=== PATIENT | female | born 1945 | race Two or more races ===

== ENCOUNTER → 2023-12-10 07:30 | Outpatient (REF) | payer MEDICARE, OTHER, SELFPAY ==
[2023-12-10 08:47] LABS: % Basophils 0.6 % (0-2); % Eosinophils 3.2 % (0-6); % Immature Granulocytes 0.7 % (0-0.5); % Lymphocytes 33.6 % (20.5-51.1); % Neutrophils 51.9 % (42.2-75.2); Absolute Basophils 0.1 10^3/uL (0-0.2); Absolute Eosinophils 0.4 10^3/uL (0-0.7); Absolute Immature Granulocytes 0.1 10^3/uL (0-0.05); Absolute Lymphocytes 4.1 10^3/uL (1.2-3.4); Absolute Monocytes 1.2 10^3/uL (0.1-0.6); Absolute Neutrophils 6.4 10^3/uL (1.4-6.5); Hematocrit 38.5 % (37.0-47.0); Hemoglobin 12.9 g/dL (12.0-16.0); Mean Corp Hgb Conc. 33.5 g/dL (33.0-37.0); Mean Corpuscular Hgb 27.4 pg (27.0-31.0); Mean Corpuscular Volume 81.7 fL (81.0-99.0); Mean Platelet Volume 9.8 fL (7.4-10.4); Nucleated Red Blood Cells % 0 %; Platelet Count 413 10^3/uL (130-400); Red Blood Cell Count 4.71 10^6/uL (4.20-5.40); Red Cell Dist. Width 14.6 % (11.5-14.5); White Blood Cell Count 12.2 10^3/uL (4.8-10.8)
[2023-12-10 09:47] LABS: Blood Urea Nitrogen 26 mg/dl (7-17); Calcium 9.5 mg/dl (8.4-10.2); Carbon Dioxide 30 mmol/L (22-30); Chloride 102 mmol/L (98-107); Glucose 87 mg/dl (70-99); Potassium 3.3 mmol/L (3.5-5.1); Sodium 136 mmol/L (135-145); eGFR > 60.00
== END ==
LOC: SDSPAT 07:30
PROVIDERS: ATTENDING PHYSICIAN Student in an Organized Health Care Education/Training Program; FAMILY PHYSICIAN Family Medicine
DX: Z01.818 Encounter for other preprocedural examination (principal)
CPT/HCPCS: 36415; 80048; 85025

== ENCOUNTER → 2023-12-14 06:35 | Day surgery (SDC) | payer MEDICARE, OTHER, SELFPAY ==
[2023-12-10 07:39] VITALS: BMI 28.4
--- NOTE | 2023-12-10 11:20 | PTCARENOTE ---
K+ 3.3Navya at Dr. Lemon's office made aware.
--- NOTE | 2023-12-10 13:47 | PTCARENOTE ---
K+ 3.3 collected today was reviewed by ; no actions requested.
[2023-12-14] VITALS (10 sets, daily range): BP systolic 104–158; BP diastolic 49–83; BMI 28.4
[2023-12-14] MEDS: TYLENOL 1000 MG PO (08:15)
[2023-12-14] MEDS: CELEBREX 200 MG PO (08:15)
[2023-12-14] MEDS: NORMOSOL-R 1000 IV (08:16)
[2023-12-14] MEDS: DILAUDID 0.5 MG IV (14:31)
[2023-12-14] MEDS: DILAUDID 0.25 MG IV (14:59)
== END ==
LOC: SDS 06:35
PROVIDERS: ATTENDING PHYSICIAN Student in an Organized Health Care Education/Training Program
DX: M25.372 Other instability, left ankle (principal); Q66.6 Other congenital valgus deformities of feet
CPT/HCPCS: 28725; 27618

== ENCOUNTER 2024-04-15 14:25 | Emergency (ER) | payer MEDICARE, OTHER, SELFPAY ==
[2024-04-15 14:28] VITALS: BP 163/91
[2024-04-15 15:39] VITALS: BP 154/77
--- NOTE | 2024-04-15 15:51 | ED.GENMED ---
History of Present Illness
General
Chief Complaint: Skin Problem
Source: patient and family
Time Seen by Provider: 04/15/24 15:36
History of Present Illness
History of Present Illness:
79-year-old female with past medical history of hypertension, diverticulitis, polymyalgia rheumatica presenting to the emergency department for evaluation of atraumatic left leg pain for the last week, went to primary care provider and was started
on Bactrim for suspected cellulitis, erythema has improved however patient noting pain is worsening and now traveling up her leg into the thigh area. Patient recently had a screw inserted into her left ankle by Dr. Lemon in December and reports she
also saw him in office and reports that everything was okay with the ankle. Patient also saw dermatology and was recommended just to stay on the Bactrim. Patient is prescribed tramadol for pain secondary to PMR but she reports this is not helping
the pain. Patient denies any trauma, weakness or numbness, chills or rigors, notes she did have a low-grade temperature of 99.6 at the onset of the symptoms but has not had any fever since. No known tick bites. Patient without any other concerns
presently.
Past History
Past History
ED Past Medical History: HTN and Other (Diverticulitis)
ED Past Surgical History: Appendectomy, Cardiac, Cholecystectomy, Gynecological, Orthopedic and Other
Social History
Tobacco: Non-smoker
Alcohol: None
Drug: None
Personal: Single
Living: with family
Review of Systems
Review of Systems
All Other Systems: ROS reviewed and negative except as documented in HPI and ROS
Phy Exam
Physical Exam
Physical Exam:
GENERAL: Alert , in no apparent distress but does appear to have discomfort
EYE: conjunctiva clear
Head: Normocephalic atraumatic
NECK: Supple,
ENT: mmm.
LUNGS: no acute respiratory distress
NEUROLOGICAL: Alert and oriented
SKIN: Warm and dry, there is very faint outline of erythema along the lateral aspect of the lower left leg extending from the proximal ankle to the proximal tibia with tenderness directly over this area. Varicose veins noted
MUSCULOSKELETAL: Patient is easily palpable pedal and tibial pulses. Cap refill less than 2 seconds. Sensation grossly intact to light touch
PSYCH: Normal and appropriate interaction.
Scores
Heart Failure Risk
Heart Failure Risk Score: Not Applicable
Heart Score for Chest Pain Patients
STEMI patient?: Not applicable
Withdrawal Assessment of Alcohol
Withdrawal Assessment Completed?: Not applicable
Course
Orders/Labs/Results
Orders:
Orders
04/15/24 15:49
Oxycodone/Acetaminophen [Percocet 5/325] 1 tablet PO NOW STA
US Periph Venous LOWER Ext LT Urgent
Comment:
Reason For Exam: pain, varicose veins, recent cellulitis
04/15/24 16:07
Basic Metabolic Panel Urgent
Complete Blood Count/With Diff Urgent
Lyme Progressive Urgent
Abnormal Lab Results
04/15/24
16:07
WBC 12.9 H 10^3/uL
(4.8-10.8)
MCV 79.6 L fL
(81.0-99.0)
RDW 14.9 H %
(11.5-14.5)
Plt Count 413 H 10^3/uL
(130-400)
Abs Immat Gran (auto) 0.1 H 10^3/uL
(0-0.05)
Absolute Neuts (auto) 8.9 H 10^3/uL
(1.4-6.5)
Absolute Monos (auto) 1.1 H 10^3/uL
(0.1-0.6)
Lymphocytes % 17.9 L %
(20.5-51.1)
BUN 22 H mg/dl
(7-17)
Creatinine 1.1 H mg/dL
(0.6-1.0)
Glucose 117 H mg/dl
(70-99)
04/15/24 16:07
04/15/24 16:07
Vital Signs
Initial and Last Documented VS:
Initial Vital Signs
Temp Pulse Resp BP Pulse Ox
98.2 F 85 20 163/91 99
04/15/24 14:28 04/15/24 14:28 04/15/24 14:28 04/15/24 14:28 04/15/24 14:28
Last Documented Vital Signs
Temp Pulse Resp BP Pulse Ox
98.2 F 85 20 127/67 95
04/15/24 14:28 04/15/24 14:28 04/15/24 14:28 04/15/24 17:00 04/15/24 17:30
MDM/Problems Addressed
Differential Diagnosis Includes:
cellulitis, DVT, lyme although would not expect pain to be presenting symptom, exacerbation of PMR
MDM/Problems Addressed:
79-year-old female presenting emergency department for atraumatic left lower extremity pain and erythema, recently diagnosed with cellulitis and started on Bactrim with reported improvement of erythema however pain remains and now traveling up the
left leg. Patient did have 1 day of fever earlier in the week but none since. Arrives hemodynamically stable. Does appear mildly uncomfortable. Will treat with 1 dose of p.o. Percocet. Labs ordered including Lyme. Will check ultrasound to rule
out DVT.
Chronic conditions affecting care: Other (PMR)
*Radiology
Radiology exam reviewed: radiology read reviewed
*Pulse Oximetry
Patient hypoxic: no
*Critical Care Note
Total Time (30-74mins, 75-104mins- exclusive of procedures): Not Applicable
Patient Management
Escalation/DeEscalation of care consider admission/obs:
I reviewed the results of patient's lab work and ultrasound with patient and family. Patient did have a leukocytosis of 12.9 however is decreased from earlier this week when she had labs checked and she was around 15,000. Patient may have some
component of a chronic leukocytosis given she is on chronic steroids due to her PMR. Patient's ultrasound is negative for DVT. She notes significantly improved pain following the p.o. Percocet. Had extensive conversation in regards to admission
versus continued outpatient management and given the fact that patient has had improved erythema, and no fevers, improving leukocytosis and now almost resolved pain the patient does feel comfortable being discharged home. Will send patient a
short-term course of Percocet to be used as needed for pain. Advised if she does decide to take Percocet she cannot mix tramadol with this. Discussed potential side effects of Percocet including drowsiness and constipation. Patient will follow-up
with primary care provider. Aware of return precautions to the ER.
ED Attending Note
-
Portions of this chart may have been created with voice recognition software.� Occasional wrong word or��sound alike� substitutions may have occurred due to the inherent limitations of voice recognition software.
Discharge Plan
Departure
Patient Disposition: Home (Routine Discharge)
Date of Disposition: 04/15/24
Time of Disposition: 17:41
Patient with high blood pressure during this ER visit?: Yes
Discharge Problem:
Pain in left lower leg
Instructions: Cellulitis (Skin Infection), Adult (DC)
Prescriptions:
New
oxycodone-acetaminophen [Percocet] 5-325 mg tablet
1 tab PO Q6HPRN PRN (Reason: pain) Qty: 10 0RF
No Action
tramadol 50 mg tablet
50 - 100 mg PO Q6H PRN (Reason: moderate-severe pain) Qty: 30 0RF
amlodipine 5 mg Tablet
5 mg PO DAILY Qty: 1 0RF
methylprednisolone [Methylprednisone] 4 mg Tablet
4 mg PO DAILY
pantoprazole 40 mg Tablet,Delayed Release (Dr/Ec)
40 mg PO DAILY
Premarin 0.3 mg Tablet
0.3 mg PO DAILY
hydrochlorothiazide 12.5 mg Tablet
12.5 mg PO DAILY
Referrals:
Paul Torres, [Family Provider] -
Interventions
Interventions:
*Risk Screen - Suicide Last Done: 04/15/24 14:26
*General Assessment Last Done: 04/15/24 14:28
*Neglect/Abuse Screening Last Done: 04/15/24 16:00
*Nursing Disposition Last Done: 04/15/24 17:58
ED-Skin Assessment Last Done: 04/15/24 16:00
Discharge Date and Time
Discharge Date/Time: 04/15/24 17:59
Print Language: MACEDONIAN
[2024-04-15 16:00] VITALS: BP 138/55
[2024-04-15 16:26] LABS: % Basophils 0.5 % (0-2); % Eosinophils 4.3 % (0-6); % Immature Granulocytes 0.4 % (0-0.5); % Lymphocytes 17.9 % (20.5-51.1); % Monocytes 8.2 % (1.7-9.3); % Neutrophils 68.7 % (42.2-75.2); Absolute Basophils 0.1 10^3/uL (0-0.2); Absolute Eosinophils 0.6 10^3/uL (0-0.7); Absolute Immature Granulocytes 0.1 10^3/uL (0-0.05); Absolute Lymphocytes 2.3 10^3/uL (1.2-3.4); Absolute Monocytes 1.1 10^3/uL (0.1-0.6); Absolute Neutrophils 8.9 10^3/uL (1.4-6.5); Hematocrit 39.1 % (37.0-47.0); Hemoglobin 13.3 g/dL (12.0-16.0); Mean Corpuscular Hgb 27.1 pg (27.0-31.0); Mean Corpuscular Volume 79.6 fL (81.0-99.0); Mean Platelet Volume 9.5 fL (7.4-10.4); Nucleated Red Blood Cells % 0 %; Platelet Count 413 10^3/uL (130-400); Red Blood Cell Count 4.91 10^6/uL (4.20-5.40); Red Cell Dist. Width 14.9 % (11.5-14.5); White Blood Cell Count 12.9 10^3/uL (4.8-10.8)
[2024-04-15 16:37] LABS: Blood Urea Nitrogen 22 mg/dl (7-17); Carbon Dioxide 25 mmol/L (22-30); Chloride 99 mmol/L (98-107); Glucose 117 mg/dl (70-99); Potassium 4.8 mmol/L (3.5-5.1); Sodium 138 mmol/L (135-145); eGFR 51.11
[2024-04-15] MEDS: PERCOCET 5/325 1 TABLET PO (16:44)
[2024-04-15 16:50] VITALS: BP 148/66
[2024-04-15 17:00] VITALS: BP 127/67
[2024-04-18 11:23] LABS: Lyme Antibody Screen, EIA Negative (Negative)
== END 2024-04-15 17:59 | disposition home or self-care (01) ==
LOC: EMR 14:25
PROVIDERS: Physician Assistant Medical; EMERGENCY PHYSICIAN Emergency Medicine; FAMILY PHYSICIAN Family Medicine
DX: M79.662 Pain in left lower leg (principal); I83.90 Asymptomatic varicose veins of unspecified lower extremity; D72.829 Elevated white blood cell count, unspecified; I10 Essential (primary) hypertension; M35.3 Polymyalgia rheumatica; Z90.49 Acquired absence of other specified parts of digestive tract
CPT/HCPCS: 99284; 80048; 85025; 86618; 93971

== ENCOUNTER 2025-05-22 16:18 | Inpatient (IN) | payer MEDICARE, OTHER, SELFPAY ==
[2025-05-22] VITALS (9 sets, daily range): BP systolic 92–162; BP diastolic 47–81; BMI 28.4; BMI 27.6
--- NOTE | 2025-05-22 10:45 | ED.GENMED ---
History of Present Illness
General
Chief Complaint: Weakness
Source: patient
Exam Limitations: none
Time Seen by Provider: 05/22/25 10:35
History of Present Illness
History of Present Illness:
See MDM
Past History
Past History
ED Past Medical History: HTN and Other (Diverticulitis)
ED Past Surgical History: Appendectomy, Cardiac, Cholecystectomy, Gynecological, Orthopedic and Other
Social History
Tobacco: Non-smoker
Alcohol: None
Drug: None
Personal: Single
Living: with family
Phy Exam
Physical Exam
Physical Exam:
See MDM
Course
Orders/Labs/Results
Orders:
Orders
05/22/25 10:44
0.9% Sodium Chloride 1000 ml [Nss] 1,000 ml IV BOLUS
05/22/25 10:45
Electrocardiogram (*1) Urgent
Reason for Study: Fatigue / Weakness
EKG- Treatment ONCE
05/22/25 11:01
Basic Metabolic Panel Urgent
Complete Blood Count/With Diff Urgent
Lipase Urgent
TSH Reflex To Free T4 Urgent
Troponin I Urgent
Urinalysis Reflex To Culture Urgent
Date Specimen was Collected: 05/22/25
Time Specimen was Collected: 10:54
Urine Microscopic Reflex Cult Urgent
Urine Culture Urgent
AILYN Source: U
Specimen Description:
Date Specimen was Collected: 05/22/25
Time Specimen was Collected: 10:54
05/22/25 12:03
LevoFLOXacin 500 MG/100 ML [Levaquin] 500 mg in 100 ml IV NOW
05/22/25 13:23
CR Chest - 2 Views Urgent
Comment:
Reason For Exam: SOB
05/22/25 13:32
Electrocardiogram (*1) Urgent
Reason for Study: Chest Pain
EKG- Treatment ONCE
05/22/25 13:46
CMP [Comprehensive Metabolic Panel] Urgent
Troponin I Urgent
05/22/25 13:59
Mag Hydrox/Al Hydrox/Simeth [Maalox] 30 ml PO NOW STA
05/22/25 14:47
CARDIOLOGY CONSULT Urgent
Consulting Provider: Neto Briggs
Was physician already notified: Yes
Aspirin Chewable [Low Strength Aspirin] 324 mg PO NOW STA
Heparin 4,000 units IV NOW STA
Pharmacy Request to Place See Dose Instructions PO NOW STA
Discontinue all Active Warfarin orders?: Yes
05/22/25 14:48
PTT Urgent
Comment: Obtain baseline before beginning heparin infusion if not already collected
Nursing to Place Non Medication Order As Directed
Physician Order: PTT 6 hours after initial start of Heparin infusion
05/22/25 15:00
Heparin 48454 Units/250 ml 25,000 units in 250 ml IV PER PROTOCOL
Weight to be used for heparin protocol in kilograms (kg):: 65.9
Protocol:: Cardiac Tx/Acute Coronary
PTT Goal Range to be used:: PTT 73 to 111 seconds
Order type:: Initial
INITIAL Infusion Dose (UNITS/KG/hr) & then follow protocol:: 12 units/kg/hr
Infusion Dose in UNITS/hr & then follow protocol (UNITS/hr):: 800
INFUSION RATE in mL/hr & then follow protocol (mL/hr):: 8
PTT less than or equal to 64 seconds:: Increase rate by 200 units/hr (+ 2 mL/hr)
PTT 64.1 to 72.9 seconds:: Increase rate by 100 units/hr (+ 1 mL/hr)
PTT 73 to 111 seconds:: Target Range. No change in rate.
PTT 111.1 to 130.9 seconds:: Decrease rate by 100 units/hr (- 1 mL/hr)
PTT 131 to 199.9 seconds:: HOLD for 1 hr. Then decrease rate by 200 units/hr (- 2 mL/hr)
PTT greater than or equal to 200 seconds:: HOLD for 2 hrs & Notify Provider. Then decrease by 200 units/hr (-
2 mL/hr)
Lab follow-up:: Each change, PTT q6h until 2 consecutive are therapeutic. Then PTT
daily.
Pharmacy Request to Place See Dose Instructions IV DIRECTED
Abnormal Lab Results
05/22/25 05/22/25
11:01 13:46
WBC 18.0 H 10^3/uL
(4.8-10.8)
MCH 26.9 L pg
(27.0-31.0)
MCHC 32.7 L g/dL
(33.0-37.0)
RDW 15.7 H %
(11.5-14.5)
Abs Immat Gran (auto) 0.3 H 10^3/uL
(0-0.05)
Absolute Neuts (auto) 13.1 H 10^3/uL
(1.4-6.5)
Absolute Monos (auto) 1.8 H 10^3/uL
(0.1-0.6)
Immature Gran % 1.4 H %
(0-0.5)
Lymphocytes % 14.4 L %
(20.5-51.1)
Monocytes % 9.9 H %
(1.7-9.3)
Potassium 3.4 L mmol/L
(3.5-5.1)
Chloride 111 H mmol/L
(98-107)
BUN 25 H mg/dl 20 H mg/dl
(7-17) (7-17)
Glucose 153 H mg/dl
(70-99)
Calcium 8.2 L mg/dl
(8.4-10.2)
Troponin I 0.037 H* D ng/ml
Total Protein 5.6 L g/dl
(6.3-8.2)
Albumin 3.3 L g/dl
(3.5-5.0)
Ur Occult Blood Reflex 1+ A
(Negative)
Leukocyte Esterase Rfl 2+ A
(Negative)
Urine Bacteria (Reflex) Few A
(Negative)
Urine Albumin (Reflex) 1+ A
(Neg - Trace)
05/22/25 11:01
05/22/25 13:46
Vital Signs
Initial and Last Documented VS:
Initial Vital Signs
Temp Pulse Resp BP Pulse Ox
98.1 F 88 18 151/78 98
05/22/25 10:04 05/22/25 10:04 05/22/25 10:04 05/22/25 10:04 05/22/25 10:04
Last Documented Vital Signs
Temp Pulse Resp BP Pulse Ox
98.1 F 91 24 92/47 95
05/22/25 10:04 05/22/25 14:15 05/22/25 14:15 05/22/25 14:01 05/22/25 13:45
MDM/Problems Addressed
Differential Diagnosis Includes:
Note:
CHIEF COMPLAINT(S)
Weakness and fatigue.
HISTORY OF PRESENT ILLNESS
The patient is an 80-year-old female with a history of polymyalgia rheumatica (PMR), sleep apnea, and aortic valve stenosis. She presents with generalized weakness and fatigue that began approximately one week ago. The patient was initially treated
with cephalexin for an infected bursa on her elbow. During follow-up with her primary care provider, a urinary tract infection (UTI) was suspected due to an elevated white blood cell count, with cephalexin being administered again. The family
expressed concern about the appropriateness of cephalexin, suspecting a different infection. Last night, the family administered trimethoprim-sulfamethoxazole to address the UTI. The patient has been experiencing ongoing weakness and fatigue. The
family is concerned about her hydration status, as the patient consumes minimal fluids, and she reports tingling and weakness in her arm and shoulder due to a bone spur, which was treated with an injection.
PAST MEDICAL AND SURGICAL HISTORY
- Polymyalgia Rheumatica (PMR), treated with methylprednisolone.
- Aortic valve stenosis, monitored by a end touching machine operator at [place].
- Sleep apnea.
CHRONIC MEDICAL CONDITIONS SIGNIFICANTLY AFFECTING CARE
Chronic conditions affecting care include polymyalgia rheumatica, aortic valve stenosis, and dehydration concerns due to insufficient fluid intake related to age-associated changes in thirst regulation.
PHYSICAL EXAM
General: Alert, no acute distress.
Skin: Warm, dry.
Head: Normocephalic, atraumatic
Neck: Appears supple, trachea midline.
Eyes, Ears, Nose, Mouth, and Throat: Dry mucous membranes
Cardiovascular: No signs of cyanosis. Regular rate and rhythm. Systolic murmur noted
Respiratory: Respirations are non-labored. Lungs clear
Abdomen: Non-distended
Musculoskeletal: No pitting edema
Neurological: No focal neurological deficit observed.
Psychiatric: Cooperative, appropriate mood and affect.
PLAN
- Initiate basic laboratory blood tests and urinalysis to identify any underlying infections or abnormalities.
- Administer intravenous fluids to address potential dehydration.
- Conduct an electrocardiogram (EKG) to assess for any cardiac-related causes of symptoms.
DIFFERENTIAL DIAGNOSIS
The Differential Diagnosis includes, in no particular order and is not limited to:
- Dehydration
- Urinary Tract Infection
- Recurrent infection (bursal or other)
- Hyponatremia
- Cardiovascular-related weakness due to aortic stenosis
- Electrolyte imbalance
- Medication side effects
- Polymyalgia rheumatica exacerbation
- Age-related physiological changes
- Hypothyroidism
SUMMARY OF ENCOUNTER
The patient, an 80-year-old female with a history of PMR, aortic valve stenosis, and sleep apnea, was seen in the emergency department for weakness and fatigue. The evaluation considered possible dehydration, caffeine-induced diuresis, inadequate
oral intake, and ongoing infections. Emphasis was placed on the importance of adequate fluid intake, especially considering her aortic stenosis. Baseline blood tests, urinalysis, intravenous fluids administration, and an EKG were planned to further
elucidate the cause of her symptoms and guide treatment.
MEDICATION RECONCILIATION
- Last night, trimethoprim-sulfamethoxazole was administered by the family for UTI.
- Chronic medication: Methylprednisolone as part of the PMR regimen.
MEDICAL DECISION MAKING
-Complexity of Data Reviewed: Chronic conditions affecting care include polymyalgia rheumatica, aortic valve stenosis, sleep apnea, and suspected dehydration. The differential diagnosis includes dehydration, urinary tract infection, recurrent
infection, hyponatremia, cardiovascular-related weakness, electrolyte imbalance, medication side effects, exacerbation of PMR, age-related changes, and hypothyroidism.
-Data:
Category 1:
Tests and documents including basic laboratory blood tests, urinalysis for infection suspicions, and an independently interpreted EKG.
Category 2:
No data obtaining assistance from an independent historian mentioned.
Category 3:
Discussion with patients family regarding management and appropriateness of antibiotic regimen.
-Risk:
Risks considered in the ED management include dehydration and electrolyte imbalance given aortic stenosis and minimal oral fluid intake.
DIAGNOSIS
- Generalized Weakness (R53.1)
- Dehydration (E86.0)
- Urinary Tract Infection, unspecified (N39.0)
- Aortic valve stenosis (I35.0)
- Polymyalgia rheumatica (M35.3)
- Shoulder bursitis due to spur (M75.50)
05/22/25 - 13:24
Patient reports feeling somewhat better but exhibits significant shortness of breath and fatigue after ambulating to the bathroom. Appears too uncomfortable for discharge. Plan to obtain a chest x-ray and proceed with hospital admission.
SUMMARY OF ENCOUNTER
The patient, an 80-year-old female with a history of polymyalgia rheumatica, aortic valve stenosis, and sleep apnea, presented to the emergency department with generalized weakness, fatigue, and recent onset of shortness of breath. Initial work-up
included a chest x-ray, which was clear, and serial troponin tests. The patient became extremely short of breath and tachycardic after ambulating to the bathroom, and also complained of indigestion-type pain. The second troponin level was elevated,
raising suspicions for acute coronary syndrome.
DISPOSITION
Admit
ASSESSMENT
High suspicion of acute coronary syndrome due to elevated troponin levels and symptomatic presentation.
EMERGENCY TREATMENTS ADMINISTERED
The patient was placed on heparin and given aspirin.
MANAGEMENT OF THE PATIENTS CARE WAS DISCUSSED WITH
The cardiology team will evaluate the patient, and the hospitalist team is aware of the situation.
PLAN
Continue with cardiology evaluation and admit the patient for further monitoring and management.
INDEPENDENT REVIEW OF LABS AND INTERPRETATION OF TESTS
My independent review of troponin tests reveals that the initial troponin was negative, but the second troponin was elevated, indicating potential acute coronary syndrome.
MEDICATION RECONCILIATION
Heparin and aspirin were administered as part of the acute management for suspected acute coronary syndrome.
MEDICAL DECISION MAKING
-Complexity of Data Reviewed: Chronic conditions affecting care including polymyalgia rheumatica, aortic valve stenosis, and sleep apnea. Differential diagnosis includes dehydration, urinary tract infection, recurrent infection, hyponatremia,
cardiovascular-related weakness, electrolyte imbalance, medication side effects, exacerbation of PMR, age-related changes, and hypothyroidism.
-Data:
Category 1
Lab tests included serial troponin levels due to suspicion of acute coronary syndrome.
Category 3
Discussion of management with cardiology and hospitalist teams due to elevated troponin levels and symptomatic presentation.
-Risk:
Risks considered include the elevated troponin levels indicating potential acute coronary syndrome and the patients history of aortic valve stenosis affecting blood pressure stability.
DIAGNOSIS
- Acute coronary syndrome, suspected (I24.9)
- Aortic valve stenosis (I35.0)
- Polymyalgia rheumatica (M35.3)
*Pulse Oximetry
SaO2: 98
Oxygen Mode of Delivery: Room air
Patient hypoxic: no
*Critical Care Note
Total Time (30-74mins, 75-104mins- exclusive of procedures): 35 min
comment:
The high probability of a clinically significant, sudden or life threatening deterioration of the cardiovascular system(s) required my full and direct attention, intervention and personal management. The aggregate critical care time was 35 minutes.
This time is in addition to time spent performing reported procedures but includes the following:
[x] Data Review and interpretation
[x] Patient assessment and monitoring of vital signs
[x] Documentation
[x] Medication orders and management
ED Attending Note
-
Portions of this chart may have been created with voice recognition software.� Occasional wrong word or��sound alike� substitutions may have occurred due to the inherent limitations of voice recognition software.
Discharge Plan
Departure
Patient Disposition: Admit
Date of Disposition: 05/22/25
Time of Disposition: 14:53
Admit to: Telemetry
Presentation/result/management discussed w/ accepting MD/DO: Hospitalist
Patient with high blood pressure during this ER visit?: Yes
Discharge Problem:
Acute UTI
Instructions: Urinary tract infection in adults - ED (DC), BLOOD PRESSURE
Prescriptions:
No Action
amlodipine 5 mg Tablet
5 mg PO DAILY Qty: 1 0RF
methylprednisolone [Methylprednisone] 4 mg Tablet
4 mg PO DAILY
pantoprazole 40 mg Tablet,Delayed Release (Dr/Ec)
40 mg PO DAILY
hydrochlorothiazide 12.5 mg Tablet
12.5 mg PO DAILY
sucralfate 1 gram tablet
1 g PO QIDPRN PRN (Reason: abdominal pain)
famotidine 40 mg tablet
40 mg PO DAILY
valsartan 320 mg Tablet
320 mg PO DAILY
rosuvastatin 10 mg tablet
10 mg PO DAILY
tramadol 50 mg tablet
50 mg PO Q6H PRN (Reason: moderate-severe pain)
Referrals:
Paul Torres DO [Family Provider, Family Practice]
Activity Restrictions/Additional Instructions:
Please return for any worsening symptoms.
You may return at any time if you have further concerns.
Please follow up with your doctor at the first available appointment, preferably this week.
Thank you for choosing [facility].
Interventions
Interventions:
*Risk Screen - Suicide Last Done: 05/22/25 10:04
*General Assessment Last Done: 05/22/25 10:04
*Neglect/Abuse Screening Last Done: 05/22/25 11:13
*ED- Fall Risk Assessment Last Done: 05/22/25 11:09
*ED COVID-19 Vaccine History Last Done: 05/22/25 11:09
*ED Influenza Vaccine History Last Done: 05/22/25 11:09
ED- Cardiac Assessment Last Done: 05/22/25 11:10
ED- Neurological Assessment Last Done: 05/22/25 11:10
ED- Pulmonary Assessment Last Done: 05/22/25 11:10
Discharge Date and Time
Print Language: [id number]
[2025-05-22] MEDS: NSS 1000 IV (11:04)
[2025-05-22 11:15] LABS: Hematocrit 41.0 % (37.0-47.0); Hemoglobin 13.4 g/dL (12.0-16.0); Mean Corp Hgb Conc. 32.7 g/dL (33.0-37.0); Mean Corpuscular Volume 82.3 fL (81.0-99.0); Nucleated Red Blood Cells % 0 %; Platelet Count 359 10^3/uL (130-400); Red Cell Dist. Width 15.7 % (11.5-14.5)
[2025-05-22 11:17] LABS: Urine Character Clear (Clear)
[2025-05-22 11:37] LABS: Blood Urea Nitrogen 25 mg/dl (7-17); Calcium 9.3 mg/dl (8.4-10.2); Carbon Dioxide 23 mmol/L (22-30); Chloride 107 mmol/L (98-107); Estimated Creatinine Clearance 48 ml/min; Glucose 97 mg/dl (70-99); Lipase 267 U/L (23-300); Sodium 135 mmol/L (135-145); eGFR > 60.00
[2025-05-22 11:42] LABS: Troponin I 0.028 ng/ml
[2025-05-22 11:43] LABS: Urine Red Blood Cell 0-2 /HPF (0-2)
[2025-05-22] MEDS: LEVAQUIN 100 IV (12:16)
[2025-05-22] MEDS: MAALOX 30 ML PO (14:04)
[2025-05-22 14:08] LABS: ALT (SGPT) 30 U/L (0-35); AST (SGOT) 18 U/L (14-36); Albumin 3.3 g/dl (3.5-5.0); Alkaline Phosphatase 55 U/L (38-126); Blood Urea Nitrogen 20 mg/dl (7-17); Calcium 8.2 mg/dl (8.4-10.2); Carbon Dioxide 22 mmol/L (22-30); Chloride 111 mmol/L (98-107); Estimated Creatinine Clearance 48 ml/min; Glucose 153 mg/dl (70-99); Potassium 3.4 mmol/L (3.5-5.1); Sodium 139 mmol/L (135-145); Total Protein 5.6 g/dl (6.3-8.2); eGFR > 60.00
[2025-05-22 14:31] LABS: Troponin I 0.037 ng/ml
--- NOTE | 2025-05-22 14:49 | HPS.HSE ---
Addendum entered and electronically signed by Flavia Cardona MD 05/22/25 15:44:
This is an addendum to H&P written by Rosana Braswell on 05/22/2025. �Patient seen and examined independently with [facility].
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
and prolonged immobility with negative hypercoagulable work, obstructive sleep apnea on CPAP, polymyalgia rheumatica, presenting for chest/epigastric pain for past few weeks. �Occurs usually with exertion also shortness of breath with exertion. �Not
hypoxic.
�Has chronic left lower extremity from pin in her left leg. �Has recently had some right lower extremity swelling.
She is taking NSAIDs. �She is on prophylactic sucralfate for ulcer prophylaxis.
She was treated for left elbow cellulitis treated with Keflex. �While on Keflex she was told that she had a UTI on urinalysis despite not having symptoms.
She self started on Bactrim last night
Vital signs unremarkable. �Blood pressure 92/47. �On examination she is tender in the epigastric region.
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
Labs show potassium 3.4. �Troponin 0.037. �Leukocytosis of 18 from baseline of around 12. �Urinalysis unremarkable. �Chest x-ray appears to be unremarkable, report pending.
Patient with atypical chest pain suspect GERD/gastric ulcer versus ACS. �Aspirin and heparin drip started. �Cardiology consulted. �Check D-dimer. �Hold antihypertensive medications due to hypotension. �Recommend that she stop taking ibuprofen.
Recently started on antibiotics for suppose a UTI but doubt she ever had a UTI. �Given Levaquin in ER but stop antibiotics. Leukocytosis likely from steroids but higher than usual.�
Hypokalemia secondary to hydrochlorothiazide. �Repeat potassium.
Original Note:
Family Physician
-
Family Physician: Paul Torres
Chief Complaint
-
Epigastric pain, generalized weakness
History of Present Illness
80-year-old female with a history of polymyalgia rheumatica (PMR), sleep apnea, aortic valve stenosis, essential hypertension, GERD, HLD, diverticulitis presented to us with epigastric pain for past few days, which got worse today. her Urine
analysis were positive for UTI last Thursday and well as she had left elbow pain, infection for which she was treated with cephalexin.last night she was started on Bactrim due to elevated wbc. patient stated upper shoulder, back and upper chest pain.
denied sob. denied SUMNER, dizzy or syncope.denied n,v. denied dysuria or hematuria, urinary frequency and urgency. she was having diarrhea on abx but stopped now on probiotics.
upon arrival she was noted to have elevated trop. Initiated on aspirin, heparin. Admitted for further management
Medical History
Past Medical History
Past Medical History: Reports Other
Additional Past Medical History:
Sleep apnea, PMR, hypertension, diverticulitis with bowel perforation, aortic stenosis, hypertension, GERD
Past Surgical History: Reports Other
Additional Past Surgical History:
Bunionectomy, bowel resection, abdominal wall repair, laminectomy
Social History
Tobacco: Non-smoker
Alcohol: None
Drug: None
Living: With Family
Family History
Family History: Not pertinent
Allergies / Home Medications
Allergies reflects when Allergies were last updated in [facility].
Home Medications with original date entered in [facility]
Allergy/Medication List:
Allergies
Allergy/AdvReac Type Severity Reaction Status Date / Time
No Known Allergies Allergy Verified 05/22/25 10:05
Home Medications
amlodipine 5 mg tablet 5 mg PO DAILY Blood Pressure #1 tab 01/15/23
hydrochlorothiazide 12.5 mg tablet 12.5 mg PO DAILY 12/09/23
methylprednisolone 4 mg tablet 4 mg PO DAILY 12/09/23
pantoprazole 40 mg tablet,delayed release 40 mg PO DAILY 12/09/23
famotidine 40 mg tablet 40 mg PO DAILY 05/22/25
rosuvastatin 10 mg tablet 10 mg PO DAILY 05/22/25
sucralfate 1 gram tablet 1 g PO QIDPRN PRN abdominal pain 05/22/25
tramadol 50 mg tablet 50 mg PO Q6H PRN moderate-severe pain 05/22/25
valsartan 320 mg tablet 320 mg PO DAILY 05/22/25
Review of Systems
-
Constitutional: Reports No Symptoms
EENT: Reports No Symptoms
Respiratory: Reports No Symptoms
Cardiac: Reports Chest Pain
Abdomen/GI: Reports No Symptoms
: Reports No Symptoms
Musculoskeletal: Reports No Symptoms
Skin: Reports No Symptoms
Neurological: Reports No Symptoms
Endocrine: Reports No Symptoms
Hematologic/Lymphatic: Reports No Symptoms
Psych: Reports No Symptoms
Physical Exam
Vital Signs
Vital Signs
Temp Pulse Resp BP Pulse Ox
98.1 F 91 24 92/47 95
05/22/25 10:04 05/22/25 14:15 05/22/25 14:15 05/22/25 14:01 05/22/25 13:45
Physical Exam
General: Well Developed, Well Nourished and No Apparent Distress
HEENT: NormoCephalic, Moist mucous membranes and Atraumatic
Respiratory: Clear
Cardiac: S1/S2 and Regular Rhythm; No Murmur or Rub
GI: Soft, Non Tender, Non Distended and Normal Bowel Sounds; No Organomegaly
Rectal: Deferred by Provider
Musculoskeletal: No Clubbing, No Cyanosis and No Edema
Skin: No Rash
Neuro: AO x 3 and Nonfocal/grossly intact
Psych: Calm
Laboratory Results
-
05/22/25 11:01
05/22/25 13:46
Laboratory Results
Total Bilirubin 0.3 mg/dl (0.2-1.3) 05/22/25 13:46
AST 18 U/L (14-36) 05/22/25 13:46
ALT 30 U/L (0-35) 05/22/25 13:46
Alkaline Phosphatase 55 U/L (38-126) 05/22/25 13:46
Troponin I Cancelled 05/22/25 13:48
Lipase 267 U/L (23-300) 05/22/25 11:01
Data Reviewed
-
Diagnostic Radiology: Report Reviewed by me
Lab Data: Labs Reviewed by me
Impression/Plan
-
# Concern for UTI
- WBCs 18.0, chronically elevated due to sterids
-patient is afebrile
-UA negative
-received a dose of Levaquin in the ER
-will defer abx
-UA negative
# Hypokalemia likely from oral diuretics
- K3.4
-oral kcl
-BMP in am
# Elevated Trope concern for NSTEMI
- Trop 0.037
- Continue to trend Trope
- Heparin
- Aspirin continued
-cardiology consulted
# Essential hypertension
--At present patient is hypotensive
- Norvasc, HCTZ, valsartan held due to hypotension
# GERD
- Famotidine, Protonix continued
# PMR
- Methylprednisone continued
# Hyperlipidemia
- Statin continue
# DVT prophylaxis
- Heparin subcu
# CODE STATUS
- Full code
[2025-05-22] MEDS: LOW STRENGTH ASPIRIN 324 MG PO (14:57)
[2025-05-22] MEDS: HEPARIN 4000 UNITS IV (15:00)
--- NOTE | 2025-05-22 15:08 | CON.CAR ---
Addendum entered and electronically signed by Neto Briggs MD 05/22/25 16:43:
I saw and examined the patient.
The METAL PATTERN[employer]KER or PA's note was reviewed and I agree with the note.
Comment: General: Well developed, well nourished in NAD.
Neck: Supple, no JVD, HJR, carotids +2 B/L, no bruits bilaterally.
Heart: Non displaced PMI, RRR, 2/6 basal systolic murmur, No S3, S4, no rubs.
Lungs: Clear to auscultation bilaterally, no wheeze, rhonchi, rubs bilaterally,
normal expiratory phase.
Extremities: No clubbing, cyanosis or edema bilaterally.
Neuro: Grossly nonfocal, awake, alert and oriented x3.
Andreina has a history of moderate aortic stenosis, PMR, sleep apnea, hypertension, hyperlipidemia, GERD. She presented to the ER with generalized weakness shortness of breath and fatigue. She has had worsening fatigue over the past couple months.
Of note she was treated for an infected bursa on her elbow 1 week ago and also urinary tract infection on Keflex. In the ER troponin was mildly elevated and admitted for further workup and treatment. She denies any chest pain.
Unclear what is the cause of her symptoms. It is doubtful that her aortic stenosis would worsen so significantly to cause symptoms at such a low level. However we will repeat echocardiogram and compared to echocardiogram done at [place] in the summer
2024. Will also track troponins. If aortic stenosis is relatively stable but consider ischemic evaluation versus continued close follow-up with outpatient by her outpatient flight control specialist at [place]. Discussed with patient and in detail.
Original Note:
Consultation
Consultation Request
Date/Time Consultation Requested: 05/22/2025
Date/Time Consultation Performed: 05/22/2025
Requesting Provider: Dr. Schuler
Performing Provider: Angelique Gomez PA-C for Dr. Briggs
Reason for Consultation: Shortness of breath, epigastric discomfort
Medical History
-
History of Present Illness:
Patient is an 80-year-old female with past medical history significant for aortic stenosis, polymyalgia rheumatica, obstructive sleep apnea, hypertension, hyperlipidemia and GERD who presented to emergency department 05/30/2025 with generalized
weakness, shortness of breath and fatigue. Patient recently treated as outpatient for infected bursa on elbow (1 week ago) and urinary tract infection and was on cephalexin. Due to ongoing weakness and fatigue family brought patient to emergency
department for concern of dehydration. Presenting EKG showed sinus rhythm with right bundle branch block/LAFB at 81 bpm. Initial troponin was negative. Patient was found to have elevated white count of 18. Patient was treated with IV fluids and
IV Levaquin. As patient was getting ready to be discharged she ambulated to bathroom felt very short of breath and was tachycardic. Repeat troponin was obtained which is mildly elevated at 0.037. Cardiology now being consulted for abnormal
troponin, shortness of breath and tachycardia.
Patient follows with Dr. Rangel Pimentel of [facility]. I was able to obtain records. She was last seen in January 2024. Patient and son report they did see Dr. Inocencio Darby at [place] in January 2025 and had an echo. She
reports over the last 1 to 2 months progressive shortness of breath and finds difficulty in walking up a flight of steps without having to stop. In general she has noted some increased weakness with activity. She has intermittent tightness like a
belt around her chest underneath her left breast which can occur without rhyme or reason. Son reports she did have abdominal surgery with mesh years ago and was told she will have intermittent pain and bandlike fashion for some time. She also has
history of PE provoked by surgery.
Past medical history:
Aortic stenosis
Hypertension
Hyperlipidemia
Right bundle branch block
Statin intolerance
GERD
Obstructive sleep apnea
Polymyalgia rheumatica
History of UTI
Varicose veins
History of pulmonary embolus related to surgery
Past Medical History
Past Medical History: Other (See HPI)
Past Surgical History: Appendectomy, Bowel Resection (Bowel perforation with resection 2016), Cholecystectomy, Gynecological (Hysterectomy), Orthopedic (Bunionectomy, laminectomy 03/2023, left foot lipoma excision 12/2023, knee replacement) and Other
(Abdominal incisional wall hernia repair, eyelid surgery)
Social History
Tobacco: Non-Smoker
Alcohol: None
Drug: None
Living: With Family
Employment: Retired (But still works part-time 2 days a week at [employer] in the [employer])
Family History
Family History: Hypertension and Other (COPD)
Allergies / Home Medications
Allergy/AdvReac Type Severity Reaction Status Date / Time
No Known Allergies Allergy Verified 05/22/25 10:05
�Medication �Instructions �Recorded �Confirmed �Type
amlodipine 5 mg tablet 5 mg PO DAILY Blood Pressure #1 tab 01/15/23 05/22/25 Rx
hydrochlorothiazide 12.5 mg tablet 12.5 mg PO DAILY 12/09/23 05/22/25 History
methylprednisolone 4 mg tablet 4 mg PO DAILY 12/09/23 05/22/25 History
pantoprazole 40 mg tablet,delayed 40 mg PO DAILY 12/09/23 05/22/25 History
release
famotidine 40 mg tablet 40 mg PO DAILY 05/22/25 05/22/25 History
rosuvastatin 10 mg tablet 10 mg PO DAILY 05/22/25 05/22/25 History
sucralfate 1 gram tablet 1 g PO QIDPRN PRN abdominal pain 05/22/25 05/22/25 History
tramadol 50 mg tablet 50 mg PO Q6H PRN moderate-severe 05/22/25 05/22/25 History
pain
valsartan 320 mg tablet 320 mg PO DAILY 05/22/25 05/22/25 History
Review of Systems
-
History Source: Patient and Family
All other systems: Negative unless noted
Physical Exam
Vital Signs
Temp Pulse Resp BP Pulse Ox
98.1 F 91 24 92/47 95
05/22/25 10:04 05/22/25 14:15 05/22/25 14:15 05/22/25 14:01 05/22/25 13:45
GEN: No distress, awake, Ox3, lying in bed on room air
HEENT: supple, anicteric, mmm
LUNGS: CTA, no wheezes/rales
CV: Reg, S1/S2, 2/6 syst radiating murmur loudest at right sternal border
ABD: soft, BS+, NT/ND
EXT: Trace edema bilaterally left greater than right
NEURO: Gross non-focal
SKIN: No rash, warm, dry, pink
Lab Results
05/22/25 11:01
05/22/25 13:46
Troponin I Cancelled 05/22/25 13:48
Impression / Plan
-
PCP: Paul Torres
Obstetrics/Gynecology Nurse: Jean Sauer [facility]. Did see Inocencio Darby at [place] for second opinion
Impression:
Presented 05/22/2025 with generalized weakness, shortness of breath and fatigue
UTI
Leukocytosis
Shortness of breath
Abnormal troponin
Abnormal D-dimer
Aortic stenosis
Hypertension
Hyperlipidemia
Right bundle branch block
Statin intolerance
GERD
Obstructive sleep apnea
Polymyalgia rheumatica
History of UTI
Varicose veins
History of pulmonary embolus related to surgery
Echo 12/14/2024 ([place]): EF 65 to 70%. Mild concentric LVH. Mitral valve thickening without significant stenosis. Moderate aortic stenosis with peak/mean gradient 57/30 mmHg and JUVENCIO 1.3 cm�. Mild AI.
Echo 12/10/2023: EF 65 to 70%. Concentric LVH. Moderate aortic stenosis with peak/mean gradient 49/25 mmHg, AVR 1.22 cm�.
Echo 03/18/2022: Normal LV size and function. Mild concentric LVH. Aortic calcification with no significant stenosis.
Cardiac catheterization 03/19/2022: LM: Patent. LAD: Patent. Left circumflex 50 to 60% mid stenosis with FFR of 0.87
Plan:
- Presented 05/22/2025 with generalized weakness, shortness of breath and fatigue. Also notes bandlike chest discomfort.
- Admits to recent UTI and infected bursa of elbow on cephalexin x 1 week
- Over the last several months admits to progressively worsening shortness of breath particularly it with activities like walking up steps or long distance. Patient was found to be tachycardic and dyspneic while ambulating back and forth to
bathroom in emergency department.
-EKG demonstrates sinus rhythm with right bundle branch block/LAFB. No acute ischemic changes
- Chest x-ray no acute cardiopulmonary abnormality. D-dimer elevated at 1.24. Patient has prior history of PE provoked after surgery. Family reports she had hypercoagulable workup which was unremarkable. Consider checking CT of chest to rule out
PE.
- Patient now on heparin drip.
- Check proBNP although patient does not appear to be acutely volume overloaded
- Abnormal troponin, initial negative but repeat 0.037. Continue to trend to peak. EKG without ischemic changes. Does complain of intermittent bandlike discomfort across lower ribs.
- Start aspirin.
- Patient had cardiac catheterization in 2021 which showed 50 to 60% mid circumflex stenosis with negative FFR.
- Patient has known aortic stenosis which was moderate with peak/mean gradient 57/30 mmHg with JUVENCIO 1.3 cm� on echo in December 2024 at [place]. Would repeat echo this admission.
- Continue amlodipine, valsartan. Patient has statin intolerance.
- Obtained and reviewed outpatient cardiology records from Dr. Pimentel as well as Dr. Darby.
Plan discussed with patient, patient's son at bedside.
HPI 05/22/2025:
Patient is an 80-year-old female with past medical history significant for aortic stenosis, polymyalgia rheumatica, obstructive sleep apnea, hypertension, hyperlipidemia and GERD who presented to emergency department 05/30/2025 with generalized
weakness, shortness of breath and fatigue. Patient recently treated as outpatient for infected bursa on elbow (1 week ago) and urinary tract infection and was on cephalexin. Due to ongoing weakness and fatigue family brought patient to emergency
department for concern of dehydration. Presenting EKG showed sinus rhythm with right bundle branch block/LAFB at 81 bpm. Initial troponin was negative. Patient was found to have elevated white count of 18. Patient was treated with IV fluids and
IV Levaquin. As patient was getting ready to be discharged she ambulated to bathroom felt very short of breath and was tachycardic. Repeat troponin was obtained which is mildly elevated at 0.037. Cardiology now being consulted for abnormal
troponin, shortness of breath and tachycardia.
Patient follows with Dr. Rangel Pimentel of [facility]. I was able to obtain records. She was last seen in January 2024. Patient and son report they did see Dr. Inocencio Darby at [place] in January 2025 and had an echo. She
reports over the last 1 to 2 months progressive shortness of breath and finds difficulty in walking up a flight of steps without having to stop. In general she has noted some increased weakness with activity. She has intermittent tightness like a
belt around her chest underneath her left breast which can occur without rhyme or reason. Son reports she did have abdominal surgery with mesh years ago and was told she will have intermittent pain and bandlike fashion for some time. She also has
history of PE provoked by surgery.
Data Reviewed
-
EKG: Report Reviewed by me, Discussed with Physician, Discussed with Patient and Discussed with Family
Radiology: Report Reviewed by me, Discussed with Physician, Discussed with Patient and Discussed with Family
Labs: Labs Reviewed by me, Discussed with Physician, Discussed with Patient and Discussed with Family
Old Records: Reviewed
[2025-05-22 15:16] LABS: APTT 25.8 Sec (23.4-35.0)
[2025-05-22] MEDS: HEPARIN 25000 UNITS/250 ML IV (15:28)
[2025-05-22 15:51] LABS: D-Dimer 1.24 ug/mlFEU (0.00-0.50)
[2025-05-22] MEDS: ULTRAM 50 MG PO ×2 (16:13→23:00)
[2025-05-22] MEDS: KCL ELIXIR 40 MEQ PO (16:14)
[2025-05-22 20:12] LABS: Troponin I 0.044 ng/ml
--- NOTE | 2025-05-22 21:16 | PTCARENOTE ---
Rec'd pt as admission from ER. Pt AAO*3, VSS, and SR on TELE monitor. Pt denies any pain or discomfort but reports intermittent chest pain at times. PT instructed to use call rosales to alert staff to chest pain. PT agreed and current pain rating
is a 0 out of 10 after explaining pain scale. Pt also refuses any pain medication. Pt oriented to room. Heparin infusing as ordered. See MAr and flowchart for full pt care and assessment.
[2025-05-22 22:47] LABS: APTT 68.5 Sec (23.4-35.0)
[2025-05-22 23:13] LABS: Troponin I 0.047 ng/ml
--- NOTE | 2025-05-22 23:21 | W.PN.UPDATE ---
Update Note
Progress Note Update
she was noted to have elevated D dimer. CT ordered but patient refused the CT as she got tot he CT department.
[2025-05-23 01:52] VITALS: BP 135/89
[2025-05-23 02:00] LABS: Hematocrit 37.5 % (37.0-47.0); Hemoglobin 11.6 g/dL (12.0-16.0); Mean Corp Hgb Conc. 30.9 g/dL (33.0-37.0); Mean Corpuscular Volume 85.6 fL (81.0-99.0); Platelet Count 305 10^3/uL (130-400); Red Cell Dist. Width 15.9 % (11.5-14.5)
[2025-05-23 02:24] LABS: Blood Urea Nitrogen 23 mg/dl (7-17); Calcium 8.4 mg/dl (8.4-10.2); Carbon Dioxide 22 mmol/L (22-30); Chloride 113 mmol/L (98-107); Estimated Creatinine Clearance 62 ml/min; Glucose 116 mg/dl (70-99); HDL Cholesterol 58 mg/dl; LDL Cholesterol, Calculated 66 mg/dl; Potassium 4.1 mmol/L (3.5-5.1); Sodium 135 mmol/L (135-145); Very Low Density Lipoprotein 29 mg/dl (0-30); eGFR > 60.00
[2025-05-23 02:37] LABS: Troponin I 0.044 ng/ml
--- NOTE | 2025-05-23 02:47 | PTCARENOTE ---
Pt taken down to Chest Ct scan by RN via wheelchair. On arrival to CT scan area pt asked 'am i going into that thing?' Rn and human geography instructor answered pt questions. Pt verbalized clear anxiety and refused to get CT scan and contrast. Pt escorted back to
unit. TROY Gonzalez notified. PT given education on elevated d-dimer and risk of blood clot. Pt verbalizes understanding and states that she has no intentions of pursuing further testing. When ask about possible cath in AM pt stated 'im not
doing that im going home.' RN gave additional information to pt and pt verbalizes that she would prefer to follow up with primary burlap worker at [facility].
[2025-05-23 06:00] VITALS: BMI 27.6
[2025-05-23 06:03] LABS: APTT 100.9 Sec (23.4-35.0)
[2025-05-23 08:11] LABS: Glycohemoglobin (HgbA1c) 6.6 % (4.0-5.6)
[2025-05-23 08:16] VITALS: BP 152/82
[2025-05-23] MEDS: CRESTOR 10 MG PO (08:42)
[2025-05-23] MEDS: PROTONIX 40 MG PO (08:42)
[2025-05-23] MEDS: LOW STRENGTH ASPIRIN 81 MG PO (08:42)
[2025-05-23] MEDS: MEDROL 4 MG PO (08:42)
[2025-05-23] MEDS: PEPCID 20 MG PO (08:43)
[2025-05-23 10:15] VITALS: PULSE 109
--- NOTE | 2025-05-23 10:42 | PTCARENOTE ---
Pt is willing to have Echo today but still refusing CT scan. She wants to leave AMA.
--- NOTE | 2025-05-23 11:17 | W.PN.CARDCBS ---
Today's Communication / Plan
-
See above plan
Echo notified that patient is now agreeable to echocardiogram
Discussed with hospitalist
Impression / Plan
-
PCP: Paul Torres
Journeyman Plumber: [facility]. Did see Inocencio Darby at [place] for second opinion
Impression:
Presented 05/22/2025 with generalized weakness, shortness of breath and fatigue
UTI
Leukocytosis
Shortness of breath
Abnormal troponin
Abnormal D-dimer
Aortic stenosis
Hypertension
Hyperlipidemia
Right bundle branch block
Statin intolerance
GERD
Obstructive sleep apnea
Polymyalgia rheumatica
History of UTI
Varicose veins
History of pulmonary embolus related to surgery
Echo 12/14/2024 ([place]): EF 65 to 70%. Mild concentric LVH. Mitral valve thickening without significant stenosis. Moderate aortic stenosis with peak/mean gradient 57/30 mmHg and JUVENCIO 1.3 cm�. Mild AI.
Echo 12/10/2023: EF 65 to 70%. Concentric LVH. Moderate aortic stenosis with peak/mean gradient 49/25 mmHg, AVR 1.22 cm�.
Echo 03/18/2022: Normal LV size and function. Mild concentric LVH. Aortic calcification with no significant stenosis.
Cardiac catheterization 03/19/2022: LM: Patent. LAD: Patent. Left circumflex 50 to 60% mid stenosis with FFR of 0.87
Plan:
Admitted 05/22/2025 with progressive weakness, fatigue and shortness of breath as well as bandlike chest discomfort
-Concern for recurrent thromboembolism with elevated D-dimer and prior history of provoked PE not on anticoagulation as an outpatient
-Patient continues to refuse CTA of the chest despite extensive discussions regarding indications and concerns for PE as well as potential negative consequences for failure to diagnose
-Lower extremity Dopplers negative for DVT.
-Per chart, family reports prior hypercoagulable workup was unremarkable.
-Currently on IV heparin drip. Discussed with hospitalist�would consider hematology evaluation and recommendations regarding anticoagulation moving forward
-Fortunately she is not hypoxic on room air and comfortable at rest.
- She initially refused echocardiogram but now is agreeable. Will check a 2D echocardiogram to reassess aortic valve as well as RV and pulmonary pressures
-Chest discomfort of unclear etiology
- Would first exclude thromboembolic process.
- Trend cardiac troponin and check echocardiogram
- Start aspirin 81 mg daily
-EKG demonstrates sinus rhythm with right bundle branch block/LAFB. No acute ischemic changes
- Patient had cardiac catheterization in 2021 which showed 50 to 60% mid circumflex stenosis with negative FFR.
-Eventual ischemic evaluation although patient has indicated that she does not want any testing besides the echocardiogram this hospitalization. She plans on leaving the hospital today even if it is AGAINST MEDICAL ADVICE
-Please resume amlodipine, valsartan.
-Stop hydrochlorothiazide with presenting hypokalemia now repleted.
-Currently on rosuvastatin 10 mg daily. Total cholesterol 153, LDL 66, HDL 58. Triglycerides 149.
-New diagnosis type 2 diabetes mellitus per patient. Hemoglobin A1c this admission 6.6%. Defer to hospitalist.
- Patient has known aortic stenosis which was moderate with peak/mean gradient 57/30 mmHg with JUVENCIO 1.3 cm� on echo in December 2024 at [place].
- Initially refused echocardiogram now agreeable
Leukocytosis with recent left elbow cellulitis on Keflex�defer infectious evaluation to primary.
- Obtained and reviewed outpatient cardiology records from Dr. Pimentel as well as Dr. Darby.
HPI 05/22/2025:
Patient is an 80-year-old female with past medical history significant for aortic stenosis, polymyalgia rheumatica, obstructive sleep apnea, hypertension, hyperlipidemia and GERD who presented to emergency department 05/30/2025 with generalized
weakness, shortness of breath and fatigue. Patient recently treated as outpatient for infected bursa on elbow (1 week ago) and urinary tract infection and was on cephalexin. Due to ongoing weakness and fatigue family brought patient to emergency
department for concern of dehydration. Presenting EKG showed sinus rhythm with right bundle branch block/LAFB at 81 bpm. Initial troponin was negative. Patient was found to have elevated white count of 18. Patient was treated with IV fluids and
IV Levaquin. As patient was getting ready to be discharged she ambulated to bathroom felt very short of breath and was tachycardic. Repeat troponin was obtained which is mildly elevated at 0.037. Cardiology now being consulted for abnormal
troponin, shortness of breath and tachycardia.
Patient follows with Dr. Rangel Pimentel of [facility]. I was able to obtain records. She was last seen in January 2024. Patient and son report they did see Dr. Inocencio Darby at [place] in January 2025 and had an echo. She
reports over the last 1 to 2 months progressive shortness of breath and finds difficulty in walking up a flight of steps without having to stop. In general she has noted some increased weakness with activity. She has intermittent tightness like a
belt around her chest underneath her left breast which can occur without rhyme or reason. Son reports she did have abdominal surgery with mesh years ago and was told she will have intermittent pain and bandlike fashion for some time. She also has
history of PE provoked by surgery.
Progress Note - Journeyman Plumber
Subjective
Date of Service: May 23, 2025
Patient was seen and examined. On room air. States that she is feeling better at rest and is going to be going home today. She had refused CTA last night and has again refused at this morning despite understanding indications for testing and
risks for failure to diagnose. She also initially refused a 2D echocardiogram but now is agreeable.
Objective
Labs:
05/23/25 01:49
05/23/25 01:49
Labs
Hgb 11.6 g/dL (12.0-16.0) L 05/23/25 01:49
Hct 37.5 % (37.0-47.0) 05/23/25 01:49
Plt Count 305 10^3/uL (130-400) 05/23/25 01:49
APTT 100.9 Sec (23.4-35.0) H 05/23/25 05:26
Sodium 135 mmol/L (135-145) 05/23/25 01:49
Potassium 4.1 mmol/L (3.5-5.1) 05/23/25 01:49
BUN 23 mg/dl (7-17) H 05/23/25 01:49
Creatinine 0.6 mg/dL (0.6-1.0) 05/23/25 01:49
Glucose 116 mg/dl (70-99) H 05/23/25 01:49
Troponins
05/22/25 05/22/25 05/22/25
11:01 13:46 13:48
Troponin I 0.028 0.037 H* D Cancelled
05/22/25 05/22/25 05/23/25
19:36 22:18 01:49
Troponin I 0.044 H* 0.047 H* 0.044 H*
Vital Signs and I&O:
Vital Signs
Temp Pulse Resp BP Pulse Ox
98.7 F 79 18 152/82 96
05/23/25 08:17 05/23/25 09:00 05/23/25 08:17 05/23/25 08:16 05/23/25 08:17
Vital Signs
Temp Pulse Resp BP Pulse Ox
98.7 F 79 18 152/82 96
05/23/25 08:17 05/23/25 09:00 05/23/25 08:17 05/23/25 08:16 05/23/25 08:17
Intake & Output
05/21/25 05/22/25 05/23/25 05/24/25
06:59 06:59 06:59 06:59
Intake Total 480 / 480
Balance 480 / 480
Physical Exam
Physical Exam
General: No acute distress, AAOX3
Neck: Negative JVD
Heart: Regular,positive S1/S2, 2/6 JAMES
Lungs: CTA b/l, negative wheezes/rales/rhonchi
Abd: Positive BS, NT/ND, neg rebound/rigidity/guarding
Ext: no edema
Neuro: nonfocal
[2025-05-23 11:31] LABS: APTT 83.8 Sec (23.4-35.0)
[2025-05-23 11:42] VITALS: BP 134/77
[2025-05-23 13:20] LABS: Folate > 20.0 ng/ml (2.76-20); Vitamin B12 191 pg/ml (239-931)
--- NOTE | 2025-05-23 13:23 | PTCARENOTE ---
Pt left AMA, her did try to convince her to have CT scan and all necessary testing but she still refused. INT and cardiac rehabilitation specialist removed. Pt signed AMA form
--- NOTE | 2025-05-23 15:50 | CM ---
pt prev indep, lives with her s.o. in a 2 story home. no dc planning needs or dme's noted. plan is for dc to home when medically stable.
--- NOTE | 2025-05-23 17:35 | W.DCSUMMARY ---
Discharge Summary
Discharge Data
Date of Admission: 05/22/25
Date of Discharge: 05/23/25
-
Pending Results: No
Hospital Course
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
and prolonged immobility with negative hypercoagulable work, obstructive sleep apnea on CPAP, polymyalgia rheumatica, presenting for chest/epigastric pain for past few weeks. Occurs usually with exertion also shortness of breath with exertion. Not
hypoxic.
CT chest was ordered to rule out pulmonary embolism pneumonia however declined. She understands why we needed however does not want to go through the tube
Was seen by cardiology at least agreed to 2D echo but this was also a fight.
-2d ech
SUMMARY
1. No prior echocardiogram available for comparison.
2. Normal left ventricular size, wall thickness and systolic function. No regional wall motion abnormalities are seen.
3. Trileaflet aortic valve. Severe aortic stenosis. Peak/mean gradients across the aortic valve are 57/34 mmHg respectively. Mild aortic regurgitation.
4. Moderate to severe aortic valve stenosis.
5. Right ventricular size and systolic function are within normal limits.
I had a lengthy discussion with her at bedside. Refused CT PE. She is competent and understands that without the study we are unable to tell her why she is so short of breath. I provided her with differential diagnoses that included pneumonia,
pulmonary embolism, pulmonary hypertension, hilar adenopathy, anterior mediastinal masses. She understands that if we are unable to give her a diagnosis of what could be causing her shortness of breath that has been ongoing for couple weeks then
she is not going to be able to be treated correctly and this could lead to . She verbalized full understanding of this.
I even called her who was at bedside while she was getting the 2D echocardiogram done. Who states that he will talk to her however she ended up declining and wanting to leave AMA.
Discharge Plan
-
Patient Disposition: Against Medical Advice
Referrals:
Paul Torres DO [Family Provider, [facility]]
Prescriptions:
No Action
amlodipine 5 mg Tablet
5 mg PO DAILY Qty: 1 0RF
methylprednisolone [Methylprednisone] 4 mg Tablet
4 mg PO DAILY
pantoprazole 40 mg Tablet,Delayed Release (Dr/Ec)
40 mg PO DAILY
hydrochlorothiazide 12.5 mg Tablet
12.5 mg PO DAILY
sucralfate 1 gram tablet
1 g PO QIDPRN PRN (Reason: abdominal pain)
famotidine 40 mg tablet
40 mg PO DAILY
valsartan 320 mg Tablet
320 mg PO DAILY
rosuvastatin 10 mg tablet
10 mg PO DAILY
tramadol 50 mg tablet
50 mg PO Q6H PRN (Reason: moderate-severe pain)
Care Plan Goals
Care Plan Goals:
Problem: Readiness for enhanced knowledge related to diagnosis and treatment plan
Goal: Understand your diagnosis and treatment plan needs, including medications if applicable.
Instructions: Know your diagnosis, underlying causes and treatment plan options, including medications if applicable. Consult with your health care team to learn about your diagnosis and treatment plan, including medications if applicable.
Discharge Date and Time
Discharge Date/Time: 05/23/25 15:02
Print Language: TONGAN
== END 2025-05-23 15:02 | disposition left against medical advice (07) | DRG 204 ==
LOC: IVU 16:18
PROVIDERS: Registered Nurse; ADMITTING PHYSICIAN Hospitalist; ATTENDING PHYSICIAN Hospitalist; CONSULT PHYSICIAN Internal Medicine Cardiovascular Disease; EMERGENCY PHYSICIAN Student in an Organized Health Care Education/Training Program; FAMILY PHYSICIAN Family Medicine
DX: R06.02 Shortness of breath (principal); I24.9 Acute ischemic heart disease, unspecified; E87.6 Hypokalemia; Z53.29 Procedure and treatment not carried out because of patient's decision for other reasons; E78.5 Hyperlipidemia, unspecified; E86.0 Dehydration; K21.9 Gastro-esophageal reflux disease without esophagitis; M35.3 Polymyalgia rheumatica; Z79.899 Other long term (current) drug therapy; Z86.711 Personal history of pulmonary embolism; Z87.440 Personal history of urinary (tract) infections
CPT/HCPCS: 71046; 80048; 80053; 80061; 81003; 81015; 82607; 82746; 83036; 83690; 83880; 84443; 84484; 85025; 85027; 85379; 85730; 87086; 93005; 93306; 97162; 97166; 99291

== ENCOUNTER 2025-05-28 20:15 | Inpatient (IN) | payer MEDICARE, OTHER, SELFPAY ==
[2025-05-28 14:23] VITALS: BP 149/99
[2025-05-28 14:57] LABS: Hematocrit 40.2 % (37.0-47.0); Hemoglobin 13.3 g/dL (12.0-16.0); Mean Corp Hgb Conc. 33.1 g/dL (33.0-37.0); Mean Corpuscular Volume 82.0 fL (81.0-99.0); Nucleated Red Blood Cells % 0 %; Platelet Count 363 10^3/uL (130-400); Red Cell Dist. Width 15.6 % (11.5-14.5)
[2025-05-28 15:05] LABS: INR 0.97; PT 13.1 Sec (11.4-14.6)
[2025-05-28 15:19] LABS: ALT (SGPT) 34 U/L (0-35); AST (SGOT) 24 U/L (14-36); Albumin 4.1 g/dl (3.5-5.0); Alkaline Phosphatase 74 U/L (38-126); Blood Urea Nitrogen 20 mg/dl (7-17); Calcium 9.3 mg/dl (8.4-10.2); Carbon Dioxide 23 mmol/L (22-30); Chloride 108 mmol/L (98-107); Glucose 161 mg/dl (70-99); Potassium 3.8 mmol/L (3.5-5.1); Sodium 139 mmol/L (135-145); Total Protein 6.7 g/dl (6.3-8.2); eGFR > 60.00
[2025-05-28 15:32] LABS: Troponin I 0.169 ng/ml
[2025-05-28 15:56] VITALS: BP 143/71
[2025-05-28 16:00] VITALS: BP 149/80
--- NOTE | 2025-05-28 16:32 | ED.GENMED ---
History of Present Illness
<Yang Morales PA-C - Last Filed: 05/28/25 19:06>
General
Chief Complaint: Chest Pain
Source: patient, records and family
Time Seen by Provider: 05/28/25 16:04
History of Present Illness
History of Present Illness:
80-year-old female with past medical history of aortic stenosis, CAD, hypertension, hyperlipidemia, GERD, recently left AGAINST MEDICAL ADVICE from this hospital 5 days ago presenting back to the emergency department due to continued chest
discomfort and shortness of breath. During her admission patient had an echocardiogram and was recommended to have a CT angiogram of the chest to rule out pulmonary embolism however refused this testing and went home. Today due to the persistent
nature of symptoms patient came back to the ER to be reevaluated. She denies any new symptoms, fevers or infectious symptoms, palpitations, diaphoresis, lower extremity edema, cough, hemoptysis or any other concerns. Patient does take a daily
aspirin and is compliant with the rest of her medications.
Past History
<Yang Morales PA-C - Last Filed: 05/28/25 19:06>
Past History
ED Past Medical History: CAD, HTN, Hypercholesterolemia, Valvular disease and Other (Diverticulitis)
ED Past Surgical History: Appendectomy, Cardiac, Cholecystectomy, Gynecological, Orthopedic and Other
Social History
Tobacco: Non-smoker
Alcohol: None
Drug: None
Personal: Single
Living: with family
Review of Systems
<Yang Morales PA-C - Last Filed: 05/28/25 19:06>
Review of Systems
All Other Systems: ROS reviewed and negative except as documented in HPI and ROS
Phy Exam
<Yang Morales PA-C - Last Filed: 05/28/25 19:06>
Physical Exam
Physical Exam:
GENERAL: Alert , in no apparent distress
EYE: clear conjunctiva b/l
HEAD: NCAT
ENT: o/p clr, mmm.
CARDIAC: Regular rate and rhythm, harsh systolic murmur left sternal border.
LUNGS: Clear breath sounds bilaterally, no acute respiratory distress, no wheezes/rales/rhonchi
ABDOMEN: Soft, without focal tenderness, no r/g, no cvat
NEUROLOGICAL: Alert and oriented
SKIN: Warm and dry, skin intact.
MUSCULOSKELETAL: No edema, well perfused.
PSYCH: Normal and appropriate interaction.
Scores
<Yang Morales PA-C - Last Filed: 05/28/25 19:06>
Heart Failure Risk
Heart Failure Risk Score: Not Applicable
Heart Score for Chest Pain Patients
STEMI patient?: No
History: Moderately Suspicious
ECG: Nonspecific Repolarization
Age: >/= 65 years
Risk Factors: >/= 3 Risk Factors or History of CAD
Troponin: >/= 3 x Normal Limit
Heart Score for Chest Pain Patients: 8
Heart Score Risk: 72.7 % MACE over next 6 weeks
Withdrawal Assessment of Alcohol
Withdrawal Assessment Completed?: Not applicable
<Lamar Patel DO - Last Filed: 05/28/25 18:26>
Heart Score for Chest Pain Patients
Heart Score for Chest Pain Patients: 8
Heart Score Risk: 72.7 % MACE over next 6 weeks
Course
<Yang Morales PA-C - Last Filed: 05/28/25 19:06>
Orders/Labs/Results
Orders:
Orders
05/28/25 14:12
Electrocardiogram (*1) Urgent
Reason for Study: Chest Pain
EKG- Treatment ONCE
05/28/25 14:22
CR Chest - 2 Views Urgent
Comment:
Reason For Exam: chest pain
05/28/25 14:50
Complete Blood Count/With Diff Urgent
Comprehensive Metabolic Panel Urgent
NT-proBNP Urgent
Comment: ADD ON
Prothrombin Time Urgent
Troponin I Urgent
05/28/25 16:05
CT Chest PE Study Urgent
Comment:
Reason For Exam: elevated troponin. SOB
05/28/25 17:36
Heparin 4,000 units IV NOW STA
Nursing to Place Non Medication Order As Directed
Physician Order: PTT 6 hours after initial start of Heparin infusion
05/28/25 17:39
Add On- LAB Urgent
Tests Added?: bnp
05/28/25 17:45
Heparin 13670 Units/250 ml 25,000 units in 250 ml IV PER PROTOCOL
Weight to be used for heparin protocol in kilograms (kg):: 66.4
Protocol:: Cardiac Tx/Acute Coronary
PTT Goal Range to be used:: PTT 73 to 111 seconds
Order type:: Initial
INITIAL Infusion Dose (UNITS/KG/hr) & then follow protocol:: 12 units/kg/hr
Infusion Dose in UNITS/hr & then follow protocol (UNITS/hr):: 800
INFUSION RATE in mL/hr & then follow protocol (mL/hr):: 8
PTT less than or equal to 64 seconds:: Increase rate by 200 units/hr (+ 2 mL/hr)
PTT 64.1 to 72.9 seconds:: Increase rate by 100 units/hr (+ 1 mL/hr)
PTT 73 to 111 seconds:: Target Range. No change in rate.
PTT 111.1 to 130.9 seconds:: Decrease rate by 100 units/hr (- 1 mL/hr)
PTT 131 to 199.9 seconds:: HOLD for 1 hr. Then decrease rate by 200 units/hr (- 2 mL/hr)
PTT greater than or equal to 200 seconds:: HOLD for 2 hrs & Notify Provider. Then decrease by 200 units/hr (-
2 mL/hr)
Lab follow-up:: Each change, PTT q6h until 2 consecutive are therapeutic. Then PTT
daily.
05/28/25 18:17
PTT Urgent
Comment: Obtain baseline before beginning heparin infusion if not already collected
Abnormal Lab Results
05/28/25
14:50
WBC 16.4 H 10^3/uL
(4.8-10.8)
RDW 15.6 H %
(11.5-14.5)
Abs Immat Gran (auto) 0.2 H 10^3/uL
(0-0.05)
Absolute Neuts (auto) 13.7 H 10^3/uL
(1.4-6.5)
Immature Gran % 1.2 H %
(0-0.5)
Neutrophils % 83.9 H %
(42.2-75.2)
Lymphocytes % 10.2 L %
(20.5-51.1)
Chloride 108 H mmol/L
(98-107)
BUN 20 H mg/dl
(7-17)
Glucose 161 H mg/dl
(70-99)
Troponin I 0.169 H* ng/ml
05/28/25 14:50
05/28/25 14:50
Vital Signs
Initial and Last Documented VS:
Initial Vital Signs
Temp Pulse Resp BP Pulse Ox
98.8 F 89 17 149/99 96
05/28/25 14:23 05/28/25 14:23 05/28/25 14:23 05/28/25 14:23 05/28/25 14:23
Last Documented Vital Signs
Temp Pulse Resp BP Pulse Ox
98.8 F 89 23 149/80 94
05/28/25 14:23 05/28/25 17:30 05/28/25 17:30 05/28/25 16:00 05/28/25 17:30
<Lamar Patel, - Last Filed: 05/28/25 18:26>
Orders/Labs/Results
Orders:
Orders
05/28/25 14:12
Electrocardiogram (*1) Urgent
Reason for Study: Chest Pain
EKG- Treatment ONCE
05/28/25 14:22
CR Chest - 2 Views Urgent
Comment:
Reason For Exam: chest pain
05/28/25 14:50
Complete Blood Count/With Diff Urgent
Comprehensive Metabolic Panel Urgent
NT-proBNP Urgent
Comment: ADD ON
Prothrombin Time Urgent
Troponin I Urgent
05/28/25 16:05
CT Chest PE Study Urgent
Comment:
Reason For Exam: elevated troponin. SOB
05/28/25 17:36
Heparin 4,000 units IV NOW STA
Nursing to Place Non Medication Order As Directed
Physician Order: PTT 6 hours after initial start of Heparin infusion
05/28/25 17:39
Add On- LAB Urgent
Tests Added?: bnp
05/28/25 17:45
Heparin 68523 Units/250 ml 25,000 units in 250 ml IV PER PROTOCOL
Weight to be used for heparin protocol in kilograms (kg):: 66.4
Protocol:: Cardiac Tx/Acute Coronary
PTT Goal Range to be used:: PTT 73 to 111 seconds
Order type:: Initial
INITIAL Infusion Dose (UNITS/KG/hr) & then follow protocol:: 12 units/kg/hr
Infusion Dose in UNITS/hr & then follow protocol (UNITS/hr):: 800
INFUSION RATE in mL/hr & then follow protocol (mL/hr):: 8
PTT less than or equal to 64 seconds:: Increase rate by 200 units/hr (+ 2 mL/hr)
PTT 64.1 to 72.9 seconds:: Increase rate by 100 units/hr (+ 1 mL/hr)
PTT 73 to 111 seconds:: Target Range. No change in rate.
PTT 111.1 to 130.9 seconds:: Decrease rate by 100 units/hr (- 1 mL/hr)
PTT 131 to 199.9 seconds:: HOLD for 1 hr. Then decrease rate by 200 units/hr (- 2 mL/hr)
PTT greater than or equal to 200 seconds:: HOLD for 2 hrs & Notify Provider. Then decrease by 200 units/hr (-
2 mL/hr)
Lab follow-up:: Each change, PTT q6h until 2 consecutive are therapeutic. Then PTT
daily.
05/28/25 18:17
PTT Urgent
Comment: Obtain baseline before beginning heparin infusion if not already collected
Abnormal Lab Results
05/28/25
14:50
WBC 16.4 H 10^3/uL
(4.8-10.8)
RDW 15.6 H %
(11.5-14.5)
Abs Immat Gran (auto) 0.2 H 10^3/uL
(0-0.05)
Absolute Neuts (auto) 13.7 H 10^3/uL
(1.4-6.5)
Immature Gran % 1.2 H %
(0-0.5)
Neutrophils % 83.9 H %
(42.2-75.2)
Lymphocytes % 10.2 L %
(20.5-51.1)
Chloride 108 H mmol/L
(98-107)
BUN 20 H mg/dl
(7-17)
Glucose 161 H mg/dl
(70-99)
Troponin I 0.169 H* ng/ml
05/28/25 14:50
05/28/25 14:50
Vital Signs
Initial and Last Documented VS:
Initial Vital Signs
Temp Pulse Resp BP Pulse Ox
98.8 F 89 17 149/99 96
05/28/25 14:23 05/28/25 14:23 05/28/25 14:23 05/28/25 14:23 05/28/25 14:23
Last Documented Vital Signs
Temp Pulse Resp BP Pulse Ox
98.8 F 89 23 149/80 94
05/28/25 14:23 05/28/25 17:30 05/28/25 17:30 05/28/25 16:00 05/28/25 17:30
<Yang Morales PA-C - Last Filed: 05/28/25 19:06>
MDM/Problems Addressed
Differential Diagnosis Includes:
NSTEMI
PE
Valvular Dysfunction
Cardiac Arrhythmia
Dissection
MDM/Problems Addressed:
80-year-old female presenting back to the emergency department after leaving AGAINST MEDICAL ADVICE earlier in the week, continued chest pain and shortness of breath. Labs show an elevated troponin, unclear if this is continued elevation from her
recent admission or if starting to downtrend after reaching peak. EKG shows a normal sinus rhythm, there is a right bundle branch block and left axis deviation, EKG unchanged from earlier this week. Patient now agreeable to obtaining the CTA of
the chest. Will order heparin pending the results of the CTA. Plan for admission with cardiology to continue seeing the pain in consult.
Chronic conditions affecting care: CAD
Acute Exacerbation and/or Progression of Chronic Illness: CAD
<Yang Morales PA-C - Last Filed: 05/28/25 19:06>
*Radiology
Radiology exam reviewed: radiology read reviewed
*Pulse Oximetry
SaO2: 96
Oxygen Mode of Delivery: Room air
Patient hypoxic: no
*EKG
Heart Rate: 83
Rate: normal
Rhythm: sinus
[place]: left axis deviation
QRS Pattern: right bundle branch block
*[employer] Interpretation
Rate: normal
Heart Rate: 83
Rhythm: sinus
*Critical Care Note
Total Time (30-74mins, 75-104mins- exclusive of procedures): 30
comment:
Critical care statement: A total of 30 minutes of critical care time was provided for this patient. This includes management of unstable vital signs, evaluation of the patient at bedside, reviewing the patient's pertinent medical records, discussion
with consultants, review of old EKGs and review of pertinent medical records. This time with separate from time utilized to perform the aforementioned documented procedures
Data Reviewed
Review of Other/Old Records Reveals: Labs, Records and Discharge Summary
<Yang Morales PA-C - Last Filed: 05/28/25 19:06>
Patient Management
Discussion with other providers: Hospitalist and Car Oiler
Escalation/DeEscalation of care consider admission/obs:
CTA negative for pulmonary embolism however NSTEMI is the most likely diagnosis. Heparin bolus and drip ordered. Hospitalist team accepts for continued evaluation and treatment, cardiology team was notified and will consult on the patient as
needed.
ED Attending Note
<Yang Morales PA-C - Last Filed: 05/28/25 19:06>
-
Portions of this chart may have been created with voice recognition software.� Occasional wrong word or��sound alike� substitutions may have occurred due to the inherent limitations of voice recognition software.
<Lamar Patel DO - Last Filed: 05/28/25 18:26>
ED Attending Note
Patient seen and examined by attending physician: Yes
I performed the substantive portion of visit, reviewed & personally made and approve the management plan that is documented in note by myself or MIRANDA.: Yes
I performed a history and physical exam of patient and discussed management with resident, I reviewed resident's note and agree with documented findings and plan of care.: Yes
ED Attending Note:
80-year-old female with history of aortic stenosis, CAD, hypertension, hyperlipidemia presenting to the emergency department for persistent chest pressure. Patient reports a bandlike chest discomfort radiating to her back. Symptoms have been
ongoing for several weeks. She came to the hospital 5 days ago for symptoms, was found to have troponin elevation and admitted to the hospital for continued monitoring. At that time cardiology had recommended a CT of her chest due to elevated
D-dimer to rule out a PE. Patient had declined and ultimately left the hospital AGAINST MEDICAL ADVICE. She presents again for continued pain, and also notes dizziness and lightheadedness anytime that she stands up. Denies any known blockages in
her heart. Denies any history of PE in the past. Vital signs on arrival are significant for mild hypertension.
On exam, patient is resting comfortably, no acute distress or discomfort. EKG obtained upon patient's arrival, without significant change from prior. Patient with audible systolic murmur. Patient reports that she was born with a murmur, on clear
if acute or chronic. Echo reviewed from 05/23, does show severe aortic stenosis, likely etiology of murmur. No respiratory distress, lungs clear to auscultation. Patient is agreeable to CT of her chest as well as repeat laboratory analysis.
18:20 - CT of the chest without PE, however troponin remains elevated and is increasing. Ultimate concern for continued NSTEMI and possible ACS. Plan for admission, heparin drip, cardiac consultation
Discharge Plan
Departure
Patient Disposition: Admit
Date of Disposition: 05/28/25
Time of Disposition: 17:38
Presentation/result/management discussed w/ accepting MD/DO: Hospitalist
Discharge Problem:
Acute non-ST elevation myocardial infarction (NSTEMI)
Prescriptions:
No Action
amlodipine 5 mg Tablet
5 mg PO DAILY Qty: 1 0RF
methylprednisolone [Methylprednisone] 4 mg Tablet
4 mg PO DAILY
pantoprazole 40 mg Tablet,Delayed Release (Dr/Ec)
40 mg PO DAILY
hydrochlorothiazide 12.5 mg Tablet
12.5 mg PO DAILY
sucralfate 1 gram tablet
1 g PO QIDPRN PRN (Reason: abdominal pain)
famotidine 40 mg tablet
40 mg PO DAILY
valsartan 320 mg Tablet
320 mg PO DAILY
rosuvastatin 10 mg tablet
10 mg PO DAILY
tramadol 50 mg tablet
50 mg PO Q6H PRN (Reason: moderate-severe pain)
aspirin 81 mg Tablet,Delayed Release (Dr/Ec)
81 mg PO DAILY
Referrals:
Paul Torres DO [Family Provider, Family Practice]
Interventions
Interventions:
*Risk Screen - Suicide Last Done: 05/28/25 14:25
*General Assessment Last Done: 05/28/25 14:25
*Neglect/Abuse Screening Last Done: 05/28/25 14:25
*ED COVID-19 Vaccine History Last Done: 05/28/25 14:25
*ED Influenza Vaccine History Last Done: 05/28/25 14:25
ED- Cardiac Assessment Last Done: 05/28/25 16:28
Discharge Date and Time
Print Language: MAORI
[2025-05-28 16:34] VITALS: BMI 24.4
[2025-05-28] MEDS: HEPARIN 25000 UNITS/250 ML IV (18:21)
[2025-05-28] MEDS: HEPARIN 4000 UNITS IV (18:22)
[2025-05-28 18:33] LABS: APTT 25.4 Sec (23.4-35.0)
--- NOTE | 2025-05-28 18:52 | HPS.HSE ---
Family Physician
-
Family Physician: Paul Torres
Chief Complaint
-
band like recurrennt CP
History of Present Illness
HPI
80F HX severe , HTN, lumbar stenosis with neurogenic claudication status post L4-L5 laminectomy, HX provoked PE s/p perforated diverticulitis s/p bowel surgery and prolonged immobility , HX NEG hypercoagulable work, LUC , CPAP HS, Chr steroid
dependent PMR pw chest/epigastric pain for past few weeks with exertion also shortness of breath with exertion. Not hypoxic. patient declined CTC PE protocol on last admission.
- admitted 5 days ago - noted TPNI elevation and was admitted
- At that time cardiology had recommended a CT of her chest due to elevated D-dimer to rule out a PE.
- Patient had declined and ultimately left the hospital AGAINST MEDICAL ADVICE.
- Now she presents again for continued band like CP and also notes dizziness and lightheadedness anytime that she stands up.
- Denies any known blockages in her heart.
- VS arrival are significant for mild hypertension.
05/27 CTC for PE: NEG study upon this admission
Medical History
Past Medical History
Past Medical History: Reports Other
Additional Past Medical History:
Sleep apnea, PMR, hypertension, diverticulitis with bowel perforation, aortic stenosis, hypertension, GERD
Past Surgical History: Reports Other
Additional Past Surgical History:
Bunionectomy, bowel resection, abdominal wall repair, laminectomy
Social History
Tobacco: Non-smoker
Alcohol: None
Drug: None
Living: With Family
Family History
Family History: Not pertinent
Allergies / Home Medications
Allergies reflects when Allergies were last updated in [employer].
Home Medications with original date entered in [employer]
Allergy/Medication List:
Allergies
Allergy/AdvReac Type Severity Reaction Status Date / Time
No Known Allergies Allergy Verified 05/22/25 10:05
Home Medications
amlodipine 5 mg tablet 5 mg PO DAILY Blood Pressure #1 tab 01/15/23
hydrochlorothiazide 12.5 mg tablet 12.5 mg PO DAILY 12/09/23
methylprednisolone 4 mg tablet 4 mg PO DAILY 12/09/23
pantoprazole 40 mg tablet,delayed release 40 mg PO DAILY 12/09/23
famotidine 40 mg tablet 40 mg PO DAILY 05/22/25
rosuvastatin 10 mg tablet 10 mg PO DAILY 05/22/25
sucralfate 1 gram tablet 1 g PO QIDPRN PRN abdominal pain 05/22/25
tramadol 50 mg tablet 50 mg PO Q6H PRN moderate-severe pain 05/22/25
valsartan 320 mg tablet 320 mg PO DAILY 05/22/25
Review of Systems
-
Constitutional: Reports No Symptoms
EENT: Reports No Symptoms
Respiratory: Reports No Symptoms
Cardiac: Reports Chest Pain
Abdomen/GI: Reports No Symptoms
: Reports No Symptoms
Musculoskeletal: Reports No Symptoms
Skin: Reports No Symptoms
Neurological: Reports No Symptoms
Endocrine: Reports No Symptoms
Hematologic/Lymphatic: Reports No Symptoms
Psych: Reports No Symptoms
Physical Exam
Vital Signs
Vital Signs
Temp Pulse Resp BP Pulse Ox
98.8 F 89 23 149/80 94
05/28/25 14:23 05/28/25 17:30 05/28/25 17:30 05/28/25 16:00 05/28/25 17:30
Physical Exam
General: Well Developed, Well Nourished and No Apparent Distress
HEENT: NormoCephalic, Moist mucous membranes and Atraumatic
Respiratory: Clear
Cardiac: S1/S2 and Regular Rhythm; No Murmur or Rub
GI: Soft, Non Tender, Non Distended and Normal Bowel Sounds; No Organomegaly
Rectal: Deferred by Provider
Musculoskeletal: No Clubbing, No Cyanosis and No Edema
Skin: No Rash
Neuro: AO x 3 and Nonfocal/grossly intact
Psych: Calm
Laboratory Results
-
05/28/25 14:50
05/28/25 14:50
Laboratory Results
PT 13.1 Sec (11.4-14.6) 05/28/25 14:50
INR 0.97 05/28/25 14:50
APTT 25.4 Sec (23.4-35.0) 05/28/25 18:17
Total Bilirubin 0.4 mg/dl (0.2-1.3) 05/28/25 14:50
AST 24 U/L (14-36) 05/28/25 14:50
ALT 34 U/L (0-35) 05/28/25 14:50
Alkaline Phosphatase 74 U/L (38-126) 05/28/25 14:50
Troponin I 0.169 ng/ml H* 05/28/25 14:50
Data Reviewed
-
CT Scan: Report Reviewed by me
Medical Tests (Nuc Med, Echo, EKG etc): Report Reviewed by me
Lab Data: Labs Reviewed by me
Old Records: Reviewed
Impression/Plan
-
Temp Pulse Resp BP Pulse Ox
98.8 F 89 23 149/80 94
05/28/25 14:23 05/28/25 17:30 05/28/25 17:30 05/28/25 16:00 05/28/25 17:30
05/23/25 05/28/25
01:49 14:50
WBC 15.5 H 16.4 H
Hgb 11.6 L 13.3
Plt Count 305 363
Immature Gran % 1.2 H
05/28/25
14:50
Chloride 108 H
Carbon Dioxide 23
BUN 20 H
Creatinine 0.7
eGFR > 60.00
05/22/25 05/23/25 05/28/25
22:18 01:49 14:50
Troponin I 0.047 H* 0.044 H* 0.169 H*
EKG
NORMAL SINUS RHYTHM
LEFT AXIS DEVIATION
RIGHT BUNDLE BRANCH BLOCK
ABNORMAL ECG
WHEN COMPARED WITH ECG OF 22-May-2025 22:24,
INVERTED T WAVES HAVE REPLACED NONSPECIFIC T WAVE ABNORMALITY IN ANTERIOR LEADS
05/23/25 TTE
1. No prior echocardiogram available for comparison.
2. Normal left ventricular size, wall thickness and systolic function.
No regional wall motion abnormalities are seen.
3. Trileaflet aortic valve. Severe aortic stenosis. Peak/mean gradients across the aortic valve are 57/34 mmHg respectively. Mild aortic regurgitation.
4. Moderate to severe aortic valve stenosis.
5. Right ventricular size and systolic function are within normal limits.
Cardiac catheterization 03/19/2022: LM: Patent. LAD: Patent. Left circumflex 50 to 60% mid stenosis with FFR of 0.87
Last hospitalist admission: 05/22/25 - 05/23/25
CP
Elevated stable TPNI elevation
Declined CTC for PE
Left AMA
ASSESSMENT & PLAN
Recurrent band like CP
Worsening interval elevated TPNI
- concern for NSTEMI
- TPNI 0.169 (was 0.044 on 05/23)
- Trend TPNI
- Heparin gtt
- on ENTRY LEVEL INSTALLATION TECHNICIAN
- DCA card consulted
Severe aortic stenosis - suspect current CP is angina equivalent
- Peak/mean gradients across the aortic valve are 57/34 mmHg respectively.
- JUVENCIO 1.3 cm� on echo in December 2024 at [place].
- await [facility] card evaluation
Recent concern for UTI on last admission
- chronically elevated WCC due to chronic steroids
- afebrile
- received a dose of Levaquin in the ER on last admission
Prior HX provoked PE
- NEG CTC for PE today 05/28/25
- not on AC as an outpatient
- Family reports prior hypercoagulable workup was unremarkable per prior admission records
last A1C 6.6% - Chr steroid induced hyperglycemia vs DMT2
- add ISS low
- ADA diet
Currently Normotensive
Essential HTN
- Norvasc, HCTZ, valsartan
HX GERD
- Famotidine, Protonix continued
HX PMR
- on Chr Methylprednisone dependent
Hyperlipidemia
- Statin continue
HX LUC
- on CPAP HS
DVT Px: on Heparin gtt
Full code
IP TLM
[2025-05-28 21:25] VITALS: BP 154/95; BMI 27.8
[2025-05-28 22:05] LABS: Troponin I 0.147 ng/ml
[2025-05-28 23:02] VITALS: BP 136/86
[2025-05-28 23:42] VITALS: PULSE 67
[2025-05-29] VITALS (10 sets, daily range): BP systolic 109–150; BP diastolic 62–89; BMI 27.2
[2025-05-29 01:30] LABS: APTT 83.8 Sec (23.4-35.0)
[2025-05-29 01:59] LABS: Troponin I 0.148 ng/ml
[2025-05-29 07:14] LABS: Hematocrit 38.6 % (37.0-47.0); Hemoglobin 13.0 g/dL (12.0-16.0); Mean Corp Hgb Conc. 33.7 g/dL (33.0-37.0); Mean Corpuscular Volume 82.3 fL (81.0-99.0); Platelet Count 363 10^3/uL (130-400); Red Cell Dist. Width 15.6 % (11.5-14.5)
[2025-05-29 07:18] LABS: APTT 75.4 Sec (23.4-35.0)
[2025-05-29] MEDS: PEPCID 40 MG PO (07:47)
[2025-05-29] MEDS: ASPIR LOW (ENTERIC COATED) 81 MG PO (07:47)
[2025-05-29] MEDS: ORETIC 12.5 MG PO (07:47)
[2025-05-29] MEDS: PROTONIX 40 MG PO (07:47)
[2025-05-29] MEDS: CRESTOR 10 MG PO (07:47)
[2025-05-29] MEDS: NORVASC 5 MG PO (07:48)
[2025-05-29] MEDS: DIOVAN 320 MG PO (07:48)
[2025-05-29] MEDS: MEDROL 4 MG PO (07:49)
--- NOTE | 2025-05-29 07:55 | PTCARENOTE ---
Patient has no c/o chest pain at present, but c/o pain overnight. Patient states, 'I just don't feel good. I don't feel like eating.' patient OOB in [facility] with supervision. Heparin drip infusing at 80 units/hr. Patient's IV pump was alarming and RN
found patient silencing pump alarm. RN asked patient to notify RN if pumps alarms and do not turn off alarm. Patient verbalized understanding. IV team in room and placed new IV in right FA.
[2025-05-29 08:18] LABS: ALT (SGPT) 33 U/L (0-35); AST (SGOT) 24 U/L (14-36); Albumin 3.9 g/dl (3.5-5.0); Alkaline Phosphatase 71 U/L (38-126); Blood Urea Nitrogen 20 mg/dl (7-17); Calcium 9.3 mg/dl (8.4-10.2); Carbon Dioxide 24 mmol/L (22-30); Chloride 108 mmol/L (98-107); Estimated Creatinine Clearance 53 ml/min; Glucose 105 mg/dl (70-99); Potassium 3.5 mmol/L (3.5-5.1); Sodium 136 mmol/L (135-145); Total Protein 6.6 g/dl (6.3-8.2); eGFR > 60.00
--- NOTE | 2025-05-29 09:18 | CON.CAR ---
Addendum entered and electronically signed by Asa Darby MD 05/29/25 14:30:
80-year-old woman recently admitted with dyspnea, weakness, fatigue, and low-level troponin 0.037, now back, signed out AMA after refusing CT scan with chest discomfort. Currently she is comfortable
PMH: Aortic stenosis, polymyalgia, obstructive sleep apnea, hypertension, hyperlipidemia, GERD, history of UTI, remote postop pulmonary embolus
PSH: Bowel resection, cholecystectomy, hysterectomy, laminectomy, knee replacement, herniorrhaphy, arthroplasty, appendectomy, other orthopedic surgery
Allergies: Statins
Current meds: IV heparin, amlodipine 5 mg a day, aspirin 81 mg a day, famotidine 40 mg daily, hydrochlorothiazide 12.5 mg daily, Medrol 4 mg a day, pantoprazole 40 mg a day, rosuvastatin 10 mg a day, valsartan 320 mg daily
134/80, pulse 83, respiratory rate 16, Height weight is 63.2 kg, fragile, somewhat anxious, lungs are clear, aortic stenosis murmur, JVD okay, abdomen benign, extremities without clubbing cyanosis or edema
White count is 15.1 with left shift, hemoglobin is 13.0, BUN/creatinine are 20 and 0.7 potassium is 3.5, proBNP is 565, troponin is 0.148
Chest x-ray: Fairly unremarkable, some blunting left base
CT chest 05/28/2025: Negative for pulmonary embolus, possible CHF
Electrocardiogram: Sinus rhythm, right bundle branch block, left axis deviation
Echo 05/23/2025: Small left ventricle, EF 70-75%, LVH, normal RV, normal atria, peak/mean aortic valve gradient 62/34 mmHg, mild aortic regurgitation, MAC, torn cord but only trace MR, could not determine pulmonary artery pressure severe aortic
stenosis, peak/mean gradient 57/34 mmHg with mild aortic regurgitation
Impression:
Chest discomfort with detectable troponin, dyspnea on exertion, concerning for ACS and/or symptomatic aortic stenosis
Hypertension
Hyperlipidemia
Right bundle branch block
GERD
Polymyalgia rheumatica
Obstructive sleep apnea
History of UTIs
Remote pulmonary embolus
Plan:
At this point, concern regarding possible ACS versus symptomatic aortic stenosis as 2 diagnoses that need to be excluded.
Best plan of action is probably to proceed with cardiac catheterization at this time. Discussed with patient and . Risks and benefits reviewed, they are in agreement.
Catheterization to be performed later today.
Original Note:
Consultation
Consultation Request
Date/Time Consultation Requested: 05/28/25 at 2122
Date/Time Consultation Performed: 05/29/25 at 1015
Requesting Provider: Dr. Quinones
Performing Provider: Dr. PRESTON Darby
Reason for Consultation: Chest pain elevated troponin
Medical History
-
History of Present Illness:
Patient came to the ER yesterday with chest pain and was admitted with elevated troponin and cardiology is now consulted. As you recall the patient was just admitted to [facility] 05/22/2025 until 05/23/2025 with SOB, chest pain and elevated D-dimer and
troponin levels, but was not interested in testing and ultimately left AMA. Patient reports she has significant anxiety regarding medical situations and procedures and that led to her leaving the hospital. Patient reports continued on and off at
home with chest pain worse with activity and PANTOJA, overall symptoms improve when she is resting. No resting chest pain or SOB. Patient has had similar symptoms in the past and she thought those were related to previous abdominal wall repair
surgery, but symptoms now are more consistent with activity and so she came back to the hospital to be evaluated. Troponin was as high 0.044 last admission, and initial troponin this admission was 0.169 and trending down thereafter.
PMH:
Recent admission for SOB, chest pain and elevated D-dimer then ultimately left AMA 05/22/2025 until 05/23/2025
Severe with peak/mean 57/34 mmHg and JUVENCIO 1.1 cm sq by echo 05/23/25
Previously moderate with peak/mean 57/30 mmHg and JUVENCIO 1.3 cm sq by echo with her outpatient quenching machine operator 12/14/2024
HTN
Hyperlipidemia
cRBBB
GERD
Obstructive sleep apnea
Polymyalgia rheumatica
History of UTI
Varicose veins
History of pulmonary embolus related to surgery
Past Medical History
Past Medical History: Other (See HPI)
Past Surgical History: Appendectomy, Bowel Resection (Bowel perforation with resection 2016), Cholecystectomy, Gynecological (Hysterectomy), Orthopedic (Bunionectomy, laminectomy 03/2023, left foot lipoma excision 12/2023, knee replacement) and Other
(Abdominal incisional wall hernia repair, eyelid surgery)
Social History
Tobacco: Non-Smoker
Alcohol: None
Drug: None
Personal:
Living: With Family
Employment: Retired (But still works part-time 2 days a week at [employer] in the [employer])
Family History
Family History: Hypertension and Other (COPD)
Allergies / Home Medications
Allergy/AdvReac Type Severity Reaction Status Date / Time
No Known Allergies Allergy Verified 05/28/25 14:25
�Medication �Instructions �Recorded �Confirmed �Type
amlodipine 5 mg tablet 5 mg PO DAILY Blood Pressure #1 tab 01/15/23 05/28/25 Rx
hydrochlorothiazide 12.5 mg tablet 12.5 mg PO DAILY Blood Pressure 12/09/23 05/28/25 History
methylprednisolone 4 mg tablet 4 mg PO DAILY Anti-Inflammatory 12/09/23 05/28/25 History
pantoprazole 40 mg tablet,delayed 40 mg PO DAILY Gastrointestinal 12/09/23 05/28/25 History
release Issue
famotidine 40 mg tablet 40 mg PO DAILY Gastrointestinal 05/22/25 05/28/25 History
Issue
rosuvastatin 10 mg tablet 10 mg PO DAILY High Cholesterol 05/22/25 05/28/25 History
sucralfate 1 gram tablet 1 g PO QIDPRN PRN abdominal pain 05/22/25 05/28/25 History
tramadol 50 mg tablet 50 mg PO Q6H PRN moderate-severe 05/22/25 05/28/25 History
pain
valsartan 320 mg tablet 320 mg PO DAILY Blood Pressure 05/22/25 05/28/25 History
aspirin 81 mg tablet,delayed 81 mg PO DAILY Blood Clot 05/28/25 05/28/25 History
release Prevention/Tx
Review of Systems
-
History Source: Patient
All other systems: Negative unless noted
Physical Exam
Vital Signs
Temp Pulse Resp BP Pulse Ox
98.0 F 83 16 134/80 97
05/29/25 07:05 05/29/25 07:05 05/29/25 07:05 05/29/25 07:05 05/29/25 07:05
GEN: NAD. AAOx3
HEENT: EOMI, MMM
LUNGS: RA. CTA B/L, no wheeze
CV: SR on telemetry reg, S1/S2, 2/6 BSEM
ABD: ND
EXT: No edema B/L LE
NEURO: Gross non-focal
SKIN: No rash
Lab Results
05/29/25 06:56
05/29/25 06:56
Troponin I Cancelled 05/29/25 03:22
Mte-E-Quoivkpeusm Pept 565 pg/ml 05/28/25 14:50
Impression / Plan
-
PCP: Paul Torres
Shop Hand: [facility]. Did see Inocencio Darby at [facility] for second opinion
Impression:
Admitted with recurrent chest pain and elevated troponin 05/28/2025
Recent admission for SOB, chest pain and elevated D-dimer then ultimately left AMA 05/22/2025 until 05/23/2025
Elevated troponin
Severe with peak/mean 57/34 mmHg and JUVENCIO 1.1 cm sq by echo 05/23/25
Previously moderate with peak/mean 57/30 mmHg and JUVENCIO 1.3 cm sq by echo with her outpatient quenching machine operator 12/14/2024
HTN
Hyperlipidemia
cRBBB
GERD
Obstructive sleep apnea
Polymyalgia rheumatica
History of UTI
Varicose veins
History of pulmonary embolus related to surgery
Echo 03/18/2022: Normal LV size and function. Mild concentric LVH. Aortic calcification with no significant stenosis.
Echo 12/10/2023: EF 65 to 70%. Concentric LVH. Moderate aortic stenosis with peak/mean gradient 49/25 mmHg, AVR 1.22 cm�.
Echo 12/14/2024 (Rashad): EF 65 to 70%. Mild concentric LVH. Mitral valve thickening without significant stenosis. Moderate aortic stenosis with peak/mean gradient 57/30 mmHg and JUVENCIO 1.3 cm�. Mild AI.
Echo 05/23/2025: EF 70 to 75%, no WMA, severe with peak/mean 57/34 mmHg, mild aortic regurgitation,
Cardiac catheterization 03/19/2022: LM: Patent. LAD: Patent. Left circumflex 50 to 60% mid stenosis with FFR of 0.87
Plan:
-Patient came to the ER yesterday with chest pain and was admitted with elevated troponin and cardiology is now consulted. As you recall the patient was just admitted to [facility] 05/22/2025 until 05/23/2025 with SOB, chest pain and elevated D-dimer and
troponin levels, but was not interested in testing and ultimately left AMA. Patient reports she has significant anxiety regarding medical situations and procedures and that led to her leaving the hospital. Patient reports continued on and off at
home with chest pain worse with activity and PANTOJA, overall symptoms improve when she is resting. No resting chest pain or SOB. Patient has had similar symptoms in the past and she thought those were related to previous abdominal wall repair
surgery, but symptoms now are more consistent with activity and so she came back to the hospital to be evaluated. Troponin was as high 0.044 last admission, and initial troponin this admission was 0.169 and trending down thereafter.
-ECG reviewed by me is SR with RBBB and no evidence of acute ST changes
-Initial troponin 0.169 and then trending down thereafter. Patient is pain-free at rest, but given recent admission for chest pain and story concerning for angina with troponins now elevated higher than previously patient is recommended cardiac
cath and she is agreeable. Patient had cardiac cath 03/19/2022 and at that point had a 50 to 60% mid circumflex lesion that had a negative FFR assessment at 0.87.
-Outpatient dose of aspirin 81 mg daily has been continued.
-Heparin gtt running since admission
-LDL was 66 when it was checked on 05/23/2025 and outpatient dose of rosuvastatin 10 mg daily has been continued.
-Patient added to cardiac cath scheduled and interventional cardiology and hospitalist attendings notified, all by me.
-It is also possible that the patient's symptoms are due to her severe which appears worse on echo 05/23/2025 compared to outpatient echo with her primary quenching machine operator 12/14/2024. No evidence of acute HF. Await results of cardiac cath. Would
recommend having patient's family present to review cath results as patient has incredible anxiety surrounding medical procedures and making decisions from medical standpoint due to her previous surgeries including abdominal wall repair.
-CT chest was negative for PE 05/28/2025. Patient has a history of provoked PE, but was not recommended lifelong OAC after a hypercoagulable workup was unremarkable as an outpatient at that time.
-Recommend stopping outpatient dose of HCTZ 12.5 mg daily with borderline low potassium levels and patient had hypokalemia last admission.
--- NOTE | 2025-05-29 11:03 | PTCARENOTE ---
Addendum entered by Molly Alberto RN 05/29/25 11:47:
Pt ambulated to bathroom with 1 assist without difficulty.
Original Note:
Received pt from [facility]. Pt here for cardiac cath. Pt awake, alert, and oriented x 3. NESS. Pt following commands. Pt on room air. Lungs clear with coarse bibasilar. Pt denies SOB and or chest pain at this time. +2 bilaterl radial pulses. +1 bilateral
DP pulses. Normal right oksana's test. No edema. Abdomen soft non tender. + bowel sounds. #22 jelco right forearm. # 20 jelco to right a/c INT. VSS. Awaiting cardiac cath. Will continue to monitor.
--- NOTE | 2025-05-29 12:40 | PTCARENOTE ---
Dr Manley at bedside obtaining consent.
--- NOTE | 2025-05-29 12:52 | PTCARENOTE ---
Report given to Essence CHAVEZ. Pt transferred into procedure room via stretcher with RN x2.
--- NOTE | 2025-05-29 14:51 | W.PN.HOSP.TC ---
Today's Communication/Plan
-
See plan
Assessment / Plan
Assessment / Plan
Impression:
Admitted with recurrent and persistent chest discomfort.
Elevated cardiac markers
Conditions prior to admission
Severe peak/mean 57/34 mmHg with JUVENCIO 1.1 cm squire by echo 05/23/2025
Essential hypertension
Dyslipidemia
Chronic RBBB.
GERD.
Obstructive sleep apnea
Polymyalgia rheumatica on chronic steroid therapy.
History of UTI.
Prior history of provoked PE
Lumbar stenosis with neurogenic claudication status post L4-L5 laminectomy
Plan
Concern for acute coronary syndrome.
Presented with persistent chest pain
Noted with positive cardiac markers
ECG normal sinus rhythm with chronic RBBB otherwise no evidence of ischemia
CT chest PE protocol negative for PE.
Noted with elevated pro CHF BNP with mild to 500.
CT chest with questionable interstitial infiltrate suggestive of pulmonary edema
HAYDEE 3-4
Left/right cath 05/29:
CHARLES to circumflex
Normal EF with hyperdynamic LV/LVH.
PCW 26
Aspirin
Brilinta
PPI
Start beta-abida: Toprol-XL 25 mg and titrate
High potency statin, increasing rosuvastatin to 40 mg
Continue losartan with caution for hypotension
Stop amlodipine avoiding hypotension
TAVR evaluation
PMR
On chronic corticosteroids
Continue PPI
Chronic pain
Continue Ultram
Anticipated Discharge: 24 - 48 hours
Subjective/Interval History
-
Date of Service: May 29, 2025
Objective Data
-
Labs:
Laboratory Results
05/29/25
06:56
WBC 15.1 H
Hgb 13.0
Hct 38.6
Plt Count 363
APTT 75.4 H
Sodium 136
Potassium 3.5
Chloride 108 H
Carbon Dioxide 24
BUN 20 H
Creatinine 0.7
Glucose 105 H
Calcium 9.3
Total Bilirubin 0.6
AST 24
ALT 33
Alkaline Phosphatase 71
Vital Signs:
Vital Signs
Temp Pulse Resp BP Pulse Ox
98.1 F 86 18 150/74 95
05/29/25 11:05 05/29/25 11:05 05/29/25 11:05 05/29/25 11:05 05/29/25 11:05
Physical Exam
-
General: Well Developed and No Apparent Distress
HEENT: Normocephalic, Atraumatic and Moist Mucous Membranes
Respiratory: Clear to Auscultation
Cardiac: Regular Rhythm and S1/S2; Negative Murmur, Rub or Gallop
GI: Soft, Nontender, Nondistended and Normal Bowel Sounds; Negative Organomegaly
Rectal: Deferred by Provider
Musculoskeletal: No Clubbing, No Cyanosis and No Edema
Skin: Negative Rash
Neuro: Nonfocal/Grossly Intact
--- NOTE | 2025-05-29 15:10 | ITS.CL.CATH ---
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
Cardiac Catheterization
Procedure Report:
RIGHT AND LEFT HEART STUDY WITH CORONARY INTERVENTION
Date of Procedure: May 29, 2025
Referring: Dr. Rangel Pimentel
PROCEDURES:
1. Right heart catheterization
2. Left heart catheterization with coronary and single-plane left ventriculography
3. Successful stenting of the mid circumflex into OM 2 jailing the first obtuse marginal branch. Mid circumflex-OM 2 was stented with a 3.0 x 23 mm Xience stent that was implanted at nominal pressures and postdilated with a 3.25 mm noncompliant
balloon to 16 stanislav in the proximal and midportion of the stent
INDICATION: This is a 80-year-old female who presented to [facility] with complaints of substernal chest pressure. She initially left AMA and returned 5 days later with ongoing symptoms. She states that she experienced some degree of
substernal chest pressure for at least the past 4 to 5 months. Symptoms occur with exertion but sometimes at rest. Her troponin was mildly elevated peaking at 0.169 ng/mL. She is now referred for coronary angiography.
She has known aortic stenosis and the most recent echocardiogram had a mean valve gradient of 35 mmHg.
ACCESS: Right radial artery, 6 Liberian sheath in right brachial vein, 5 Liberian sheath. The right radial artery access was abandoned as the aorta was uncoiled and innominate was tortuous. There was little catheter torque and the right coronary ostia
could not be engaged. Arterial access was then obtained in the right common femoral artery with placement of a 6 Liberian sheath. Ultrasound guidance and micropuncture technique was utilized
HEMODYNAMICS : mmHg
RA (m) : 15
RV (s/d) : 30/10, 15
PA (s/d, m) : 33/20, 24
PCWP (m) : 25
AO (s/d, m) : 110/65, 82
LV (s/d) : 159/12
LVEDP : 17
Cardiac Output: 2.7 L / min and Cardiac Index: 1.7 L/ min / m-2
Systemic vascular resistance: 25.2 Wood units or 2015 [id number](-5)
Pulmonary vascular resistance: 1 Wood units or 80 [id number](-5)
AORTIC VALVE:
Mean gradient: 45 mmHg
Aortic Valve Area: 0.53 cm�
CORONARY FINDINGS
Dominance: Right
LEFT MAIN: Normal
LEFT ANTERIOR DESCENDING: The LAD arises normally from the left main and runs in the anterior interventricular groove. The LAD has minor irregularities over its course.
CIRCUMFLEX: The circumflex is a medium caliber nondominant vessel. OM1 arises from the mid circumflex and has a 50% ostial narrowing. The mid circumflex just beyond OM1 has an eccentric 75% stenosis just before the origin of OM 2. OM 2 is a
medium caliber vessel that is moderately tortuous.
RIGHT CORONARY ARTERY: The right coronary artery is a medium caliber dominant vessel with a 20% proximal narrowing and very minor luminal irregularities noted throughout the vessel. The PDA is widely patent as is the posterolateral branch
VENTRICULOGRAPHY: Left ventriculography is performed in an SANDERS projection. There is significant LVH with an estimated ejection above 75% with systolic obliteration of the mid left ventriclar chamber
ANGIOPLASTY PROCEDURE DETAIL: Upon review of the diagnostic catheterization and review of the clinical history the decision was made to proceed with percutaneous revascularization of the high-grade stenosis in the mid circumflex with planned
stenting of the mid circumflex extending into OM 2. A 180 mg loading dose of ticagrelor was administered at the beginning of the interventional procedure. Intravenous heparin was given and the ACT was monitored. The origin of the left main was
cannulated with a EBU 3.5 guiding catheter and a long BMW guidewire was advanced into the first obtuse marginal branch to add as a marker wire should plaque shift occur. A short BMW guidewire was advanced across the stenotic segment and into the
midportion of OM 2. I attempted to directly stent the stenotic segment, however, a 3.0 x 23 mm Xience stent would not cross without predilation. Predilation was performed with a 2.5 x 15 mm Trek balloon and was followed by placement of a 3.0 x 23
mm Xience stent from the mid circumflex into the proximal portion of OM 2. The stent was implanted at nominal pressures and postdilated with a 3.25 x 8 mm noncompliant balloon to 16 stanislav with a nice angiographic result
RADIATION SUMMARY: Fluoro Time (min): 15.2, Dose (mGy): 631, DAP (Gy.cm2) : 39.9
CONCLUSIONS
1. Non-ST segment elevation myocardial infarction with stenosis in the mid circumflex. Successful stenting of the mid circumflex into OM 2 with placement of a 3.0 x 23 mm Xience stent that was implanted at nominal pressures and postdilated to
high-pressure's with a 3.25 mm noncompliant balloon
2. Severe aortic stenosis with a mean aortic valve gradient of 45 mmHg and valve area of of 0.53 cm�
3. Mildly elevated left ventricular filling pressures
4. Severe LVH with systolic obliteration of LV cavity and hyperdynamic function with an estimated ejection fraction greater than 75%
RECOMMENDATIONS
1. Uninterrupted dual antiplatelet therapy for 1 year
2. Begin TAVR evaluation.
3. Secondary risk modification
Copy to: Dr. Jean Pimentel
--- NOTE | 2025-05-29 15:28 | CM ---
priced tigagrelor with pts YUNIOR Emanuel- (ID# [id number])- her cost is $25.10/month- i called her [facility] and it is in stock.
--- NOTE | 2025-05-29 15:44 | PTCARENOTE ---
Patient admitted to IVU. She is AO x3, anxious. NSR HR 66. Right radial band intact with 10 ml of air. Hand dusky and complaining of pain, 3 cc of air removed, +2 radial pulse, POX 97%. Right femoral site CDI, dressing dry and soft. +2 DP. Right
upper arm skin tear. Right brachial site CDI. VSS. Oriented to room and call rosales. Plan of care reviewed, call rosales in reach
[2025-05-29] MEDS: CARAFATE 1 GRAM PO (17:52)
[2025-05-29] MEDS: TOPROL XL 25 MG PO (17:52)
[2025-05-29] MEDS: CRESTOR 40 MG PO (17:52)
--- NOTE | 2025-05-29 18:34 | PTCARENOTE ---
Addendum entered by Juan Jurado RN 05/29/25 18:38:
Patient complaints of chest pain that is intermittent radiating towards her throat. Mildly anxious. Carafate given, placed on 2 liter NC. Patient did just eat lying flat in bed. Did resolve after Carafate. EKG completed and reviewed with
Eriberto. Will continue to monitor. Patient assisted to the bathroom to void and moved her bowels
Original Note:
Patient complaints of chest pain that is intermittent radiating towards her throat. Carafate given. Patient did just eat lying flat in bed. Did resolve after Carafate. EKG completed and reviewed with Dr. Wei. Will continue to monitor. Patient
assisted to the bathroom to void and moved her bowels
[2025-05-29] MEDS: BRILINTA 90 MG PO (20:09)
[2025-05-30 03:37] VITALS: BP 136/62
[2025-05-30 03:50] VITALS: BMI 27.2
[2025-05-30 04:13] LABS: Hematocrit 33.2 % (37.0-47.0); Hemoglobin 11.0 g/dL (12.0-16.0); Mean Corp Hgb Conc. 33.1 g/dL (33.0-37.0); Mean Corpuscular Volume 81.0 fL (81.0-99.0); Platelet Count 305 10^3/uL (130-400); Red Cell Dist. Width 15.9 % (11.5-14.5)
[2025-05-30 04:30] LABS: Blood Urea Nitrogen 15 mg/dl (7-17); Calcium 8.8 mg/dl (8.4-10.2); Carbon Dioxide 24 mmol/L (22-30); Chloride 109 mmol/L (98-107); Estimated Creatinine Clearance 53 ml/min; Glucose 103 mg/dl (70-99); HDL Cholesterol 51 mg/dl; LDL Cholesterol, Calculated 93 mg/dl; Potassium 3.2 mmol/L (3.5-5.1); Sodium 139 mmol/L (135-145); Very Low Density Lipoprotein 32 mg/dl (0-30); eGFR > 60.00
[2025-05-30] MEDS: CARAFATE 1 GRAM PO ×3 (04:35→21:46)
[2025-05-30] MEDS: KCL 20 MEQ PO ×3 (05:38→21:47)
--- NOTE | 2025-05-30 05:51 | PTCARENOTE ---
Assumed care on pt at 1900, aaox3 with some forgetfulness. SR/SB w/ BBB , HR 50- 70's. Remained RA overnight with Pox 96-98%. R radial and R brachial with CDI dsg, ecchymotic, R groin free or swelling, bleeding or ecchymosis. Dsg over R upper arm
skin tear changed, pt repeatedly removes it and needs frequent reminders on keeping it on. K 3.2 with morning labs, compensation consultant AEROB[employer] INSTRUCTOR made aware and 20 mEq of po potassium ordered and administered. Pt asking for Karafate PRN r/t indigestion, administered
with symptoms resolving. Call rosales within reach, POC on going.
[2025-05-30 08:10] VITALS: BP 119/79
[2025-05-30] MEDS: TOPROL XL 25 MG PO (08:11)
[2025-05-30] MEDS: DIOVAN 320 MG PO (08:11)
[2025-05-30] MEDS: CRESTOR 40 MG PO (08:12)
[2025-05-30] MEDS: BRILINTA 90 MG PO ×2 (08:12→20:19)
[2025-05-30] MEDS: PEPCID 40 MG PO (08:12)
[2025-05-30] MEDS: PROTONIX 40 MG PO (08:12)
[2025-05-30] MEDS: MEDROL 4 MG PO (08:12)
[2025-05-30] MEDS: ASPIR LOW (ENTERIC COATED) 81 MG PO (08:12)
--- NOTE | 2025-05-30 10:27 | CONSULT.STRU ---
Consultation
-
Date/Time Consultation Requested: 05/29/2025 1600
Date/Time Consultation Performed: 05/30/2025 0900
Requesting Provider: Asa Manley
Performing Provider: TROY Hong
Reason for Consultation: Aortic stenosis/ TAVR evaluation
Patient History
Physicians
Family Physician: Paul Torres
Outpatient News Clerk: Rangel Pimentel
Primary News Clerk: Rangel Sauer
History of Present Illness
Ms. Bolton is a pleasant 80yo female who came to the ER on 05/28 with chest pain and was admitted with elevated troponin and cardiology was consulted. She was just admitted to [facility] 05/22/2025 until 05/23/2025 with SOB, chest pain, elevated D-dimer
and troponin levels, but was not interested in testing and ultimately left AMA. Patient reports she has significant anxiety regarding medical situations and procedures and that led to her leaving the hospital. Patient reports continued on and off
at home with chest pain worse with activity and PANTOJA, overall symptoms improve when she is resting. No resting chest pain or SOB. Denies palpitations, PND, orthopnea or significant peripheral edema. Patient has had similar symptoms in the past and
she thought those were related to previous abdominal wall repair surgery, but symptoms now are more consistent with activity and so she came back to the hospital to be evaluated. Troponin was as high 0.044 last admission, and initial troponin this
admission was 0.169 and trending down thereafter. She is tearful as we speak stating she just cannot do anything anymore without having to stop because of PANTOJA and fatigue. Her echocardiogram is notable for LVEF 70-75%, AV PG/M.1/35.0, JUVENCIO:
0.86, severe , mild AI, trace MR. She underwent cardiac cath on 05/29 with successful stenting of the mid circumflex into OM 2 jailing the first obtuse marginal branch. Mid circumflex-OM 2 was stented with a 3.0 x 23 mm Xience stent that was
implanted at nominal pressures and postdilated with a 3.25 mm noncompliant balloon to 16 stanislav in the proximal and midportion of the stent. She was started on dual antiplatelet therapy.
Reviewed the pathophysiology of aortic stenosis with the patient as well as the treatment options of SAVR vs TAVR. Reviewed the TAVR evaluation process and patient was provided with a prescription for blood work in 1 week, CT TAVR scan on 06/[address] surgery consult on 06/[address] Marroquin. Provided with contact information and TAVR education booklet. Allowed for and answered questions.
Past Medical History
Past Medical History: Angina, CAD, PANTOJA, GERD, HTN, AK, LUC, Valvular Disease (Aortic Stenosis, mild AI, trace MR) and Other (PMR (chronic steroids), hyperlipidemia, h/o UTI, remote h/o post operative PE, R-BBB)
Past Surgical History
Past Surgical History: Appendectomy, Cholecystectomy, Hysterectomy and Other (laminectomy, bowel resection, herniorrhaphy, TKR, left foot pin, bunionectomy)
Family History
Mother: at Age (96)
Father: at Age (70s, brain tumor)
Social History
Alcohol: None
Drug: None
Tobacco: Non-Smoker
Personal: Partner
Living: With Family
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
Allergies
Allergy/AdvReac Type Severity Reaction Status Date / Time
No Known Allergies Allergy Verified 05/28/25 14:25
Home Medications
�Medication �Instructions �Recorded �Confirmed �Type
amlodipine 5 mg tablet 5 mg PO DAILY Blood Pressure #1 tab 01/15/23 05/28/25 Rx
hydrochlorothiazide 12.5 mg tablet 12.5 mg PO DAILY Blood Pressure 12/09/23 05/28/25 History
methylprednisolone 4 mg tablet 4 mg PO DAILY Anti-Inflammatory 12/09/23 05/28/25 History
pantoprazole 40 mg tablet,delayed 40 mg PO DAILY Gastrointestinal 12/09/23 05/28/25 History
release Issue
famotidine 40 mg tablet 40 mg PO DAILY Gastrointestinal 05/22/25 05/28/25 History
Issue
rosuvastatin 10 mg tablet 10 mg PO DAILY High Cholesterol 05/22/25 05/28/25 History
sucralfate 1 gram tablet 1 g PO QIDPRN PRN abdominal pain 05/22/25 05/28/25 History
tramadol 50 mg tablet 50 mg PO Q6H PRN moderate-severe 05/22/25 05/28/25 History
pain
valsartan 320 mg tablet 320 mg PO DAILY Blood Pressure 05/22/25 05/28/25 History
aspirin 81 mg tablet,delayed 81 mg PO DAILY Blood Clot 05/28/25 05/28/25 History
release Prevention/Tx
STS%
STS %: 4.91%
Review of Systems
-
History Source: Patient
General: Reports Fatigue
HEENT: Reports No Symptoms
Respiratory: Reports PANTOJA and Other (LUC); Denies Asthma or PND
Cardiac: Reports Chest Pain (bandlink tightness below breast), CAD (PCI 05/29) and Edema (occasional pedal); Denies Palpitations, Nausea or Vomiting
Abdomen/GI: Reports Abdominal Pain and Reflux; Denies Nausea, Vomiting, Diarrhea or Constipation
: Reports No Symptoms
Musculoskeletal: Reports No Symptoms
Skin: Reports Other (easy bruising)
Neurological: Reports No Symptoms; Denies CVA, TIA, Headaches, Syncope or Weakness
Vascular: Reports No Symptoms
Physical Exam
Vital Signs
Temp 97.6 F 05/30/25 08:38
Temp route: Oral 05/30/25 08:38
Pulse 63 05/30/25 08:38
Rhythm: Normal sinus rhythm 05/29/25 22:28
With- Sinus bradycardia 05/29/25 22:28
Resp Rate 16 05/30/25 08:38
Blood pressure 119/79 05/30/25 08:11
Blood pressure extremity used: Right upper arm 05/30/25 08:38
Position: Lying 05/30/25 08:38
MAP (cuff-Delmar Monitor) 83 05/30/25 03:37
SaO2 99 05/30/25 08:38
Nasal Cannula flow liters per minute 97 05/29/25 22:28
Oxygen Mode of Delivery Room air 05/30/25 08:38
Acceptable pain level during hospitalization? 0 05/28/25 14:25
Can the patient verbally communicate their pain? Yes 05/29/25 22:28
Pain scale ratin 05/28/25 14:25
Actual Weight 63.2 kg 05/30/25 03:50
Body Mass Index (BMI) 27.2 05/30/25 03:50
Labs
05/30/25 03:48
05/30/25 03:48
PT 13.1 Sec (11.4-14.6) 05/28/25 14:50
APTT 75.4 Sec (23.4-35.0) H 05/29/25 06:56
Troponin I Cancelled 05/29/25 03:22
Jqg-O-Elfinxxjari Pept 565 pg/ml 05/28/25 14:50
Diagnostic Studies
05/23/2025 Echocardiogram:
SUMMARY
1. No prior echocardiogram available for comparison.
2. Normal left ventricular size, wall thickness and systolic function. No regional wall motion abnormalities are seen.
3. Trileaflet aortic valve. Severe aortic stenosis. Peak/mean gradients across the aortic valve are 57/34 mmHg respectively. Mild aortic regurgitation.
4. Moderate to severe aortic valve stenosis.
5. Right ventricular size and systolic function are within normal limits.

Transthoracic Echo procedure
A complete Transthoracic Echocardiogram was performed utilizing Two-Dimensional evaluation with color flow and spectral Doppler analysis.
PHYSICIAN INTERPRETATION
Left Ventricle:
Normal left ventricular size, wall thickness and systolic function. No regional wall motion abnormalities are seen. Left ventricle is small in size. Left ventricular hypertrophy-interventricular septum measures 1.4 cm.; inferolateral wall measures
1.1 cm. No regional wall motion abnormalities are seen. Left ventricle is hyperdynamic. Left ventricular ejection fraction is 70-75% by visual estimate. Diastolic function indeterminate.
Right Ventricle:
Right ventricular size and systolic function are within normal limits.
Left Atrium:
The left atrium is normal in size and structure.
Right Atrium:
The right atrium is normal in size and structure.
Aortic Valve:
Doppler findings and restricted movement of the aortic valve cusps are consistent with moderate to severe aortic stenosis. The peak aortic valve gradient is 62.1 mmHg. The mean aortic valve gradient is 35.0 mmHg. Trileaflet aortic valve. Severe
aortic stenosis. Peak/mean gradients across the aortic valve are 57/34 mmHg respectively. Mild aortic regurgitation.
Mitral Valve:
Dense calcific thickening of the mitral leaflets and annulae. Torn chordae is seen. Trace mitral regurgitation.
Tricuspid Valve:
Tricuspid valve opens normally. No evidence of stenosis. No evidence of regurgitation.
Pulmonic Valve:
Pulmonic valve opens normally. No evidence of stenosis. No evidence of regurgitation.
Aorta:
The aortic root appears normal in dimension, with no evidence of dilatation or obstruction.
Pericardium:
There is no evidence of pericardial effusion.

QUANTITATIVE DATA
Left Ventricle Measurements
Normal (Male) Normal (Female)
Internal Diam (Diastole) 3.70 cm 4.2 - 5.9 cm 3.9 - 5.3 cm
Internal Diam (Systole) 2.60 cm 2.3 - 4.7 cm 2.0 - 4.0 cm
IVS (Diastole) 1.40 cm 0.7 - 1.1 cm 0.6 - 1.0 cm
LVPW (Diastole) 1.10 cm 0.7 - 1.1 cm 0.6 - 1.0 cm
LVOT Diam 1.60 cm
Stroke Volume Index 34.1 ml/m²
Aorta Measurements Sinus of Valsalva 3.10 cm Ascending Aorta 3.20 cm
Sinotubular Junction 2.9 cm
Right Ventricle Measurements Normal
RV S GERSON 17.80 cm/s
Aortic Valve Measurements
Valve Area 0.86 cm² AoV Mean Gradient 35.0 mmHg
AoV Peak Gradient 62.1 mmHg LVOT Mean Gradient 6.0 mmHg
LVOT Peak Gradient 9 mmHg
Mitral Valve Measurements
Pressure half time 103.24 msec Valve Area Pressure half time 2.13 cm²
Mitral Tissue Doppler Lat 4.2 cm/s E/A Ratio 0.62
MV A Velocity 154.00 cm/s Mitral Tissue Doppler Med 4.5 cm/s
MV E Velocity 94.90 cm/s Deceleration time 356 msec
MV Ivone Diam
05/29/2025 Cardiac Catheterization:
HEMODYNAMICS : mmHg
RA (m) : 15
RV (s/d) : 30/10, 15
PA (s/d, m) : 33/20, 24
PCWP (m) : 25
AO (s/d, m) : 110/65, 82
LV (s/d) : 159/12
LVEDP : 17
Cardiac Output: 2.7 L / min and Cardiac Index: 1.7 L/ min / m-2
Systemic vascular resistance: 25.2 Wood units or 2015 [id number](-5)
Pulmonary vascular resistance: 1 Wood units or 80 [id number](-5)
AORTIC VALVE:
Mean gradient: 45 mmHg
Aortic Valve Area: 0.53 cm�
CORONARY FINDINGS
Dominance: Right
LEFT MAIN: Normal
LEFT ANTERIOR DESCENDING: The LAD arises normally from the left main and runs in the anterior interventricular groove. The LAD has minor irregularities over its course.
CIRCUMFLEX: The circumflex is a medium caliber nondominant vessel. OM1 arises from the mid circumflex and has a 50% ostial narrowing. The mid circumflex just beyond OM1 has an eccentric 75% stenosis just before the origin of OM 2. OM 2 is a
medium caliber vessel that is moderately tortuous.
RIGHT CORONARY ARTERY: The right coronary artery is a medium caliber dominant vessel with a 20% proximal narrowing and very minor luminal irregularities noted throughout the vessel. The PDA is widely patent as is the posterolateral branch
VENTRICULOGRAPHY: Left ventriculography is performed in an SANDERS projection. There is significant LVH with an estimated ejection above 75% with systolic obliteration of the mid left ventriclar chamber
ANGIOPLASTY PROCEDURE DETAIL: Upon review of the diagnostic catheterization and review of the clinical history the decision was made to proceed with percutaneous revascularization of the high-grade stenosis in the mid circumflex with planned
stenting of the mid circumflex extending into OM 2. A 180 mg loading dose of ticagrelor was administered at the beginning of the interventional procedure. Intravenous heparin was given and the ACT was monitored. The origin of the left main was
cannulated with a EBU 3.5 guiding catheter and a long BMW guidewire was advanced into the first obtuse marginal branch to add as a marker wire should plaque shift occur. A short BMW guidewire was advanced across the stenotic segment and into the
midportion of OM 2. I attempted to directly stent the stenotic segment, however, a 3.0 x 23 mm Xience stent would not cross without predilation. Predilation was performed with a 2.5 x 15 mm Trek balloon and was followed by placement of a 3.0 x 23
mm Xience stent from the mid circumflex into the proximal portion of OM 2. The stent was implanted at nominal pressures and postdilated with a 3.25 x 8 mm noncompliant balloon to 16 stanislav with a nice angiographic result
RADIATION SUMMARY: Fluoro Time (min): 15.2, Dose (mGy): 631, DAP (Gy.cm2) : 39.9
CONCLUSIONS
1. Non-ST segment elevation myocardial infarction with stenosis in the mid circumflex. Successful stenting of the mid circumflex into OM 2 with placement of a 3.0 x 23 mm Xience stent that was implanted at nominal pressures and postdilated to
high-pressure's with a 3.25 mm noncompliant balloon
2. Severe aortic stenosis with a mean aortic valve gradient of 45 mmHg and valve area of of 0.53 cm�
3. Mildly elevated left ventricular filling pressures
4. Severe LVH with systolic obliteration of LV cavity and hyperdynamic function with an estimated ejection fraction greater than 75%
Exam
General: Well Developed, Well Nourished, No Apparent Distress and Comfortable
HEENT: Normocephalic, Moist Mucous Membranes, Atraumatic and PERRLA
Neck: Trachea Midline
Respiratory: Clear; Negative Wheezes, Crackles, Rhonchi or Accessory Muscle Use
Cardiac: S1/S2, Regular Rhythm and Murmur (Grade III/ JAMES)
GI: Soft, Non Tender, Non Distended and Normal Bowel Sounds
Rectal: Deferred by Provider
Skin: Warm and Dry
Neuro: AO x 3 and Nonfocal/Grossly Intact
Extremities: Pulses (+2 pedal pulses); Negative Lower Level Edema
Psych: Calm
Assessment / Plan
-
Severe, symptomatic Aortic Stenosis
- Plan evaluation for TAVR as outpatient
- Repeat BMP in 1 week ([facility])
-CT TAVR scan pending BMP- currently scheduled for 06/13
-CT surgery consult with Dr. Marroquin on 06/20
-CT surgery consult
CAD
-Successful stenting of the mid circumflex into OM 2 with placement of a 3.0 x 23 mm Xience stent on 05/29
-dual antiplatelet therapy for 1 year- Brilinta nad ASA
-Statin daily
-BB daily
-Heart healthy diet
Procedure Type:�Isolated AVR
Perioperative Outcome Estimate %
Operative Mortality 4.91%
Morbidity & Mortality 12.7%
Stroke 1.58%
Renal Failure 1.85%
Reoperation 3.26%
Prolonged Ventilation 6.95%
Deep Sternal Wound Infection 0.069%
Long Hospital Stay (>14 days) 5.28%
Short Hospital Stay (<6 days)* 29.5%
Data Reviewed
-
EKG: Report Reviewed by me
Classification Officer: Report Reviewed by me, Discussed with Physician and Discussed with Patient
Echo: Report Reviewed by me, Discussed with Physician and Discussed with Patient
Labs: Labs Reviewed by me
Old Records: Reviewed
Total Time Spent with Patient (in minutes): 35
--- NOTE | 2025-05-30 10:34 | W.PN.CARDCBS ---
Addendum entered and electronically signed by Fred Javier DO 05/30/25 12:49:
I saw and examined the patient.
The First Breaker Feeder's note was reviewed and I agree with the note.
Comment:
Plan:
Complains of bandlike epigastric tightness which she had prior to procedure and is still having. This may be GI related.
Check limited follow-up echo to evaluate LV EF and for wall motion abnormalities.
EKG is stable compared to previous EKG
We discussed her aortic stenosis and consideration for outpatient TAVR evaluation
Continue dual antiplatelet therapy.
Continue Toprol XL. HCTZ was stopped during admission
If she continues to improve possible discharge with later today. This is also her preference.
Original Note:
Today's Communication / Plan
-
Check follow-up echo study to look for WMA and assess bandlike tightness that might be more chronic in nature and related to previous abdominal wall repair surgeries
New to Brilinta and aspirin has been continued
New to Toprol-XL and HCTZ was stopped
Will need outpatient TAVR evaluation
Possible discharged home later today
Impression / Plan
-
PCP: Paul Torres
[employer]: [facility]. Did see Inocencio Darby at [place] for second opinion
Impression:
Admitted with recurrent chest pain and elevated troponin 05/28/2025
Recent admission for SOB, chest pain and elevated D-dimer then ultimately left AMA 05/22/2025 until 05/23/2025
NSTEMI
CAD s/p 3.0 mm Xience CHARLES to the mid circumflex into the OM 2 jailing OM1 05/29/2025
Severe with peak/mean 57/34 mmHg and JUVENCIO 1.1 cm sq by echo 05/23/25
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
mean aortic valve gradient of 45 mmHg and valve area of of 0.53 cm sq by [facility] 05/29/2025
HTN
Hyperlipidemia
cRBBB
GERD
Obstructive sleep apnea
Polymyalgia rheumatica
History of UTI
Varicose veins
History of pulmonary embolus related to surgery
Echo 03/18/2022: Normal LV size and function. Mild concentric LVH. Aortic calcification with no significant stenosis.
Echo 12/10/2023: EF 65 to 70%. Concentric LVH. Moderate aortic stenosis with peak/mean gradient 49/25 mmHg, AVR 1.22 cm�.
Echo 12/14/2024 ([place]): EF 65 to 70%. Mild concentric LVH. Mitral valve thickening without significant stenosis. Moderate aortic stenosis with peak/mean gradient 57/30 mmHg and JUVENCIO 1.3 cm�. Mild AI.
Echo 05/23/2025: EF 70 to 75%, no WMA, severe with peak/mean 57/34 mmHg, mild aortic regurgitation
Echo 05/30/2025: Follow-up study pending
Cardiac catheterization 03/19/2022: LM: Patent. LAD: Patent. Left circumflex 50 to 60% mid stenosis with FFR of 0.87
Plan:
-Patient had successful PTCA and stenting of the mid circumflex into the OM 2 with a 3 mm Xience CHARLES that jailed the OM1. Troponin on admission was 0.169 and then trended down. Patient has atypical chest pain with bandlike tightness that is
chronic for her related to previous abdominal wall surgery, she said that she was told she could always get some bandlike tightness related to mesh that was placed at time of surgery. Check follow-up echo study to reassess EF and look for any WMA
in comparison to echo from last week.
-Patient is new to ticagrelor 90 mg BID and will have a $25 a month co-pay which she is agreeable to. She will continue her outpatient dose of aspirin 81 mg daily
-Echo from 05/23/2025 showed preserved EF at 70 to 75% and repeat echo ordered by mt 05/22/2025 and is pending
-LDL was 66 when it was checked on 05/23/2025 and outpatient dose of rosuvastatin 10 mg daily was continued, but recheck CVE on 05/22/2025 showed an LDL of 93 and Crestor was increased to 40 mg daily.
-Cardiac rehab consulted
-New to Toprol XL 25 mg daily
-Outpatient dose of HCTZ has been stopped
-Outpatient dose of valsartan 320 mg daily has been continued
-Outpatient dose of amlodipine 5 mg daily has been stopped
-There is evidence of severe by hemodynamics on RHC 05/29/2025, mean gradient at time of cath was 45 mmHg with JUVENCIO 0.53 cm sq compared to mean gradient 34 mmHg by TTE 05/23/2025. Patient recommended to pursue outpatient TAVR evaluation and she
identifies Dr. Pimentel as her primary shrimp pond laborer and would like to follow-up with him for this.
-CT chest was negative for PE 05/28/2025. Patient has a history of provoked PE, but was not recommended lifelong OAC after a hypercoagulable workup was unremarkable as an outpatient at that time.
-Possible discharge to home on 05/22/2025 pending echo and improvement in lower chest bandlike tightness
HPI: Patient came to the ER yesterday with chest pain and was admitted with elevated troponin and cardiology is now consulted. As you recall the patient was just admitted to [facility] 05/22/2025 until 05/23/2025 with SOB, chest pain and elevated D-dimer
and troponin levels, but was not interested in testing and ultimately left AMA. Patient reports she has significant anxiety regarding medical situations and procedures and that led to her leaving the hospital. Patient reports continued on and off
at home with chest pain worse with activity and PANTOJA, overall symptoms improve when she is resting. No resting chest pain or SOB. Patient has had similar symptoms in the past and she thought those were related to previous abdominal wall repair
surgery, but symptoms now are more consistent with activity and so she came back to the hospital to be evaluated. Troponin was as high 0.044 last admission, and initial troponin this admission was 0.169 and trending down thereafter.
Progress Note - [employer] Sales
Subjective
Date of Service: May 30, 2025
She has a bandlike tightness in her lower chest
Objective
Labs:
05/30/25 03:48
05/30/25 03:48
Labs
Hgb 11.0 g/dL (12.0-16.0) L 05/30/25 03:48
Hct 33.2 % (37.0-47.0) L 05/30/25 03:48
Plt Count 305 10^3/uL (130-400) 05/30/25 03:48
PT 13.1 Sec (11.4-14.6) 05/28/25 14:50
INR 0.97 05/28/25 14:50
APTT 75.4 Sec (23.4-35.0) H 05/29/25 06:56
Sodium 139 mmol/L (135-145) 05/30/25 03:48
Potassium 3.2 mmol/L (3.5-5.1) L 05/30/25 03:48
BUN 15 mg/dl (7-17) 05/30/25 03:48
Creatinine 0.7 mg/dL (0.6-1.0) 05/30/25 03:48
Glucose 103 mg/dl (70-99) H 05/30/25 03:48
Troponins
05/28/25 05/28/25 05/28/25
14:50 21:01 21:22
Troponin I 0.169 H* 0.147 H* Cancelled
05/29/25 05/29/25
01:03 03:22
Troponin I 0.148 H* Cancelled
Vital Signs and I&O:
Vital Signs
Temp Pulse Resp BP Pulse Ox
97.6 F 59 16 119/79 99
05/30/25 08:38 05/30/25 10:30 05/30/25 08:38 05/30/25 08:11 05/30/25 08:38
Vital Signs
Temp Pulse Resp BP Pulse Ox
97.6 F 59 16 119/79 99
05/30/25 08:38 05/30/25 10:30 05/30/25 08:38 05/30/25 08:11 05/30/25 08:38
Intake & Output
05/28/25 05/29/25 05/30/25 05/31/25
06:59 06:59 06:59 06:59
Intake Total 720 / 720
Balance 720 / 720
Physical Exam
Physical Exam
GEN: NAD. AAOx3
LUNGS: RA. CTA B/L, no wheeze
CV: SR on telemetry
Scores
HAYDEE for NSTEMI
Age >/= 65: Yes
>/=3 CAD risk factors-HTN,High Chol,Fam hx CAD,DM,Smoker: No
Known CAD (stenosis >/=50%): No
ASA use in past 7 days: Yes
Severe angina (>/= 2 episodes in 24 hrs): Yes
EKG ST Changes >/= 0.5mm: No
Positive cardiac marker: Yes
Score: 4
Risk at 14 days-mortality, new/recurrent MD, severe ischemia: Intermediate Risk- 20% Risk at 14 days- all cause mortality, new or recurrent MD, or severe recurrent ischemia requiring urgent revascularization
--- NOTE | 2025-05-30 10:46 | PTCARENOTE ---
Received pt AAOx3, VSS, SR with BBB on tele. Denies chest pain or shortness of breath.
--- NOTE | 2025-05-30 10:55 | WOUNDNOTE ---
[facility] RN note: Patient admitted with acute UTI.
See H&P for complete history.
PMH: 80F HX severe , HTN, lumbar stenosis with neurogenic claudication status post L4-L5 laminectomy, HX provoked PE s/p perforated diverticulitis s/p bowel surgery and prolonged immobility , HX NEG hypercoagulable work, LUC , CPAP HS, Chr
steroid dependent PMR pw chest/epigastric pain for past few weeks with exertion also shortness of breath with exertion. Not hypoxic. Declined CTC PE protocol on last admission.
Wound Location and type/assessment: Patient admitted with: chronic bruising and old scars on arms. R arm skin tear with skin flap covering most of area and purple ecchymotic skin. Silicone foam in use, painful upon removal reports patient. Patient
able to turn self to side, sacrum and heels intact.
Appetite: Good.
Pressure redistribution devices in place: On Accumax, is ad won.
Plan: Local wound care provided with Solosite hydrogel, adaptic, abd pad and linda, secured with Spandage. Teaching done with patient regarding wound care, additional supplies provided for use at home. States she has family that can assist her at
home if needed. Will confirm orders with hospitalist and update nurse.
Updated care plan and will sign off unless needed.
Note to case management of equipment requested for discharge: None.
[2025-05-30 11:05] VITALS: BP 137/87
--- NOTE | 2025-05-30 11:25 | SUR.PHASEI ---
Pt c/o of midsternal chest pain, 03/12- states 'just doesn't feel well', also states it is the same exact pain she has been experiencing on and off during her admission. Per MD, give carafate since it had alleviated symptoms overnight. Carafate
given, EKG performed. ECHO at bedside. Reassessed 10 mins later and pt states pain is 'alittle bit better' No vital sign changes, will continue to monitor.
--- NOTE | 2025-05-30 12:55 | CM ---
Reviewed Chart. Met with Mrs. Bolton to review discharge plans. She states prior to admission she resides with her significant other in a two story home without any steps to enter. She states her bedroom and full bathroom are on the first floor.
She states prior to admission she was independent with ambulation and adls. She states she does not have any DME in the home. She states she has a prescription plan with [employer] and uses [facility]. Reviewed co-pay for Miracle with her and she
is agreeable to the co-pay. Medical work-up in progress. The discharge plan is to return home with her significant other when medically stable.
--- NOTE | 2025-05-30 14:25 | W.PN.UPDATE ---
Update Note
Progress Note Update
Patient updated with her echo results in the room, EF is stable and preserved at 70 to 75%, there is evidence of torn chordae on the MV and dense MAC, but only trace MR. PCWP was 25 during [facility] 05/29/2025. We will attempt to diurese with Lasix 40
mg IV x 1 now. Orders placed by me. Hospitalist attending updated by me.
--- NOTE | 2025-05-30 14:34 | W.PN.HOSP.TC ---
Today's Communication/Plan
-
Monitor on new medication regimen
Attempt of gentle diuresis
Assessment / Plan
Assessment / Plan
Impression:
Admitted with recurrent and persistent chest discomfort.
Elevated cardiac markers
Conditions prior to admission
Severe peak/mean 57/34 mmHg with JUVENCIO 1.1 cm squire by echo 05/23/2025
Essential hypertension
Dyslipidemia
Chronic RBBB.
GERD.
Obstructive sleep apnea
Polymyalgia rheumatica on chronic steroid therapy.
History of UTI.
Prior history of provoked PE
Lumbar stenosis with neurogenic claudication status post L4-L5 laminectomy
Plan
Concern for acute coronary syndrome.
Presented with persistent chest pain
Noted with positive cardiac markers
ECG normal sinus rhythm with chronic RBBB otherwise no evidence of ischemia
CT chest PE protocol negative for PE.
Noted with elevated pro CHF BNP with mild to 500.
CT chest with questionable interstitial infiltrate suggestive of pulmonary edema
HAYDEE 3-4
Left/right cath 05/29:
CHARLES to circumflex
Normal EF with hyperdynamic LV/LVH.
PCW 26
Aspirin
Brilinta
PPI
Start beta-abida: Toprol-XL 25 mg and titrate
High potency statin, increasing rosuvastatin to 40 mg
Continue losartan with caution for hypotension
Stop amlodipine avoiding hypotension
Follow-up echo on 05/30:
1. Normal left ventricular chamber size, moderate LVH and systolic function with near cavity obliteration ejection fraction 70 to 75%.
2. Limited echo to eval left ventricle function and EF.
3. Thickened mitral valve leaflets with evidence of torn chordae, trace mitral regurgitation.
4. Compared to a full study echo from May 23, 2025, moderate to severe aortic stenosis was noted in that study.
She continues to complain of the lower right chest bandlike pain.
Will observe for another day per
Attempt of gentle diuresis per cardiology.
TAVR evaluation
PMR
On chronic corticosteroids
Continue PPI
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
Chronic pain
Continue Ultram
Anticipated Discharge: 24 - 48 hours
Subjective/Interval History
-
Date of Service: May 30, 2025
Objective Data
-
Labs:
Laboratory Results
05/30/25
03:48
WBC 16.2 H
Hgb 11.0 L
Hct 33.2 L
Plt Count 305
Sodium 139
Potassium 3.2 L
Chloride 109 H
Carbon Dioxide 24
BUN 15
Creatinine 0.7
Glucose 103 H
Calcium 8.8
Vital Signs:
Vital Signs
Temp Pulse Resp BP Pulse Ox
98.1 F 63 17 137/87 95
05/30/25 11:13 05/30/25 11:30 05/30/25 11:13 05/30/25 11:05 05/30/25 11:15
I&O
05/29/25 05/30/25 05/31/25
06:59 06:59 06:59
Intake Total 720 / 720
Balance 720 / 720
Physical Exam
-
General: Well Developed and No Apparent Distress
HEENT: Normocephalic, Atraumatic and Moist Mucous Membranes
Respiratory: Clear to Auscultation
Cardiac: Regular Rhythm and S1/S2; Negative Murmur, Rub or Gallop
GI: Soft, Nontender, Nondistended and Normal Bowel Sounds; Negative Organomegaly
Rectal: Deferred by Provider
Musculoskeletal: No Clubbing, No Cyanosis and No Edema
Skin: Negative Rash
Neuro: Nonfocal/Grossly Intact
[2025-05-30] MEDS: LASIX 40 MG IV (14:47)
--- NOTE | 2025-05-30 17:42 | PTCARENOTE ---
Pt complains of arnold and general weakness, given 40mg IV Lasix. States that she feels is feeling better, pt will stay the night and monitor symptoms.
[2025-05-30 21:58] VITALS: BP 116/105
--- NOTE | 2025-05-30 22:46 | PTCARENOTE ---
Assumed care on pt at 1900, aaox3. Denies c/o cp or SOB. SR/SB on tele, HR 60's. R brachial, R radial and R groin cath sites with CDI dressings. Call rosales within reach, POC ongoing.
[2025-05-31 02:55] VITALS: BP 145/62
[2025-05-31 02:56] VITALS: BMI 27.0
[2025-05-31 02:59] VITALS: BP 123/64
[2025-05-31 03:23] LABS: Hematocrit 35.2 % (37.0-47.0); Hemoglobin 11.6 g/dL (12.0-16.0); Mean Corp Hgb Conc. 33.0 g/dL (33.0-37.0); Mean Corpuscular Volume 84.4 fL (81.0-99.0); Nucleated Red Blood Cells % 0 %; Platelet Count 294 10^3/uL (130-400); Red Cell Dist. Width 16.2 % (11.5-14.5)
[2025-05-31 03:45] LABS: Blood Urea Nitrogen 19 mg/dl (7-17); Calcium 8.7 mg/dl (8.4-10.2); Carbon Dioxide 22 mmol/L (22-30); Chloride 109 mmol/L (98-107); Estimated Creatinine Clearance 53 ml/min; Glucose 114 mg/dl (70-99); Potassium 3.7 mmol/L (3.5-5.1); Sodium 137 mmol/L (135-145); eGFR > 60.00
[2025-05-31 07:59] VITALS: BP 123/63
[2025-05-31] MEDS: ASPIR LOW (ENTERIC COATED) 81 MG PO (08:55)
[2025-05-31] MEDS: TOPROL XL 25 MG PO (08:55)
[2025-05-31] MEDS: CRESTOR 40 MG PO (08:55)
[2025-05-31] MEDS: BRILINTA 90 MG PO (08:55)
[2025-05-31] MEDS: DIOVAN 320 MG PO (08:56)
[2025-05-31] MEDS: PEPCID 20 MG PO (08:56)
[2025-05-31] MEDS: MEDROL 4 MG PO (08:56)
[2025-05-31] MEDS: PROTONIX 40 MG PO (08:56)
[2025-05-31] MEDS: LASIX 20 MG PO (10:01)
--- NOTE | 2025-05-31 10:40 | W.PN.CARDCBS ---
Addendum entered and electronically signed by Fred Javier DO 05/31/25 14:20:
I saw and examined the patient 05/31/2025 at 9:45 AM
The Oven Dauber's note was reviewed and I agree with the note.
Comment:
Plan:
Her symptoms resolved after receiving lasix yesterday and she denies complaints.
Transition to oral lasix
She is adamant about going home today.
She is going to follow up for outpt TAVR work up with [facility]
Reviewed with primary service.
Original Note:
Today's Communication / Plan
-
Lasix 20 mg p.o. daily upon discharge to home
I will work to get her an appointment for heart failure follow-up with [facility], she does not want VN
Patient wants to have TAVR here at [facility]
Impression / Plan
-
PCP: Paul Torres
Label Stamper: Jean Sauer [facility]. Did see Inocencio Darby at [facility] for second opinion
Impression:
Admitted with recurrent chest pain and elevated troponin 05/28/2025
Recent admission for SOB, chest pain and elevated D-dimer then ultimately left AMA 05/22/2025 until 05/23/2025
NSTEMI
CAD s/p 3.0 mm Xience CHARLES to the mid circumflex into the OM 2 jailing OM1 05/29/2025
Severe with peak/mean 57/34 mmHg and JUVENCIO 1.1 cm sq by echo 05/23/25
Previously moderate with peak/mean 57/30 mmHg and JUVENCIO 1.3 cm sq by echo with her outpatient order entry clerk 12/14/2024
mean aortic valve gradient of 45 mmHg and valve area of of 0.53 cm sq by C 05/29/2025
HTN
Hyperlipidemia
cRBBB
GERD
Obstructive sleep apnea
Polymyalgia rheumatica
History of UTI
Varicose veins
History of pulmonary embolus related to surgery
Echo 03/18/2022: Normal LV size and function. Mild concentric LVH. Aortic calcification with no significant stenosis.
Echo 12/10/2023: EF 65 to 70%. Concentric LVH. Moderate aortic stenosis with peak/mean gradient 49/25 mmHg, AVR 1.22 cm�.
Echo 12/14/2024 ([facility]): EF 65 to 70%. Mild concentric LVH. Mitral valve thickening without significant stenosis. Moderate aortic stenosis with peak/mean gradient 57/30 mmHg and JUVENCIO 1.3 cm�. Mild AI.
Echo 05/23/2025: EF 70 to 75%, no WMA, severe with peak/mean 57/34 mmHg, mild aortic regurgitation
Echo 05/30/2025: EF 70 to 75%, trace MR with evidence of torn chordae
Cardiac catheterization 03/19/2022: LM: Patent. LAD: Patent. Left circumflex 50 to 60% mid stenosis with FFR of 0.87
Plan:
-Patient had successful PTCA and stenting of the mid circumflex into the OM 2 with a 3 mm Xience CHARLES that jailed the OM1. Troponin on admission was 0.169 and then trended down.
-EF preserved at 70 to 75% by echo 05/30/2025
-New to ticagrelor 90 mg BID and will have a $25 a month co-pay which she is agreeable to. She will continue her outpatient dose of aspirin 81 mg daily
-Atypical bandlike tightness that the patient experienced on 05/30/2025 seems to have improved with attempts at diuresis. Patient will be discharged to home on Lasix 20 mg PO daily.
-Cre stable at 0.7 on labs reviewed by me 05/31/2025
-Patient would like to continue to follow-up with her primary order entry clerk as an outpatient, Dr. Sauer at [facility], but would like to have her TAVR procedure here at [facility]. I will work on obtaining a 1 week heart failure follow-up
visit as the patient declined VN.
-EF stable at 70 to 75% on recheck echo from 05/30/2025
-LDL was 66 when it was checked on 05/23/2025 and outpatient dose of rosuvastatin 10 mg daily was continued, but recheck CVE on 05/22/2025 showed an LDL of 93 and Crestor was increased to 40 mg daily.
-Cardiac rehab consulted
-New to Toprol XL 25 mg daily
-Outpatient dose of HCTZ has been stopped
-Outpatient dose of valsartan 320 mg daily has been continued
-Outpatient dose of amlodipine 5 mg daily has been stopped
-There is evidence of severe by hemodynamics on RHC 05/29/2025, mean gradient at time of cath was 45 mmHg with JUVENCIO 0.53 cm sq compared to mean gradient 34 mmHg by TTE 05/23/2025.
-Discharged home 05/31/2025, discharge med list reconciled and then cardiac medications E scribed by me 05/31/2025
HPI: Patient came to the ER yesterday with chest pain and was admitted with elevated troponin and cardiology is now consulted. As you recall the patient was just admitted to [facility] 05/22/2025 until 05/23/2025 with SOB, chest pain and elevated D-dimer
and troponin levels, but was not interested in testing and ultimately left AMA. Patient reports she has significant anxiety regarding medical situations and procedures and that led to her leaving the hospital. Patient reports continued on and off
at home with chest pain worse with activity and PANTOJA, overall symptoms improve when she is resting. No resting chest pain or SOB. Patient has had similar symptoms in the past and she thought those were related to previous abdominal wall repair
surgery, but symptoms now are more consistent with activity and so she came back to the hospital to be evaluated. Troponin was as high 0.044 last admission, and initial troponin this admission was 0.169 and trending down thereafter.
Progress Note - Label Stamper
Subjective
Date of Service: May 31, 2025
She feels much better following diuresis
Objective
Labs:
05/31/25 03:09
05/31/25 03:09
Labs
Hgb 11.6 g/dL (12.0-16.0) L 05/31/25 03:09
Hct 35.2 % (37.0-47.0) L 05/31/25 03:09
Plt Count 294 10^3/uL (130-400) 05/31/25 03:09
PT 13.1 Sec (11.4-14.6) 05/28/25 14:50
INR 0.97 05/28/25 14:50
APTT 75.4 Sec (23.4-35.0) H 05/29/25 06:56
Sodium 137 mmol/L (135-145) 05/31/25 03:09
Potassium 3.7 mmol/L (3.5-5.1) 05/31/25 03:09
BUN 19 mg/dl (7-17) H 05/31/25 03:09
Creatinine 0.7 mg/dL (0.6-1.0) 05/31/25 03:09
Glucose 114 mg/dl (70-99) H 05/31/25 03:09
Troponins
05/28/25 05/28/25 05/28/25
14:50 21:01 21:22
Troponin I 0.169 H* 0.147 H* Cancelled
05/29/25 05/29/25
01:03 03:22
Troponin I 0.148 H* Cancelled
Vital Signs and I&O:
Vital Signs
Temp Pulse Resp BP Pulse Ox
98.3 F 72 18 123/63 96
05/31/25 08:08 05/31/25 08:00 05/31/25 08:08 05/31/25 07:59 05/31/25 08:08
Vital Signs
Temp Pulse Resp BP Pulse Ox
98.3 F 72 18 123/63 96
05/31/25 08:08 05/31/25 08:00 05/31/25 08:08 05/31/25 07:59 05/31/25 08:08
Intake & Output
05/29/25 05/30/25 05/31/25 06/01/25
06:59 06:59 06:59 06:59
Intake Total 720 / 720 840 / 840
Output Total 750 / 750
Balance 720 / 720 90 / 90
Physical Exam
Physical Exam
GEN: NAD. AAOx3
LUNGS: RA. CTA B/L, no wheeze
CV: SR on telemetry
[2025-05-31 11:25] VITALS: BP 123/62
--- NOTE | 2025-05-31 11:33 | CM ---
Reviewed chart. Received consult for [facility]NA Services. Met with Mrs. Bolton to review discharge plans. Reviewed [facility] Services with her. At this time she is declining VNA Services. Prior to admission she resides with her significant other in a two story
home without any steps to enter. Her bedroom and full bathroom are on the first floor. Prior to admission she was independent with ambulation and adls. She does not have any DME in the home. She states she has a prescription plan with [employer] and
uses [facility]. Reviewed co-pay for Brilinta with her and she is agreeable to the co-pay. Medical work-up in progress. The discharge plan is to return home with her significant other when medically stable.
--- NOTE | 2025-05-31 11:56 | W.DS.TRANS ---
DC Summary - Salesperson Floor Coverings
-
Discharge Instructions:
Discharge Diagnosis/Procedures Angioplasty and stent to Left Circumflex artery
Diet 2 Gram Sodium,Restrict fluids to 64 oz
Activity Other activity
Driving Restrictions No driving for 24 hours
Bathing Restrictions OK to Shower
Blood Work Please have blood work(BMP) drawn on 06/06/2025.
This does not need to be fasting. Please have
results faxed to [phone].
Others Tests A CT scan has been scheduled for you at
[facility] on 06/13/2025 at 9:30am.
Please do not eat or drink anything for 3 hours
prior. Please bring a complete list of your
medications with you. Please report to the main
lobby, central registration 15 minutes prior to
your appointment time.
Other Services Cardiac Rehab
Specialty Instructions Weigh Daily
Instructions:
Stand-Alone Forms: DC Instructions- Cath/EP Lab
Changes to Home Medications: Yes
Discharge Medications:
DC Medications w/original date entered in [employer]
methylprednisolone 4 mg tablet 4 mg PO DAILY Anti-Inflammatory 12/09/23
pantoprazole 40 mg tablet,delayed release 40 mg PO DAILY Gastrointestinal Issue 12/09/23
famotidine 40 mg tablet 40 mg PO DAILY Gastrointestinal Issue 05/22/25
sucralfate 1 gram tablet 1 g PO QIDPRN PRN abdominal pain 05/22/25
tramadol 50 mg tablet 50 mg PO Q6H PRN moderate-severe pain 05/22/25
valsartan 320 mg tablet 320 mg PO DAILY Blood Pressure 05/22/25
aspirin 81 mg tablet,delayed release 81 mg PO DAILY Blood Clot Prevention/Tx 05/28/25
furosemide 20 mg tablet 20 mg PO DAILY Heart Failure #30 tabs 05/31/25
metoprolol succinate 25 mg tablet,extended release 24 hr 25 mg PO DAILY #30 tabs 05/31/25
rosuvastatin 10 mg tablet 40 mg (4 x 10 mg) PO DAILY High cholesterol #30 tabs 05/31/25
ticagrelor 90 mg tablet 90 mg PO BID Heart disease/condition #60 tabs 05/31/25
Home Medication Changes
Metoprolol, DAPT, Lasix initiated
Pending Results: No
--- NOTE | 2025-05-31 12:14 | PN.CDI ---
CDI
- -
CDI:
Physician Documentation Request
Admit Date: 05/28/25 20:15
Dear Doctor Stacie,
Please review the following and provide your response in the progress notes.
Clinical Indicators:
The diagnosis of NSTEMI was documented on 05/30/2025, but is not consistently noted in subsequent documentation.
Pt admitted with Concern for acute coronary syndrome.
05/30 Cardiology: ' Impression: Admitted with recurrent chest pain and elevated troponin 05/28/2025
Recent admission for SOB, chest pain and elevated D-dimer then ultimately left AMA 05/22/2025 until 05/23/2025
NSTEMI
CAD s/p 3.0 mm Xience CHARLES to the mid circumflex into the OM 2 jailing OM1 05/29/2025'
Please clarify the following:
NSTEMI was present on admission and is still being monitored, evaluated or treated
NSTEMI was ruled out
Other
Use of terms such as suspected, likely, concern for, or probable (associated with a specific diagnosis that is being evaluated, monitored, or treated as if it exists) are acceptable and can be coded in the inpatient setting, when documented at the
time of discharge.
Thank you,
Susan Kerns RN, BSN
CDI Specialist
[place] [facility]
Please use your independent medical judgment in providing your response.
--- NOTE | 2025-05-31 12:28 | PN.CDI ---
CDI
- -
CDI:
Physician Documentation Request
Admit Date: 05/28/25 20:15
Dear Doctor Stacie,
Please review the following and provide your response in the progress notes.
Clinical Indicators:
Pt admitted for acute coronary syndrome. S/P CHARLES to the mid circumflex.
05/30 Cardiology: ' EF is stable and preserved at 70 to 75%, there is evidence of torn chordae on the MV and dense MAC, but only trace MR. PCWP was 25 during [facility] 05/29/2025. We will attempt to diurese with Lasix 40 mg IV x 1 now.'
05/30 Progress Note: ' Noted with elevated pro CHF BNP with mild to 500.
CT chest with questionable interstitial infiltrate suggestive of pulmonary edema'
Please clarify the acuity and etiology of the pulmonary edema:
Acute non-cardiac pulmonary edema due to fluid overload
Acute pulmonary edema due to heart failure (please specify type and acuity)
Chronic pulmonary edema due to non-cardiac etiology (specify cause)
Other
Unable to determine
Use of terms such as suspected, likely, concern for, or probable (associated with a specific diagnosis that is being evaluated, monitored, or treated as if it exists) are acceptable and can be coded in the inpatient setting, when documented at the
time of discharge.
Thank you,
Susan Kerns RN, BSN
CDI Specialist
[place] [facility]
Please use your independent medical judgment in providing your response.
== END 2025-05-31 14:01 | disposition home or self-care (01) | DRG 321 ==
LOC: IVU 20:15
PROVIDERS: Emergency Medicine; Internal Medicine Cardiovascular Disease; Internal Medicine Interventional Cardiology; Nurse Practitioner; Physician Assistant Medical; ADMITTING PHYSICIAN Internal Medicine; ATTENDING PHYSICIAN Internal Medicine; EMERGENCY PHYSICIAN Student in an Organized Health Care Education/Training Program; FAMILY PHYSICIAN Family Medicine; OTHER PHYSICIAN Internal Medicine Cardiovascular Disease
PROC: 027034Z Dilation of Coronary Artery, One Artery with Drug-eluting Intraluminal Device, Percutaneous Approach (ICD-10-PCS; 2025-05-29)
PROC: B2151ZZ Fluoroscopy of Left Heart using Low Osmolar Contrast (ICD-10-PCS; 2025-05-29)
PROC: B2111ZZ Fluoroscopy of Multiple Coronary Arteries using Low Osmolar Contrast (ICD-10-PCS; 2025-05-29)
PROC: 4A023N8 Measurement of Cardiac Sampling and Pressure, Bilateral, Percutaneous Approach (ICD-10-PCS; 2025-05-29)
DX: I21.4 Non-ST elevation (NSTEMI) myocardial infarction (principal); I51.1 Rupture of chordae tendineae, not elsewhere classified; I35.0 Nonrheumatic aortic (valve) stenosis; I11.0 Hypertensive heart disease with heart failure; I50.9 Heart failure, unspecified; K21.9 Gastro-esophageal reflux disease without esophagitis; I45.10 Unspecified right bundle-branch block; M35.3 Polymyalgia rheumatica; Z79.82 Long term (current) use of aspirin; Z79.899 Other long term (current) drug therapy
CPT/HCPCS: 71046; 71275; 80048; 80053; 80061; 83880; 84484; 85025; 85027; 85347; 85610; 85730; 93005; 93308; 93460; 94660; 96374; 96376; 99291; C1725; C1760; C1769; C1874; C1894; C9600; Q9967

== ENCOUNTER 2025-06-04 12:14 | Inpatient (IN) | payer MEDICARE, OTHER, SELFPAY ==
[2025-06-04] VITALS (12 sets, daily range): BP systolic 95–150; BP diastolic 50–71; BMI 27.0; BMI 26.6
--- NOTE | 2025-06-04 09:07 | ED.GENMED ---
History of Present Illness
General
Chief Complaint: Dizziness
Time Seen by Provider: 06/04/25 09:06
History of Present Illness
History of Present Illness:
FOCUSED PAST MEDICAL HISTORY
- CAD, high blood pressure, hyperlipidemia, has had bowel perforation, severe aortic stenosis
REVIEW OF OLD RECORDS
- I reviewed records, the patient was admitted from 05/28 through 05/31/2025 with ACS and acute exacerbation of HFpEF
- Old EKG showed chronic right bundle branch block and recent CTA showed no PE
- She had CHARLES placed to circumflex and was found to have elevated PCW and was placed on DAPT (Vineet)
- She was started on 20 mg of Lasix daily
Note:
CHIEF COMPLAINT(S)
Dizziness when sitting or standing.
HISTORY OF PRESENT ILLNESS
The patient is an 80-year-old female with a recent history of a stent placement in the circumflex artery, presenting with dizziness. The dizziness began a couple of days ago, after her discharge from the hospital, and occurs primarily when sitting
up or standing. She denies experiencing any chest pain or head pain but reports feeling as if she might pass out when she changes from a lying to a sitting or standing position. She noted that her symptoms are alleviated when lying down. The patient
also reports nausea but no swelling in the legs.
ADDITIONAL HISTORY OBTAINED FROM SOURCES OTHER THAN THE PATIENT
No additional sources provided information.
EXTERNAL RECORDS REVIEWED
The patient�s recent medical records were reviewed, indicating a stent placement in the circumflex artery and a known diagnosis of aortic stenosis.
CHRONIC MEDICAL CONDITIONS SIGNIFICANTLY AFFECTING CARE
The patient has documented aortic stenosis.
MEDICATIONS
Patient is currently on Brilinta (Ticagrelor).
REVIEW OF SYSTEMS
- Cardiovascular: History of aortic stenosis, no current chest pain, recent stent placement.
- Neurological: Reports dizziness when sitting or standing, absent when lying down.
- Gastrointestinal: Reports nausea without abdominal pain.
- General: No swelling in legs, no head pain.
PHYSICAL EXAM
General: Alert, appears somewhat uncomfortable and reports rather significant dizziness when she goes from a supine to upright position
Skin: Warm, dry.
Head: Normocephalic, atraumatic.
Neck: Supple, trachea midline.
Eye, Ears, Nose, Mouth and Throat: Oral mucosa moist.
Cardiovascular: 3 out of 6 murmur consistent with known aortic stenosis, normal peripheral perfusion.
Respiratory: Respirations non-labored. Breath sounds clear
Gastrointestinal: Abdomen nondistended, reported mild tenderness without severe pain on palpation.
Back: Normal range of motion, normal alignment.
Musculoskeletal: Normal ROM, normal strength.
Neurological: Alert and oriented to person, place, time, and situation, normal coordination when performing [id number] test. Good strength in all extremities
Psychiatric: Cooperative, appropriate mood and affect.
PROBLEM LIST
Acute Problem:
- Dizziness with postural change.
Chronic Problems:
- Aortic stenosis.
PLAN
- Initiate intravenous fluid therapy.
- Monitor hemodynamic response to positional changes. (+) Orthostasis with BP going from 140s to 90s from supine to sitting up
- Review and adjust medications if necessary.
DIFFERENTIAL DIAGNOSIS
The differential diagnosis includes, in no particular order and is not limited to:
1. Orthostatic hypotension
2. Aortic stenosis
3. Dehydration
4. Medication side effect
5. Cardiac arrhythmia
6. Vestibular dysfunction
7. Anemia
8. Electrolyte imbalance
9. Volume depletion
10. Hypoglycemia
RADIOLOGY
- CT head, I see no acute abnormality
EKG
- Sinus 68, bifascicular block with associated repolarization abnormality however the lateral T wave inversion that was most notable in V4 through V6 is no longer present
LABS
- Creatinine 1.1 up from 0.7, BUN slightly higher today, troponin 1.5
UPDATE
-SUMMARY OF ENCOUNTER
The patient, an 80-year-old female recently discharged after stent placement, presented to the emergency department with symptoms of dizziness when transitioning to an upright position. Initial assessment showed a significant drop in blood pressure
upon sitting up, suggestive of dehydration. Additionally, laboratory tests indicated a low potassium level. Intravenous fluids and potassium were administered. An abdominal CT showed no abnormalities, pending radiologists confirmation. Given the
patients difficulty in ambulation and overall frailty post-stent placement, there are concerns about her ability to safely return home.
ASSESSMENT
The patients dizziness and hypotension upon standing are likely due to dehydration, possibly exacerbated by medication. Her recent cardiac procedure, aortic stenosis, and a low potassium level also contribute to her current condition.
EMERGENCY TREATMENTS ADMINISTERED
The patient received intravenous fluids and intravenous potassium to address dehydration and hypokalemia.
MANAGEMENT OF THE PATIENTS CARE WAS DISCUSSED WITH
Discussion was held with the hospitalist regarding the possibility of hospital admission for further stabilization and management of the patients condition given her inability to perform safe ambulation at home.
PLAN
The plan includes considering hospital admission due to the patients postural instability and risk of falls, reassessing her medication regimen, and ensuring her aortic stenosis and cardiac status are optimized before discharge. A follow-up with
cardiology for previously planned aortic stenosis work-up may need to be expedited while inpatient.
INDEPENDENT REVIEW OF LABS AND INTERPRETATION OF TESTS
My independent review of labs indicates low potassium level, consistent with the need for IV potassium supplementation.
ADDITIONAL TESTING AND IMAGING CONSIDERED
Additional cardiac evaluations possible upon hospital admission to assess the impact of aortic stenosis, potentially expediting her scheduled TAVR work-up as an inpatient.
PATIENT EDUCATION AND COUNSELING
Conversations were held with family regarding the risks associated with her discharge home in her current state, including the high risk of falls and inability to ambulate safely.
MEDICATION RECONCILIATION
The patient received intravenous potassium chloride in the ED.
MEDICAL DECISION MAKING
-Complexity of Data Reviewed: Chronic conditions affecting care include aortic stenosis and a recent stent placement. Differential diagnosis includes orthostatic hypotension, dehydration, and potentially medication side effect contributing to
current symptoms.
-Data:
Category 1
Non-emergency department records reviewed: I reviewed the patients past medical records indicating recent stent placement and known aortic stenosis.
The following testing was considered, but ultimately not selected after discussion with patient/family: Expedited outpatient studies for TAVR as requested by cardiac specialists.
Category 3
Discussion of management with hospitalist regarding potential admission due to difficulty in safe ambulation and risk factors related to recent cardiac procedure and current clinical presentation.
-Risk:
Care significantly affected by Social Determinants of Health: Limitations in mobility, increased fall risk due to symptomatic hypotension.
DIAGNOSIS
1. Orthostatic hypotension (ICD-10: I95.1)
2. Dehydration (ICD-10: E86.0)
3. Hypokalemia (ICD-10: E87.6)
4. Aortic stenosis, severe (ICD-10: I35.0)
Had CHARLES to circ placed last week by Vineet - says she never at CP then. Has HFpEF and severe . Trop peaked at 0.169 on 05/28 then started going down. Here w/ severe dizziness when she tries to get upright. SBP dropped from 145 to 95 when she went
from supine to sitting and became very symptomatic. Still no CP, but trop now 1.53. Has been getting evaluation for TAVR. Her partner feels she should not have been discharged last week and feels she cannot continue the workup for TAVR as
outpatient. Giving IVF and IV potassium as K is 3.0. Cr was 0.7 now 1.1. Extremely symptomatic any time she tries to get up and does not appear safe to be discharged.
Past History
Past History
ED Past Medical History: CAD, HTN, Hypercholesterolemia, Valvular disease and Other (Diverticulitis)
ED Past Surgical History: Appendectomy, Cardiac, Cholecystectomy, Gynecological, Orthopedic and Other
Social History
Tobacco: Non-smoker
Alcohol: None
Drug: None
Personal: Single
Living: with family
Phy Exam
Physical Exam
Physical Exam:
See HPI
Course
Orders/Labs/Results
Orders:
Orders
06/04/25 09:05
Electrocardiogram (*1) Urgent
Reason for Study: Chest Pain
EKG- Treatment ONCE
06/04/25 09:18
CT Head W/o Iv Contrast Urgent
Comment:
Reason For Exam: acute severe dizziness
0.9% Sodium Chloride 500 ml [Nss] 500 ml IV BOLUS
06/04/25 09:23
Basic Metabolic Panel Urgent
Complete Blood Count/With Diff Urgent
NT-proBNP Urgent
Troponin I Urgent
06/04/25 09:51
Potassium Chloride [KCl] 40 meq 0.9% Sodium Chloride 250 ml [Nss] 250 ml IV NOW
06/04/25 10:45
0.9% Sodium Chloride 1000 ml [Nss] 1,000 ml IV 100 mls/hr
Abnormal Lab Results
06/04/25
09:23
WBC 15.3 H 10^3/uL
(4.8-10.8)
MCV 79.7 L fL
(81.0-99.0)
MCH 26.8 L pg
(27.0-31.0)
RDW 15.3 H %
(11.5-14.5)
Abs Immat Gran (auto) 0.2 H 10^3/uL
(0-0.05)
Absolute Neuts (auto) 10.8 H 10^3/uL
(1.4-6.5)
Absolute Monos (auto) 1.3 H 10^3/uL
(0.1-0.6)
Immature Gran % 1.1 H %
(0-0.5)
Lymphocytes % 17.9 L %
(20.5-51.1)
Potassium 3.0 L mmol/L
(3.5-5.1)
BUN 42 H mg/dl
(7-17)
Creatinine 1.1 H mg/dL
(0.6-1.0)
Glucose 144 H mg/dl
(70-99)
Troponin I 1.530 H* ng/ml
06/04/25 09:23
06/04/25 09:23
Vital Signs
Initial and Last Documented VS:
Initial Vital Signs
Pulse Resp BP Pulse Ox
68 22 150/50 96
06/04/25 09:07 06/04/25 09:07 06/04/25 09:07 06/04/25 09:07
Last Documented Vital Signs
Temp Pulse Resp BP Pulse Ox
36.5 C 62 18 114/59 94
06/04/25 09:09 06/04/25 10:45 06/04/25 10:45 06/04/25 10:27 06/04/25 10:45
*Pulse Oximetry
Patient hypoxic: no
*Critical Care Note
Total Time (30-74mins, 75-104mins- exclusive of procedures): Not Applicable
ED Attending Note
-
Portions of this chart may have been created with voice recognition software.� Occasional wrong word or��sound alike� substitutions may have occurred due to the inherent limitations of voice recognition software.
Discharge Plan
Departure
Patient Disposition: Admit
Date of Disposition: 06/04/25
Time of Disposition: 10:59
Presentation/result/management discussed w/ accepting MD/DO: Hospitalist
Discharge Problem:
Dizziness
Prescriptions:
No Action
methylprednisolone 4 mg Tablet
4 mg PO DAILY
pantoprazole 40 mg Tablet,Delayed Release (Dr/Ec)
40 mg PO DAILY
sucralfate 1 gram tablet
1 g PO QIDPRN PRN (Reason: abdominal pain)
famotidine 40 mg tablet
40 mg PO DAILY
valsartan 320 mg Tablet
320 mg PO DAILY
tramadol 50 mg tablet
50 mg PO Q6H PRN (Reason: moderate-severe pain)
aspirin 81 mg Tablet,Delayed Release (Dr/Ec)
81 mg PO DAILY
furosemide 20 mg Tablet
20 mg PO DAILY Qty: 30 11RF
rosuvastatin 10 mg Tablet
40 mg PO DAILY Qty: 30 11RF
ticagrelor 90 mg Tablet
90 mg PO BID Qty: 60 11RF
metoprolol succinate 25 mg Tablet Extended Release 24 Hr
25 mg PO DAILY Qty: 30 0RF
Referrals:
Paul Torres DO [Family Provider, Family Practice]
Interventions
Interventions:
*Risk Screen - Suicide Last Done: 06/04/25 09:11
*General Assessment Last Done: 06/04/25 09:11
*Neglect/Abuse Screening Last Done: 06/04/25 09:11
*ED- Fall Risk Assessment Last Done: 06/04/25 09:21
*ED COVID-19 Vaccine History Last Done: 06/04/25 09:11
*ED Influenza Vaccine History Last Done: 06/04/25 09:11
ED- Neurological Assessment Last Done: 06/04/25 09:20
ED- Cardiac Assessment Last Done: 06/04/25 09:20
Discharge Date and Time
Print Language: FRENCH
[2025-06-04] MEDS: NSS 500 IV (09:28)
[2025-06-04 09:33] LABS: Hematocrit 39.6 % (37.0-47.0); Hemoglobin 13.3 g/dL (12.0-16.0); Mean Corp Hgb Conc. 33.6 g/dL (33.0-37.0); Mean Corpuscular Volume 79.7 fL (81.0-99.0); Nucleated Red Blood Cells % 0 %; Platelet Count 368 10^3/uL (130-400); Red Cell Dist. Width 15.3 % (11.5-14.5)
[2025-06-04 09:42] LABS: Blood Urea Nitrogen 42 mg/dl (7-17); Calcium 9.3 mg/dl (8.4-10.2); Carbon Dioxide 27 mmol/L (22-30); Chloride 99 mmol/L (98-107); Estimated Creatinine Clearance 34 ml/min; Glucose 144 mg/dl (70-99); Potassium 3.0 mmol/L (3.5-5.1); Sodium 136 mmol/L (135-145); eGFR 50.80
[2025-06-04 10:01] LABS: Troponin I 1.530 ng/ml
[2025-06-04] MEDS: KCL 270 MEQ IV (10:37)
[2025-06-04] MEDS: NSS 1000 IV ×2 (10:41→20:00)
--- NOTE | 2025-06-04 10:55 | EDRN ---
It was butterflied prior to arrival today. I removed the gauze taped over it and wrapped it gently with linda.
[2025-06-04 11:36] LABS: Magnesium 2.0 mg/dl (1.6-2.3)
--- NOTE | 2025-06-04 11:43 | HPS.HSE ---
Family Physician
-
Family Physician: Paul Torres
Chief Complaint
-
Lightheadedness, weakness
History of Present Illness
80-year-old female discharged from the hospital last Thursday and treated for heart failure, coronary stenting for NSTEMI, now returns with complaints of failure to thrive, weakness, lightheadedness with sitting or standing. Also with loss of
appetite. Believes she lost weight but cannot quantitate.
Has been compliant with her home meds.
No shortness of breath or chest pain.
Her partner is at the bedside and admits that she has been failing for the past month with ongoing lightheadedness that started 2 weeks ago. Partner believes it is all related to aortic stenosis.
Recently treated for a UTI 2 weeks ago although she had no symptoms. Also treated for left elbow bursitis with a course of antibiotics recently.
No reports of fevers or chills at home.
Medical History
Past Medical History
Past Medical History: Reports Other
Additional Past Medical History:
Severe aortic stenosis
Chronic heart failure preserved EF
Essential hypertension
GERD
LUC
Polymyalgia rheumatica
CAD
Hyperlipidemia
Diverticulosis with bowel perforation
Past Surgical History: Reports Other
Additional Past Surgical History:
Bowel resection
Bunionectomy
Abdominal wall repair
Laminectomy
Social History
Tobacco: Non-smoker
Alcohol: None
Drug: None
Personal: Partner
Family History
Family History: Not pertinent
Allergies / Home Medications
Allergies reflects when Allergies were last updated in [facility].
Home Medications with original date entered in [facility]
Allergy/Medication List:
Allergies
Allergy/AdvReac Type Severity Reaction Status Date / Time
No Known Allergies Allergy Verified 06/04/25 09:10
Home Medications
methylprednisolone 4 mg tablet 4 mg PO DAILY Anti-Inflammatory 12/09/23
pantoprazole 40 mg tablet,delayed release 40 mg PO DAILY Gastrointestinal Issue 12/09/23
famotidine 40 mg tablet 40 mg PO DAILY Gastrointestinal Issue 05/22/25
sucralfate 1 gram tablet 1 g PO QIDPRN PRN abdominal pain 05/22/25
tramadol 50 mg tablet 50 mg PO Q6H PRN moderate-severe pain 05/22/25
valsartan 320 mg tablet 320 mg PO DAILY Blood Pressure 05/22/25
aspirin 81 mg tablet,delayed release 81 mg PO DAILY Blood Clot Prevention/Tx 05/28/25
furosemide 20 mg tablet 20 mg PO DAILY Heart Failure #30 tabs 05/31/25
metoprolol succinate 25 mg tablet,extended release 24 hr 25 mg PO DAILY #30 tabs 05/31/25
rosuvastatin 10 mg tablet 40 mg (4 x 10 mg) PO DAILY High cholesterol #30 tabs 05/31/25
ticagrelor 90 mg tablet 90 mg PO BID Heart disease/condition #60 tabs 05/31/25
Review of Systems
-
History Source: Patient
A 12 point ROS was completed and negative except as noted: Yes
Physical Exam
Vital Signs
Vital Signs
Temp Pulse Resp BP Pulse Ox
97.7 F 62 18 114/59 94
06/04/25 09:09 06/04/25 10:45 06/04/25 10:45 06/04/25 10:27 06/04/25 10:45
Physical Exam
General: Well Developed, Well Nourished, No Apparent Distress and Comfortable
HEENT: NormoCephalic, Anicteric and Moist mucous membranes
Respiratory: Clear
Cardiac: S1/S2 and Regular Rhythm
Breast: Deferred by me
GI: Soft, Non Tender and Non Distended
Genito-urinary: Deferred by me
Musculoskeletal: No Clubbing, No Cyanosis and No Edema
Skin: Warm and Dry
Neuro: AO x 3
Hematologic/Lymphatic: No Lymphadenopathy
Psych: Calm
Laboratory Results
-
06/04/25 09:23
06/04/25 09:23
Laboratory Results
Troponin I 1.530 ng/ml H* 06/04/25 09:23
Impression/Plan
-
Orthostatic hypotension -suspect multifactorial etiology including volume depletion in the setting of underlying severe aortic stenosis.
Admit to telemetry.
Hold diuretics. Hold antihypertensives for hypotension. Getting IV fluid administration currently in the emergency room. Avoid excessive IV fluids due to known aortic stenosis. Recently treated for congestive heart failure a week ago.
Cardiology consulted.
Offered compression stockings but patient refusing. May need midodrine if orthostasis persists.
Prerenal Azotemia - due to volume depletion, diuretics, anorexia.
Troponin elevation - 1.53, will trend. No signs/symptoms of ACS, will trend. EKG shows NSR, bifascicular block, TWI inferior leads. Will defer to cardiology.
Hypokalemia - getting repleted. Mg 2.0.
Severe -undergoing TAVR workup.
Chronic heart failure preserved EF -hold Lasix as above. Weight is stable.
CAD -underwent recent stenting of her circumflex, 05/29/2025, treatment of NSTEMI. Continue aspirin, ticagrelor.
PMR -symptoms controlled on chronic methylprednisolone.
Essential hypertension - as above.
Hyperlipidemia - Crestor.
LUC
PT/OT
Full code
[2025-06-04] MEDS: CARAFATE 1 GRAM PO (13:45)
--- NOTE | 2025-06-04 14:19 | EDCM ---
CM reviewed chart and met with pt bedside in ED. Lives with her SO Panchito in 2 story home, no RYLEY. Has first floor set up.
Independent in ADLs, personal care and ambulation at baseline. Has walker and cane but does not routinely use.
Confirms prescription coverage.
Hx VN but unsure of agency, no hx SNF.
Recent admit 05/28 to 05/21n in IVU, declined VN at discharge.
PCP: Paul Torres
Pharmacy: [facility]
Anticipate discharge home, CM will continue to follow for any discharge planning needs.
[2025-06-04] MEDS: MEDROL 4 MG PO (15:39)
--- NOTE | 2025-06-04 16:09 | PTCARENOTE ---
Pt was received from ED at 1500. Pt took a few steps to ambulate from the stretcher to the room. Pt feeling asymptomatic at the moment and prefers to sit in the chair. After about 15min in the chair pt starts to feel lightheaded. Pt assisted to lay
down in bed and pt feels better. VSS.
--- NOTE | 2025-06-04 16:10 | CON.CAR ---
Consultation
Consultation Request
Date/Time Consultation Requested: June 04, 2025
Date/Time Consultation Performed: June 04, 2025
Requesting Provider: Hospitalist
Performing Provider: Dr. Paul Keys
Reason for Consultation: Congestive heart failure
Medical History
-
Chief Complaint: Weakness and dizziness
History of Present Illness:
PCP: Paul Torres
Recruitment Manager: [facility]. Did see Inocencio Darby at [facility] for second opinion
Initially seen at [facility] by Dr. Neto Briggs March 22, 2025
80-year-old female discharged from the hospital last Thursday after treatment for heart failure, coronary stenting for NSTEMI 05/29/25, now returns with complaints of worsened SOB, failure to thrive, weakness, lightheadedness with sitting or
standing. Also with loss of appetite. .
No shortness of breath or chest pain.
Her partner describes she has been failing for the past month with ongoing lightheadedness that started 2 weeks ago. Partner believes it is all related to aortic stenosis.
No reports of fevers or chills at home.
troponin initially peaked at 1.69 on May 28, 2025 then down to 1.48 on day of discharge 08/29/2024, now troponin is up to 1.53
proBNP is 744
Sinus rhythm with right bundle branch block and left anterior fascicular block
Past medical history:
NSTEMI
CAD s/p 3.0 mm Xience CHARLES to the mid circumflex into the OM 2 jailing OM1 05/29/2025
Severe with peak/mean 57/34 mmHg and JUVENCIO 1.1 cm sq by echo 05/23/25
Previously moderate with peak/mean 57/30 mmHg and JUVENCIO 1.3 cm sq by echo with her outpatient housekeeping/laundry 12/14/2024
Recently worsened, Mean aortic valve gradient of 45 mmHg and valve area of of 0.53 cm sq by C 05/29/2025
Hypertension
Hyperlipidemia
Right bundle branch block
Statin intolerance
GERD
Obstructive sleep apnea
Polymyalgia rheumatica
History of UTI
Varicose veins
History of pulmonary embolus related to surgery
R/L heart cath 05/29/25:
1. Non-ST segment elevation myocardial infarction with stenosis in the mid circumflex. Successful stenting of the mid circumflex into OM 2 with placement of a 3.0 x 23 mm Xience stent that was implanted at nominal pressures and postdilated to
high-pressure's with a 3.25 mm noncompliant balloon
2. Severe aortic stenosis with a mean aortic valve gradient of 45 mmHg and valve area of of 0.53 cm�
3. Mildly elevated left ventricular filling pressures (pulmonary capillary wedge pressure 25 mm Hg)
4. Severe LVH with systolic obliteration of LV cavity and hyperdynamic function with an estimated ejection fraction greater than 75%
Echo 12/14/2024 ([facility]): EF 65 to 70%. Mild concentric LVH. Mitral valve thickening without significant stenosis. Moderate aortic stenosis with peak/mean gradient 57/30 mmHg and JUVENCIO 1.3 cm�. Mild AI.
Echo 12/10/2023: EF 65 to 70%. Concentric LVH. Moderate aortic stenosis with peak/mean gradient 49/25 mmHg, AVR 1.22 cm�.
Echo 03/18/2022: Normal LV size and function. Mild concentric LVH. Aortic calcification with no significant stenosis.
Social History
Tobacco: Non-Smoker
Alcohol: None
Drug: None
Personal:
Living: With Family
Employment: Retired
Family History
Family History: Reviewed & Not Pertinent
Allergies / Home Medications
Allergy/AdvReac Type Severity Reaction Status Date / Time
No Known Allergies Allergy Verified 06/04/25 09:10
�Medication �Instructions �Recorded �Confirmed �Type
methylprednisolone 4 mg tablet 4 mg PO DAILY Anti-Inflammatory 12/09/23 06/04/25 History
pantoprazole 40 mg tablet,delayed 40 mg PO DAILY Gastrointestinal 12/09/23 06/04/25 History
release Issue
famotidine 40 mg tablet 40 mg PO DAILY Gastrointestinal 05/22/25 06/04/25 History
Issue
sucralfate 1 gram tablet 1 g PO QIDPRN PRN abdominal pain 05/22/25 06/04/25 History
tramadol 50 mg tablet 50 mg PO Q6H PRN moderate-severe 05/22/25 06/04/25 History
pain
valsartan 320 mg tablet 320 mg PO DAILY Blood Pressure 05/22/25 06/04/25 History
aspirin 81 mg tablet,delayed 81 mg PO DAILY Blood Clot 05/28/25 06/04/25 History
release Prevention/Tx
furosemide 20 mg tablet 20 mg PO DAILY Heart Failure #30 05/31/25 06/04/25 Rx
tabs
metoprolol succinate 25 mg 25 mg PO DAILY #30 tabs 05/31/25 06/04/25 Rx
tablet,extended release 24 hr
rosuvastatin 10 mg tablet 40 mg (4 x 10 mg) PO DAILY High 05/31/25 06/04/25 Rx
cholesterol #30 tabs
ticagrelor 90 mg tablet 90 mg PO BID Heart 05/31/25 06/04/25 Rx
disease/condition #60 tabs
Review of Systems
-
History Source: Patient
All other systems: Negative unless noted
Constitutional: Fatigue
EENT: No Symptoms
Respiratory: Trouble Breathing
Cardiac: Chest Pain (throught her lower chest/epigastrum both right and left sided)
Abdomen/GI: No Symptoms
: No Symptoms
Musculoskeletal: No Symptoms
Skin: No Symptoms
Neurological: Dizzy
Endocrine: No Symptoms
Hematologic/Lymphatic: No Symptoms
Physical Exam
Vital Signs
Temp Pulse Resp BP Pulse Ox
97.5 F 72 16 120/63 97
06/04/25 15:06 06/04/25 15:06 06/04/25 15:06 06/04/25 15:06 06/04/25 15:06
Lab Results
06/04/25 09:23
06/04/25 09:23
Troponin I 1.530 ng/ml H* 06/04/25 09:23
Mjl-V-Polszoqlbit Pept 744 pg/ml 06/04/25 09:23
Physical Exam
General: Well Developed, Well Nourished, No Apparent Distress and Comfortable
HEENT: Normocephalic, Anicteric and Moist Mucous Membranes
Respiratory: Clear and Non Labored Respirations
Cardiac: S1/S2 and Regular Rhythm
Breast: Deferred by me
GI: Soft, Non Tender, Non Distended and Normal Bowel Sounds
Rectal: Deferred by Provider
Musculoskeletal: No Clubbing, No Cyanosis and No Edema
Skin: Warm and Dry
Neuro: Awake, Alert, Oriented and AO x 3
Psych: Calm
Impression / Plan
-
PCP: Paul Torres
Recruitment Manager: [facility]. Did see Inocencio Darby at [facility] for second opinion
Initially seen at [facility] by Dr. Neto Briggs March 22, 2025
Assessment:
Admitted with marked fatigue, failure to thrive and dizziness
Recent NSTEMI
CAD s/p 3.0 mm Xience CHARLES to the mid circumflex into the OM 2 jailing OM1 05/29/2025
Severe with peak/mean 57/34 mmHg and JUVENCIO 1.1 cm sq by echo 05/23/25
Previously moderate with peak/mean 57/30 mmHg and JUVENCIO 1.3 cm sq by echo with her outpatient housekeeping/laundry 12/14/2024
Recently worsened, Mean aortic valve gradient of 45 mmHg and valve area of of 0.53 cm sq by [facility] 05/29/2025
Hypertension
Hyperlipidemia
Right bundle branch block
Statin intolerance
GERD
Obstructive sleep apnea
Polymyalgia rheumatica
History of UTI
Varicose veins
History of pulmonary embolus related to surgery
R/L heart cath 05/29/25:
1. Non-ST segment elevation myocardial infarction with stenosis in the mid circumflex. Successful stenting of the mid circumflex into OM 2 with placement of a 3.0 x 23 mm Xience stent that was implanted at nominal pressures and postdilated to
high-pressure's with a 3.25 mm noncompliant balloon
2. Severe aortic stenosis with a mean aortic valve gradient of 45 mmHg and valve area of of 0.53 cm�
3. Mildly elevated left ventricular filling pressures (pulmonary capillary wedge pressure 25 mm Hg)
4. Severe LVH with systolic obliteration of LV cavity and hyperdynamic function with an estimated ejection fraction greater than 75%
Echo 12/14/2024 ([facility]): EF 65 to 70%. Mild concentric LVH. Mitral valve thickening without significant stenosis. Moderate aortic stenosis with peak/mean gradient 57/30 mmHg and JUVENCIO 1.3 cm�. Mild AI.
Echo 12/10/2023: EF 65 to 70%. Concentric LVH. Moderate aortic stenosis with peak/mean gradient 49/25 mmHg, AVR 1.22 cm�.
Echo 03/18/2022: Normal LV size and function. Mild concentric LVH. Aortic calcification with no significant stenosis.
Recommendations:
It is very possible that her constellation of symptoms along with her rising troponin is related to worsening symptoms related to severe aortic stenosis.
She is newly on ticagrelor and this can cause dyspnea as well as dizziness and some nausea (poor appetite).
It is possible that ticagrelor is playing a role in which case we could switch to an alternative agent such as clopidogrel.
Troponin is elevated although ECG rather stable and no CP suggestive of ACS.
Will stop ticagrelor and start heparin
Continue to trend troponin and ECGs
Will ask interventional cardiology to weigh in on consideration for alternative drug to ticagrelor
Will ask interventional cardiology to also weigh in on an expedited TAVR evaluation
Discussed with patient and all of her questions answered.
Total time 75 min
Data Reviewed
-
EKG: Tracing Personally Visualized and interpreted
Radiology: Image Personally Visualized and interpreted
Medical Tests (Nuc Med, Echo etc): Report Reviewed by me
Labs: Labs Reviewed by me and Discussed with Patient
Old Records: Reviewed
[2025-06-04 17:21] LABS: Troponin I 1.220 ng/ml
[2025-06-04 18:05] LABS: Hematocrit 34.9 % (37.0-47.0); Hemoglobin 11.8 g/dL (12.0-16.0); Mean Corp Hgb Conc. 33.8 g/dL (33.0-37.0); Mean Corpuscular Volume 80.0 fL (81.0-99.0); Platelet Count 304 10^3/uL (130-400); Red Cell Dist. Width 15.3 % (11.5-14.5)
[2025-06-04 18:14] LABS: APTT 27.7 Sec (23.4-35.0)
[2025-06-04] MEDS: HEPARIN 3700 UNITS IV (18:38)
[2025-06-04] MEDS: HEPARIN 25000 UNITS/250 ML IV (18:45)
[2025-06-04] MEDS: ULTRAM 50 MG PO (20:25)
[2025-06-05] VITALS (9 sets, daily range): BP systolic 102–158; BP diastolic 51–81; PULSE 66–81; O2SAT 99; BMI 26.8
[2025-06-05 01:27] LABS: APTT 83.1 Sec (23.4-35.0)
[2025-06-05] MEDS: NSS 1000 IV (06:03)
[2025-06-05 06:55] LABS: Hematocrit 32.5 % (37.0-47.0); Hemoglobin 10.2 g/dL (12.0-16.0); Mean Corp Hgb Conc. 31.4 g/dL (33.0-37.0); Mean Corpuscular Volume 84.9 fL (81.0-99.0); Nucleated Red Blood Cells % 0 %; Platelet Count 271 10^3/uL (130-400); Red Cell Dist. Width 15.3 % (11.5-14.5)
[2025-06-05 07:13] LABS: Troponin I 0.954 ng/ml
[2025-06-05 07:16] LABS: ALT (SGPT) 23 U/L (0-35); AST (SGOT) 17 U/L (14-36); Albumin 2.8 g/dl (3.5-5.0); Alkaline Phosphatase 68 U/L (38-126); Blood Urea Nitrogen 27 mg/dl (7-17); Calcium 8.1 mg/dl (8.4-10.2); Carbon Dioxide 21 mmol/L (22-30); Chloride 112 mmol/L (98-107); Estimated Creatinine Clearance 53 ml/min; Glucose 100 mg/dl (70-99); Potassium 3.5 mmol/L (3.5-5.1); Sodium 138 mmol/L (135-145); Total Protein 5.1 g/dl (6.3-8.2); eGFR > 60.00
[2025-06-05] MEDS: CRESTOR 40 MG PO (08:03)
[2025-06-05] MEDS: PROTONIX 40 MG PO (08:03)
[2025-06-05] MEDS: DIOVAN 320 MG PO (08:04)
[2025-06-05] MEDS: ASPIR LOW (ENTERIC COATED) 81 MG PO (08:04)
[2025-06-05] MEDS: PEPCID 20 MG PO (08:04)
[2025-06-05] MEDS: TOPROL XL 25 MG PO (08:04)
[2025-06-05] MEDS: MEDROL 4 MG PO (08:04)
[2025-06-05 08:45] LABS: APTT 44.4 Sec (23.4-35.0)
[2025-06-05] MEDS: PLAVIX 600 MG PO (10:06)
--- NOTE | 2025-06-05 12:39 | W.PN.UPDATE ---
Update Note
Progress Note Update
ECG performed at 1224 and reviewed by me at 1239. ECG shows sinus bradycardia
[2025-06-05 12:58] LABS: Troponin I 0.764 ng/ml
--- NOTE | 2025-06-05 13:29 | CONSULT.CT ---
Addendum entered and electronically signed by Dez Dash MD 06/07/25 06:35:
I saw and examined the patient.
The CDL B DRIVER's note was reviewed and I agree with the note.
Comment:
I met with Mrs. Bolton at the bedside. Also reviewed her CT imaging which is still pending reconstruction from our side. Industry has performed measurements on her and she has a very small root and sinuses. However she would be amenable for 23
Evolut TAVR valve. Also been asked to comment on her mitral valve status. There does appear to be a torn chordae or debris from her mitral annular calcification. Regardless her mitral valve is functional and so I would not pursue any intervention
on the mitral valve. She does have severe aortic valve stenosis and she is quite symptomatic. She describes that over the last several months she has felt a significant decline. She basically moves from ' couch to couch' per her description and
is quite fatigued throughout the day and unable to be as active as she once was. I do believe that she has severe symptomatic aortic valve stenosis transcatheter invention is likely the safest and most optimal route for her. I discussed this with
her as well as her partner Panchito. We also went over the risks and benefits of transcatheter intervention as well as the less than 1% scenarios. Shared decision making is to be full code. Given her symptomatology, we will discuss in MDT setting
about trying to expedite her intervention. Consent was obtained.
Thank you for involving me in the care of this patient. Please feel free to contact me with any questions or concerns.
Dez Dash MD, MS
Cardiothoracic Surgeon
[facility]
This dictation was created using the [employer] dictation system. Please excuse any grammatical, typographical, or 'sound alike' errors.
Original Note:
Consultation
-
Date/Time Consultation Requested: 06/05/25 1315
Date/Time Consultation Performed: 06/05/25
Requesting Provider: Mary Reed PA-C, Cardiology
Performing Provider: TROY Goodrich for Dr. Dez Dash
Reason for Consultation: Severe Aortic Stenosis, Torn Chordae/Trace MR, TAVR vs SAVR
Patient History
Physicians
Family Physician: Paul Torres
Outpatient Band Sawing Machine Operator: [facility]; Dr. Briggs (03/22/25)
Inpatient Band Sawing Machine Operator: [facility]
History of Present Illness
Ms Andreina Bolton is an 80-year-old female with a PMHx significant for HFpEF, CAD s/p NSTEMI with CHARLES (05/29/25), and known severe who presented to [facility] ED with complaints of 2-weeks of lightheadedness, loss of appetite, suspected weight loss,
weakness, and worsening shortness of breath. Patient ruled-in with HF exacerbation suspected to be secondary to severe . Cardiology was consulted in which she was referred for TAVR CT and CM.
Patient was recently admitted with NSTEMI s/p CHARLES to [facility] into OM2 (05/29/25, on DAPT - Brilinta/ASA). TTE (05/23/25) prior to R/[facility] reported LVEF of 70-75%, NRWMA, trileaflet AV with moderate-severe , P/G 57/34 respectively, with JUVENCIO 1.1 and
mild AI, MV with torn chordae seen and trace MR. Most recent limited TTE (05/30/25) reported LVEF of 70-75%, moderate LVH, thickened MV leaflets with evidence of torn chordae with trace MR, AV was not assessed. Patient was referred for outpatient
follow-up with the structural heart team for consideration of TAVR.
Cardiac Surgery has been consulted due to severe and torn chordae with mild MR. Patient reported she is in favor of minimally invasive approach to replace her AV. Her S.O., Panchito, was on the phone at this time in which he shared hesitancy towards
surgery due to prior history of provoked PE following other surgeries, in addition to difficulty tolerating anesthesia.
Past Medical History
Past Medical History: CAD, CHF, GERD, HTN, WI, LUC and Valvular Disease
NSTEMI 05/29/25
CAD s/p 3.0 mm Xience CHARLES to the mid circumflex into the OM 2 jailing OM1 05/29/2025
Severe with peak/mean 57/34 mmHg and JUVENCIO 1.1 cm sq by echo 05/23/25
Hypertension
Hyperlipidemia
Right bundle branch block
Statin intolerance
GERD
Obstructive sleep apnea
Polymyalgia rheumatica
History of UTI
Varicose veins
History of pulmonary embolus related to surgery
Past Surgical History
Past Surgical History: PCI/Stent
Bowel resection
Bunionectomy
Abdominal wall repair
Laminectomy
Social History
Alcohol: None
Drug: None
Tobacco: Non-Smoker
Personal: Partner
Living: With Family
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
Allergies
Allergy/AdvReac Type Severity Reaction Status Date / Time
No Known Allergies Allergy Verified 06/04/25 09:10
Home Medications
�Medication �Instructions �Recorded �Confirmed �Type
methylprednisolone 4 mg tablet 4 mg PO DAILY Anti-Inflammatory 12/09/23 06/04/25 History
pantoprazole 40 mg tablet,delayed 40 mg PO DAILY Gastrointestinal 12/09/23 06/04/25 History
release Issue
famotidine 40 mg tablet 40 mg PO DAILY Gastrointestinal 05/22/25 06/04/25 History
Issue
sucralfate 1 gram tablet 1 g PO QIDPRN PRN abdominal pain 05/22/25 06/04/25 History
tramadol 50 mg tablet 50 mg PO Q6H PRN moderate-severe 05/22/25 06/04/25 History
pain
valsartan 320 mg tablet 320 mg PO DAILY Blood Pressure 05/22/25 06/04/25 History
aspirin 81 mg tablet,delayed 81 mg PO DAILY Blood Clot 05/28/25 06/04/25 History
release Prevention/Tx
furosemide 20 mg tablet 20 mg PO DAILY Heart Failure #30 05/31/25 06/04/25 Rx
tabs
metoprolol succinate 25 mg 25 mg PO DAILY #30 tabs 05/31/25 06/04/25 Rx
tablet,extended release 24 hr
rosuvastatin 10 mg tablet 40 mg (4 x 10 mg) PO DAILY High 05/31/25 06/04/25 Rx
cholesterol #30 tabs
ticagrelor 90 mg tablet 90 mg PO BID Heart 05/31/25 06/04/25 Rx
disease/condition #60 tabs
Review of Systems
-
History Source: Patient and Family
HEENT: Reports No Symptoms
Respiratory: Reports PANTOJA and Cough
Cardiac: Reports CAD and Known Vascular Disease
Abdomen/GI: Reports No Symptoms
: Reports No Symptoms
Musculoskeletal: Reports No Symptoms
Skin: Reports No Symptoms
Neurological: Reports Dizzy and Other (Lightheadedness)
Physical Exam
Vital Signs
Temp 98.4 F 06/05/25 11:27
Temp route: Oral 06/05/25 11:27
Pulse 55 06/05/25 11:27
Rhythm: Normal sinus rhythm 06/05/25 10:45
Resp Rate 16 06/05/25 11:27
Blood pressure 150/59 06/05/25 11:27
Blood pressure extremity used: Left upper arm 06/05/25 11:27
Position: Lying 06/05/25 11:27
MAP (cuff-Delmar Monitor) 80 06/04/25 13:16
SaO2 97 06/05/25 11:27
Oxygen Mode of Delivery Room air 06/05/25 11:27
Pulse Ox at Rest 99 06/05/25 10:11
Acceptable pain level during hospitalization? 0 06/04/25 09:11
Can the patient verbally communicate their pain? Yes 06/05/25 10:45
Pain scale rating: Asleep 06/04/25 21:25
Actual Weight 62.284 kg 06/05/25 05:11
Body Mass Index (BMI) 26.8 06/05/25 05:11
Supine- Blood Pressure 147/65 06/05/25 09:39
Supine- Pulse 66 06/05/25 09:39
Sitting- Blood Pressure 155/75 06/05/25 10:11
Sitting- Pulse 70 06/05/25 10:11
Standing- Blood Pressure 157/81 06/05/25 09:39
Standing- Pulse 81 06/05/25 09:39
Blood pressure extremity used: Right upper arm 06/05/25 09:22
Mode BP taken: Automatic 06/05/25 09:22
Heart rate after activity 74 06/05/25 09:39
Blood pressure after activity 145/77 06/05/25 09:39
Labs
06/05/25 06:10
06/05/25 06:10
APTT 44.4 Sec (23.4-35.0) H 06/05/25 08:15
Troponin I 0.764 ng/ml H* 06/05/25 12:21
Fml-N-Gmykwvjdqrz Pept 744 pg/ml 06/04/25 09:23
Exam
General: Well Developed, Well Nourished and Good Appetite
HEENT: Normocephalic, Moist Mucous Membranes and PERRLA
Respiratory: Clear
Cardiac: S1/S2 and Murmur
GI: Soft, Non Tender, Non Distended and Normal Bowel Sounds
Skin: Warm and Dry
Neuro: AO x 3 and No Motor Deficits
Extremities: Pulses (+2 Radial B/L, +2 DP B/L)
Psych: Calm
Assessment / Plan
-
#Severe, Symptomatic Aortic Stenosis
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
- Limited TTE (05/30/25) reported LVEF 70-75%, trace TR/torn chordae
- TTE (05/23/25) reported LVEF 70-75%, severe (P/M 57/34, JUVENCIO 1.1), mild AI, torn chordae, trace MR
- Patient currently scheduled for TAVR CT 06/05/25 and CM 06/06/25.
- Patient's case will be discussed with the Attending Physician. Plan to continue to follow and await for further diagnostics to be obtained.
- Continue medical management as directed by Cardiology and medical team.
- Patient currently on ASA/Plavix/ARB - holds required if surgical approach decided.
- Patient shared preference for minimally invasive approach for AVR. Structural Heart Team following.
Data Reviewed
-
EKG: Report Reviewed by me
Chlorine Operator: Report Reviewed by me
Echo: Report Reviewed by me
--- NOTE | 2025-06-05 13:53 | W.PN.UPDATE ---
Update Note
Progress Note Update
Spoke to patient and updated on plan for CT TAVR this afternoon. Informed her nothing to drink or eat until CT scan is complete. Informed patient that someone from the VAT team will be in to place an 18g IV so the CT scan can be completed.
--- NOTE | 2025-06-05 14:36 | W.PN.CARDCBS ---
Addendum entered and electronically signed by Anum Amado DO 06/05/25 17:56:
I saw and examined the patient.
The Plasterer Apprentice's note was reviewed and I agree with the note.
Comment: Patient was seen and examined. Chart/telemetry reviewed. Patient reports improved dizziness with occasional episodes of chest tightness that feels like a band. She had an episode this morning which is now resolved.
General: 80-year-old female, NAD On room air
Heart: Regular, positive S1/S2, 2/6 JAMES
Lungs: Bronchovesicular breath sounds decreased at the bases. No wheezes. Increased thoracic kyphosis
Abd: Positive BS, NT/ND, neg rebound/rigidity/guarding
Ext: No edema. Bilateral upper and lower extremity ecchymosis
Neuro: nonfocal
Plan:
Readmission for ongoing fatigue, dizziness and failure to thrive with episode of bandlike chest tightness 06/05/2025 that is since resolved.
-Patient has had admissions from May 22-2024 for chest pain and shortness of breath where she left AMA and then readmitted May 28-2024 for acute coronary syndrome status post left heart catheterization and PCI to his circumflex
artery and severe aortic stenosis with plan for TAVR evaluation
- Patient had successful PTCA and stenting of the mid circumflex into the OM 2 with a 3 mm Xience CHARLES that jailed the OM1 05/29/25. Repeat EKG stable without acute ischemic changes and troponins continue to trend downward.No plan to repeat left
heart catheterization unless symptoms recur or there is more compelling evidence to suggest acute coronary syndrome
-Multidisciplinary conversations held regarding patient's symptoms, reviewed with interventional cardiology, TAVR team and CT surgery team.
-Will change Brilinta to Plavix. Patient received Plavix load and will continue Plavix 75 mg once daily in addition to aspirin 81 mg daily.
-Stop IV heparin drip
-Lasix 20 mg IV daily; proBNP is 744 which is higher than it was last admission.
-Will obtain TAVR CT scan 06/05/2025
- CM to evaluate torn chordae and MR on 06/06/2025. Patient does not appear infected however given anticipated valve replacement will check blood cultures.
- Pending results we can make further recommendation about TAVR versus SAVR
-Follow lab work including renal function closely
-LDL was 66 when it was checked on 05/23/2025 and outpatient dose of rosuvastatin 10 mg daily was continued, but recheck CVE on 05/22/2025 showed an LDL of 93 and Crestor was increased to 40 mg daily.Will need repeat lipid profile in 3 months.
-Sinus bradycardia on telemetry; Decrease dose of Toprol-XL to 12.5 mg daily starting 06/05/2025
-Outpatient dose of valsartan 320 mg daily has been continued
-Agree with PT/OT evaluation
-Orthostatic VS reviewed by me from 06/05/2025 are negative
Plan was discussed with patient and multidisciplinary services involved in her care. Patient had no questions. Or cardiac PA also discussed plan with patient's .
Original Note:
Today's Communication / Plan
-
TAVR CT scan today
CM tomorrow
Lasix 20 mg IV daily starting now
Impression / Plan
-
PCP: Paul Torres
Inspector And Adjuster [employer] Head: [facility]. Did see Inocencio Darby at [facility] for second opinion
Initially seen at [facility] by Dr. Neto Briggs March 22, 2025
Assessment:
Admitted with marked fatigue, failure to thrive and dizziness
Recent NSTEMI
CAD s/p 3.0 mm Xience CHARLES to the mid circumflex into the OM 2 jailing OM1 05/29/2025
Severe with peak/mean 57/34 mmHg and JUVENCIO 1.1 cm sq by echo 05/23/25
Previously moderate with peak/mean 57/30 mmHg and JUVENCIO 1.3 cm sq by echo with her outpatient sewing machine tester 12/14/2024
Recently worsened, Mean aortic valve gradient of 45 mmHg and valve area of of 0.53 cm sq by [facility] 05/29/2025
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
Hypertension
Hyperlipidemia
Right bundle branch block
Statin intolerance
GERD
Obstructive sleep apnea
Polymyalgia rheumatica
History of UTI
Varicose veins
History of pulmonary embolus related to surgery
Acute on chronic HFpEF
Echo 03/18/2022: Normal LV size and function. Mild concentric LVH. Aortic calcification with no significant stenosis.
Echo 12/10/2023: EF 65 to 70%. Concentric LVH. Moderate aortic stenosis with peak/mean gradient 49/25 mmHg, AVR 1.22 cm�.
Echo 12/14/2024 ([facility]): EF 65 to 70%. Mild concentric LVH. Mitral valve thickening without significant stenosis. Moderate aortic stenosis with peak/mean gradient 57/30 mmHg and JUVENCIO 1.3 cm�. Mild AI.
Echo 05/23/2025: EF 70 to 75%, no WMA, severe with peak/mean 57/34 mmHg, mild aortic regurgitation
Echo 05/30/2025: EF 70 to 75%, trace MR with evidence of torn chordae
Cardiac catheterization 03/19/2022: LM: Patent. LAD: Patent. Left circumflex 50 to 60% mid stenosis with FFR of 0.87
R/L heart cath 05/29/25:
1. Non-ST segment elevation myocardial infarction with stenosis in the mid circumflex. Successful stenting of the mid circumflex into OM 2 with placement of a 3.0 x 23 mm Xience stent that was implanted at nominal pressures and postdilated to
high-pressure's with a 3.25 mm noncompliant balloon
2. Severe aortic stenosis with a mean aortic valve gradient of 45 mmHg and valve area of of 0.53 cm�
3. Mildly elevated left ventricular filling pressures (pulmonary capillary wedge pressure 25 mm Hg)
4. Severe LVH with systolic obliteration of LV cavity and hyperdynamic function with an estimated ejection fraction greater than 75%
Recommendations:
-Patient reports another episode of bandlike chest tightness on the morning of 06/05/2025. Repeat ECG ordered and reviewed by me is stable without acute ischemic change. Troponin ordered by me was reviewed and continues to trend down from admission.
-Multidisciplinary conversations held regarding patient's symptoms, reviewed with interventional cardiology, TAVR team and CT surgery team. Plan is to check TAVR CT scan 06/05/2025 and then check CM to evaluate torn chordae and MR on 06/06/2025.
Pending results we can make further recommendation about TAVR versus SAVR
-Called and updated patient's significant other, Panchito, using patient's phone in the room so that we could have a conversation altogether. Present for the conversation with the patient, Panchito by phone, me, to have our team and CT surgery team. We
reviewed hospitalization and plans thus far. We reviewed the concern for torn chordae and the plan for CM on 06/06/2025. All questions answered.
-Cre as high as 1.1 on admission and trended down to 0.7 on my review of labs 06/05/2025. IVF's had been started by ER physician on admission, stopped on 06/05/2025, orders placed by me
-Plan is for TAVR are CT scan 06/05/2025 and will follow-up on BMP in a.m.
-Patient had successful PTCA and stenting of the mid circumflex into the OM 2 with a 3 mm Xience CHARLES that jailed the OM1 05/29/25. Troponin on day of discharge was 0.148 and troponin on admission 06-27 was 1.53 and trending down thereafter.
-Ticagrelor 90 mg BID was changed to Plavix on 06/05/2025. Loading dose of Plavix 600 mg x 1 was given on 06/05/2025 and then 75 mg daily starting 06/06/2025.
-No plans for repeat cardiac cath at this time
-LDL was 66 when it was checked on 05/23/2025 and outpatient dose of rosuvastatin 10 mg daily was continued, but recheck CVE on 05/22/2025 showed an LDL of 93 and Crestor was increased to 40 mg daily.
-Decrease dose of Toprol-XL to 12.5 mg daily starting 06/05/2025 due to sinus bradycardia, orders placed by me
-Outpatient dose of valsartan 320 mg daily has been continued
-proBNP is 744 which is higher than it was last admission. IVF's were started on admission due to CATERINA and Lasix was held. Will restart Lasix 20 mg IV daily starting now, orders placed by me
-Patient reports that she feels incredibly anxious and this was stopping her from sleeping at home she has tried Xanax at home from time to time and would like to try again now, will order as a PRN.
-Agree with PT/OT evaluation, patient and significant other report that she was unable to perform any ambulation at home due to feeling lightheaded. Orthostatic VS reviewed by me from 06/05/2025 are negative and patient has been HTN throughout this
admission thus far.
Progress Note - Inspector And Adjuster [employer]
Subjective
Date of Service: June 05, 2025
The bandlike tightness is better now
Objective
Labs:
06/05/25 06:10
06/05/25 06:10
Labs
Hgb 10.2 g/dL (12.0-16.0) L 06/05/25 06:10
Hct 32.5 % (37.0-47.0) L 06/05/25 06:10
Plt Count 271 10^3/uL (130-400) 06/05/25 06:10
APTT 44.4 Sec (23.4-35.0) H 06/05/25 08:15
Sodium 138 mmol/L (135-145) 06/05/25 06:10
Potassium 3.5 mmol/L (3.5-5.1) 06/05/25 06:10
BUN 27 mg/dl (7-17) H 06/05/25 06:10
Creatinine 0.7 mg/dL (0.6-1.0) 06/05/25 06:10
Glucose 100 mg/dl (70-99) H 06/05/25 06:10
Troponins
06/04/25 06/04/25 06/04/25
09:23 16:37 21:00
Troponin I 1.530 H* 1.220 H* Cancelled
06/05/25 06/05/25
06:10 12:21
Troponin I 0.954 H* 0.764 H*
Vital Signs and I&O:
Vital Signs
Temp Pulse Resp BP Pulse Ox
98.4 F 55 16 150/59 97
06/05/25 11:27 06/05/25 11:27 06/05/25 11:27 06/05/25 11:27 06/05/25 11:27
Vital Signs
Temp Pulse Resp BP Pulse Ox
98.4 F 55 16 150/59 97
06/05/25 11:27 06/05/25 11:27 06/05/25 11:27 06/05/25 11:27 06/05/25 11:27
Intake & Output
06/03/25 06/04/25 06/05/25 06/06/25
06:59 05:59 06:59 06:59
Intake Total 1290 / 1290
Output Total 400 / 400
Balance 890 / 890
Physical Exam
Physical Exam
GEN: NAD. AAOx3
LUNGS: RA. CTA B/L, no wheeze
CV: SR on telemetry
[2025-06-05] MEDS: LASIX 20 MG IV (16:04)
[2025-06-05] MEDS: FLUSH (NSS) 1 FLUSH IV (16:05)
--- NOTE | 2025-06-05 16:09 | PTCARENOTE ---
Pt returned from CT scan via stretcher, accompanied by volunteer. Pt AO x3, sl anxious; states she 'feels exhausted'. Telemetry:NSR/sinus belen 50's. On room air- pulse ox 98%, no SOB noted. Abd soft, rounded, leah PO well. Voids on BSC/in BR
with assistance; instructed to monitor output. Resting in bed at present. Will continue to monitor.
--- NOTE | 2025-06-05 16:41 | W.PN.HOSP.TC ---
Today's Communication/Plan
-
See plan
Assessment / Plan
Assessment / Plan
Impression:
Presentation with fatigue, dizziness and failure to thrive
Recent non-ST elevation [place]
� CAD with urgent PCI and CHARLES to mid circumflex 05/29/2025
Severe aortic stenosis with peak/mean gradient 57/34, JUVENCIO 1.1 cm�. Echo 05/30/25 EF 70 to 75%, trace MR with evidence of torn chordae
Trace MR with evidence of torn chordae as above
Chronic CHF preserved EF/valvular
Other conditions:*
Essential hypertension
Dyslipidemia with statin intolerance.
GERD.
Obstructive sleep apnea.
PMR on chronic corticosteroids.
History of UTI.
Anxiety
Plan
CAD with recent non-STEMI and CHARLES to circumflex.
Troponin trending down
Antiplatelet therapy switch off Brilinta to Plavix
GDMT: Continue metoprolol, statin, valsartan
Concern for acute CHF preserved EF/valvular.
Had been discharged home on oral Lasix
While complaints of dizziness, remains hemodynamically stable with elevated BP.
Reinstated on loop diuretic/Lasix 20 mg IV daily as per cardiology
Severe .
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
Ongoing interventional cardiology/CT surgery evaluation for possible TAVR versus AVR/MVR.
PMR
Continue methylprednisolone 4 mg daily as a maintenance. Continue PPI
Severe anxiety
Suspect adjustment disorder
Initiated a low-dose of Xanax
Anticipated Discharge: > 48 hours
Subjective/Interval History
-
Date of Service: June 05, 2025
Objective Data
-
Labs:
Laboratory Results
06/05/25 06/05/25 06/05/25
06:10 08:15 15:30
WBC 11.7 H
Hgb 10.2 L
Hct 32.5 L
Plt Count 271
APTT 44.4 H Pending
Sodium 138
Potassium 3.5
Chloride 112 H
Carbon Dioxide 21 L
BUN 27 H
Creatinine 0.7
Glucose 100 H
Calcium 8.1 L
Total Bilirubin 0.3
AST 17
ALT 23
Alkaline Phosphatase 68
Vital Signs:
Vital Signs
Temp Pulse Resp BP Pulse Ox
97.8 F 57 20 102/51 98
06/05/25 15:20 06/05/25 16:04 06/05/25 15:20 06/05/25 16:04 06/05/25 16:01
I&O
06/04/25 06/05/25 06/06/25
05:59 06:59 06:59
Intake Total 1290 / 1290
Output Total 400 / 400
Balance 890 / 890
Physical Exam
-
General: Well Developed and No Apparent Distress
HEENT: Normocephalic, Atraumatic and Moist Mucous Membranes
Respiratory: Clear to Auscultation
Cardiac: Regular Rhythm and S1/S2; Negative Murmur, Rub or Gallop
GI: Soft, Nontender, Nondistended and Normal Bowel Sounds; Negative Organomegaly
Rectal: Deferred by Provider
Musculoskeletal: No Clubbing, No Cyanosis and No Edema
Skin: Negative Rash
Neuro: Nonfocal/Grossly Intact
[2025-06-05 16:50] LABS: Glucose - Point of Care 144 mg/dl (70-99)
[2025-06-06] VITALS (10 sets, daily range): BP systolic 78–151; BP diastolic 38–67; PULSE 58–63; BMI 26.7
[2025-06-06] MEDS: TYLENOL 650 MG PO ×2 (04:15→22:09)
--- NOTE | 2025-06-06 05:01 | PTCARENOTE ---
Addendum entered by Abel Oconnell RN 06/06/25 07:33:
Pt denies of any chest pain or any discomfort.NPO from IN for procedure.No other complaints noted at this time.Pt resting comfortably.
Original Note:
Pt aaox3 able to make her needs known.Pt c/o bed alarm ringing with turning.PT wants RN to take bed alarm off, made aware of pt came in with falls & here with sinus bradycardia,Hypotension.Pt wants to call security and compliance analyst if bedalarm is not taken off & getting
angry on staff for it,more agitated.Pt wants to talk to coke handling supervisor.Industrial Maintenance [employer] spoke to pt & pt wants it taken off, states she will ring for help & states she wants to take the responsiblity if she falls. Pt sinus belen cardia in 30-50 's more when
sleeping & when woken up in 50's Pt asymptomatic & FIRE HAZARD INSPECTOR supervisor inspection and testing was made aware of it.No new orders noted. Pt requesting to be placed on oxygen for comfort as she uses CPAP at home & refuses to use hospital cpap & also refuses to bring home CPAP.FIRE HAZARD INSPECTOR
made aware.Plan of care continued on pt.
[2025-06-06 08:54] LABS: Blood Urea Nitrogen 21 mg/dl (7-17); Calcium 8.9 mg/dl (8.4-10.2); Carbon Dioxide 25 mmol/L (22-30); Chloride 111 mmol/L (98-107); Estimated Creatinine Clearance 41 ml/min; Glucose 98 mg/dl (70-99); Potassium 3.5 mmol/L (3.5-5.1); Sodium 140 mmol/L (135-145); eGFR > 60.00
[2025-06-06] MEDS: PROTONIX 40 MG PO (09:06)
[2025-06-06] MEDS: PLAVIX 75 MG PO (09:08)
[2025-06-06] MEDS: MEDROL 4 MG PO (09:08)
[2025-06-06] MEDS: PEPCID 20 MG PO (09:08)
[2025-06-06] MEDS: CRESTOR 40 MG PO (09:08)
[2025-06-06] MEDS: ASPIR LOW (ENTERIC COATED) 81 MG PO (09:08)
[2025-06-06] MEDS: LASIX 20 MG IV (09:09)
[2025-06-06] MEDS: DIOVAN 320 MG PO (09:26)
[2025-06-06] MEDS: TOPROL XL 12.5 MG PO (09:28)
--- NOTE | 2025-06-06 12:52 | PN.CDI ---
CDI
- -
CDI:
Physician Documentation Request
Admit Date: 06/04/25 12:14
Dear Doctor Stacie,
Patient presented with fatigue, dizziness and failure to thrive.
Creatinine:
Laboratory Tests
06/04/25 06/05/25
09:23 06:10
Creatinine 1.1 H 0.7
Could you please provide a diagnosis that supports the above lab abnormalities and additional evaluation/monitoring:
CATERINA
abnormal lab value clinically insignificant
Other
Criteria for CATERINA*
1 Increase in serum creatinine by > or = to 0.3 mg/dL (> or = to 26.5 micromol/L) within 48 hours, OR
2 Increase in serum creatinine to > or = to 1.5 times baseline, which is known or presumed to have occurred within 7 days, OR
3 Urine volume < 0.5 nL/kg/hour for six hours
Use of terms such as suspected, likely, concern for, or probable (associated with a specific diagnosis that is being evaluated, monitored, or treated as if it exists) are acceptable and can be coded in the inpatient setting, when documented at the
time of discharge.
Thank you,
Pauline De Los Santos RN, BSN
CDI Specialist
tiger text
Please use your independent medical judgment in providing your response.
--- NOTE | 2025-06-06 13:19 | W.PN.CARDCBS ---
Today's Communication / Plan
-
CM with likely torn cord at P2 but only mild mitral regurgitation. Will discuss with CT surgery but likely proceed with transcatheter aortic valve replacement evaluation.
Continue low-dose of Toprol 12.5 mg daily. Continue Diovan 320 mg daily. Blood pressure stable.
Continue gentle diuresis Lasix 20 mg IV daily. Creatinine is normal.
Discussed at length with patient and significant other.
Patient feels very strongly about going home and continue evaluation as outpatient. Will reevaluate tomorrow in 24 hours
Impression / Plan
-
PCP: Paul Torres
Stamping Press Operator: [facility]. Did see Inocencio Darby at [facility] for second opinion
Initially seen at [facility] by Dr. Neto Briggs March 22, 2025
Assessment:
Admitted with marked fatigue, failure to thrive and dizziness
Recent NSTEMI
CAD s/p 3.0 mm Xience CHARLES to the mid circumflex into the OM 2 jailing OM1 05/29/2025
Severe with peak/mean 57/34 mmHg and JUVENCIO 1.1 cm sq by echo 05/23/25
Previously moderate with peak/mean 57/30 mmHg and JUVENCIO 1.3 cm sq by echo with her outpatient online marketing director 12/14/2024
Recently worsened, Mean aortic valve gradient of 45 mmHg and valve area of of 0.53 cm sq by [facility] 05/29/2025
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
Hypertension
Hyperlipidemia
Right bundle branch block
Statin intolerance
GERD
Obstructive sleep apnea
Polymyalgia rheumatica
History of UTI
Varicose veins
History of pulmonary embolus related to surgery
Acute on chronic HFpEF
Echo 03/18/2022: Normal LV size and function. Mild concentric LVH. Aortic calcification with no significant stenosis.
Echo 12/10/2023: EF 65 to 70%. Concentric LVH. Moderate aortic stenosis with peak/mean gradient 49/25 mmHg, AVR 1.22 cm�.
Echo 12/14/2024 ([place]): EF 65 to 70%. Mild concentric LVH. Mitral valve thickening without significant stenosis. Moderate aortic stenosis with peak/mean gradient 57/30 mmHg and JUVENCIO 1.3 cm�. Mild AI.
Echo 05/23/2025: EF 70 to 75%, no WMA, severe with peak/mean 57/34 mmHg, mild aortic regurgitation
Echo 05/30/2025: EF 70 to 75%, trace MR with evidence of torn chordae
CM 06/06/25: EF 60-65%, + likely torn calcified chord at P2, mild MR, moderate to severe
Cardiac catheterization 03/19/2022: LM: Patent. LAD: Patent. Left circumflex 50 to 60% mid stenosis with FFR of 0.87
R/L heart cath 05/29/25:
1. Non-ST segment elevation myocardial infarction with stenosis in the mid circumflex. Successful stenting of the mid circumflex into OM 2 with placement of a 3.0 x 23 mm Xience stent that was implanted at nominal pressures and postdilated to
high-pressure's with a 3.25 mm noncompliant balloon
2. Severe aortic stenosis with a mean aortic valve gradient of 45 mmHg and valve area of of 0.53 cm�
3. Mildly elevated left ventricular filling pressures (pulmonary capillary wedge pressure 25 mm Hg)
4. Severe LVH with systolic obliteration of LV cavity and hyperdynamic function with an estimated ejection fraction greater than 75%
Recommendations:
-Patient reports another episode of bandlike chest tightness on the morning of 06/05/2025. Repeat ECG ordered and reviewed by me is stable without acute ischemic change. Troponin ordered by me was reviewed and continues to trend down from admission.
-Multidisciplinary conversations held regarding patient's symptoms, reviewed with interventional cardiology, TAVR team and CT surgery team.
- CM today revealed preserved ejection fraction with likely torn calcified cord and mild mitral regurgitation. Will discuss with CT surgery but likely no plan for intervention on mitral valve.
- Continue lower dose of Toprol and Diovan. Blood pressure currently stable
- Continue Lasix 20 mg IV daily. Creatinine stable at 0.9.
- I had a lengthy discussion with the patient and her significant other. I told that we would evaluate the CT scan and come up with a plan. I am hopeful that we could discharge her to home tomorrow with a tentative plan for her outpatient TAVR in
the next several weeks.
- Continue medical therapy for coronary artery disease. Continue aspirin, Plavix, Crestor, and Toprol.
- I did discuss with them that her gradient is only in the moderate to severe range. And some of her symptoms including the fatigue and malaise could be from other sources outside of her aortic stenosis. I do think it is prudent to proceed with
replacing her aortic valve, however this may not alleviate all of her symptoms
- Continue methylprednisolone for polymyalgia.
Progress Note - Stamping Press Operator
Subjective
Date of Service: June 06, 2025
Remains fatigued anxious. Denies chest pains
Objective
Labs:
06/05/25 06:10
06/06/25 07:28
Labs
Hgb 10.2 g/dL (12.0-16.0) L 06/05/25 06:10
Hct 32.5 % (37.0-47.0) L 06/05/25 06:10
Plt Count 271 10^3/uL (130-400) 06/05/25 06:10
APTT Cancelled 06/05/25 21:53
Sodium 140 mmol/L (135-145) 06/06/25 07:28
Potassium 3.5 mmol/L (3.5-5.1) 06/06/25 07:28
BUN 21 mg/dl (7-17) H 06/06/25 07:28
Creatinine 0.9 mg/dL (0.6-1.0) 06/06/25 07:28
Glucose 98 mg/dl (70-99) 06/06/25 07:28
Troponins
06/04/25 06/04/25 06/04/25
09:23 16:37 21:00
Troponin I 1.530 H* 1.220 H* Cancelled
06/05/25 06/05/25
06:10 12:21
Troponin I 0.954 H* 0.764 H*
Vital Signs and I&O:
Vital Signs
Temp Pulse Resp BP Pulse Ox
97.8 F 61 18 140/64 98
06/06/25 12:53 06/06/25 12:53 06/06/25 12:53 06/06/25 12:53 06/06/25 12:53
Vital Signs
Temp Pulse Resp BP Pulse Ox
97.8 F 61 18 140/64 98
06/06/25 12:53 06/06/25 12:53 06/06/25 12:53 06/06/25 12:53 06/06/25 12:53
Intake & Output
06/04/25 06/05/25 06/06/25 06/07/25
05:59 06:59 06:59 06:59
Intake Total 1290 / 1290 1511 / 1511
Output Total 400 / 400 800 / 800 1000 / 1000
Balance 890 / 890 711 / 711 -1000 / -1000
Physical Exam
Physical Exam
GEN: No distress, awake, Ox3
HEENT: supple, anicteric, mmm
LUNGS: CTA, no wheezes/rales
CV: Reg, S1/S2, 2/6 syst LSB, no gallop
ABD: soft, BS+, NT/ND
EXT: No edema
NEURO: Gross non-focal
SKIN: No rash
[2025-06-06] MEDS: KCL 40 MEQ PO (13:21)
--- NOTE | 2025-06-06 15:13 | W.PN.UPDATE ---
Update Note
Progress Note Update
Patient's CM was reviewed with Dr. Dash. CT Surgery will proceed with Transcatheter AV replacement, continue ongoing work up. Consent was obtained. Surgery date TBD.
--- NOTE | 2025-06-06 15:56 | W.PN.HOSP.TC ---
Today's Communication/Plan
-
Gentle diuresis
Monitor hemodynamics
TAVR planning
Assessment / Plan
Assessment / Plan
Impression:
Presentation with fatigue, dizziness and failure to thrive
Recent non-ST elevation [place]
� CAD with urgent PCI and CHARLES to mid circumflex 05/29/2025
Severe aortic stenosis with peak/mean gradient 57/34, JUVENCIO 1.1 cm�. Echo 05/30/25 EF 70 to 75%, trace MR with evidence of torn chordae
Trace MR with evidence of torn chordae as above
Chronic CHF preserved EF/valvular
Other conditions:*
Essential hypertension
Dyslipidemia with statin intolerance.
GERD.
Obstructive sleep apnea.
PMR on chronic corticosteroids.
History of UTI.
Anxiety
Plan
CAD with recent non-STEMI and CHARLES to circumflex.
Troponin trending down
Antiplatelet therapy switch off Brilinta to Plavix
GDMT: Continue metoprolol, statin, valsartan
Concern for acute CHF preserved EF/valvular.
Had been discharged home on oral Lasix
While complaints of dizziness, remains hemodynamically stable with elevated BP.
Reinstated on loop diuretic/Lasix 20 mg IV daily as per cardiology
Severe .
Status post CM on 06/06
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
Pending CT surgery evaluation for TAVR. No clear indication for open surgery involving AVR/MVR
PMR
Continue methylprednisolone 4 mg daily as a maintenance. Continue PPI
Severe anxiety
Suspect adjustment disorder
Initiated a low-dose of Xanax
Anticipated Discharge: Within 24 hours
Subjective/Interval History
-
Date of Service: June 06, 2025
Objective Data
-
Labs:
Laboratory Results
06/06/25
07:28
Sodium 140
Potassium 3.5
Chloride 111 H
Carbon Dioxide 25
BUN 21 H
Creatinine 0.9
Glucose 98
Calcium 8.9
Vital Signs:
Vital Signs
Temp Pulse Resp BP Pulse Ox
97.8 F 61 18 140/64 98
06/06/25 12:53 06/06/25 12:53 06/06/25 12:53 06/06/25 12:53 06/06/25 12:53
I&O
06/05/25 06/06/25 06/07/25
06:59 06:59 06:59
Intake Total 1290 / 1290 1511 / 1511
Output Total 400 / 400 800 / 800 1000 / 1000
Balance 890 / 890 711 / 711 -1000 / -1000
Physical Exam
-
General: Well Developed and No Apparent Distress
HEENT: Normocephalic, Atraumatic and Moist Mucous Membranes
Respiratory: Clear to Auscultation
Cardiac: Regular Rhythm and S1/S2; Negative Murmur, Rub or Gallop
GI: Soft, Nontender, Nondistended and Normal Bowel Sounds; Negative Organomegaly
Rectal: Deferred by Provider
Musculoskeletal: No Clubbing, No Cyanosis and No Edema
Skin: Negative Rash
Neuro: Nonfocal/Grossly Intact
--- NOTE | 2025-06-06 16:21 | CM ---
Pt was hypotension PT was put on hold.
Last PT eval indicates pt need SNF at dc.
Spoke with patient in room.
She refused SNF.
CM will continue to assess and assist with dc planning.
PLAN Home with possible VN
[2025-06-06] MEDS: ULTRAM 50 MG PO (19:56)
[2025-06-07 03:53] VITALS: BP 129/62
[2025-06-07 06:00] VITALS: BMI 26.4
[2025-06-07 07:05] VITALS: BP 142/68
[2025-06-07 07:25] LABS: Blood Urea Nitrogen 27 mg/dl (7-17); Calcium 8.9 mg/dl (8.4-10.2); Carbon Dioxide 24 mmol/L (22-30); Chloride 111 mmol/L (98-107); Estimated Creatinine Clearance 41 ml/min; Glucose 107 mg/dl (70-99); Potassium 3.7 mmol/L (3.5-5.1); Sodium 142 mmol/L (135-145); eGFR > 60.00
[2025-06-07] MEDS: TOPROL XL 12.5 MG PO (08:30)
[2025-06-07] MEDS: CRESTOR 40 MG PO (08:30)
[2025-06-07] MEDS: PROTONIX 40 MG PO (08:30)
[2025-06-07] MEDS: LASIX 20 MG IV (08:30)
[2025-06-07] MEDS: DIOVAN 320 MG PO (08:37)
[2025-06-07] MEDS: MEDROL 4 MG PO (08:37)
[2025-06-07] MEDS: ASPIR LOW (ENTERIC COATED) 81 MG PO (08:38)
[2025-06-07] MEDS: PEPCID 20 MG PO (08:38)
[2025-06-07] MEDS: PLAVIX 75 MG PO (08:38)
--- NOTE | 2025-06-07 09:20 | W.PN.CARDCBS ---
Addendum entered and electronically signed by Fei Noonan MD 06/15/25 09:37:
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
Original Note:
Today's Communication / Plan
-
Overall remains relatively stable. Will switch Lasix to 20 mg p.o. daily
Continue Toprol and valsartan. Will decrease valsartan to 160 mg daily
Patient will be seen by anesthesia prior to discharge. Tentative date for TAVR will be before .
Will give official update after Valve [facility] meeting on Thursday.
Will be stable for discharge today after ambulating with PT and seen by anesthesia
Impression / Plan
-
PCP: Paul Torres
Sluice Tender: [facility]. Did see Inocencio Darby at [facility] for second opinion
Initially seen at [place] by Dr. Neto Brigsg March 22, 2025
Assessment:
Admitted with marked fatigue, failure to thrive and dizziness
Recent NSTEMI
CAD s/p 3.0 mm Xience CHARLES to the mid circumflex into the OM 2 jailing OM1 05/29/2025
Severe with peak/mean 57/34 mmHg and JUVENCIO 1.1 cm sq by echo 05/23/25
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
Recently worsened, Mean aortic valve gradient of 45 mmHg and valve area of of 0.53 cm sq by C 05/29/2025
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
Hypertension
Hyperlipidemia
Right bundle branch block
Statin intolerance
GERD
Obstructive sleep apnea
Polymyalgia rheumatica
History of UTI
Varicose veins
History of pulmonary embolus related to surgery
Acute on chronic HFpEF
Echo 03/18/2022: Normal LV size and function. Mild concentric LVH. Aortic calcification with no significant stenosis.
Echo 12/10/2023: EF 65 to 70%. Concentric LVH. Moderate aortic stenosis with peak/mean gradient 49/25 mmHg, AVR 1.22 cm�.
Echo 12/14/2024 ([facility]): EF 65 to 70%. Mild concentric LVH. Mitral valve thickening without significant stenosis. Moderate aortic stenosis with peak/mean gradient 57/30 mmHg and JUVENCIO 1.3 cm�. Mild AI.
Echo 05/23/2025: EF 70 to 75%, no WMA, severe with peak/mean 57/34 mmHg, mild aortic regurgitation
Echo 05/30/2025: EF 70 to 75%, trace MR with evidence of torn chordae
CM 06/06/25: EF 60-65%, + likely torn calcified chord at P2, mild MR, moderate to severe
Cardiac catheterization 03/19/2022: LM: Patent. LAD: Patent. Left circumflex 50 to 60% mid stenosis with FFR of 0.87
R/L heart cath 05/29/25:
1. Non-ST segment elevation myocardial infarction with stenosis in the mid circumflex. Successful stenting of the mid circumflex into OM 2 with placement of a 3.0 x 23 mm Xience stent that was implanted at nominal pressures and postdilated to
high-pressure's with a 3.25 mm noncompliant balloon
2. Severe aortic stenosis with a mean aortic valve gradient of 45 mmHg and valve area of of 0.53 cm�
3. Mildly elevated left ventricular filling pressures (pulmonary capillary wedge pressure 25 mm Hg)
4. Severe LVH with systolic obliteration of LV cavity and hyperdynamic function with an estimated ejection fraction greater than 75%
Recommendations:
-Multidisciplinary conversations held regarding patient's symptoms, reviewed with interventional cardiology, TAVR team and CT surgery team.
-Plan will be for no intervention on the mitral valve. Clinically she overall remains stable and has diuresed. Will arrange tentative date for her transcatheter valve replacement as outpatient and will discuss her case at our Thursday morning
meeting.
- CM today revealed preserved ejection fraction with likely torn calcified cord and mild mitral regurgitation.
- Continue lower dose of Toprol and Diovan. Blood pressure currently stable. Will decrease Diovan to 160 mg daily
- Continue Lasix 20 mg IV daily. Creatinine stable at 0.9. Will transition her to Lasix 20 mg p.o. daily
- Continue medical therapy for coronary artery disease. Continue aspirin, Plavix, Crestor, and Toprol.
- I did discuss with her that her gradient is only in the moderate to severe range. And some of her symptoms including the fatigue and malaise could be from other sources outside of her aortic stenosis. I do think it is prudent to proceed with
replacing her aortic valve, however this may not alleviate all of her symptoms
- Continue methylprednisolone for polymyalgia.
Progress Note - Sluice Tender
Subjective
Date of Service: June 07, 2025
Denies chest pain and shortness of breath. Weight is overall down
Objective
Labs:
06/05/25 06:10
06/07/25 06:20
Labs
Hgb 10.2 g/dL (12.0-16.0) L 06/05/25 06:10
Hct 32.5 % (37.0-47.0) L 06/05/25 06:10
Plt Count 271 10^3/uL (130-400) 06/05/25 06:10
APTT Cancelled 06/05/25 21:53
Sodium 142 mmol/L (135-145) 06/07/25 06:20
Potassium 3.7 mmol/L (3.5-5.1) 06/07/25 06:20
BUN 27 mg/dl (7-17) H 06/07/25 06:20
Creatinine 0.9 mg/dL (0.6-1.0) 06/07/25 06:20
Glucose 107 mg/dl (70-99) H 06/07/25 06:20
Troponins
06/04/25 06/04/25 06/04/25
09:23 16:37 21:00
Troponin I 1.530 H* 1.220 H* Cancelled
06/05/25 06/05/25
06:10 12:21
Troponin I 0.954 H* 0.764 H*
Vital Signs and I&O:
Vital Signs
Temp Pulse Resp BP Pulse Ox
97.4 F 62 18 142/68 96
06/07/25 07:05 06/07/25 08:30 06/07/25 07:05 06/07/25 08:30 06/07/25 07:05
Vital Signs
Temp Pulse Resp BP Pulse Ox
97.4 F 62 18 142/68 96
06/07/25 07:05 06/07/25 08:30 06/07/25 07:05 06/07/25 08:30 06/07/25 07:05
Intake & Output
06/05/25 06/06/25 06/07/25 06/08/25
06:59 06:59 06:59 06:59
Intake Total 1290 / 1290 1511 / 1511 1080 / 1080
Output Total 400 / 400 800 / 800 1100 / 1100
Balance 890 / 890 711 / 711 -20 / -20
Physical Exam
Physical Exam
GEN: No distress, awake, Ox3
HEENT: supple, anicteric, mmm
LUNGS: CTA, no wheezes/rales
CV: Reg, S1/S2, 3/6 syst LSB, no gallop
ABD: soft, BS+, NT/ND
EXT: No edema
NEURO: Gross non-focal
SKIN: No rash
[2025-06-07 10:34] VITALS: BP 149/77; BP 161/78; PULSE 69; O2SAT 100
[2025-06-07 11:05] VITALS: BP 134/64
--- NOTE | 2025-06-07 11:07 | CM ---
Reviewed chart. Met with Mrs. Bolton to review discharge plans. She states prior to admission she resides with her partner in a two story home without any steps to enter. She states she has a first floor set-up. She states prior to admission she
was independent with ambulation and adls. She states she does use any DME in the home. She states she does have a walker and single point cane. She states she has a prescription plan with [employer] and uses [facility]. She states her partner
or sister will be available over the weekend to assist in her care if needed. Medical work-up in progress. The discharge plan is to return home with her partner and a home visit by the Transitional Care Nurse.
We reviewed pre-op and post-op routines. We reviewed the shower instructions. She has the soap, written instructions and the TAVR Educational Booklet. We also reviewed restrictions including driving and lifting restrictions. We discussed a home
visit by the Transitional Care Nurse. She is agreeable to a home visit. The tentative plan is for TAVR next week.
--- NOTE | 2025-06-07 12:25 | W.DS.TRANS ---
DC Summary - Stores Assistant
-
Discharge Instructions:
Discharge Diagnosis/Procedures CHF
Aortic stenosis
CAD
Diet 2 Gram Sodium
Instructions:
Stand-Alone Forms:
Changes to Home Medications: Yes
Discharge Medications:
DC Medications w/original date entered in [facility]
methylprednisolone 4 mg tablet 4 mg PO DAILY Anti-Inflammatory 12/09/23
pantoprazole 40 mg tablet,delayed release 40 mg PO DAILY Gastrointestinal Issue 12/09/23
famotidine 40 mg tablet 40 mg PO DAILY Gastrointestinal Issue 05/22/25
sucralfate 1 gram tablet 1 g PO QIDPRN PRN abdominal pain 05/22/25
tramadol 50 mg tablet 50 mg PO Q6H PRN moderate-severe pain 05/22/25
aspirin 81 mg tablet,delayed release 81 mg PO DAILY Blood Clot Prevention/Tx 05/28/25
furosemide 20 mg tablet 20 mg PO DAILY Heart Failure #30 tabs 05/31/25
rosuvastatin 10 mg tablet 40 mg (4 x 10 mg) PO DAILY High cholesterol #30 tabs 05/31/25
clopidogrel 75 mg tablet 75 mg PO DAILY #30 tabs 06/07/25
metoprolol succinate 25 mg tablet,extended release 24 hr 12.5 mg (1/2 x 25 mg) PO DAILY #30 tabs 06/07/25
valsartan 160 mg tablet 160 mg PO DAILY #30 tabs 06/07/25
Home Medication Changes
Brilinta changed to Plavix
Toprol XL and valsartan dose reduced
Pending Results: No
--- NOTE | 2025-06-07 15:09 | CM ---
MD entered order for discharge.
Spoke with patient in room.She said that she is doing better and she declined SNF and VN .
She is going to have a TAVR done IVU CM reviewed preop instruction with pt.
Panchito will drive her home today.
PLAN Home declined VN
--- NOTE | 2025-06-07 15:38 | PN.CDI ---
Addendum entered and electronically signed by Finn Quinones MD 06/16/25 15:25:
Documentation is complete
Original Note:
CDI
- -
CDI:
Physician Documentation Request
Admit Date: 06/04/25 12:14
Dear Doctor Shaista,
Progress notes include 'Trace MR with evidence of torn chordae by echo 05/22/2025'
Patient presented to hospital 05/22 for generalized weakness fatigue and recent onset of shortness of breath. Troponin at that time 0.044-0.047. Patient left AMA, returning 05/28 complaining of chest discomfort and shortness of breath. Troponin at
that time (05/28 0.169, 0.147) Patient diagnosis included NSTEMI.
Please clarify if a relationship exist between these conditions:
Yes, torn chordae is related to/associated with/due to NSTEMI
No, torn chordae is not related to/associated with/due to NSTEMI
Unable to determine
Use of terms such as suspected, likely, concern for, or probable (associated with a specific diagnosis that is being evaluated, monitored, or treated as if it exists) are acceptable and can be coded in the inpatient setting, when documented at the
time of discharge.
Thank you,
Pauline De Los Santos RN, BSN
CDI Specialist
tiger text
Please use your independent medical judgment in providing your response.
== END 2025-06-07 15:17 | disposition home or self-care (01) | DRG 280 ==
LOC: 4 EAST ACU 12:14
PROVIDERS: Internal Medicine Cardiovascular Disease; Physician Assistant Medical; ADMITTING PHYSICIAN Hospitalist; ATTENDING PHYSICIAN Internal Medicine; CONSULT PHYSICIAN Internal Medicine Cardiovascular Disease; CONSULT PHYSICIAN Thoracic Surgery (Cardiothoracic Vascular Surgery); EMERGENCY PHYSICIAN Emergency Medicine; FAMILY PHYSICIAN Family Medicine
PROC: B24BZZ4 Ultrasonography of Heart with Aorta, Transesophageal (ICD-10-PCS; 2025-06-06)
DX: I35.0 Nonrheumatic aortic (valve) stenosis (principal); I50.33 Acute on chronic diastolic (congestive) heart failure; I21.4 Non-ST elevation (NSTEMI) myocardial infarction; I51.1 Rupture of chordae tendineae, not elsewhere classified; I11.0 Hypertensive heart disease with heart failure; I95.1 Orthostatic hypotension; E86.0 Dehydration; E87.6 Hypokalemia; R62.7 Adult failure to thrive; Z68.26 Body mass index [BMI] 26.0-26.9, adult; I25.10 Atherosclerotic heart disease of native coronary artery without angina pectoris; M35.3 Polymyalgia rheumatica; I25.2 Old myocardial infarction; F41.9 Anxiety disorder, unspecified; Z87.440 Personal history of urinary (tract) infections; K21.9 Gastro-esophageal reflux disease without esophagitis; G47.33 Obstructive sleep apnea (adult) (pediatric); Z79.52 Long term (current) use of systemic steroids; Z79.02 Long term (current) use of antithrombotics/antiplatelets; Z79.82 Long term (current) use of aspirin; Z79.899 Other long term (current) drug therapy
CPT/HCPCS: 70450; 74174; 75572; 80048; 80053; 82962; 83735; 83880; 84484; 85025; 85027; 85730; 86850; 86900; 86901; 93005; 93312; 93320; 93325; 96374; 97116; 97163; 97166; 99285; Q9967

== ENCOUNTER 2025-06-17 13:29 | Inpatient (IN) | payer MEDICARE, OTHER, SELFPAY ==
[2025-06-17] VITALS (9 sets, daily range): BP systolic 91–168; BP diastolic 50–102; BMI 25.9
[2025-06-17 09:29] LABS: Hematocrit 40.2 % (37.0-47.0); Hemoglobin 13.6 g/dL (12.0-16.0); Mean Corp Hgb Conc. 33.8 g/dL (33.0-37.0); Mean Corpuscular Volume 79.1 fL (81.0-99.0); Nucleated Red Blood Cells % 0 %; Platelet Count 467 10^3/uL (130-400); Red Cell Dist. Width 15.6 % (11.5-14.5)
[2025-06-17 09:43] LABS: ALT (SGPT) 27 U/L (0-35); AST (SGOT) 31 U/L (14-36); Albumin 4.3 g/dl (3.5-5.0); Alkaline Phosphatase 75 U/L (38-126); Blood Urea Nitrogen 29 mg/dl (7-17); Calcium 9.9 mg/dl (8.4-10.2); Carbon Dioxide 26 mmol/L (22-30); Chloride 101 mmol/L (98-107); Glucose 138 mg/dl (70-99); Potassium 2.8 mmol/L (3.5-5.1); Sodium 136 mmol/L (135-145); Total Protein 7.2 g/dl (6.3-8.2); eGFR 50.80
--- NOTE | 2025-06-17 09:52 | ED.GENMED ---
History of Present Illness
<Yang Morales PA-C - Last Filed: 06/17/25 16:15>
General
Chief Complaint: Chest Pain
Source: patient, records and family
Time Seen by Provider: 06/17/25 09:17
History of Present Illness
History of Present Illness:
80-year-old female with past medical history of severe aortic stenosis and mitral regurgitation, recent NSTEMI, chronic hypertension, hyperlipidemia presenting back to the emergency department for reevaluation after she was recently admitted here
following an admission for CHF exacerbation secondary to her aortic stenosis as well as an NSTEMI for continued severe fatigue, exertional dyspnea, upper abdominal/lower chest discomfort, constipation and generally feeling unwell. Son states
patient was supposed undergo TAVR this coming week however it was pushed back to the following week for unknown reasons, both patient and son seem to be quite upset about this. Son states patient has not been able to do anything since her discharge
noting that she has pretty much been bed ridden. Patient did take a laxative 2 days ago which seemed to resolve the constipation issue which son believes is related to patient taking chronic tramadol. No reported fevers, chills, rigors, nausea or
vomiting however son does note some decreased p.o. intake to both solids and liquids. patient has been unable to take her diuretics recent for unknown reasons. No other concerns presently.
Past History
<Yang Morales PA-C - Last Filed: 06/17/25 16:15>
Past History
ED Past Medical History: CAD, HTN, Hypercholesterolemia, Valvular disease and Other (Diverticulitis)
ED Past Surgical History: Appendectomy, Cardiac, Cholecystectomy, Gynecological, Orthopedic and Other
Social History
Tobacco: Non-smoker
Alcohol: None
Drug: None
Personal: Single
Living: with family
Review of Systems
<Yang Morales PA-C - Last Filed: 06/17/25 16:15>
Review of Systems
All Other Systems: ROS reviewed and negative except as documented in HPI and ROS
Phy Exam
<Yang Morales PA-C - Last Filed: 06/17/25 16:15>
Physical Exam
Physical Exam:
GENERAL: Alert , in no apparent distress
HEAD: Normocephalic atraumatic
EYE: clear conjunctiva
NECK: Supple
ENT: o/p clr, mmm.
CARDIAC: Regular rate and rhythm, systolic murmur right 2nd ICS. LSB murmur .
LUNGS: Clear breath sounds bilaterally, no acute respiratory distress, no wheezes/rales/rhonchi
ABDOMEN: Soft, without focal tenderness, no r/g, no cvat
NEUROLOGICAL: Alert and oriented x 3
SKIN: Warm and dry, skin intact.
MUSCULOSKELETAL: b/l non-pitting ankle edema, well perfused.
PSYCH: Normal and appropriate interaction.
Scores
<Yang Morales PA-C - Last Filed: 06/17/25 16:15>
Heart Failure Risk
Heart Failure Risk Score: Not Applicable
Heart Score for Chest Pain Patients
STEMI patient?: No
History: Moderately Suspicious
ECG: Nonspecific Repolarization
Age: >/= 65 years
Risk Factors: >/= 3 Risk Factors or History of CAD
Troponin: </= Normal Limit
Heart Score for Chest Pain Patients: 6
Heart Score Risk: 20.3% MACE over next 6 weeks
Withdrawal Assessment of Alcohol
Withdrawal Assessment Completed?: Not applicable
<Lamar Patel DO - Last Filed: 06/17/25 10:21>
Heart Score for Chest Pain Patients
Heart Score for Chest Pain Patients: 6
Heart Score Risk: 20.3% MACE over next 6 weeks
Course
<Yang Morales PA-C - Last Filed: 06/17/25 16:15>
Orders/Labs/Results
Orders:
Orders
06/17/25 09:07
Electrocardiogram (*1) Urgent
Reason for Study: Chest Pain
EKG- Treatment ONCE
06/17/25 09:18
CR Chest - 2 Views Urgent
Comment:
Reason For Exam: chest pain, SOB
06/17/25 09:24
Complete Blood Count/With Diff Urgent
Comprehensive Metabolic Panel Urgent
06/17/25 09:33
PTT Urgent
Prothrombin Time Urgent
06/17/25 09:49
Potassium Chloride [KCl] 40 meq PO NOW STA
06/17/25 10:06
Potassium Chloride [KCl] 40 meq 0.9% Sodium Chloride 250 ml [Nss] 250 ml IV NOW
06/17/25 10:44
Electrocardiogram (*1) Urgent
Reason for Study: Chest Pain
EKG- Treatment ONCE
06/17/25 10:50
Ondansetron Injectable [Zofran] 4 mg IV NOW STA
06/17/25 11:00
Flush (0.9% Sodium Chloride) [Flush (Nss)] See Dose Instructions IV PER PROTOCOL
06/17/25 11:18
NT-proBNP Urgent
Troponin I Urgent
06/17/25 13:12
Admit/Transfer Patient As Directed
Co-Sign Provider:
Level of Care: Inpatient admission
Assign to:: Telemetry
Physician / Group: Hospitalist
Diagnosis: Severe aortic stenosis
Reason for Telemetry: Arrhythmia
Date to Stop Telemetry: 06/20/25
Time to Stop Telemetry: 11:00
Reason for Hospitalization: Severe aortic stenosis
Expected length of stay greater than two midnights?: Yes
ELOS- Estimated Length of Stay in days: 2
I certify the patient meets the requirements for IP care: Yes
PRN Pain Medication Management As Directed
May give lesser potent ordered pain med per pt: Yes
preference::
Protocol:: Medication orders for pain may be administered in a
manner that supports deferring to patient preference
when the pt is:
- Requesting an ordered lesser potent pain medication.
Least to most potent pain medications are defined
as: acetaminophen < NSAID < tramadol < opioids
(morphine, oxycodone, hydromorphone).
- Requesting a lesser dose of the same medication IF
ORDERED.
- Requesting a less intrusive route of administration
if both routes are prescribed by the provider (PO <
IV).
06/17/25 13:16
Code Status As Directed
Resuscitation Status: Full Code
06/17/25 15:07
Aspirin Low Dose EC [Aspir Low (Enteric Coated)] 81 mg PO DAILY
Bisacodyl [Dulcolax] 10 mg RECTAL [id number] PRN
Clopidogrel Bisulfate [Plavix] 75 mg PO DAILY
Docusate W/Senna [Senokot-S] 1 tablet PO BIDPRN PRN
Furosemide [Lasix] 20 mg PO DAILY
MethylPREDNISolone [Medrol] 4 mg PO DAILY
Polyethylene Glycol Powder [Miralax] 17 grams PO DAILYPRN PRN
Rosuvastatin Calcium [Crestor] 40 mg PO DAILY
Sucralfate [Carafate] 1 gram PO QIDPRN PRN abdominal pain
Tramadol HCl [Ultram] 50 mg PO Q6H PRN moderate-severe pain
Valsartan [Diovan] 160 mg PO DAILY
06/17/25 15:07
CARDIOLOGY CONSULT Routine
Consulting Provider: Anum Amado
Was physician already notified: Yes
HF DIETARY CONSULT Routine
HF EDUCATOR CONSULT Routine
Comment:
Magnesium Routine
Activity As Directed
Activity Level: As Tolerated
Activity As Directed
Activity Level: With Assistance
Intake/ Output As Directed
Frequency: Per unit guidelines
Patient Education As Directed
Type: CHF folder
Comment: give on admission. Document in Interdisciplinary Education record
Pneumatic Compression Sleeves As Directed
Type: Knee high
Sleep Apnea Assessment by RN As Directed
Comment:
Physician Instructions:
Vital Signs As Directed
Frequency: Other
Additional Instructions:: Q12 or per unit guidelines if more frequent.
Vital Signs As Directed
Frequency: Per unit guidelines
Weight As Directed
Frequency: Daily
Type of Scale: Standing Scale
Comment: Daily morning weight. If unable to stand, use balanced bed scale.
Weight As Directed
Frequency: Once
Type of Scale: Standing Scale
Comment: Upon Admission. If unable to stand, use balanced bed scale.
Pulse Ox/cont/shift [RESP] Routine
Quantity: 1
Special Instructions: Daily pulse oximetry at rest. If greater than 92% at rest also obtain pulse oximetry
while ambulating as tolerated.
DX Deep Vein Thrombosis Video Routine
06/17/25 16:00
Famotidine [Pepcid] 20 mg PO DAILY
Metoprolol Xl [Toprol Xl] 12.5 mg PO DAILY
06/17/25 17:30
Troponin I Q6H
Comment: at admission & every 6 hours x 2 (3 total), ECG to be done with each level
06/17/25 23:30
Troponin I Q6H
Comment: at admission & every 6 hours x 2 (3 total), ECG to be done with each level
06/20/25 11:00
DC Protocol for Telemetry ONCE
Abnormal Lab Results
06/17/25 06/17/25
09:24 11:18
WBC 15.5 H 10^3/uL
(4.8-10.8)
MCV 79.1 L fL
(81.0-99.0)
MCH 26.8 L pg
(27.0-31.0)
RDW 15.6 H %
(11.5-14.5)
Plt Count 467 H 10^3/uL
(130-400)
Abs Immat Gran (auto) 0.1 H 10^3/uL
(0-0.05)
Absolute Neuts (auto) 9.9 H 10^3/uL
(1.4-6.5)
Absolute Lymphs (auto) 3.7 H 10^3/uL
(1.2-3.4)
Absolute Monos (auto) 1.2 H 10^3/uL
(0.1-0.6)
Immature Gran % 0.6 H %
(0-0.5)
Potassium 2.8 L mmol/L
(3.5-5.1)
BUN 29 H mg/dl
(7-17)
Creatinine 1.1 H mg/dL
(0.6-1.0)
Glucose 138 H mg/dl
(70-99)
Troponin I 0.334 H* ng/ml
06/17/25 09:24
06/17/25 09:24
Vital Signs
Initial and Last Documented VS:
Initial Vital Signs
Temp Pulse Resp BP Pulse Ox
97.4 F 105 18 168/102 99
06/17/25 09:07 06/17/25 09:07 06/17/25 09:07 06/17/25 09:07 06/17/25 09:07
Last Documented Vital Signs
Temp Pulse Resp BP Pulse Ox
97.4 F 105 18 153/94 100
06/17/25 09:07 06/17/25 15:58 06/17/25 09:07 06/17/25 15:58 06/17/25 11:00
<Lamar Patel, DO - Last Filed: 06/17/25 10:21>
Orders/Labs/Results
Orders:
Orders
06/17/25 09:07
Electrocardiogram (*1) Urgent
Reason for Study: Chest Pain
EKG- Treatment ONCE
06/17/25 09:18
CR Chest - 2 Views Urgent
Comment:
Reason For Exam: chest pain, SOB
06/17/25 09:24
Complete Blood Count/With Diff Urgent
Comprehensive Metabolic Panel Urgent
06/17/25 09:33
PTT Urgent
Prothrombin Time Urgent
06/17/25 09:49
Potassium Chloride [KCl] 40 meq PO NOW STA
06/17/25 10:06
Potassium Chloride [KCl] 40 meq 0.9% Sodium Chloride 250 ml [Nss] 250 ml IV NOW
06/17/25 10:44
Electrocardiogram (*1) Urgent
Reason for Study: Chest Pain
EKG- Treatment ONCE
06/17/25 10:50
Ondansetron Injectable [Zofran] 4 mg IV NOW STA
06/17/25 11:00
Flush (0.9% Sodium Chloride) [Flush (Nss)] See Dose Instructions IV PER PROTOCOL
06/17/25 11:18
NT-proBNP Urgent
Troponin I Urgent
06/17/25 13:12
Admit/Transfer Patient As Directed
Co-Sign Provider:
Level of Care: Inpatient admission
Assign to:: Telemetry
Physician / Group: Hospitalist
Diagnosis: Severe aortic stenosis
Reason for Telemetry: Arrhythmia
Date to Stop Telemetry: 06/20/25
Time to Stop Telemetry: 11:00
Reason for Hospitalization: Severe aortic stenosis
Expected length of stay greater than two midnights?: Yes
ELOS- Estimated Length of Stay in days: 2
I certify the patient meets the requirements for IP care: Yes
PRN Pain Medication Management As Directed
May give lesser potent ordered pain med per pt: Yes
preference::
Protocol:: Medication orders for pain may be administered in a
manner that supports deferring to patient preference
when the pt is:
- Requesting an ordered lesser potent pain medication.
Least to most potent pain medications are defined
as: acetaminophen < NSAID < tramadol < opioids
(morphine, oxycodone, hydromorphone).
- Requesting a lesser dose of the same medication IF
ORDERED.
- Requesting a less intrusive route of administration
if both routes are prescribed by the provider (PO <
IV).
06/17/25 13:16
Code Status As Directed
Resuscitation Status: Full Code
06/17/25 15:07
Aspirin Low Dose EC [Aspir Low (Enteric Coated)] 81 mg PO DAILY
Bisacodyl [Dulcolax] 10 mg RECTAL [id number] PRN
Clopidogrel Bisulfate [Plavix] 75 mg PO DAILY
Docusate W/Senna [Senokot-S] 1 tablet PO BIDPRN PRN
Furosemide [Lasix] 20 mg PO DAILY
MethylPREDNISolone [Medrol] 4 mg PO DAILY
Polyethylene Glycol Powder [Miralax] 17 grams PO DAILYPRN PRN
Rosuvastatin Calcium [Crestor] 40 mg PO DAILY
Sucralfate [Carafate] 1 gram PO QIDPRN PRN abdominal pain
Tramadol HCl [Ultram] 50 mg PO Q6H PRN moderate-severe pain
Valsartan [Diovan] 160 mg PO DAILY
06/17/25 15:07
CARDIOLOGY CONSULT Routine
Consulting Provider: Anum Amado
Was physician already notified: Yes
HF DIETARY CONSULT Routine
HF EDUCATOR CONSULT Routine
Comment:
Magnesium Routine
Activity As Directed
Activity Level: As Tolerated
Activity As Directed
Activity Level: With Assistance
Intake/ Output As Directed
Frequency: Per unit guidelines
Patient Education As Directed
Type: CHF folder
Comment: give on admission. Document in Interdisciplinary Education record
Pneumatic Compression Sleeves As Directed
Type: Knee high
Sleep Apnea Assessment by RN As Directed
Comment:
Physician Instructions:
Vital Signs As Directed
Frequency: Other
Additional Instructions:: Q12 or per unit guidelines if more frequent.
Vital Signs As Directed
Frequency: Per unit guidelines
Weight As Directed
Frequency: Daily
Type of Scale: Standing Scale
Comment: Daily morning weight. If unable to stand, use balanced bed scale.
Weight As Directed
Frequency: Once
Type of Scale: Standing Scale
Comment: Upon Admission. If unable to stand, use balanced bed scale.
Pulse Ox/cont/shift [RESP] Routine
Quantity: 1
Special Instructions: Daily pulse oximetry at rest. If greater than 92% at rest also obtain pulse oximetry
while ambulating as tolerated.
DX Deep Vein Thrombosis Video Routine
06/17/25 16:00
Famotidine [Pepcid] 20 mg PO DAILY
Metoprolol Xl [Toprol Xl] 12.5 mg PO DAILY
06/17/25 17:30
Troponin I Q6H
Comment: at admission & every 6 hours x 2 (3 total), ECG to be done with each level
06/17/25 23:30
Troponin I Q6H
Comment: at admission & every 6 hours x 2 (3 total), ECG to be done with each level
06/20/25 11:00
DC Protocol for Telemetry ONCE
Abnormal Lab Results
06/17/25 06/17/25
09:24 11:18
WBC 15.5 H 10^3/uL
(4.8-10.8)
MCV 79.1 L fL
(81.0-99.0)
MCH 26.8 L pg
(27.0-31.0)
RDW 15.6 H %
(11.5-14.5)
Plt Count 467 H 10^3/uL
(130-400)
Abs Immat Gran (auto) 0.1 H 10^3/uL
(0-0.05)
Absolute Neuts (auto) 9.9 H 10^3/uL
(1.4-6.5)
Absolute Lymphs (auto) 3.7 H 10^3/uL
(1.2-3.4)
Absolute Monos (auto) 1.2 H 10^3/uL
(0.1-0.6)
Immature Gran % 0.6 H %
(0-0.5)
Potassium 2.8 L mmol/L
(3.5-5.1)
BUN 29 H mg/dl
(7-17)
Creatinine 1.1 H mg/dL
(0.6-1.0)
Glucose 138 H mg/dl
(70-99)
Troponin I 0.334 H* ng/ml
06/17/25 09:24
06/17/25 09:24
Vital Signs
Initial and Last Documented VS:
Initial Vital Signs
Temp Pulse Resp BP Pulse Ox
97.4 F 105 18 168/102 99
06/17/25 09:07 06/17/25 09:07 06/17/25 09:07 06/17/25 09:07 06/17/25 09:07
Last Documented Vital Signs
Temp Pulse Resp BP Pulse Ox
97.4 F 105 18 153/94 100
06/17/25 09:07 06/17/25 15:58 06/17/25 09:07 06/17/25 15:58 06/17/25 11:00
<Yang Morales PA-C - Last Filed: 06/17/25 16:15>
MDM/Problems Addressed
Differential Diagnosis Includes:
Progression of /MR
CHF
ACS
Pericarditis/Myocarditis
PE
Pneumonia
Constipation
GERD/Gastritis/PUD
MDM/Problems Addressed:
80-year-old female presenting back to the emergency department for evaluation of a multitude of symptoms, most concern for exertional shortness of breath and severe fatigue. Supposed undergo TAVR within the next 1 to 2 weeks, date currently
unclear. No fevers or infectious symptoms. Will check labs and chest x-ray imaging. Based off presentation and history I do anticipate patient will need admission to the hospital for continued evaluation and treatment with CT surgery and
cardiology in consultation.
Chronic conditions affecting care: CAD and Other (Valvular disease)
Acute Exacerbation and/or Progression of Chronic Illness: Other (Valvular disease)
<Yang Morales PA-C - Last Filed: 06/17/25 16:15>
*Radiology
Radiology exam reviewed: radiology read reviewed
*Pulse Oximetry
SaO2: 99
Oxygen Mode of Delivery: Room air
Patient hypoxic: no
*EKG
Heart Rate: 105
Rate: tachycardiac
Rhythm: sinus
QRS Pattern: right bundle branch block
*Foot Roentgenologist Interpretation
Rate: normal
Heart Rate: 95
Rhythm: sinus
*Critical Care Note
Total Time (30-74mins, 75-104mins- exclusive of procedures): Not Applicable
Data Reviewed
Review of Other/Old Records Reveals: Labs, Records and Discharge Summary
Source: patient, records and family
<Yang Morales PA-C - Last Filed: 06/17/25 16:15>
Patient Management
Discussion with other providers: Hospitalist
Escalation/DeEscalation of care consider admission/obs:
Given patients persistent and worsening symptoms will admit for continued evaluation. She has a chronic leukocytosis which is baseline. BNP slightly elevated past baseline. K+ repleted. Trop elevated but less than when she was admitted 2 weeks ago.
Hospitalist team accepts
ED Attending Note
<Yang Morales PA-C - Last Filed: 06/17/25 16:15>
-
Portions of this chart may have been created with voice recognition software.� Occasional wrong word or��sound alike� substitutions may have occurred due to the inherent limitations of voice recognition software.
<Lamar Patel DO - Last Filed: 06/17/25 10:21>
ED Attending Note
Patient seen and examined by attending physician: Yes
I performed the substantive portion of visit, reviewed & personally made and approve the management plan that is documented in note by myself or MIRANDA.: Yes
I performed a history and physical exam of patient and discussed management with resident, I reviewed resident's note and agree with documented findings and plan of care.: Yes
ED Attending Note:
80-year-old female with history of severe aortic stenosis, CHF, hypertension, CAD status post stenting presenting to the emergency department for persistent chest pain and dyspnea. Patient with recent hospital admissions. Patient was admitted from
05/28 to 05/31 for NSTEMI. She subsequently had a stent placed in her circumflex artery. Patient also came back to the hospital on 06/04, admitted until 06/07 for dyspnea and CHF, as well as unstable angina. Patient's medications were optimized.
She is supposed undergo TAVR in the next coming weeks. She reports since recent discharge home, has been persistently short of breath, difficulty ambulating at home. Notes persistent chest pressure. Denies fever or cough. Patient is a very
limited historian, notes that she has not been taking her Lasix, however is unsure why. Vital signs on arrival significant for hypertension.
On exam, patient resting comfortably, no acute distress. Overall benign examination. Audible heart murmur, consistent with known aortic stenosis. No increased work of breathing, no significant signs of volume overload. Ultimately suspect that
patient symptoms are chronic in nature, coronary artery disease, severe aortic stenosis, acute on chronic congestive heart failure. However, patient notes that she has not been able to ambulate at home, due to her symptoms. Patient's spouse has
been trying to help her at home, however, does not appear to be a sustainable solution. Will repeat laboratory analysis, chest x-ray imaging, however ultimately feel patient warrants admission for continued cardiac consultation and possible skilled
nursing facility.
Discharge Plan
Departure
Patient Disposition: Admit
Date of Disposition: 06/17/25
Time of Disposition: 12:10
Presentation/result/management discussed w/ accepting MD/DO: Hospitalist
Discharge Problem:
Shortness of breath, Aortic stenosis
Interventions
Interventions:
*Risk Screen - Suicide Last Done: 06/17/25 09:07
*General Assessment Last Done: 06/17/25 09:07
*Neglect/Abuse Screening Last Done: 06/17/25 09:07
*ED COVID-19 Vaccine History Last Done: 06/17/25 12:00
*ED Influenza Vaccine History Last Done: 06/17/25 12:00
*Nursing Disposition Last Done: 06/17/25 14:55
ED- Cardiac Assessment Last Done: 06/17/25 12:00
Discharge Date and Time
Discharge Date/Time: 06/17/25 14:55
[2025-06-17 09:57] LABS: INR 0.98; PT 13.3 Sec (11.4-14.6)
[2025-06-17 09:58] LABS: APTT 26.7 Sec (23.4-35.0)
[2025-06-17] MEDS: KCL 40 MEQ PO (10:19)
[2025-06-17] MEDS: KCL 270 MEQ IV (10:22)
[2025-06-17] MEDS: ZOFRAN 4 MG IV (11:03)
[2025-06-17 12:05] LABS: Troponin I 0.334 ng/ml
--- NOTE | 2025-06-17 12:11 | HPS.HSE ---
Addendum entered and electronically signed by Flavia Cardona MD 06/17/25 14:29:
This is an addendum to the H&P written by Nataly Johnson on 06/17/2025. �Patient seen and examined independently with resident.
80-year-old female past medical history of HFpEF, CAD/NSTEMI status post PCI of mid circumflex, severe aortic stenosis, trace mitral regurgitation due to/to torn chordae, hypertension, hyperlipidemia, GERD, obstructive sleep apnea, polymyalgia
rheumatica, anxiety, presenting with upper abdominal pain/chest discomfort, constipation, decreased p.o. intake, intermittent shortness of breath. �She has been bedridden.
No fevers or chills or vomiting.
Patient was recently admitted from 06/04 to 06/07 presenting with anxiety and chest pressure. �There was no evidence of NSTEMI. �There was plan for TAVR before and she underwent CM and optimization with IV Lasix.
TAVR surgery was originally scheduled for Thursday but was postponed to next week apparently.
Vital signs show blood pressure up to 168/102. �Initial tachycardia 105.
On examination chest is tender to palpation. �Epigastric abdominal tenderness, mild diffuse tenderness.
Labs show leukocytosis of 15. �Potassium 2.8. �Creatinine 1.1 from 0.9. �Troponin of 0.334 from 0.764 previously. �Cardiac BNP 2000.
EKG shows sinus tachycardia, right bundle branch block which was present previously.
Chest x-ray shows no acute cardiopulmonary process.
Patient with persistent dyspnea secondary to HFpEF/severe aortic stenosis. �Continue oral Lasix. �Cardiology consulted to determine timing of TAVR.
Chest pain appears to be musculoskeletal likely from polymyalgia rheumatica rather than cardiac. �Continue PPI for acid reflux. Trend troponins.�
Abdominal discomfort secondary to constipation. �Start MiraLAX and Dulcolax.
Hypokalemia secondary to Lasix. Replete potassium and check Magnesium.
Original Note:
Family Physician
-
Family Physician: Paul Torres
Chief Complaint
-
.
History of Present Illness
80-year-old female with past medical history of CAD, right bundle branch, GERD, LUC, polymyalgia rheumatica, severe aortic stenosis, mitral regurgitation, recent NSTEMI, hypertension, hyperlipidemia, HFpEF.
Patient reports having severe generalized weakness, was not able to get out of bed, no history of lightheadedness/dizziness, syncopal episodes. Patient has not been taking her furosemide as prescribed or any of her medications, unsure why. Patient
denies fever/chills, nausea/vomiting. Patient reports having burning epigastric abdominal pain, and symptoms of reflux that started 2 days ago.
Patient complaining of constipation since the past 1 week, did not have a bowel movement, but she is able to pass flatus. She states she took something for her constipation, does not recall the name of the medication, but it has not helped her much.
She underwent CM during her prior hospitalization, discharged on 06/07/2025 with plan to proceed with TAVR and was discharged on GDMT.
BUN/creatinine�29
WBC 15.5,/1.1, glucose 138, troponin 0.33 <0.764 (06/05/2025)
proBNP 0
BP 168/102, at presentation
Medical History
Past Medical History
Past Medical History: Reports Other (CAD, right bundle branch, GERD, LUC, polymyalgia rheumatica, severe aortic stenosis, mitral regurgitation, recent NSTEMI, hypertension, hyperlipidemia, HFpEF)
Past Surgical History: Reports Other (Bowel resection Bunionectomy Abdominal wall repair Laminectomy)
Social History
Tobacco: Non-smoker
Alcohol: None
Drug: None
Personal: Partner
Living: With Family
Employment: Retired
Family History
Family History: Not pertinent
Allergies / Home Medications
Allergies reflects when Allergies were last updated in [facility].
Home Medications with original date entered in [facility]
Allergy/Medication List:
Allergies
Allergy/AdvReac Type Severity Reaction Status Date / Time
No Known Allergies Allergy Verified 06/04/25 09:10
Home Medications
methylprednisolone 4 mg tablet 4 mg PO DAILY Anti-Inflammatory 12/09/23
pantoprazole 40 mg tablet,delayed release 40 mg PO DAILY Gastrointestinal Issue 12/09/23
famotidine 40 mg tablet 40 mg PO DAILY Gastrointestinal Issue 05/22/25
sucralfate 1 gram tablet 1 g PO QIDPRN PRN abdominal pain 05/22/25
tramadol 50 mg tablet 50 mg PO Q6H PRN moderate-severe pain 05/22/25
aspirin 81 mg tablet,delayed release 81 mg PO DAILY Blood Clot Prevention/Tx 05/28/25
furosemide 20 mg tablet 20 mg PO DAILY Heart Failure #30 tabs 05/31/25
rosuvastatin 10 mg tablet 40 mg (4 x 10 mg) PO DAILY High cholesterol #30 tabs 05/31/25
clopidogrel 75 mg tablet 75 mg PO DAILY #30 tabs 06/07/25
metoprolol succinate 25 mg tablet,extended release 24 hr 12.5 mg (1/2 x 25 mg) PO DAILY #30 tabs 06/07/25
valsartan 160 mg tablet 160 mg PO DAILY #30 tabs 06/07/25
Review of Systems
-
A 12 point ROS was completed and negative except as noted: Yes
Physical Exam
Vital Signs
Vital Signs
Temp Pulse Resp BP Pulse Ox
97.4 F 91 18 132/89 100
06/17/25 09:07 06/17/25 11:00 06/17/25 09:07 06/17/25 11:00 06/17/25 11:00
Physical Exam
General: No Apparent Distress
HEENT: NormoCephalic and Atraumatic
Respiratory: Clear
Cardiac: S1/S2, Tachycardia and Murmur (Systolic murmur)
GI: Soft, Non Distended, Normal Bowel Sounds and Tender (Epigastric tenderness)
Skin: Warm and Dry
Neuro: Awake, Alert, Oriented and AO x 3
Psych: Calm
Laboratory Results
-
06/17/25 09:24
06/17/25 09:24
Laboratory Results
PT 13.3 Sec (11.4-14.6) 06/17/25 09:33
INR 0.98 06/17/25 09:33
APTT 26.7 Sec (23.4-35.0) 06/17/25 09:33
Total Bilirubin 0.7 mg/dl (0.2-1.3) 06/17/25 09:24
AST 31 U/L (14-36) 06/17/25 09:24
ALT 27 U/L (0-35) 06/17/25 09:24
Alkaline Phosphatase 75 U/L (38-126) 06/17/25 09:24
Troponin I 0.334 ng/ml H* 06/17/25 11:18
Impression/Plan
-
Assessment/PLAN:
#Epigastric pain
Likely due to GERD
Will start IV Protonix
Continue famotidine
#Constipation
Start MiraLAX
Start Dulcolax
#CAD s/p stent
Continue aspirin, clopidogrel
Continue rosuvastatin
Continue metoprolol
#Heart failure with preserved ejection fraction
Patient does not appear volume overloaded
BNP 2059
No evidence of pulmonary edema, clinical exam clear, no LE edema
Will continue her home Lasix
Continue metoprolol
Continue valsartan
#Severe
Patient was planned for TAVR this week, which got postponed as per patient
Her symptoms�generalized weakness, chest discomfort likely contributed by severe
Will consult cardiology
Consider CT surgery consult pending cardiology evaluation
#Elevated troponins
Patient has chest pain, likely muscle skeletal from her polymyalgia rheumatica
Patient with recent history of NSTEMI,/stent
Will trend troponins
#Hypokalemia
Potassium 2.8
Patient on furosemide, omeprazole
Check magnesium, replete as needed
S/p repletion
Follow BMP
Replete as needed
#Essential hypertension
Elevated blood pressure reading at presentation
Patient has not taken her medication in the morning today
Will continue her home antihypertensives
#Polymyalgia rheumatica
Patient having sternal chest pain, likely musculoskeletal
Continue steroids
Continue PPI
#Hyperlipidemia
Continue Crestor
Diet�low-sodium
DVT prophylaxis�SCDs
Full code
--- NOTE | 2025-06-17 13:49 | EDCM ---
CM reviewed chart and met with pt bedside in ED. Pt lives with LIZBETH Flanagan in 2 story home, no RYLEY. Has first floor setup.
Independent in ADLs, personal care and ambulation at baseline. Has SPC, RW and WC, does not normally use them.
Per chart, pt is scheduled for TAVR 06/27 but pt told me the procedure is canceled. She does not know why.
Confirms prescription coverage.
Hx VN, no hx SNF
PCP: Paul Torres
Pharmacy: [facility]
Anticipate discharge home, CM will continue to follow for any discharge planning needs.
--- NOTE | 2025-06-17 14:50 | PTCARENOTE ---
ED RN and MD informed this RN patient has been stable and is appropriate for telemetry unit.
--- NOTE | 2025-06-17 15:15 | PTCARENOTE ---
Received pt from ED via stretcher. Pt ambulated to bed x1 with RW. AAOx3. C/o pain in right shoulder and back from laying in bed all day. Assessed and oriented to room. library monitor placed. Call rosales within close reach. Will continue to
monitor.
[2025-06-17] MEDS: DIOVAN 160 MG PO (15:58)
[2025-06-17] MEDS: TOPROL XL 12.5 MG PO (15:59)
[2025-06-17] MEDS: LASIX 20 MG PO (15:59)
[2025-06-17] MEDS: PLAVIX 75 MG PO (15:59)
[2025-06-17] MEDS: PEPCID 20 MG PO (15:59)
[2025-06-17] MEDS: MIRALAX 17 GRAMS PO (15:59)
[2025-06-17] MEDS: ASPIR LOW (ENTERIC COATED) 81 MG PO (15:59)
[2025-06-17] MEDS: MEDROL 4 MG PO (15:59)
[2025-06-17] MEDS: CRESTOR 40 MG PO (15:59)
--- NOTE | 2025-06-17 16:04 | PTCARENOTE ---
Pt c/o nausea, made aware, new order provided, see MAR.
[2025-06-17] MEDS: TIGAN 200 MG IM (17:16)
[2025-06-17 18:08] LABS: Troponin I 0.380 ng/ml
--- NOTE | 2025-06-17 18:35 | PTCARENOTE ---
Trop increased from 0.334 to 0.380. No complaints of chest pain. MD made aware.
[2025-06-17] MEDS: NSS (PRESERVATIVE FREE) 10 ML IV (19:51)
[2025-06-17] MEDS: PROTONIX IV 40 MG IV (19:52)
[2025-06-17 21:14] LABS: Magnesium 2.0 mg/dl (1.6-2.3)
[2025-06-17] MEDS: MELATONIN 5 MG PO (22:48)
[2025-06-18 00:55] LABS: Troponin I 0.324 ng/ml
[2025-06-18 03:00] VITALS: BP 113/61
[2025-06-18] MEDS: ZOFRAN 4 MG IV (03:44)
[2025-06-18 07:30] VITALS: BP 92/50
[2025-06-18] MEDS: DIOVAN 160 MG PO (08:28)
[2025-06-18] MEDS: CRESTOR 40 MG PO (08:28)
[2025-06-18 08:29] LABS: Blood Urea Nitrogen 27 mg/dl (7-17); Calcium 9.2 mg/dl (8.4-10.2); Carbon Dioxide 24 mmol/L (22-30); Chloride 108 mmol/L (98-107); Estimated Creatinine Clearance 33 ml/min; Glucose 108 mg/dl (70-99); Magnesium 2.0 mg/dl (1.6-2.3); Potassium 3.9 mmol/L (3.5-5.1); Sodium 137 mmol/L (135-145); eGFR 50.80
[2025-06-18] MEDS: PEPCID 20 MG PO (08:29)
[2025-06-18] MEDS: MEDROL 4 MG PO (08:29)
[2025-06-18] MEDS: TOPROL XL 12.5 MG PO (08:29)
[2025-06-18] MEDS: LASIX 20 MG PO (08:29)
[2025-06-18] MEDS: ASPIR LOW (ENTERIC COATED) 81 MG PO (08:29)
[2025-06-18] MEDS: PLAVIX 75 MG PO (08:29)
[2025-06-18] MEDS: NSS (PRESERVATIVE FREE) 10 ML IV ×2 (08:30→19:49)
[2025-06-18] MEDS: MIRALAX PO (08:30)
[2025-06-18] MEDS: PROTONIX IV 40 MG IV ×2 (08:30→19:49)
--- NOTE | 2025-06-18 09:35 | CON.CAR ---
Consultation
Consultation Request
Date/Time Consultation Requested: 06/18/25
Date/Time Consultation Performed: 06/18/25
Requesting Provider: Dr. Pedroza
Performing Provider: Dr. Amado
Reason for Consultation: ongoing TAVR evaluation
Medical History
-
Chief Complaint: Weakness and dizziness
History of Present Illness:
80 y.o female with a past medical history of HTN, HLD, CAD/NSTEMI (s/p PCI), severe aortic stenosis, LUC, GERD and polymyalgia rheumatica who presented to the ED with chest pressure, vague abdominal pain and constipation with fatigue and anxiety
about her aortic stenosis and ongoing TAVR evaluation. She has followed with Dr. Jean Sauer at [facility]; previously has seen Dr. Inocencio Darby at [place] for second opinion regarding and initially seen at [place]
by Dr. Neto Briggs March 22, 2025. This is her fourth admission since May. Patient has had admissions from May 22-2024 for chest pain and shortness of breath where she left AMA and then readmitted May 28-2024 for acute
coronary syndrome status post left heart catheterization and PCI to his circumflex artery and severe aortic stenosis with plan for outpatient TAVR evaluation. Patient had successful PTCA and stenting of the mid circumflex into the OM 2 with a 3 mm
Xience CHARLES that jailed the OM1 05/29/25. She was then admitted from June 04 - June 07, 2025 with chest pressure and anxiety regarding aortic stenosis with her significant other pushing for expedited workup. During this hospitalization there
were multidisciplinary care involving TAVR team, interventional cardiology and CT surgery team. She completed CT imaging and in addition had a transesophageal echocardiogram to reassess her mitral valve after a transthoracic echocardiogram last
month noted a torn calcified cord. Transesophageal echocardiogram confirmed torn calcified cord with only mild mitral regurgitation with no immediate plan for intervention on the mitral valve. Additionally, it was discussed last admission that not
all of her symptoms of fatigue and malaise were felt to be related to her degree of aortic stenosis and TAVR may not alleviate all of her symptoms.
.
Andreina is overall a poor historian. She states that since discharge she has continued to feel fatigued and over the last couple of days had some worsening constipation and vague abdominal discomfort and felt listless and is essentially 'bedridden '.
She admits that her family is very anxious and upset that TAVR is not yet scheduled and have pushed for this readmission. Notes in the emergency room also raise concern that family is unable to care for her at home. She did take laxatives 2 days
which did resolve her constipation. She denies fever/chills, nausea vomiting. She was not taking her diuretics prior to admission for unclear reasons. She denies syncope or near syncope. In the emergency room her vitals were relatively stable
although she was mildly hypertensive and tachycardic. Pulse ox was 100%. Chest x-ray without acute cardiopulmonary process. Lab work with leukocytosis which appears chronic and stable hemoglobin currently 13.6. Sodium was 136, BUN and creatinine
29/1.1. Her potassium was low at 2.8; repleted, currently 3.9. Magnesium was 2. LFTs within normal limits. proBNP is increased from prior at 0, last admission 744. Cardiac troponin flat at 0.334�0 0.38�0.324. Currently she is lying supine
and states that she feels fine other than fatigued. She denies current chest pain or pressure, abdominal pain or dizziness.
Past medical history:
Extreme fatigue/malaise/failure to thrive/deconditioning, multifactorial
NSTEMI
CAD s/p 3.0 mm Xience CHARLES to the mid circumflex into the OM 2 jailing OM1 05/29/2025
Severe with peak/mean 57/34 mmHg and JUVENCIO 1.1 cm sq by echo 05/23/25
Previously moderate with peak/mean 57/30 mmHg and JUVENCIO 1.3 cm sq by echo with her outpatient powdered sugar pulverizer operator 12/14/2024
Recently worsened, Mean aortic valve gradient of 45 mmHg and valve area of of 0.53 cm sq by C 05/29/2025
Hypertension
Hyperlipidemia
Right bundle branch block
Statin intolerance
GERD
Obstructive sleep apnea
Polymyalgia rheumatica
History of UTI
Varicose veins
History of pulmonary embolus related to surgery
R/L heart cath 05/29/25:
1. Non-ST segment elevation myocardial infarction with stenosis in the mid circumflex. Successful stenting of the mid circumflex into OM 2 with placement of a 3.0 x 23 mm Xience stent that was implanted at nominal pressures and postdilated to
high-pressure's with a 3.25 mm noncompliant balloon
2. Severe aortic stenosis with a mean aortic valve gradient of 45 mmHg and valve area of of 0.53 cm�
3. Mildly elevated left ventricular filling pressures (pulmonary capillary wedge pressure 25 mm Hg)
4. Severe LVH with systolic obliteration of LV cavity and hyperdynamic function with an estimated ejection fraction greater than 75%
Echo 12/14/2024 ([place]): EF 65 to 70%. Mild concentric LVH. Mitral valve thickening without significant stenosis. Moderate aortic stenosis with peak/mean gradient 57/30 mmHg and JUVENCIO 1.3 cm�. Mild AI.
Echo 12/10/2023: EF 65 to 70%. Concentric LVH. Moderate aortic stenosis with peak/mean gradient 49/25 mmHg, AVR 1.22 cm�.
Echo 03/18/2022: Normal LV size and function. Mild concentric LVH. Aortic calcification with no significant stenosis.
Past Medical History
Past Medical History: Other (See HPI)
Past Surgical History: Other (See HPI)
Social History
Tobacco: Non-Smoker
Alcohol: None
Drug: None
Personal:
Living: With Family
Employment: Retired
Family History
Family History: Reviewed & Not Pertinent
Allergies / Home Medications
Allergy/AdvReac Type Severity Reaction Status Date / Time
No Known Allergies Allergy Verified 06/04/25 09:10
�Medication �Instructions �Recorded �Confirmed �Type
methylprednisolone 4 mg tablet 4 mg PO DAILY Anti-Inflammatory 12/09/23 06/17/25 History
pantoprazole 40 mg tablet,delayed 40 mg PO DAILY Gastrointestinal 12/09/23 06/17/25 History
release Issue
famotidine 40 mg tablet 40 mg PO DAILY Gastrointestinal 05/22/25 06/17/25 History
Issue
sucralfate 1 gram tablet 1 g PO QIDPRN PRN abdominal pain 05/22/25 06/17/25 History
tramadol 50 mg tablet 50 mg PO Q6H PRN moderate-severe 05/22/25 06/17/25 History
pain
aspirin 81 mg tablet,delayed 81 mg PO DAILY Blood Clot 05/28/25 06/17/25 History
release Prevention/Tx
furosemide 20 mg tablet 20 mg PO DAILY Heart Failure #30 05/31/25 06/17/25 Rx
tabs
rosuvastatin 10 mg tablet 40 mg (4 x 10 mg) PO DAILY High 05/31/25 06/17/25 Rx
cholesterol #30 tabs
clopidogrel 75 mg tablet 75 mg PO DAILY #30 tabs 06/07/25 06/17/25 Rx
metoprolol succinate 25 mg 12.5 mg (1/2 x 25 mg) PO DAILY #30 06/07/25 06/17/25 Rx
tablet,extended release 24 hr tabs
alprazolam 0.5 mg tablet 0.5 mg PO HSPRN PRN anxiety 06/17/25 06/17/25 History
azelastine 137 mcg (0.1 %) nasal 1 spray intranasal DAILYPRN PRN 06/17/25 06/17/25 History
spray allergies/runny nose
polyethylene glycol 3350 17 gram 17 g PO DAILY Constipation 06/17/25 06/17/25 History
oral powder packet
polyvinyl alcohol 1.4 % eye drops 1 drp ophthalmic (eye) DAILY PRN 06/17/25 06/17/25 History
(Artificial Tears (polyvinyl dry eyes
alcohol))
Review of Systems
-
History Source: Patient and Coordinating Provider
All other systems: Negative unless noted
Constitutional: Fatigue
EENT: No Symptoms
Respiratory: Trouble Breathing
Cardiac: Chest Pain
Abdomen/GI: Abdominal Pain and Constipated
: No Symptoms
Musculoskeletal: Joint Pain, Muscle Pain and Muscle Stiffness
Neurological: Weakness
Hematologic/Lymphatic: No Symptoms
Physical Exam
Vital Signs
Temp Pulse Resp BP Pulse Ox
97.9 F 85 17 111/63 96
06/18/25 07:30 06/18/25 08:28 06/18/25 07:30 06/18/25 08:28 06/18/25 07:30
Lab Results
06/17/25 09:24
06/18/25 08:00
Troponin I 0.324 ng/ml H* 06/17/25 23:39
Xzq-U-Ghitukwjrho Pept 2060 pg/ml 06/17/25 11:18
Physical Exam
General: Well Developed, Well Nourished, No Apparent Distress and Comfortable
HEENT: Normocephalic, Anicteric and Moist Mucous Membranes
Respiratory: Clear
Cardiac: S1/S2, Regular Rhythm and Murmur (2/6 SM); Negative Peripheral Edema
GI: Soft, Non Tender, Normal Bowel Sounds and Distended
Neuro: AO x 3 and Nonfocal/Grossly Intact
Psych: Calm
Impression / Plan
-
PCP: Paul Torres
Engagement Executive: Jean Sauer [facility]. Did see Inocencio Darby at [place] for second opinion
Initially seen at [place] by Dr. Neto Briggs March 22, 2025
Assessment:
Admitted with marked fatigue, failure to thrive with vague chest/abd discomfort
Anxiety about medical conditions
Recent NSTEMI
CAD s/p 3.0 mm Xience CHARLES to the mid circumflex into the OM 2 jailing OM1 05/29/2025
Severe with peak/mean 57/34 mmHg and JUVENCIO 1.1 cm sq by echo 05/23/25
Previously moderate with peak/mean 57/30 mmHg and JUVENCIO 1.3 cm sq by echo with her outpatient powdered sugar pulverizer operator 12/14/2024
Recently worsened, Mean aortic valve gradient of 45 mmHg and valve area of of 0.53 cm sq by RHC 05/29/2025
Trace MR with evidence of torn chordae by echo 05/22/2025/ CM 06/06/25
Hypertension
Hyperlipidemia
Right bundle branch block
Statin intolerance
GERD
Obstructive sleep apnea
Polymyalgia rheumatica
History of UTI
Varicose veins
History of pulmonary embolus related to surgery
Acute on chronic HFpEF
Echo 03/18/2022: Normal LV size and function. Mild concentric LVH. Aortic calcification with no significant stenosis.
Echo 12/10/2023: EF 65 to 70%. Concentric LVH. Moderate aortic stenosis with peak/mean gradient 49/25 mmHg, AVR 1.22 cm�.
Echo 12/14/2024 ([place]): EF 65 to 70%. Mild concentric LVH. Mitral valve thickening without significant stenosis. Moderate aortic stenosis with peak/mean gradient 57/30 mmHg and JUVENCIO 1.3 cm�. Mild AI.
Echo 05/23/2025: EF 70 to 75%, no WMA, severe with peak/mean 57/34 mmHg, mild aortic regurgitation
Echo 05/30/2025: EF 70 to 75%, trace MR with evidence of torn chordae
CM 06/06/25: EF 60-65%, + likely torn calcified chord at P2, mild MR, moderate to severe
Cardiac catheterization 03/19/2022: LM: Patent. LAD: Patent. Left circumflex 50 to 60% mid stenosis with FFR of 0.87
R/L heart cath 05/29/25:
1. Non-ST segment elevation myocardial infarction with stenosis in the mid circumflex. Successful stenting of the mid circumflex into OM 2 with placement of a 3.0 x 23 mm Xience stent that was implanted at nominal pressures and postdilated to
high-pressure's with a 3.25 mm noncompliant balloon
2. Severe aortic stenosis with a mean aortic valve gradient of 45 mmHg and valve area of of 0.53 cm�
3. Mildly elevated left ventricular filling pressures (pulmonary capillary wedge pressure 25 mm Hg)
4. Severe LVH with systolic obliteration of LV cavity and hyperdynamic function with an estimated ejection fraction greater than 75%
Plan:
Readmission for ongoing marked malaise/failure to thrive/deconditioning who is essentially full care and bedbound which appears beyond the capabilities of her family and i suspect concomitant increased anxiety about her medical conditions including
ongoing TAVR evaluation and timing resulting in this readmission
Vague chest pain with known coronary artery disease and severe aortic stenosis.
-She does have abnormal cardiac troponins which are flat and I do not suspect that this represents an acute coronary syndrome or issue with her recent stent.
-Continue medical therapy including aspirin/Plavix.
-LDL was 66 when it was checked on 05/23/2025 and outpatient dose of rosuvastatin 10 mg daily was continued, but recheck CVE on 05/22/2025 showed an LDL of 93 and Crestor was increased to 40 mg daily.Will need repeat lipid profile in 3 months.
-Conitune Toprol-XL to 12.5 mg daily and continue valsartan 160 mg daily has been continued
-Monitor on telemetry.
-Will check SPEP/UPEP to initiate amyloid evaluation
-GI consulted for chronic constipation
Profound fatigue/malaise, essentially bedbound, Likely multifactorial
-Check ESR/sed rate given PMR; Check MODESTA
-TSH in May within normal limits. During May admission, B12 was low at 191 folate greater than 20. Will continue B12 supplementation. Lyme screen was negative in April 2024:
-Consider neurology or PM&R evaluation
-Agree with PT/OT evaluation
Severe aortic stenosis
-Ongoing multidisciplinary care team approach undergoing TAVR evaluation, date to be determined
-Will notify TAVR team of patient's readmission
PMR
- Continue methylprednisolone
Data Reviewed
-
EKG: Tracing Personally Visualized and interpreted
Radiology: Report Reviewed by me
CT Scan: Report Reviewed by me
Medical Tests (Nuc Med, Echo etc): Report Reviewed by me
Labs: Labs Reviewed by me
Old Records: Reviewed
--- NOTE | 2025-06-18 09:40 | W.PN.HOSP.TC ---
Today's Communication/Plan
-
.
Assessment / Plan
Assessment / Plan
Physical Exam
General: No Apparent Distress
HEENT: NormoCephalic and Atraumatic
Respiratory: Clear
Cardiac: S1/S2, Tachycardia and Murmur (Systolic murmur)
GI: Soft, Non Distended, Normal Bowel Sounds and Tender (Epigastric tenderness)
Skin: Warm and Dry
Neuro: Awake, Alert, Oriented and AO x 3
Psych: Calm
#Epigastric pain
Likely due to GERD
Will start IV Protonix
Continue famotidine
80 years old female presented with abdominal discomfort/chest discomfort/constipation
# Patient complained of lower back pain/chest pain/shortness of breath in triage area of the emergency room
Later on, complain mainly of constipation
Had BM. Resolved.
Discussed with GI doctor on-call, patient had BM with no GI symptoms.
Continue with MiraLAX
#CAD s/p stent
No chest pain
Positive troponin seems less than last admission when she was treated for NSTEMI and had stent into mid circumflex 05/29
Continue aspirin, clopidogrel
Continue rosuvastatin
Continue metoprolol
# Chronic Heart failure with preserved ejection fraction
Patient does not appear volume overloaded
BNP 2059
No evidence of pulmonary edema, clinical exam clear, no LE edema
Will continue her home Lasix
Continue metoprolol
Continue valsartan
No hypoxia.
# Valvular heart disease
Severe
Trace MR with evidence of torn chordae
Patient was planned for TAVR this week, which got postponed as per patient
Her symptoms�generalized weakness, chest discomfort likely contributed by severe
Appreciate cardiology help
#Hypokalemia
Resolved.
# Mild renal insufficiency. Creatinine 1.1 and GFR 50.
Possible underlying CKD stage II
Monitor for retention
No renal colic, no hematuria
#Essential hypertension
Stable
#Polymyalgia rheumatica
Patient denies sternal chest pain\\
Continue steroids
Continue PPI
#Hyperlipidemia
Continue Crestor
Diet�low-sodium
DVT prophylaxis�SCDs
Full code
Total time spent to see the patient, examined the patient, review data and lab result, discuss treatment plan with patient, international travel consultant, nursing staff around 55 minutes
Anticipated Discharge: > 48 hours
Subjective/Interval History
-
Date of Service: June 18, 2025
She feels tired
No chest pain
No abd pain
Constipation, resolved
Objective Data
-
Labs:
Laboratory Results
06/18/25
08:00
Sodium 137
Potassium 3.9 D
Chloride 108 H
Carbon Dioxide 24
BUN 27 H
Creatinine 1.1 H
Glucose 108 H
Calcium 9.2
Vital Signs:
Vital Signs
Temp Pulse Resp BP Pulse Ox
97.9 F 85 17 111/63 96
06/18/25 07:30 06/18/25 08:28 06/18/25 07:30 06/18/25 08:28 06/18/25 07:30
I&O
06/17/25 06/18/25 06/19/25
06:59 06:59 06:59
Intake Total 480 / 480
Balance 480 / 480
[2025-06-18 10:28] VITALS: BMI 25.8
[2025-06-18 11:07] VITALS: BP 92/48
--- NOTE | 2025-06-18 12:15 | CON.GI ---
Consultation
-
Date/Time Consultation Requested: 06/18/25, 0647
Date/Time Consultation Performed: 06/18/25, 1216
Requesting Provider: Dr. Sarita Pedroza
Performing Provider: Dr. Tomas Saba
Reason for Consultation: Constipation
Medical History
Chief Complaint / HPI
Chief Complaint: Chest pain/discomfort
History of Present Illness:
Ms Bolton is a 80 y.o female with a past medical history of HTN, HLD, CAD/NSTEMI (s/p PCI), severe aortic stenosis, LUC, GERD and polymyalgia rheumatica who presented to the ED with chest discomfort and constipation as well intermittent
constipation. GI has been consulted for further evaluation and management given concern for her constipation.
Of note, patient was recently admitted from 06/04 to 06/07 where she presented with anxiety and chest pressure. There was no evidence of NSTEMI and there was plans for pursuing a TAVR prior to given her severe aortic stenosis. She
states she was feeling well however the past 4-5 days she noted worsening constipation during this time and vague abdominal discomfort. Denies any new medications or other sick contacts. She denies this being a change in her bowel habits and has
never had chronic constipation in the past. Notes she has been primarily bed bound since her previous hospitalization earlier in June. She was tolerating a diet although did report her p.o. intake was somewhat reduced due to not feeling well.
No other fevers, chills, nausea vomiting, dyspepsia or other concerning upper GI symptoms. Denies any other melena, bloody stools, rectal bleeding, or other changes in stool caliber. She does have chronic reflux but states this is both been
well-controlled. She tried taking umhy-hml-[id number] medications for constipation (could not recall) still without any bowel movement. She reports passing flatus however given her worsening shortness of breath as well as her weakness she was brought
into the ED for further evaluation. Of note, she notes a previous colonoscopy 5 years ago at an outside hospital which was reportedly normal. She denies any family history of colon cancer. Currently, she is resting comfortably and admits complete
resolution of her previous constipation after her bowel regimen on admission with subsequent 2 large brown bowel movements without any overt blood after she received MiraLAX and Dulcolax.
In the ED, patient was afebrile and HD-stable. Labs notable for BUN 29 and Wash Barrel Leader 1.1 and normal LFTs. CBC with WBC 15.5, Hgb 13.6, and plts 467. CXR was unremarkable without any acute cardiopulmonary process. Given her worsening SOB and concern for
chest pressure she was advised admission and cardiology was consulted for further evaluation.
Past Medical History
Past Medical History: Other (CAD, right bundle branch, GERD, LUC, polymyalgia rheumatica, severe aortic stenosis, mitral regurgitation, recent NSTEMI, hypertension, hyperlipidemia, HFpEF)
Past Surgical History: Other (Bowel resection Bunionectomy Abdominal wall repair Laminectomy)
Social History
Tobacco: Non-Smoker
Alcohol: None
Drug: None
Personal: Partner
Living: With Family
Family History
Family History: Reviewed & Not Pertinent
Allergies / Home Medications
Allergy/AdvReac Type Severity Reaction Status Date / Time
No Known Allergies Allergy Verified 06/04/25 09:10
�Medication �Instructions �Recorded
methylprednisolone 4 mg tablet 4 mg PO DAILY Anti-Inflammatory 12/09/23
pantoprazole 40 mg tablet,delayed 40 mg PO DAILY Gastrointestinal 12/09/23
release Issue
famotidine 40 mg tablet 40 mg PO DAILY Gastrointestinal 05/22/25
Issue
sucralfate 1 gram tablet 1 g PO QIDPRN PRN abdominal pain 05/22/25
tramadol 50 mg tablet 50 mg PO Q6H PRN moderate-severe 05/22/25
pain
aspirin 81 mg tablet,delayed 81 mg PO DAILY Blood Clot 05/28/25
release Prevention/Tx
furosemide 20 mg tablet 20 mg PO DAILY Heart Failure #30 05/31/25
tabs
rosuvastatin 10 mg tablet 40 mg (4 x 10 mg) PO DAILY High 05/31/25
cholesterol #30 tabs
clopidogrel 75 mg tablet 75 mg PO DAILY #30 tabs 06/07/25
metoprolol succinate 25 mg 12.5 mg (1/2 x 25 mg) PO DAILY #30 06/07/25
tablet,extended release 24 hr tabs
alprazolam 0.5 mg tablet 0.5 mg PO HSPRN PRN anxiety 06/17/25
azelastine 137 mcg (0.1 %) nasal 1 spray intranasal DAILYPRN PRN 06/17/25
spray allergies/runny nose
polyethylene glycol 3350 17 gram 17 g PO DAILY Constipation 06/17/25
oral powder packet
polyvinyl alcohol 1.4 % eye drops 1 drp ophthalmic (eye) DAILY PRN 06/17/25
(Artificial Tears (polyvinyl dry eyes
alcohol))
Review of Systems
-
All other systems: A 12 pt ROS was Negative except as stated above in HPI
Vital Signs
Temp Pulse Resp BP Pulse Ox
97.8 F 81 17 92/48 96
06/18/25 11:07 06/18/25 11:07 06/18/25 11:07 06/18/25 11:07 06/18/25 11:07
Physical Exam
Exam
General: Well Developed, Well Nourished, No Apparent Distress and Comfortable
HEENT: Anicteric and Moist Mucous Membranes
Respiratory: Other (Normal WOB on room air)
GI: Soft, Non Tender, Non Distended and Normal Bowel Sounds
Skin: Warm
Neuro: AO x 3 and Nonfocal/Grossly Intact
Psych: Calm
Results
WBC 15.5 10^3/uL (4.8-10.8) H 06/17/25 09:24
Hgb 13.6 g/dL (12.0-16.0) 06/17/25 09:24
Hct 40.2 % (37.0-47.0) 06/17/25 09:24
MCV 79.1 fL (81.0-99.0) L 06/17/25 09:24
Plt Count 467 10^3/uL (130-400) H 06/17/25 09:24
Absolute Neuts (auto) 9.9 10^3/uL (1.4-6.5) H 06/17/25 09:24
PT 13.3 Sec (11.4-14.6) 06/17/25 09:33
INR 0.98 06/17/25 09:33
APTT 26.7 Sec (23.4-35.0) 06/17/25 09:33
Sodium 137 mmol/L (135-145) 06/18/25 08:00
Potassium 3.9 mmol/L (3.5-5.1) D 06/18/25 08:00
Chloride 108 mmol/L (98-107) H 06/18/25 08:00
Carbon Dioxide 24 mmol/L (22-30) 06/18/25 08:00
BUN 27 mg/dl (7-17) H 06/18/25 08:00
Creatinine 1.1 mg/dL (0.6-1.0) H 06/18/25 08:00
Calcium 9.2 mg/dl (8.4-10.2) 06/18/25 08:00
Total Bilirubin 0.7 mg/dl (0.2-1.3) 06/17/25 09:24
AST 31 U/L (14-36) 06/17/25 09:24
ALT 27 U/L (0-35) 06/17/25 09:24
Alkaline Phosphatase 75 U/L (38-126) 06/17/25 09:24
Diagnostic Image Results: As above. No prior GI records reviewed
Assessment / Plan
-
Ms Bolton is a 80 y.o female with a past medical history of HTN, HLD, CAD/NSTEMI (s/p PCI), severe aortic stenosis, LUC, GERD and polymyalgia rheumatica who presented to the ED with chest discomfort and constipation as well intermittent
constipation. GI has been consulted for further evaluation and management given concern for her constipation.
#Acute Constipation- Resolved
#Previous Abdominal Discomfort- Resolved
#GERD
#Chest Pain
#Hx of Severe Aortic Stenosis
Impression: Patient presenting with worsening shortness of breath, vague abdominal discomfort and constipation prompting her admission. She denies any chronic constipation or other changes in bowel habits or other new medications. She has been
primarily bedridden since her previous hospitalization earlier in June likely contributing to her underlying constipation. No other changes in stool caliber, unintentional weight loss, bloody stools or rectal bleeding. Last colonoscopy was
approximately 5 years ago and reportedly unremarkable (no records of this). Regardless, since receiving her bowel regimen with Miralax and dulcolax she has had two brown bowel movements with resolution of her previous discomfort. Suspect her
previous reflux symptoms were likely exacerbated from her worsening constipation but again admits complete resolution of her symptoms without any further epigastric pain, nausea/vomiting, dysphagia/odynophagia, melena or other concerning GI
symptoms. Thus, would defer any further at this time and continue her ongoing bowel regimen to prevent further episodes in future.
Recommendations:
- Continue diet as tolerated, encourage high fiber diet
- Recommend Miralax 17 gm twice daily at home along with dulcolax qhs. Can decrease Miralax to once daily if too frequent BMs
- Given unremarkable labs and resolution of previous discomfort after having BMs, further supportive of constipation and would defer any further work-up
- Continue empiric PPI
- Pain control and anti-emetics PRN
- Cardiology has further been consulted given her previous chest pain/discomfort
- Encourage OOB, ambulation as tolerated to further promote bowel motility
- Rest of ongoing supportive care as per primary team
Discussed with primary internal medicine team this AM. GI will sign-off given resolution of symptoms and previous constipation. Please re-contact with any questions or concerns.
Data Reviewed
-
Old Records: Reviewed
-
-
Thank you for consultation and allowing me to participate in the patient's care. Please call the highway construction inspector GI physician during the after hours with any questions or concerns.
[2025-06-18 15:12] VITALS: BP 102/58
[2025-06-18 19:00] VITALS: BP 104/69
[2025-06-18 23:00] VITALS: BP 93/55
[2025-06-19] VITALS (7 sets, daily range): BP systolic 100–132; BP diastolic 59–77; PULSE 88–89; O2SAT 96
[2025-06-19] MEDS: TOPROL XL 12.5 MG PO (08:33)
[2025-06-19] MEDS: DIOVAN 160 MG PO (08:33)
[2025-06-19] MEDS: LASIX 20 MG PO (08:33)
[2025-06-19] MEDS: CRESTOR 40 MG PO (08:33)
[2025-06-19] MEDS: PEPCID 20 MG PO (08:34)
[2025-06-19] MEDS: MEDROL 4 MG PO (08:34)
[2025-06-19] MEDS: ASPIR LOW (ENTERIC COATED) 81 MG PO (08:34)
[2025-06-19] MEDS: MIRALAX 17 GRAMS PO (08:34)
[2025-06-19] MEDS: PLAVIX 75 MG PO (08:34)
[2025-06-19] MEDS: NSS (PRESERVATIVE FREE) 10 ML IV (08:35)
[2025-06-19] MEDS: PROTONIX IV 40 MG IV (08:35)
--- NOTE | 2025-06-19 12:32 | W.PN.CARDCBS ---
Addendum entered and electronically signed by Neto Briggs MD 06/19/25 15:04:
I saw and examined the patient.
The MEDICAL SONOGRAPHER or PA's note was reviewed and I agree with the note.
Comment: General: Well developed, well nourished in NAD.
Neck: Supple, no JVD, HJR, carotids +2 B/L, no bruits bilaterally.
Heart: Non displaced PMI, RRR, 2/6 basal systolic murmur, No S3, S4, no rubs.
Lungs: Clear to auscultation bilaterally, no wheeze, rhonchi, rubs bilaterally,
normal expiratory phase.
Extremities: No clubbing, cyanosis or edema bilaterally.
Neuro: Grossly nonfocal, awake, alert and oriented x3.
Stable cardiology status for discharge. Unclear if symptoms are related to aortic stenosis but tentative plans to move TAVR up to 06/23/2025 as an outpatient procedure.
Original Note:
Today's Communication / Plan
-
Potential discharge to home this evening pending UA
Not clear that her profound symptoms of fatigue and malaise are related to her aortic stenosis these concerns were relayed to patient and significant other as well
Looking to move TAVR up to 06/23/2025 as an outpatient procedure
Impression / Plan
-
PCP: Paul Torres
Police Sergeant: [facility]. Did see Inocencio Darby at [facility] for second opinion
Initially seen at [facility] by Dr. Neto Briggs March 22, 2025
Assessment:
Admitted with marked fatigue, failure to thrive with vague chest/abd discomfort
Anxiety about medical conditions
Recent NSTEMI
CAD s/p 3.0 mm Xience CHARLES to the mid circumflex into the OM 2 jailing OM1 05/29/2025
Severe with peak/mean 57/34 mmHg and JUVENCIO 1.1 cm sq by echo 05/23/25
Previously moderate with peak/mean 57/30 mmHg and JUVENCIO 1.3 cm sq by echo with her outpatient captain assistant 12/14/2024
Recently worsened, Mean aortic valve gradient of 45 mmHg and valve area of of 0.53 cm sq by RHC 05/29/2025
Trace MR with evidence of torn chordae by echo 05/22/2025/ CM 06/06/25
Hypertension
Hyperlipidemia
Right bundle branch block
Statin intolerance
GERD
Obstructive sleep apnea
Polymyalgia rheumatica
History of UTI
Varicose veins
History of pulmonary embolus related to surgery
Acute on chronic HFpEF
Echo 03/18/2022: Normal LV size and function. Mild concentric LVH. Aortic calcification with no significant stenosis.
Echo 12/10/2023: EF 65 to 70%. Concentric LVH. Moderate aortic stenosis with peak/mean gradient 49/25 mmHg, AVR 1.22 cm�.
Echo 12/14/2024 ([facility]): EF 65 to 70%. Mild concentric LVH. Mitral valve thickening without significant stenosis. Moderate aortic stenosis with peak/mean gradient 57/30 mmHg and JUVENCIO 1.3 cm�. Mild AI.
Echo 05/23/2025: EF 70 to 75%, no WMA, severe with peak/mean 57/34 mmHg, mild aortic regurgitation
Echo 05/30/2025: EF 70 to 75%, trace MR with evidence of torn chordae
CM 06/06/25: EF 60-65%, + likely torn calcified chord at P2, mild MR, moderate to severe
Cardiac catheterization 03/19/2022: LM: Patent. LAD: Patent. Left circumflex 50 to 60% mid stenosis with FFR of 0.87
R/L heart cath 05/29/25:
1. Non-ST segment elevation myocardial infarction with stenosis in the mid circumflex. Successful stenting of the mid circumflex into OM 2 with placement of a 3.0 x 23 mm Xience stent that was implanted at nominal pressures and postdilated to
high-pressure's with a 3.25 mm noncompliant balloon
2. Severe aortic stenosis with a mean aortic valve gradient of 45 mmHg and valve area of of 0.53 cm�
3. Mildly elevated left ventricular filling pressures (pulmonary capillary wedge pressure 25 mm Hg)
4. Severe LVH with systolic obliteration of LV cavity and hyperdynamic function with an estimated ejection fraction greater than 75%
Plan:
-Patient readmitted for ongoing marked malaise/failure to thrive/deconditioning who is essentially full care and bedbound which appears beyond the capabilities of her family and i suspect concomitant increased anxiety about her medical conditions
including ongoing TAVR evaluation and timing resulting in this readmission
-Patient has severe with peak/mean 57/34 mmHg by echo 05/23/2025, this puts her just into the severe range. I had a vaishnavi conversation with the patient and her significant other, Panchito, by phone on 06/19/2025 that the patient's symptoms are out of
proportion to her degree of aortic stenosis and that other possibilities including anxiety may be fueling her symptoms. Patient's significant other suspects symptoms are related to a UTI as patient is having symptoms of urinary frequency and
urgency, UA ordered by me.
-Communication with the TAVR team, patient currently scheduled for TAVR on 06/27/2025, but given recurrent admission we will move TAVR up to 06/23/2025 as an outpatient procedure
-Troponin was 0.334 on admission and then peaked at 0.38. Overall this is trending down from troponin elevations on admission within the last 2 weeks. This is managed as a nonischemic myocardial injury troponin elevation.
-Patient had successful PTCA and stenting of the mid circumflex into the OM 2 with a 3 mm Xience CHARLES that jailed the OM1 05/29/25.
-Ticagrelor 90 mg BID was changed to Plavix on 06/05/2025. Continue Plavix 75 mg daily
-No plans for repeat cardiac cath at this time
-LDL was 66 when it was checked on 05/23/2025 and on repeat check 05/30/2025 it was 93 despite her usual dose of rosuvastatin 10 mg daily being continued, so Crestor was increased to 40 mg daily. Will need repeat lipid profile in 3 months.
-Continue Toprol-XL to 12.5 mg daily, dose was lowered back on 06/05/2025 due to sinus bradycardia
-Outpatient dose of valsartan decreased to 160 mg daily
-Dr. Amado ordered SPEP/UPEP to initiate amyloid evaluation
-GI consulted for chronic constipation and patient moved her bowels and is feeling better, will continue MiraLAX as needed at home
-ESR was 32 and patient's chronic dose of methylprednisolone for her PMR was continued. Not sure if patient's profound fatigue and malaise could be due to a PMR flare
-Patient is asking be discharged to home, she was offered ongoing admission until TAVR can be performed as an inpatient, but she declined this.
Progress Note - Police Sergeant
Subjective
Date of Service: June 19, 2025
She says she feels better and wants to go home
Objective
Labs:
06/17/25 09:24
06/18/25 08:00
Labs
Hgb 13.6 g/dL (12.0-16.0) 06/17/25 09:24
Hct 40.2 % (37.0-47.0) 06/17/25 09:24
Plt Count 467 10^3/uL (130-400) H 06/17/25 09:24
PT 13.3 Sec (11.4-14.6) 06/17/25 09:33
INR 0.98 06/17/25 09:33
APTT 26.7 Sec (23.4-35.0) 06/17/25 09:33
Sodium 137 mmol/L (135-145) 06/18/25 08:00
Potassium 3.9 mmol/L (3.5-5.1) D 06/18/25 08:00
BUN 27 mg/dl (7-17) H 06/18/25 08:00
Creatinine 1.1 mg/dL (0.6-1.0) H 06/18/25 08:00
Glucose 108 mg/dl (70-99) H 06/18/25 08:00
Troponins
06/17/25 06/17/25 06/17/25
09:24 10:19 11:18
Troponin I Cancelled Cancelled 0.334 H*
06/17/25 06/17/25
17:36 23:39
Troponin I 0.380 H* 0.324 H*
Vital Signs and I&O:
Vital Signs
Temp Pulse Resp BP Pulse Ox
98.5 F 88 16 101/59 96
06/19/25 11:02 06/19/25 11:02 06/19/25 11:02 06/19/25 11:02 06/19/25 11:02
Vital Signs
Temp Pulse Resp BP Pulse Ox
98.5 F 88 16 101/59 96
06/19/25 11:02 06/19/25 11:02 06/19/25 11:02 06/19/25 11:02 06/19/25 11:02
Intake & Output
06/17/25 06/18/25 06/19/25 06/20/25
06:59 06:59 06:59 06:59
Intake Total 480 / 480 780 / 780
Balance 480 / 480 780 / 780
Physical Exam
Physical Exam
GEN: NAD. AAOx3
LUNGS: RA. CTA B/L, no wheeze
CV: SR on telemetry
--- NOTE | 2025-06-19 15:29 | W.DS.TRANS ---
DC Summary - Blue Line Trimmer
-
Discharge Instructions:
Discharge Diagnosis/Procedures Fatigue and malaise, severe aortic stenosis
Diet 2 Gram Sodium,Restrict fluids to 64 oz
Activity As tolerated
Driving Restrictions As prior to admission
Bathing Restrictions None
Specialty Instructions Weigh Daily
Instructions:
Stand-Alone Forms:
Changes to Home Medications: Yes
Discharge Medications:
DC Medications w/original date entered in [facility]
methylprednisolone 4 mg tablet 4 mg PO DAILY Anti-Inflammatory 12/09/23
pantoprazole 40 mg tablet,delayed release 40 mg PO DAILY Gastrointestinal Issue 12/09/23
famotidine 40 mg tablet 40 mg PO DAILY Gastrointestinal Issue 05/22/25
sucralfate 1 gram tablet 1 g PO QIDPRN PRN abdominal pain 05/22/25
tramadol 50 mg tablet 50 mg PO Q6H PRN moderate-severe pain 05/22/25
aspirin 81 mg tablet,delayed release 81 mg PO DAILY Blood Clot Prevention/Tx 05/28/25
furosemide 20 mg tablet 20 mg PO DAILY Heart Failure #30 tabs 05/31/25
rosuvastatin 10 mg tablet 40 mg (4 x 10 mg) PO DAILY High cholesterol #30 tabs 05/31/25
clopidogrel 75 mg tablet 75 mg PO DAILY #30 tabs 06/07/25
metoprolol succinate 25 mg tablet,extended release 24 hr 12.5 mg (1/2 x 25 mg) PO DAILY #30 tabs 06/07/25
alprazolam 0.5 mg tablet 0.5 mg PO HSPRN PRN anxiety 06/17/25
azelastine 137 mcg (0.1 %) nasal spray 1 spray intranasal DAILYPRN PRN allergies/runny nose 06/17/25
polyethylene glycol 3350 17 gram oral powder packet 17 g PO DAILY Constipation 06/17/25
polyvinyl alcohol 1.4 % eye drops (Artificial Tears (polyvinyl alcohol)) 1 drp ophthalmic (eye) DAILY PRN dry eyes 06/17/25
valsartan 160 mg tablet 160 mg PO DAILY Heart disease/condition #30 tabs 06/19/25
Home Medication Changes
Valsartan added
Pending Results: Yes
Additional Pending Results:
Urinalysis
--- NOTE | 2025-06-19 16:06 | CM ---
Patient seen at bedside
CM consult completed. VN
PT rec Home Health
options reviewed - prefers [facility]
Notified [facility] liaison - referral to be entered
TAVR scheduled 06/23
IMM explained & signed. In chart
PLAN: Home with [facility]
Significant other to transport
--- NOTE | 2025-06-19 16:07 | VNURNOTE ---
Addendum entered by Kirsty Jenkins RN 06/20/25 09:42:
Rec'ed update from [facility] Intake, HH furnace process supervisor that VN services can be provided after TAVR procedure. Called pt, no answer, left message with update.
Original Note:
[facility] liaison reached out to patient, no answer on room phone. Called cell phone, sig other Panchito picked up. Reviewed [facility] services: visits, schedule and homebound status. Explained that visits at home will be 2-3 x per week to assess and teach
medical management. Sig other will give pt the message. Confirmed with CM that pt is agreeable. Made sig other that [facility] will contact them for start of care within a week after discharge from .
[facility] referral completed in [facility].
[2025-06-19 17:10] LABS: Urine Character Clear (Clear)
[2025-06-19 17:21] LABS: Urine Red Blood Cell 0-2 /HPF (0-2); Urine White Cell 50-60 /HPF (0-5)
== END 2025-06-19 17:20 | disposition home health service (06) | DRG 392 ==
LOC: 3 WEST ACU 13:29
PROVIDERS: Internal Medicine; Physician Assistant Medical; Student in an Organized Health Care Education/Training Program; ADMITTING PHYSICIAN Hospitalist; ATTENDING PHYSICIAN Internal Medicine; CONSULT PHYSICIAN Internal Medicine Cardiovascular Disease; EMERGENCY PHYSICIAN Student in an Organized Health Care Education/Training Program; FAMILY PHYSICIAN Family Medicine; OTHER PHYSICIAN Student in an Organized Health Care Education/Training Program
DX: K59.00 Constipation, unspecified (principal); I50.32 Chronic diastolic (congestive) heart failure; I08.0 Rheumatic disorders of both mitral and aortic valves; T50.1X5A Adverse effect of loop [high-ceiling] diuretics, initial encounter; E87.6 Hypokalemia; I11.0 Hypertensive heart disease with heart failure; M35.3 Polymyalgia rheumatica; R62.7 Adult failure to thrive; F41.9 Anxiety disorder, unspecified; Z68.25 Body mass index [BMI] 25.0-25.9, adult; I25.10 Atherosclerotic heart disease of native coronary artery without angina pectoris; Z79.52 Long term (current) use of systemic steroids; G47.33 Obstructive sleep apnea (adult) (pediatric); D72.829 Elevated white blood cell count, unspecified; I35.0 Nonrheumatic aortic (valve) stenosis; Z74.01 Bed confinement status; Z79.02 Long term (current) use of antithrombotics/antiplatelets; Z79.899 Other long term (current) drug therapy; Z86.711 Personal history of pulmonary embolism; Z87.440 Personal history of urinary (tract) infections; Z91.148 Patient's other noncompliance with medication regimen for other reason
CPT/HCPCS: 71046; 80048; 80053; 81003; 81015; 82784; 83520; 83521; 83735; 83880; 84155; 84156; 84165; 84484; 85025; 85610; 85652; 85730; 86038; 86334; 86335; 87086; 93005; 96365; 96366; 96375; 97162; 97166; 99285

== ENCOUNTER 2025-06-23 05:02 | Inpatient (IN) | payer MEDICARE, OTHER, SELFPAY ==
[2025-06-23] VITALS (18 sets, daily range): BP systolic 95–158; BP diastolic 54–80; BMI 25.7
--- NOTE | 2025-06-23 06:06 | PTCARENOTE ---
Patient received as direct admit for TAVR. AOx3, reports feeling anxious and overwhelmed regarding her procedure today. Pupils +2, equal and reactive. Bilateral upper and lower extremity movement good but the patient was unsteady on her feet,
generalized weakness noted, fall risk bracelet applied. Denies using a cane or walker and denies any falls within the past three months. The patient reports she gets fatigued easily. SR on telemetry. Murmur noted. Lungs CTA but diminished at the
base bilaterally, SaO2 99% on RA. Bilateral radial and pedal pulses +2 to palpation. The patient reports being NPO since midnight. Per her significant other, Panchito, the patient took aspirin, Plavix, and methylprednisolone this morning at approximately
0430, CT surgery RANJITH Perales notified. Med rec completed with the assistance of the patient's significant other as she stated he helps with her medications and she is not familiar with her medication list. The patient reported using her CHG soap
at home, the patient was clipped and wiped with CHG wipes this morning. RAC20G PIV inserted. Plan of care discussed. Call rosales within reach. Bed in lowest position, wheels locked. Patient oriented to room and unit, instructed to call staff if she
needs to use the bathroom or ambulate. Significant other at bedside. Care ongoing.
--- NOTE | 2025-06-23 06:43 | W.CVOR.SURPR ---
CVOR Surgeon Immed Pre Op
-
I have examined this patient prior to performance of the scheduled procedure.
The patient's condition is unchanged from the time of the dictated/written History and
Physical and the patient is able to undergo the scheduled procedure.
[2025-06-23] MEDS: ANCEF 10 IV (08:13)
[2025-06-23 09:07] LABS: ACT-LR - POC 242 Seconds (116-155)
--- NOTE | 2025-06-23 09:31 | CM ---
pt seen/assessed 06/07- see below note
06/07/25 11:07 - Case Management Note by Magdalena Long
[facility] Num: [id number] : [id number] Patient Age: 80
Reviewed chart. Met with Mrs. Bolton to review discharge plans. She states prior to admission she resides with her partner in a two story home without any steps to enter. She states she has a first floor set-up. She states prior to admission she
was independent with ambulation and adls. She states she does use any DME in the home. She states she does have a walker and single point cane. She states she has a prescription plan with [employer] and uses [facility]. She states her partner
or sister will be available over the weekend to assist in her care if needed. Medical work-up in progress. The discharge plan is to return home with her partner and a home visit by the Transitional Care Nurse.
We reviewed pre-op and post-op routines. We reviewed the shower instructions. She has the soap, written instructions and the TAVR Educational Booklet. We also reviewed restrictions including driving and lifting restrictions. We discussed a home
visit by the Transitional Care Nurse. She is agreeable to a home visit. The tentative plan is for TAVR next week.
[2025-06-23 09:43] LABS: ACT-LR - POC 281 Seconds (116-155)
--- NOTE | 2025-06-23 09:44 | CM ---
pt in OR today, cm following
[2025-06-23] MEDS: LEVOPHED 250 IV (09:54)
--- NOTE | 2025-06-23 10:11 | W.PN.CT.SURG ---
CT Surgery Operative Note
-
OPERATIVE REPORT
Preoperative Diagnosis: Severe aortic valve stenosis, symptomatic
Postoperative Diagnosis: Same
Procedure(s) Performed: Left trans femoral TAVR with a 23 mm Medtronic Evolut FX device
Date of Procedure: 06/23/2025
Comorbidities:
1. Severe symptomatic aortic stenosis
2. Hypertension
3. Hyperlipidemia
4. Right bundle branch block
5. Obstructive sleep apnea
Cardiac Surgeon: Amita Silverio MD, MPH
Hosiery Looper: Asa Manley MD
Anesthesia: Conscious Sedation, Local
EBL: 100 cc
Products: none
Implant: Medtronic Evolut 23 mm SN: [id number]
Indication(s) for Procedures: 80-year-old female with severe aortic stenosis. Symptomatic. Preoperative echocardiographic assessment revealed a PG/MG of 57/34mmHg, JUVENCIO 1.1 associated with worsening SOB on exertion in addition to lightheadedness and
weakness. CT-TAVR protocol revealed acceptable anatomy for a self-expanding TAVR valve.
Start time: 0816 hrs
Deployment time: 0905 hrs
End time: 0923 hrs
Radiation Dose (mGy): 290
DAP (cm2.Gy): 27
Fluoroscopy time (minutes): 19.4
Contrast volume (ml): 73
TAVR gradient (mmHg): 8mmHg
Heparin Dose: 7000 units
Protamine Dose: 40 mg
Final Valve Positioninmm
Findings: Preoperative LVEF was 70% and was 60-65% following TAVR with only minimal inotropic support. Function was overall normal without regional wall motion abnormalities or dyskinesia. The aortic valve was well seated with only trivial PVL. The
patient did not require pacing postoperative and was in sinus rhythm. There was successful placement of 23mm Evolut FX TAVR valve without acute complications.
Access:
1. Device - L SCIENCE EDUCATION PROFESSOR, perclose x 2
2. Pigtail - R SCIENCE EDUCATION PROFESSOR + 6Fr angioseal
3. Transvenous Pacer - R femoral vein
Number of recaptures: 1 full, 1 partial
Description of Procedure: The patient was taken to the labor specialist. Their identity and procedure to be performed were verified and they were positioned supine on the labor specialist table. Induction via conscious sedation with local analgesia. The patient was
then prepped and draped from chin to thigh in a sterile fashion. A preoperative time-out was performed with all members of the team present. Using fluoroscopy, bilateral femoral heads and their margins were identified. Arterial and venous access
were done with a micropuncture needle with Seldinger technique. Test pacing revealed capture with excellent threshold. Angiography confirmed proper puncture site and femoral artery integrity. Two Per-Close devices were used on the TAVR side. An AL1
catheter was used to deliver a extrastiff wire and insertion of the working sheath. An AL1 catheter with a straight stiff wire was used to access the LV. The valve was prepped and mounted on to the device carrier. An ACT of >250 was achieved. We
verified x 3 under fluoroscopy that the valve was mounted correctly with paddles in appropriate position. We than set our parameters to achieve a co-planar view with the pigtail positioned in the NCC. We advanced the device with it's in-line sheath
into the descending thoracic aorta and over the arch into the root and positioned across the aortic valve. Contrast fluoroscopy was used to visualize the prosthesis across the valve. We performed a quick pre-deployment time out. We verified
positioning based on the pigtail and gentle contrast puffs. The valve was slowly deployed to just before annular contact. We paused here and verified positioning in our cusp overlap view. We then rotated SYRIAC and removed any parallax from the valve.
Contrast was used to verify the LCC was appropriate in height. The valve was pushed aortically by the thich septal knuckle requiring one partial and one full recapture but ultimately we were able to find a good position with a more ventricular
initial starting position. On our final attempt the valve was it great position so we slowly continued to deploy the valve until the crowns and paddles were free from the device. At this point the valve was functioning and pacing was stopped. We
slowly continued to deploy the valve until the crowns and paddles were free from the device. The deployment device was withdrawn into the descending thoracic aorta while maintaining wire access across the valve. A transthoracic echocardiogram was
performed . The pigtail was re-positioned at the level of the crown of the valve and angiography revealed excellent placement and seating of the valve at the annulus. The device was removed from the groin as we cinched down the perclose devices
while maintaining wire access. There was acceptable hemostasis. The pigtail was repositioned into the descending/abdominal and runoff aortogram was performed. There was no significant stenosis or dissection of the bilateral iliofemoral systems with
excellent runoff to the SFAs. All wires were removed and perclose snugged and cut. There was acceptable hemostasis of bilateral groins.
All instrument, sponge, and needle counts were confirmed to be correct x 2 at the end of the operation. The patient was transferred to the cardiac intensive care unit in stable condition.
I, Dr. Amita Silverio, was present, scrubbed for, and performed all critical elements of this procedure.
Amita Silverio MD, MPH
Cardiothoracic Surgeon
[facility]
This operative dictation was created using the [employer] dictation system. Please excuse any grammatical, typographical, or 'sound alike' errors
--- NOTE | 2025-06-23 10:28 | ITS.CL.TAVR ---
Control Board Operator - TAVR Report
TAVR PRocedure
Procedure Report:
TRANSCATHETER AORTIC VALVE REPLACEMENT
Date of Procedure: June 23, 2025
Referring: Dr. Rangel Pimentel
Operators: Drs. Asa Manley and Amita Silverio
PROCEDURE PERFORMED:
1. Successful placement of 23 mm Medtronic Evolut Pro+ valve via left femoral artery.
PREPROCEDURE NYHA CLASS: 3
DESCRIPTION OF PROCEDURE: The patient was referred for assessment of severe symptomatic aortic stenosis and following a comprehensive evaluation it was felt that transcatheter aortic valve replacement (TAVR) would be the most appropriate treatment.
Informed consent was obtained prior to the procedure. A 'time-out' was called and the procedural plan was verbally confirmed by anesthesia, surgery, perfusion, and laborer heading staff.
Arterial and venous access were obtained in the right common femoral artery and vein using a micropuncture technique and 6 Fr. sheaths were inserted. Ultrasound guidance was then used to obtain arterial access in the left common femoral artery and
a 6 Fr. sheath was inserted. Angiography was performed and the arteriotomy site appeared appropriately positioned for preclosure using two Perclose devices. An 8 Fr. sheath was then reinserted into the left arterial access site.
Attention was then turned back to the right vascular access sites. A 5 Fr. transvenous pacing wire was then advanced to the right ventricle where excellent pacing thresholds were obtained. A 5 Fr. pigtail catheter was then advanced to the proximal
ascending aorta / noncoronary cusp where angiography was performed to define the the cusp overlap view isolating the non-coronary cusp with overlap of the right and left coronary cusps. The cusp overlap view was LAO5 / CAU16.
A Double-curve Lunderquist 0.035' wire was advanced through an AL1 diagnostic catheter and positioned in the proximal descending thoracic aorta. The left femoral 8 Fr sheath was removed and exchanged for a 14 Fr / 13 cm Cook sheath. Heparin, 5000
units was administered and the ACT was followed throughout the procedure.
An AL1 catheter was then advanced over the Double-curve Lunderquist wire which was allowed to drift across the aortic arch. The AL1 catheter was positioned above the aortic valve. The Lunderquist wire was removed and the stenotic aortic valve was
crossed using a 0.035' Straight tip wire. The AL1 was then advanced to the mid left ventricle where the LVEDP measured 20 mmHg. A long J-wire was advanced to the left ventricular apex and was followed to the apex with an angled pig-tail catheter.
The Double Curve Lunderquist was then advanced through the pigtail catheter and to the left ventricular apex.
The 23 mm Evolut Pro+ valve was assessed with fluoroscopy while rotating the stent delivery system. The stent paddles were within the pocket and no significant crown overlap noted.
The 14Fr. Cook sheath was removed and the Evolut In-Line valve and delivery system was advanced from the left common femoral artery to the proximal descending thoracic aorta. The 23 mm Evolut Pro+ stent was advanced across the aortic arch and
positioned above the stenotic leaflets. The Evolut Pro+ valve was slowly deployed and had to be recaptured x 2. We started the third deployment at a slightly lower depth. The valve flared with left cusp annular contact. The image intensifier was
rotated further CYMRAES in order to remove parallax from the valve. Positioning of the valve looked good and we quickly transition through the rumble strip until the marker band was positioned just below the paddle attachment. The valve structure was
fully released from the delivery system and we are happy with the valve position. Post deployment angiography revealed mild aortic insufficiency.
An echocardiogram post valve delivery was initially notable for mild-moderate aortic insufficiency which dramatically improved after the Lunderquist wire was removed from the left ventricle. After the wire was removed only trace aortic
insufficiency was noted. The mean aortic valve gradient measured 8 mmHg.
The Evolut Pro plus delivery system was Reunited with the body of the delivery system. The sheath was removed and the Perclose knots were advanced to the arteriotomy site with excellent hemostasis. Angiography revealed a mild pinch at the
arteriotomy site but good distal flow. The right common femoral arteriotomy site was closed with a 6 Swedish Angio-Seal. At the conclusion of the procedure protamine was administered and manual pressure was held over the arterial and venous access
sites until hemostasis was obtained
Fluoro Time (min): 19.4, Dose (mGy): 290, DAP (Gy.cm2) : 27
CONCLUSIONS:
1. Severe symptomatic aortic stenosis. Successful deployment of a 23 mm Evolut Pro+ valve with minimal aortic insufficiency post procedure
2. Successful arteriotomy closure with 2 Perclose devices.
Copy to: Dr. Rangel Pimentel
[2025-06-23] MEDS: ANCEF IV (11:32)
--- NOTE | 2025-06-23 12:36 | W.PN.UPDATE ---
Update Note
Progress Note Update
Incidental finding on CT TAVR-The pancreas is mildly atrophic with a 1.6 cm cystic lesion along the pancreatic tail which may represent a pseudocyst, cystic neoplasm or side branch IPMN. Recommend follow-up MRI abdomen with and without contrast for
further evaluation. Informed patient and provided with copy of report and a CD with images for follow up at location of her choice.
[2025-06-23] MEDS: ULTRAM 50 MG PO ×2 (16:26→22:27)
[2025-06-23] MEDS: KEFLEX 500 MG PO (17:41)
--- NOTE | 2025-06-23 19:03 | PTCARENOTE ---
Pt received from recovery area post TAVR. Pt sleepy but easily awoken. Bilateral femoral sites with dry and intact dressings, no sign of bleeding or hematoma. Neuro assessment unremarkable. Pt OOB after bedrest ended with assist of one, using a
walker, pt a little weak but steady. Pt voiding without difficulty. Telemetry shows sinus rhythm with RBBB, SBP's 105-116. Pt given tramadol for chronic right hip pain with good relief. Plan to monitor closely with CXR and ECHO on 06/24.
[2025-06-24] VITALS (8 sets, daily range): BP systolic 113–135; BP diastolic 56–75; PULSE 87; O2SAT 95–99; BMI 26.2
--- NOTE | 2025-06-24 01:37 | PTCARENOTE ---
Pt NSR on monitor. VSS Pt b/l groin dsg CDI. Pt c/o chronic rt hip pain PRN meds given. Pt ambulates with x 1 assist and RW. Call rosales within reach
[2025-06-24] MEDS: KEFLEX 500 MG PO ×3 (02:13→17:25)
--- NOTE | 2025-06-24 06:28 | W.PN.CT ---
Today's Communication / Plan
-
Plan:
-No major issues overnight. Hemodynamically and neurologically intact
-C/O clear productive cough which she had prior to surgery
-Groin is C/D/I without significant hematoma, 2+ b/l DP pulses
-No rhythm issues overnight, currently NSR @ 87 bpm
-F/u repeat echo done yesterday, 06/23 and showed and intact TAVR, PG/MG 17/03, trace AI, small pericardial effusion, LVEF 60-65%
-Cont. Keflex for preop UTI
-OOB into chair/Ambulate
-Likely d/c home today
Assessment / Plan
-
Assessment:
S/P Left trans femoral TAVR with a 23 mm Medtronic Evolut FX device, by Dr. Silverio/Vineet, 06/23/25, pod#1
1. Severe symptomatic aortic stenosis
2. Hypertension
3. Hyperlipidemia
4. Right bundle branch block
5. Obstructive sleep apnea
6. Preop UTI
Discussed patient care with: Cardiology, Nursing, Respiratory Therapy, Pharmacy and Care Team
Subjective
Procedure
Left trans femoral TAVR with a 23 mm Medtronic Evolut FX device, by Dr. Silverio/Vineet, 06/23/25
-
Date of Service: June 24, 2025
Pt c/o clear productive cough
Objective Data
Vital Signs
Vital Signs
Temp Pulse Resp BP Pulse Ox
98.2 F 80 16 113/59 97
06/24/25 03:37 06/24/25 03:45 06/24/25 03:37 06/24/25 03:37 06/24/25 03:37
CT Intake/Output/Weight
06/23/25 06/23/25 06/24/25
06:59 18:59 06:59
Intake Total 1280 / 1630 350 / 1630
Balance 1280 / 1630 350 / 1630
SaO2: 97 (RA)
Physical Exam
-
General: Awake and Oriented
Cardiovascular: Regular rate & rhythm, No Murmurs, No Rub and No Gallop
Respiratory: Clear
Sternum: Stable
Incision: Clean, Dry, Intact and Dressing Intact
Extremities: No Edema
Data Reviewed
-
Lab Results: Results Reviewed
Medications: Active Meds Reviewed
Chest X-Ray: Report Reviewed
ECG: Report Reviewed and Image Reviewed
[2025-06-24] MEDS: ZOFRAN 4 MG IV (06:44)
--- NOTE | 2025-06-24 07:15 | W.PN.ANS.POP ---
Anesthesia Post Operative
- Anesthesia Post Op Note
Vital Signs Stable-See Nursing Note: Yes
Airway Patent: Yes
Adequate Pain Control: Yes
Change in Mental Status: No
Current Postoperative Nausea & Vomiting: No
Anesthesia Complications: No
General Anesthetic Recall: No
Unplanned Admission: No
Post Op Hydration Adequate: Yes
--- NOTE | 2025-06-24 08:15 | W.PN.CARDCBS ---
Addendum entered and electronically signed by Trung Edmond MD 06/24/25 09:25:
Patient seen and examined
Agree with RANJITH Gomez's note and assessment
Agree with RANJITH Gomez's plan
Telemetry reviewed overnight without evidence for high-grade AV block
Exam:
Bilateral groin sites clean dry and intact
Alert and orient x 3
Nonfocal neurologically
JVP 6
Cor regular without significant murmur
Lungs diminished but clear
Abdomen soft nontender positive bowel sounds
PCP: Paul Torres
Weigh And Charge Worker: Jean S[facility]. Did see Inocencio Darby at [place] for second opinion
Initially seen at [place] by Dr. Neto Briggs March 22, 2025
Assessment:
Elective admission 06/23/2025 for TAVR
Severe with peak/mean 57/34 mmHg and JUVENCIO 1.1 cm sq by echo 05/23/25
Recently worsened, Mean aortic valve gradient of 45 mmHg and valve area of of 0.53 cm sq by [facility] 05/29/2025
s/p Successful placement of 23 mm Medtronic Evolut Pro+ valve via left femoral artery, 06/23/2025
Recent NSTEMI
CAD s/p 3.0 mm Xience CHARLES to the mid circumflex into the OM 2 jailing OM1 05/29/2025Trace MR with evidence of torn chordae by echo 05/22/2025/ CM 06/06/25
Hypertension
Hyperlipidemia
Right bundle branch block
Statin intolerance
GERD
Obstructive sleep apnea
Polymyalgia rheumatica
History of UTI
Varicose veins
History of pulmonary embolus related to surgery
Acute on chronic HFpEF
Echo 03/18/2022: Normal LV size and function. Mild concentric LVH. Aortic calcification with no significant stenosis.
Echo 12/10/2023: EF 65 to 70%. Concentric LVH. Moderate aortic stenosis with peak/mean gradient 49/25 mmHg, AVR 1.22 cm�.
Echo 12/14/2024 ([place]): EF 65 to 70%. Mild concentric LVH. Mitral valve thickening without significant stenosis. Moderate aortic stenosis with peak/mean gradient 57/30 mmHg and JUVENCIO 1.3 cm�. Mild AI.
Echo 05/23/2025: EF 70 to 75%, no WMA, severe with peak/mean 57/34 mmHg, mild aortic regurgitation
Echo 05/30/2025: EF 70 to 75%, trace MR with evidence of torn chordae
CM 06/06/25: EF 60-65%, + likely torn calcified chord at P2, mild MR, moderate to severe
Cardiac catheterization 03/19/2022: LM: Patent. LAD: Patent. Left circumflex 50 to 60% mid stenosis with FFR of 0.87
R/L heart cath 05/29/25:
1. Non-ST segment elevation myocardial infarction with stenosis in the mid circumflex. Successful stenting of the mid circumflex into OM 2 with placement of a 3.0 x 23 mm Xience stent that was implanted at nominal pressures and postdilated to
high-pressure's with a 3.25 mm noncompliant balloon
2. Severe aortic stenosis with a mean aortic valve gradient of 45 mmHg and valve area of of 0.53 cm�
3. Mildly elevated left ventricular filling pressures (pulmonary capillary wedge pressure 25 mm Hg)
4. Severe LVH with systolic obliteration of LV cavity and hyperdynamic function with an estimated ejection fraction greater than 75%
Plan:
-Elective admission 06/23/2025 and underwent successful placement of 23 mm Medtronic Evolut Pro+ valve via left femoral artery. Patient is doing well postprocedure.
-No signs for advanced AV block
Echo on 06/23/2025 post TAVR with peak/mean gradient 15/8 mmHg with trace to mild paravalvular AI. Will need 1 month post TAVR echo as outpatient
SBE prophylaxis discussed with patient
-Coronary artery disease with recent NSTEMI
Patient had successful PTCA and stenting of the mid circumflex into the OM 2 with a 3 mm Xience CHARLES that jailed the OM1 05/29/25.
Continue Plavix 75 mg daily
LDL was 66 when it was checked on 05/23/2025 and on repeat check 05/30/2025 it was 93 despite her usual dose of rosuvastatin 10 mg daily being continued, so Crestor was increased to 40 mg daily. Will need repeat lipid profile in 3 months.
Continue Toprol-XL to 12.5 mg daily, dose was lowered back on 06/05/2025 due to sinus bradycardia
Outpatient dose of valsartan decreased to 160 mg daily
Outpatient cardiology follow-up has been arranged. Appears stable for discharge
Original Note:
Today's Communication / Plan
-
Doing well post TAVR
Post TAVR echocardiogram stable
SBE prophylaxis with amoxicillin 2 g 1 hour prior to dental visit
Continue aspirin, Plavix, statin, valsartan and Toprol low-dose
1 month post TAVR echo as outpatient
Follow-up with Dr. Pimentel in 4 to 6 weeks
Stable from cardiac standpoint for discharge
Impression / Plan
-
PCP: Paul Torres
Weigh And Charge Worker: Jean Sauer [facility]. Did see Inocencio Darby at [place] for second opinion
Initially seen at [place] by Dr. Neto Briggs March 22, 2025
Assessment:
Elective admission 06/23/2025 for TAVR
Severe with peak/mean 57/34 mmHg and JUVENCIO 1.1 cm sq by echo 05/23/25
Recently worsened, Mean aortic valve gradient of 45 mmHg and valve area of of 0.53 cm sq by C 05/29/2025
s/p Successful placement of 23 mm Medtronic Evolut Pro+ valve via left femoral artery, 06/23/2025
Recent NSTEMI
CAD s/p 3.0 mm Xience CHARLES to the mid circumflex into the OM 2 jailing OM1 05/29/2025
Trace MR with evidence of torn chordae by echo 05/22/2025/ CM 06/06/25
Hypertension
Hyperlipidemia
Right bundle branch block
Statin intolerance
GERD
Obstructive sleep apnea
Polymyalgia rheumatica
History of UTI
Varicose veins
History of pulmonary embolus related to surgery
Acute on chronic HFpEF
Echo 03/18/2022: Normal LV size and function. Mild concentric LVH. Aortic calcification with no significant stenosis.
Echo 12/10/2023: EF 65 to 70%. Concentric LVH. Moderate aortic stenosis with peak/mean gradient 49/25 mmHg, AVR 1.22 cm�.
Echo 12/14/2024 ([place]): EF 65 to 70%. Mild concentric LVH. Mitral valve thickening without significant stenosis. Moderate aortic stenosis with peak/mean gradient 57/30 mmHg and JUVENCIO 1.3 cm�. Mild AI.
Echo 05/23/2025: EF 70 to 75%, no WMA, severe with peak/mean 57/34 mmHg, mild aortic regurgitation
Echo 05/30/2025: EF 70 to 75%, trace MR with evidence of torn chordae
CM 06/06/25: EF 60-65%, + likely torn calcified chord at P2, mild MR, moderate to severe
Cardiac catheterization 03/19/2022: LM: Patent. LAD: Patent. Left circumflex 50 to 60% mid stenosis with FFR of 0.87
R/L heart cath 05/29/25:
1. Non-ST segment elevation myocardial infarction with stenosis in the mid circumflex. Successful stenting of the mid circumflex into OM 2 with placement of a 3.0 x 23 mm Xience stent that was implanted at nominal pressures and postdilated to
high-pressure's with a 3.25 mm noncompliant balloon
2. Severe aortic stenosis with a mean aortic valve gradient of 45 mmHg and valve area of of 0.53 cm�
3. Mildly elevated left ventricular filling pressures (pulmonary capillary wedge pressure 25 mm Hg)
4. Severe LVH with systolic obliteration of LV cavity and hyperdynamic function with an estimated ejection fraction greater than 75%
Plan:
-Elective admission 06/23/2025 and underwent successful placement of 23 mm Medtronic Evolut Pro+ valve via left femoral artery. Patient is doing well postprocedure.
Review of telemetry and EKG from 06/24/2025 shows sinus rhythm with right bundle branch block. Brief episode of NSVT 4 beats. On 06/23/2025 on telemetry. No other sustained or prolonged arrhythmias.
Echo on 06/23/2025 post TAVR with peak/mean gradient 15/8 mmHg with trace to mild paravalvular AI. Will need 1 month post TAVR echo as outpatient
SBE prophylaxis discussed with patient
-Coronary artery disease with recent NSTEMI
Patient had successful PTCA and stenting of the mid circumflex into the OM 2 with a 3 mm Xience CHARLES that jailed the OM1 05/29/25.
Continue Plavix 75 mg daily
LDL was 66 when it was checked on 05/23/2025 and on repeat check 05/30/2025 it was 93 despite her usual dose of rosuvastatin 10 mg daily being continued, so Crestor was increased to 40 mg daily. Will need repeat lipid profile in 3 months.
Continue Toprol-XL to 12.5 mg daily, dose was lowered back on 06/05/2025 due to sinus bradycardia
Outpatient dose of valsartan decreased to 160 mg daily
Outpatient cardiology follow-up has been arranged. Anticipate discharge to in next 24 hours
Progress Note - Weigh And Charge Worker
Subjective
Date of Service: June 24, 2025
Patient seen and examined. Patient resting comfortably in bed. No issues overnight. Notes some mild mucus production otherwise feels well
Objective
Vital Signs and I&O:
Vital Signs
Temp Pulse Resp BP Pulse Ox
98.3 F 80 16 113/59 98
06/24/25 07:53 06/24/25 03:45 06/24/25 07:53 06/24/25 03:37 06/24/25 07:53
Vital Signs
Temp Pulse Resp BP Pulse Ox
98.3 F 80 16 113/59 98
06/24/25 07:53 06/24/25 03:45 06/24/25 07:53 06/24/25 03:37 06/24/25 07:53
Intake & Output
06/22/25 06/23/25 06/24/25 06/25/25
06:59 06:59 06:59 06:59
Intake Total 1630 / 1630
Balance 1630 / 1630
Physical Exam
Physical Exam
GEN: No distress, awake, Ox3, sitting in bed
HEENT: supple, anicteric, mmm
LUNGS: CTA, no wheezes/rales
CV: Reg, S1/S2, 1/6 syst LSB murmur, no rub or gallop
ABD: soft, BS+, NT/ND
EXT: No edema, clubbing or cyanosis, bilateral access site from TAVR dressings clean dry intact without hematoma or ecchymosis
NEURO: Gross non-focal
SKIN: No rash, warm, dry, pink
[2025-06-24] MEDS: CRESTOR 40 MG PO (09:54)
[2025-06-24] MEDS: MIRALAX 17 GRAMS PO (09:54)
[2025-06-24] MEDS: MUCINEX 1200 MG PO (09:55)
[2025-06-24] MEDS: PROTONIX 40 MG PO (09:56)
[2025-06-24] MEDS: ASPIR LOW (ENTERIC COATED) 81 MG PO (09:56)
[2025-06-24] MEDS: TOPROL XL 12.5 MG PO (09:56)
[2025-06-24] MEDS: LASIX 20 MG PO (09:56)
[2025-06-24] MEDS: PLAVIX 75 MG PO (09:57)
[2025-06-24] MEDS: ANCEF 5 IV (10:01)
[2025-06-24] MEDS: MEDROL 4 MG PO (10:03)
[2025-06-24] MEDS: PEPCID 20 MG PO (10:03)
[2025-06-24] MEDS: DIOVAN 160 MG PO (10:03)
--- NOTE | 2025-06-24 10:22 | W.DCSUMMARY ---
Discharge Summary
Discharge Data
Date of Admission: 06/23/25
Date of Discharge: 06/24/25
-
Pending Results: No
Hospital Course
Primary care physician:
Dr. Paul Torres
Outpatient inventory taker:
Dr. Briggs
Dr. Jean Sauer [facility]
Inpatient consultants:
[facility]
Procedures:
1. Left trans femoral TAVR with a 23 mm Medtronic Evolut FX device
Primary Diagnosis:
1. Severe symptomatic aortic stenosis
Secondary Diagnoses:
1. Hypertension
2. Right bundle branch block
3. Hyperlipidemia
4. Obstructive sleep apnea
5. Acute on chronic HFpEF
HPI: 80-year-old female who had progressive worsening shortness of breath and limited activity due to severe aortic stenosis presented electively on 06/23 for transcatheter aortic valve replacement with Dr. Silverio.
Hospital course: Patient was electively admitted on 06/23 for a transcatheter aortic valve replacement with Dr. Silverio. There were no intra-op events and patient went to clinical lab technologist recovery. She was temporarily on levophed for blood pressure
management, however, that was quickly titrated off. B/l groins remain stable. She was sent to IVU for the remainder of their recovery. Post procedure, a repeat echocardiogram was preformed which showed a ejection fraction of 60-65%, trace to mild
paravalvular aortic regurgitation, and peak/mean gradients across the aortic valve are 15/8mmHg. On 06/24, POD #1, her rhythm was stable. CXR was stable. She was noted to be hypokalemic and was treated with 80 MEQ of potassium. Repeat potassium
showed improvement and she was discharged with supplemental potassium with repeat BMP in one week.
Home medication changes:
see below
Discharge Plan
-
Patient Disposition: Home (Routine Discharge)
Discharge Diagnosis/Procedures: TF-TAVR
Condition: Fair
Diet: Low Cholesterol and 2 Gram Sodium
Activity: As tolerated
Driving Restrictions: No driving for 1 week
Bathing Restrictions: OK to Shower
Blood Work: BMP in one week
Others Tests: Follow Up Echocardiogram has been scheduled for on 08/01/2025 at 11:20am at the [facility].
Other Services: Cardiac Rehab
Wound Care: Please do not apply lotions, creams or powders to groin areas. Please monitor groins for increased pain, swelling, redness or drainage. Notify your doctor if any occur.
Specialty Instructions: Weigh Daily- Call MD for wt gain/loss 3 lbs overnight/5 lbs in 1 week
Referrals:
Vicky Case NP Cardiology [Other] - 07/24/25 1:30 pm
CT Transitional Care Nurse [Outside]
Referral Note:
The Cardiothoracic Transitional Care Nurse will call you to set up a visit in 1-2 days.
Paul Torres DO [Family Provider, Family Practice]
Additional Discharge Medication Instructions: Please take potassium while taking lasix
Prescriptions:
New
guaifenesin 600 mg Tablet Extended Release 12hr
1,200 mg PO Q12 PRN (Reason: Congestion) Qty: 30 0RF
potassium chloride [K-Tab] 20 mEq tablet extended release
20 meq PO BID Qty: 30 0RF
Continued
methylprednisolone 4 mg Tablet
4 mg PO DAILY
pantoprazole 40 mg Tablet,Delayed Release (Dr/Ec)
40 mg PO DAILY
sucralfate 1 gram tablet
1 g PO QIDPRN PRN (Reason: abdominal pain)
famotidine 40 mg tablet
40 mg PO DAILY
tramadol 50 mg tablet
50 mg PO Q6H PRN (Reason: moderate-severe pain)
aspirin 81 mg Tablet,Delayed Release (Dr/Ec)
81 mg PO DAILY
furosemide 20 mg Tablet
20 mg PO DAILY Qty: 30 11RF
rosuvastatin 10 mg Tablet
40 mg PO DAILY Qty: 30 11RF
metoprolol succinate 25 mg Tablet Extended Release 24 Hr
12.5 mg PO DAILY Qty: 30 0RF
clopidogrel 75 mg Tablet
75 mg PO DAILY Qty: 30 0RF
alprazolam 0.5 mg tablet
0.5 mg PO HSPRN PRN (Reason: anxiety)
Patient Comments:
last filled 04/06/25 #60
azelastine 137 mcg (0.1 %) spray,non-aerosol
1 spray INTRANASAL DAILYPRN PRN (Reason: allergies/runny nose)
polyethylene glycol 3350 17 gram Powder In Packet
17 g PO DAILY
polyvinyl alcohol [Artificial Tears (polyvin alc)] 1.4 % Drops
1 drp OPHTHALMIC (EYE) DAILY PRN (Reason: dry eyes)
valsartan 160 mg Tablet
160 mg PO DAILY Qty: 30 11RF
cephalexin 500 mg capsule
500 mg PO Q8H Qty: 10 0RF
Discharge Orders:
Discharge Patient (As Directed); Ordered 06/24/25
Ordered By: Margo Whitney
Care Plan Goals
Care Plan Goals:
Problem: Readiness for enhanced knowledge related to diagnosis and treatment plan
Goal: Understand your diagnosis and treatment plan needs, including medications if applicable.
Instructions: Know your diagnosis, underlying causes and treatment plan options, including medications if applicable. Consult with your health care team to learn about your diagnosis and treatment plan, including medications if applicable.
Discharge Date and Time
Print Language: SWEDISH
[2025-06-24 11:03] LABS: Hematocrit 30.0 % (37.0-47.0); Hemoglobin 10.3 g/dL (12.0-16.0); Mean Corp Hgb Conc. 34.3 g/dL (33.0-37.0); Mean Corpuscular Volume 80.0 fL (81.0-99.0); Platelet Count 236 10^3/uL (130-400); Red Cell Dist. Width 15.8 % (11.5-14.5)
[2025-06-24 11:43] LABS: Blood Urea Nitrogen 18 mg/dl (7-17); Calcium 8.7 mg/dl (8.4-10.2); Carbon Dioxide 28 mmol/L (22-30); Chloride 102 mmol/L (98-107); Estimated Creatinine Clearance 46 ml/min; Glucose 147 mg/dl (70-99); Potassium 2.6 mmol/L (3.5-5.1); Sodium 133 mmol/L (135-145); eGFR > 60.00
[2025-06-24] MEDS: ULTRAM 50 MG PO (11:52)
--- NOTE | 2025-06-24 12:02 | PTCARENOTE ---
Pt c/o Hip pain, tender L groin and shoulder pain, rated 4/10, med with tramadol 50 mg PO as ordered. K+ level 2.6, Margo Whitney notified. Lgroin soft, but tender, no hematoma palpated.
[2025-06-24] MEDS: KCL 40 MEQ PO ×2 (12:20→13:35)
[2025-06-24 16:44] LABS: Blood Urea Nitrogen 16 mg/dl (7-17); Calcium 8.3 mg/dl (8.4-10.2); Carbon Dioxide 28 mmol/L (22-30); Chloride 105 mmol/L (98-107); Estimated Creatinine Clearance 46 ml/min; Glucose 136 mg/dl (70-99); Potassium 3.8 mmol/L (3.5-5.1); Sodium 137 mmol/L (135-145); eGFR > 60.00
--- NOTE | 2025-06-24 17:05 | PTCARENOTE ---
D/C instructions reviewed with Pt and her significant other,they expressed understanding.
== END 2025-06-24 17:15 | disposition home or self-care (01) | DRG 266 ==
LOC: IVU 05:02
PROVIDERS: Clinical Nurse Specialist Acute Care; ADMITTING PHYSICIAN Student in an Organized Health Care Education/Training Program; FAMILY PHYSICIAN Family Medicine
PROC: 02RF38Z Replacement of Aortic Valve with Zooplastic Tissue, Percutaneous Approach (ICD-10-PCS; 2025-06-23)
DX: I35.0 Nonrheumatic aortic (valve) stenosis (principal); Z00.6 Encounter for examination for normal comparison and control in clinical research program; I21.4 Non-ST elevation (NSTEMI) myocardial infarction; I50.33 Acute on chronic diastolic (congestive) heart failure; N39.0 Urinary tract infection, site not specified; I11.0 Hypertensive heart disease with heart failure; E78.5 Hyperlipidemia, unspecified; E87.6 Hypokalemia; G47.33 Obstructive sleep apnea (adult) (pediatric); I45.10 Unspecified right bundle-branch block; K21.9 Gastro-esophageal reflux disease without esophagitis; M35.3 Polymyalgia rheumatica; I25.10 Atherosclerotic heart disease of native coronary artery without angina pectoris; I25.2 Old myocardial infarction; Z79.899 Other long term (current) drug therapy; Z86.711 Personal history of pulmonary embolism
CPT/HCPCS: 33361; 71045; 80048; 85027; 85347; 93005; 93308; 93321; 93325; C1760; C1769; C1894; Q9967

== ENCOUNTER 2025-07-04 14:25 | Observation (INO) | payer MEDICARE, OTHER, SELFPAY ==
[2025-07-04] VITALS (11 sets, daily range): BP systolic 89–147; BP diastolic 49–93; BMI 25.0
--- NOTE | 2025-07-04 10:09 | ED.GENMED ---
History of Present Illness
General
Chief Complaint: Weakness
Source: patient and records
Exam Limitations: none
Time Seen by Provider: 07/04/25 10:05
Nursing documentation reviewed up to this point in time: agreed with
History of Present Illness
History of Present Illness:
80-year-old female status post TAVR presents with weakness fatigue details are unclear, denies dark or bloody stools states she feels mildly short of breath, has had some constipation requiring a laxative here she is hypotensive tachycardic
Discussed with patient and spouse at bedside she was doing well postoperatively to the past few days, but she not eating or drinking much, felt very weak apparently had a low potassium in the immediate postop, patient also had positive urine culture
treated with Keflex, review of the records patient has also had reflux and polymyalgia rheumatica
Past History
Past History
ED Past Medical History: CAD, HTN, Hypercholesterolemia, Valvular disease and Other (Diverticulitis)
ED Past Surgical History: Appendectomy, Cardiac, Cholecystectomy, Gynecological, Orthopedic and Other
Social History
Tobacco: Non-smoker
Alcohol: None
Drug: None
Personal: Single
Living: with family
Employment: Retired
Review of Systems
Review of Systems
All Other Systems: Not applicable
Constitutional: Reports fatigue; Denies fever
Respiratory: Reports no symptoms
Cardiac: Reports no symptoms
ABD/GI: Reports no symptoms
: Reports no symptoms
Skin: Reports no symptoms
Neurological: Reports dizzy and weakness
Phy Exam
Physical Exam
Physical Exam:
Physical Exam
General: no apparent distress, not acutely ill
Neck: Lips are dry
Heart: s1/s2 regular rate and rhythm, no murmur. equal radial pulses.
Lungs: no acute respiratory distress. clear bilaterally
Abdomen: Nontender
Neuro: alert and oriented. no focal neurological deficits
Skin: no rash
Psychiatric flat affect
Extremities: no edema.
Course
Orders/Labs/Results
Orders:
Orders
07/04/25 10:08
Electrocardiogram (*1) Stat
Reason for Study: Other
Other Reason for Exam: chest pain
Cardiac Monitoring- Treatment ONCE
EKG- Treatment ONCE
CR Chest Portable - 1 View Urgent
Comment:
Reason For Exam: weakenss
Reason Study Needs to be Portable: Patient Unstable
07/04/25 10:29
Comprehensive Metabolic Panel Urgent
Magnesium Urgent
TSH Urgent
07/04/25 10:30
Complete Blood Count/With Diff Urgent
NT-proBNP Urgent
07/04/25 11:22
Straight cath- Treatment ONCE
0.9% Sodium Chloride 500 ml [Nss] 500 ml IV BOLUS
Pantoprazole [Protonix IV] 40 mg IV NOW STA
07/04/25 11:23
Abdomen Xray - 1 View [CR Abdomen - 1 View] Urgent
Comment:
Reason For Exam: pain constiatpo
07/04/25 12:06
Urinalysis Reflex To Culture Urgent
Date Specimen was Collected: 07/04/25
Time Specimen was Collected: 12:04
Urine Microscopic Reflex Cult Urgent
Urine Culture Urgent
AILYN Source: U
Specimen Description:
Date Specimen was Collected: 07/04/25
Time Specimen was Collected: 12:04
07/04/25 13:42
Add On- LAB Urgent
Tests Added?: urine culture
Abnormal Lab Results
07/04/25 07/04/25 07/04/25
10:29 10:30 12:06
WBC 15.5 H 10^3/uL
(4.8-10.8)
MCH 26.5 L pg
(27.0-31.0)
MCHC 31.4 L g/dL
(33.0-37.0)
RDW 16.2 H %
(11.5-14.5)
Plt Count 424 H 10^3/uL
(130-400)
Abs Immat Gran (auto) 0.2 H 10^3/uL
(0-0.05)
Absolute Neuts (auto) 9.6 H 10^3/uL
(1.4-6.5)
Absolute Lymphs (auto) 4.1 H 10^3/uL
(1.2-3.4)
Absolute Monos (auto) 1.1 H 10^3/uL
(0.1-0.6)
Immature Gran % 1.1 H %
(0-0.5)
BUN 25 H mg/dl
(7-17)
Creatinine 1.2 H mg/dL
(0.6-1.0)
Glucose 122 H mg/dl
(70-99)
Urine Nitrite (Reflex) Positive A
(Negative)
Leukocyte Esterase Rfl 1+ A
(Negative)
Urine Bacteria (Reflex) Moderate A
(Negative)
Urine Albumin (Reflex) 2+ A
(Neg - Trace)
07/04/25 10:30
07/04/25 10:29
Vital Signs
Initial and Last Documented VS:
Initial Vital Signs
Temp Pulse Resp BP Pulse Ox
97.8 F 106 20 89/61 99
07/04/25 09:59 07/04/25 09:59 07/04/25 09:59 07/04/25 09:59 07/04/25 09:59
Last Documented Vital Signs
Temp Pulse Resp BP Pulse Ox
97.8 F 61 27 137/49 92
07/04/25 09:59 07/04/25 12:19 07/04/25 11:30 07/04/25 12:19 07/04/25 12:19
MDM/Problems Addressed
Differential Diagnosis Includes:
Heart failure arrhythmia valvular disease electrolyte abnormality anemia
MDM/Problems Addressed:
Fatigue postop
Chronic conditions affecting care:
Status post TAVR
Acute Exacerbation and/or Progression of Chronic Illness:
Status post TAVR
*Radiology
Radiology exam reviewed: preliminary read by ED provider
*Pulse Oximetry
SaO2: 99
Oxygen Mode of Delivery: Room air
Patient hypoxic: no
*EKG
Interpreted by ED Provider?: Yes
Interpretation: normal
Comparison EKG: no comparison EKG present
Heart Rate: 88
Rate: normal
Rhythm: sinus
Ischemia: no ischemia
*Dope Maintenance Worker Interpretation
Rate: normal
Interpretation: normal
Heart Rate: 78
Rhythm: sinus
*Critical Care Note
Total Time (30-74mins, 75-104mins- exclusive of procedures): 32
Update Note
Update Note:
Update labs noted white count up creatinine up urine noted prior urine culture noted did receive treatment with Keflex chest x-ray noted
Blood pressure improved with saline, multiple conversations overtaxed with the treating providers will be admitted to the hospitalist service,
ED Attending Note
-
Portions of this chart may have been created with voice recognition software.� Occasional wrong word or��sound alike� substitutions may have occurred due to the inherent limitations of voice recognition software.
Discharge Plan
Departure
Patient Disposition: Admit
Date of Disposition: 07/04/25
Time of Disposition: 12:41
Admit to: IVU
Presentation/result/management discussed w/ accepting MD/DO: Hospitalist
Patient with high blood pressure during this ER visit?: No
Condition: Fair
Covid-19: Not Applicable
Discharge Problem:
Fatigue
Prescriptions:
No Action
methylprednisolone 4 mg Tablet
4 mg PO DAILY
pantoprazole 40 mg Tablet,Delayed Release (Dr/Ec)
40 mg PO DAILY
sucralfate 1 gram tablet
1 g PO QIDPRN PRN (Reason: abdominal pain)
famotidine 40 mg tablet
40 mg PO DAILY
tramadol 50 mg tablet
50 mg PO Q6HPRN PRN (Reason: moderate-severe pain)
aspirin 81 mg Tablet,Delayed Release (Dr/Ec)
81 mg PO DAILY
furosemide 20 mg Tablet
20 mg PO DAILY Qty: 30 11RF
metoprolol succinate 25 mg Tablet Extended Release 24 Hr
12.5 mg PO DAILY Qty: 30 0RF
clopidogrel 75 mg Tablet
75 mg PO DAILY Qty: 30 0RF
alprazolam 0.5 mg tablet
0.5 mg PO HSPRN PRN (Reason: anxiety)
Patient Comments:
azelastine 137 mcg (0.1 %) spray,non-aerosol
1 spray INTRANASAL DAILYPRN PRN (Reason: allergies/runny nose)
polyethylene glycol 3350 17 gram Powder In Packet
17 g PO DAILYPRN PRN (Reason: constipation)
valsartan 160 mg Tablet
160 mg PO DAILY Qty: 30 11RF
potassium chloride 20 mEq Tablet Extended Release
20 meq PO BID
rosuvastatin 10 mg tablet
40 mg PO DAILY
Referrals:
Paul Torres DO [Family Provider, Family Practice]
Interventions
Interventions:
*Risk Screen - Suicide Last Done: 07/04/25 09:59
*General Assessment Last Done: 07/04/25 09:59
*Neglect/Abuse Screening Last Done: 07/04/25 09:59
*ED COVID-19 Vaccine History Last Done: 07/04/25 10:42
*ED Influenza Vaccine History Last Done: 07/04/25 10:42
Discharge Date and Time
Print Language: INDONESIAN
[2025-07-04 10:48] LABS: Hematocrit 40.5 % (37.0-47.0); Hemoglobin 12.7 g/dL (12.0-16.0); Mean Corp Hgb Conc. 31.4 g/dL (33.0-37.0); Mean Corpuscular Volume 84.4 fL (81.0-99.0); Nucleated Red Blood Cells % 0 %; Platelet Count 424 10^3/uL (130-400); Red Cell Dist. Width 16.2 % (11.5-14.5)
[2025-07-04 11:06] LABS: ALT (SGPT) 21 U/L (0-35); AST (SGOT) 26 U/L (14-36); Albumin 4.4 g/dl (3.5-5.0); Alkaline Phosphatase 84 U/L (38-126); Blood Urea Nitrogen 25 mg/dl (7-17); Calcium 10.0 mg/dl (8.4-10.2); Carbon Dioxide 24 mmol/L (22-30); Chloride 105 mmol/L (98-107); Estimated Creatinine Clearance 27 ml/min; Glucose 122 mg/dl (70-99); Magnesium 1.9 mg/dl (1.6-2.3); Potassium 4.4 mmol/L (3.5-5.1); Sodium 140 mmol/L (135-145); Total Protein 7.3 g/dl (6.3-8.2); eGFR 45.76
[2025-07-04] MEDS: PROTONIX IV 40 MG IV ×2 (12:02→20:04)
[2025-07-04] MEDS: NSS 500 IV (12:03)
[2025-07-04 12:43] LABS: Urine Character Slightly Cloudy (Clear)
[2025-07-04 13:05] LABS: TSH 4.18 uIU/ml (0.47-4.68)
[2025-07-04 13:27] LABS: Urine Red Blood Cell 0-2 /HPF (0-2); Urine Squamous Cell 0-2 /LPF (Few); Urine White Cell 0-2 /HPF (0-5)
--- NOTE | 2025-07-04 14:08 | HPS.HSE ---
Addendum entered and electronically signed by Danii Cuevas MD 07/04/25 18:09:
I personally performed a history and physical exam of the patient and discussed management with the resident. I reviewed the resident's note and agree with the documented findings and plan of care HPI/CC.
GENERAL: well developed, well nourished, female in no apparent distress--agitated-- answers all questions for her even though my questions are directed at her
HEENT: NC/AT--no O2 requirements
HEART: regular rate and rhythm, +S1, +S2, JAMES
LUNGS : clear to auscultation bilaterally
ABDOM: soft, tender midepigastrium and bilateral lower quadrants, nondistended, + bowel sounds
EXT: no cyanosis, clubbing, or edema
NEUROLOGIC: grossly intact
Possible sepsis with end organ effects (Weakness, possible altered mental status, hypotension responded to IVF)--hx of recurrent UTIs--likely cause is another UTI--UA positive for nitrites, leukocyte esterase and moderate bacteria--dehydration and
poor PO intake could be contributing--hold diuretics--pro BNP 550--in fact, give gentle IVF--check blood cultures--repeat ECHO--cards and CT surgery consults--OBS
Abdominal pain, nausea- epigastric and suprapubic- ddx, pancreatitis, adrenal insufficiency may present with nausea (she is on chronic steroids and does she need stress dose?), ACS, constipation- she is not hyperkalemic at this time- EKG showed no
signs of ischemia --lipase 84, cont protonix IV BID, carafate--check CT a/p with oral only--check random cortisol in AM
Severe aortic stenosis s/p TAVR 10 days prior to admission/HFpEF--doubt acute exacerbation--cont asa/plavix, metoprolol XL, ECHO--cards, CT surg- hold furosemide, given initial BP 89/61- hold valsartan, given initial BP 89/61
Polymyalgia rheumatica- continue her home methylprednisolone 4mg for now--may need stress dose steroids--check random cortisol, may need STIM test
Essential HTN- hold valsartan given hypotension on presentation
HLD- continue rosvustatin
GERD- hold home PO PPI- pantoprazole IV 40mg bid
LUC- does not require CPAP- monitor VS
Code status-- Full code
DVT proph-- subq heparin
I have serious concerns that the patient has dementia as her answers all questions for her despite me directing them to her he jumps in to answer. She does not know the medication she takes. She does not know why she had the TAVR. After
her left, she threatened to leave the hospital AGAINST MEDICAL ADVICE. Consulting psychiatry for capacity.
Original Note:
Family Physician
-
Family Physician: Paul Torres
Chief Complaint
-
weakness
History of Present Illness
80 yo F PMH severe aortic stenosis s/p TAVR 06/2025, polymyalgia rheumatica, CAD, HTN, HLD, HFpEF, GERD, RBBB, LUC no CPAP required p/w weakness of 3-4 days duration.
The is present at bedside and providing much of the HPI.
She had an uncomplicated TAVR in 06/2025 due to severe symptomatic aortic stenosis. A few days ago, she started experiencing generalized weakness, listlessness with decreased PO intake. She endorses lightheadedness and some dyspnea. She denies focal
weakness. She denies chest pain or headaches. The also reports that she appears to be more confused than her typical state. Following the TAVR procedure, she was noted to be hypokalemic and discharged with potassium supplements in addition
to the diuretics.
She also reports abdominal pain in the epigastric and lower suprapubic regions. She endorses nausea but denies vomiting. She endorses constipation but denies hematochezia, melena.
She reports the suprapubic discomfort in particular because she had a straight catheterization in the ED before my interview with her. She endorses dysuria because of this, but before that straight cath, she denies dysuria.
She denies myalgias
Of note, during her last admission prior to TAVR, she was found to have a positive UA culture for EColi and was prescribed a 3-day course of antibiotics. She and the report that she has chronic recurrent UTIs as a history.
Social hx is unremarkable
NKDA
In ED, she received 500 cc NS and PPI.
PMH: CAD, HTN, Hypercholesterolemia, Valvular disease and Other (Diverticulitis)
PSH: Appendectomy, Cardiac, Cholecystectomy, Gynecological, Orthopedic and Other
Medical History
Past Medical History
Past Medical History: Reports CAD, CHF (HFpEF), GERD, HTN, Hypercholesterolemia and Valvular Disease (severe s/p TAVR 06/2025)
Past Surgical History: Reports Appendectomy, Bowel Resection (diverticulitis c/b bowel perforation s/p colostomy s/p colostomy reversal s/p abdominal wall reconstruction), Cholecystectomy and Orthopedic
Social History
Tobacco: Non-smoker
Alcohol: None
Drug: None
Personal:
Living: With Family
Family History
Family History: Not pertinent
Allergies / Home Medications
Allergies reflects when Allergies were last updated in [facility].
Home Medications with original date entered in [facility]
Allergy/Medication List:
Allergies
Allergy/AdvReac Type Severity Reaction Status Date / Time
No Known Allergies Allergy Verified 07/04/25 10:03
Home Medications
methylprednisolone 4 mg tablet 4 mg PO DAILY Anti-Inflammatory 12/09/23
pantoprazole 40 mg tablet,delayed release 40 mg PO DAILY Gastrointestinal Issue 12/09/23
famotidine 40 mg tablet 40 mg PO DAILY Gastrointestinal Issue 05/22/25
sucralfate 1 gram tablet 1 g PO QIDPRN PRN abdominal pain 05/22/25
tramadol 50 mg tablet 50 mg PO Q6HPRN PRN moderate-severe pain 05/22/25
aspirin 81 mg tablet,delayed release 81 mg PO DAILY Blood Clot Prevention/Tx 05/28/25
furosemide 20 mg tablet 20 mg PO DAILY Heart Failure #30 tabs 05/31/25
metoprolol succinate 25 mg tablet,extended release 24 hr 12.5 mg (1/2 x 25 mg) PO DAILY #30 tabs 06/07/25
alprazolam 0.5 mg tablet 0.5 mg PO HSPRN PRN anxiety 06/17/25
azelastine 137 mcg (0.1 %) nasal spray 1 spray intranasal DAILYPRN PRN allergies/runny nose 06/17/25
polyethylene glycol 3350 17 gram oral powder packet 17 g PO DAILYPRN PRN constipation 06/17/25
valsartan 160 mg tablet 160 mg PO DAILY Heart disease/condition #30 tabs 06/19/25
clopidogrel 75 mg tablet 75 mg PO DAILY Blood clot prevention/tx #30 tabs 06/23/25
potassium chloride 20 mEq tablet,extended release 20 meq PO BID 07/04/25
rosuvastatin 10 mg tablet 40 mg PO DAILY High cholesterol 07/04/25
Review of Systems
-
History Source: Patient and Family
Constitutional: Reports Fatigue
EENT: Reports No Symptoms
Respiratory: Reports Trouble Breathing
Cardiac: Reports No Symptoms
Abdomen/GI: Reports Abdominal Pain
: Reports Dysuria
Musculoskeletal: Reports Other (denies myalgias)
Neurological: Reports Weakness (generalized)
Physical Exam
Vital Signs
Vital Signs
Temp Pulse Resp BP Pulse Ox
97.8 F 61 27 137/49 92
07/04/25 09:59 07/04/25 12:19 07/04/25 11:30 07/04/25 12:19 07/04/25 12:19
Physical Exam
General: Conversant
HEENT: Other (dry mucous membranes)
Respiratory: Clear
Cardiac: Other (systolic murmur near erbs point)
GI: Tender (epigastric and suprapubic)
Musculoskeletal: No Edema
Skin: Other (generalized bruises, attributed to ekg stickers when peeled off)
Neuro: AO x 3 and Nonfocal/grossly intact
Psych: Confused and Anxious
Laboratory Results
-
07/04/25 10:30
07/04/25 10:29
Laboratory Results
Total Bilirubin 0.7 mg/dl (0.2-1.3) 07/04/25 10:29
AST 26 U/L (14-36) 07/04/25 10:29
ALT 21 U/L (0-35) 07/04/25 10:29
Alkaline Phosphatase 84 U/L (38-126) 07/04/25 10:29
proBNP 550
CXR 07/04/2025
IMPRESSION: Small left pleural effusion and adjacent atelectasis/consolidation, increased as compared to prior.
AXR 07/04/2025
IMPRESSION: Nonobstructive bowel gas pattern.
UA + culture pending
Impression/Plan
-
In summary, 80 yo F PMH severe aortic stenosis s/p TAVR 06/2025, polymyalgia rheumatica, CAD, HTN, HLD, HFpEF, GERD, RBBB, LUC no CPAP required p/w weakness
Weakness, possible altered mental status
- ddx dehydration, decreased PO intake, infection (UTI), electrolyte abnormalities, ACS, HFpEF exacerbation
- proBNP 550
- most likely combination of dehydration and infection (UTI?)
- ED nurse also reports that patient is attempting to leave AMA. After speaking with Panchito, it was recommended that she stay, and an evaluation of capacity is pending
Plan:
- UA & culture
- Blood cultures
- Repeat echocardiogram
- Consult cardiology
- Consult CT surgery
- Consult psychiatry for capacity evaluation
Abdominal pain, nausea
- epigastric and suprapubic
- ddx, pancreatitis, adrenal insufficiency may present with nausea (she is on chronic steroids and does she need stress dose?), ACS, constipation
- she is not hyperkalemic at this time
- EKG showed no signs of ischemia on my read
Plan:
- Lipase
- pantoprazole IV 40mg bid
- CT abdomen pelvis with oral contrast (cr 1.2 limits IV contrast)
- pending CT results if show significant stool burden, f/u bowel regimen
- will revisit stress-dose steroids
Severe aortic stenosis s/p TAVR
HFpEF
- she had pre-TAVR stent placed
- continue aspirin, clopidogrel
- continue metoprolol succinate
- hold furosemide, given initial BP 89/61
- hold valsartan, given initial BP 89/61
- Repeat echocardiogram
- Consults as above
Polymyalgia rheumatica
- continue her home methylprednisolone 4mg for now
HTN
- hold valsartan given hypotension on presentation
HLD
- continue rosvustatin
GERD
- hold home PO PPI
- pantoprazole IV 40mg bid
LUC
- does not require CPAP
- monitor VS
Dispo: pending clinical workup, but to home
Code status: Full
DVTppx: subq heparin
--- NOTE | 2025-07-04 16:20 | CON.CAR ---
Addendum entered and electronically signed by Anum Amado DO 07/04/25 19:23:
I saw and examined the patient.
The Ct Technician's note was reviewed and I agree with the note.
Comment: Patient was seen and examined; known from several recent hospitalizations at [facility]. Patient came to the ER from home today with reports of feeling weak and tired with suprapubic pain was admitted for workup of possible
infection and cardiology is consulted given recent TAVR placement 06/23/25. This is the patient's sixth admission to the hospital in the last 2 months. Patient follows with a tube cleaning operator at [facility], but does not like the
hospital her tube cleaning operator is associated with and prefers the care she receives at [facility]. Several of patient's admissions prior to TAVR were related to malaise and fatigue which overwhelms her caregiver and partner Pancihto. She denies chest pain or
pressure, she denies worsening shortness of breath or lightheadedness. She denies fevers or chills.
GEN: Frail 80-year-old female. Awake alert and oriented. On room air
HEENT: mmm
LUNGS: Bronchovesicular breath sounds decreased at the bases but clear
CV: SR on telemetry. Reg, no murmur
ABD: Soft, mildly distended. Mild suprapubic tenderness without rebound. Positive bowel sounds
EXT: Bilateral groin sites intact. no lower extremity edema.
Plan:
Chronic and ongoing fatigue and malaise of unclear etiology
- Will defer infectious workup to primary, possible urinary source
-Chronically elevated WBC count; history of PMR on chronic steroids
- Given multiple admissions for same complaint not felt to be related to cardiac etiology at this point, consider neurology evaluation, PT evaluation and involvement with case management as patient and family may be overwhelmed by her ongoing care
needs
History of symptomatic severe status post elective TAVR 06/23/2025
- No exam evidence for acute heart failure
-proBNP 550. Lipase 84. TSH 4.18
- Twelve-lead EKG without ischemia; incomplete right bundle branch block chronic
- 2D echocardiogram personally reviewed.Normal left ventricular size and systolic function with EF visually estimated 60 to 65%. Transcatheter aortic valve replacement is well-seated with peak/mean gradients 14/6 mmHg with no valvular or
paravalvular regurgitation. Mild mitral stenosis unchanged with trace mitral regurgitation and known torn chordae tendon a previously evaluated by CM. No pericardial effusion.
Known coronary artery disease s/p PTCA and stenting of the mid circumflex into the OM 2 with a 3 mm Xience CHARLES that jailed the OM1 05/29/25.
- No symptoms of chest pain
- Continue aspirin/Plavix uninterrupted for at least 1 year
- LDL was 66 when it was checked on 05/23/2025 and on repeat check 05/30/2025 it was 93 despite her usual dose of rosuvastatin 10 mg daily being continued [raises questions about home compliance?]
- Continue Crestor 40 mg daily - Will need repeat lipid profile in 08/2025.
- Continue Toprol-XL to 12.5 mg daily, dose was previously lowered due to sinus bradycardia
- Continue valsartan 160 mg daily unless renal function worsens
Acute renal insufficiency with suprapubic pain and concern for UTI
- Monitor renal function closely
Will sign off, recall if needed
Original Note:
Consultation
Consultation Request
Date/Time Consultation Requested: 07/04/2025
Date/Time Consultation Performed: 07/04/2025
Requesting Provider: Dr. Cuevas
Performing Provider: Dr. Amado
Reason for Consultation: Recurrent weakness, recent TAVR
Medical History
-
History of Present Illness:
Patient came to the ER from home today with reports of feeling weak and tired and was admitted for workup of possible infection and cardiology is consulted given recent TAVR placement. This is the patient's sixth admission to the hospital in the
last 2 months. Patient follows with a tube cleaning operator at [facility], but does not like the hospital her tube cleaning operator is associated with and prefers the care she receives at [facility] and patient elected to have TAVR workup and
eventually TAVR procedure here on 06/23/2025. During patient's admissions from 06/04/2025 until 06/07/2025 and again 06/17/2025 until 06/19/2025 I talked with her partner, Panchito, both times and related concerns that patient's symptoms of fatigue and
malaise might not be due to severe alone. Patient would complain of SOB with activity, but pulse ox would be normal without evidence of acute HF.
PMH:
Recent admission for elective TAVR 06/23/2025 until 06/24/2025
Recent admission for suspected multifactorial fatigue and malaise 06/17/2025 until 06/19/2025
Recent admission for acute HF and severe 06/04/2025 until 06/07/2025
Recent admission for recurrent chest pain, acute HF and severe 05/28/2025 until 05/31/2025
Recent admission for chest pain and eventually left AMA 05/22/2025 until 05/23/2025
s/p 23 mm Medtronic Evolut Pro+ valve via left femoral artery TAVR for severe 06/23/2025
CAD with NSTEMI and 3.0 mm Xience CHARLES to the mid circumflex into the OM 2 jailing OM1 05/29/2025
Trace MR with evidence of torn chordae by echo 05/22/2025/ CM 06/06/25
CM 06/06/2025 confirms likely torn and calcified chordae P2 with otherwise only mild MR
HTN
Hyperlipidemia
RBBB
Previous statin intolerance, but currently tolerating Crestor
GERD
Obstructive sleep apnea
Polymyalgia rheumatica on chronic methylprednisolone therapy
History of UTI
Varicose veins
History of pulmonary embolus related to surgery
Past Medical History
Past Medical History: Other (See HPI)
Past Surgical History: Appendectomy, Bowel Resection (Bowel perforation with resection 2016), Cholecystectomy, Gynecological (Hysterectomy), Orthopedic (Bunionectomy, laminectomy 03/2023, left foot lipoma excision 12/2023, knee replacement) and Other
(Abdominal incisional wall hernia repair, eyelid surgery)
Social History
Tobacco: Non-Smoker
Alcohol: None
Drug: None
Personal: Partner (Her long-term partner is named Panchito)
Living: With Family
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
Family History
Family History: Hypertension and Other (COPD)
Allergies / Home Medications
Allergy/AdvReac Type Severity Reaction Status Date / Time
No Known Allergies Allergy Verified 07/04/25 10:03
�Medication �Instructions �Recorded �Confirmed �Type
methylprednisolone 4 mg tablet 4 mg PO DAILY Anti-Inflammatory 12/09/23 07/04/25 History
pantoprazole 40 mg tablet,delayed 40 mg PO DAILY Gastrointestinal 12/09/23 07/04/25 History
release Issue
famotidine 40 mg tablet 40 mg PO DAILY Gastrointestinal 05/22/25 07/04/25 History
Issue
sucralfate 1 gram tablet 1 g PO QIDPRN PRN abdominal pain 05/22/25 07/04/25 History
tramadol 50 mg tablet 50 mg PO Q6HPRN PRN 05/22/25 07/04/25 History
moderate-severe pain
aspirin 81 mg tablet,delayed 81 mg PO DAILY Blood Clot 05/28/25 07/04/25 History
release Prevention/Tx
furosemide 20 mg tablet 20 mg PO DAILY Heart Failure #30 05/31/25 07/04/25 Rx
tabs
metoprolol succinate 25 mg 12.5 mg (1/2 x 25 mg) PO DAILY #30 06/07/25 07/04/25 Rx
tablet,extended release 24 hr tabs
alprazolam 0.5 mg tablet 0.5 mg PO HSPRN PRN anxiety 06/17/25 07/04/25 History
azelastine 137 mcg (0.1 %) nasal 1 spray intranasal DAILYPRN PRN 06/17/25 07/04/25 History
spray allergies/runny nose
polyethylene glycol 3350 17 gram 17 g PO DAILYPRN PRN constipation 06/17/25 07/04/25 History
oral powder packet
valsartan 160 mg tablet 160 mg PO DAILY Heart 06/19/25 07/04/25 Rx
disease/condition #30 tabs
clopidogrel 75 mg tablet 75 mg PO DAILY Blood clot 06/23/25 07/04/25 Rx
prevention/tx #30 tabs
potassium chloride 20 mEq 20 meq PO BID 07/04/25 07/04/25 History
tablet,extended release
rosuvastatin 10 mg tablet 40 mg PO DAILY High cholesterol 07/04/25 07/04/25 History
Review of Systems
-
History Source: Patient
All other systems: Negative unless noted
Physical Exam
Vital Signs
Temp Pulse Resp BP Pulse Ox
97.8 F 95 16 137/62 94
07/04/25 09:59 07/04/25 16:00 07/04/25 16:00 07/04/25 14:00 07/04/25 15:30
GEN: NAD. AAOx3
HEENT: EOMI, MMM
LUNGS: RA. CTA B/L, no wheeze
CV: SR on telemetry. Reg, no murmur
ABD: ND
EXT: No edema B/L LE
NEURO: Gross non-focal
SKIN: No rash
Lab Results
07/04/25 10:30
07/04/25 10:29
Isf-J-Uasdmxhyrrs Pept 550 pg/ml 07/04/25 10:30
Impression / Plan
-
PCP: Paul Torres
Retail Sales Merchandiser: [facility] S[facility]. Did see Inocencio Darby at [place] for second opinion
Initially seen at [facility] by Dr. Briggs 03/22/25
Impression:
Admitted with recurrent weakness 07/04/2025
Recent admission for elective TAVR 06/23/2025 until 06/24/2025
Recent admission for suspected multifactorial fatigue and malaise 06/17/2025 until 06/19/2025
Recent admission for acute HF and severe 06/04/2025 until 06/07/2025
Recent admission for recurrent chest pain, acute HF and severe 05/28/2025 until 05/31/2025
Recent admission for chest pain and eventually left AMA 05/22/2025 until 05/23/2025
s/p 23 mm Medtronic Evolut Pro+ valve via left femoral artery TAVR for severe 06/23/2025
CAD with NSTEMI and 3.0 mm Xience CHARLES to the mid circumflex into the OM 2 jailing OM1 05/29/2025
Trace MR with evidence of torn chordae by echo 05/22/2025/ CM 06/06/25
CM 06/06/2025 confirms likely torn and calcified chordae P2 with otherwise only mild MR
HTN
Hyperlipidemia
RBBB
Previous statin intolerance, but currently tolerating Crestor
GERD
Obstructive sleep apnea
Polymyalgia rheumatica on chronic methylprednisolone therapy
History of UTI
Varicose veins
History of pulmonary embolus related to surgery
Echo 03/18/2022: Normal LV size and function. Mild concentric LVH. Aortic calcification with no significant stenosis.
Echo 12/10/2023: EF 65 to 70%. Concentric LVH. Moderate aortic stenosis with peak/mean gradient 49/25 mmHg, AVR 1.22 cm�.
Echo 12/14/2024 (Rashad): EF 65 to 70%. Mild concentric LVH. Mitral valve thickening without significant stenosis. Moderate aortic stenosis with peak/mean gradient 57/30 mmHg and JUVENCIO 1.3 cm�. Mild AI.
Echo 05/23/2025: EF 70 to 75%, no WMA, severe with peak/mean 57/34 mmHg, mild aortic regurgitation
Echo 05/30/2025: EF 70 to 75%, trace MR with evidence of torn chordae
CM 06/06/25: EF 60-65%, + likely torn calcified chord at P2, mild MR, moderate to severe
Plan:
-Patient came to the ER from home today with reports of feeling weak and tired and was admitted for workup of possible infection and cardiology is consulted given recent TAVR placement. This is the patient's sixth admission to the hospital in the
last 2 months. Patient follows with a tube cleaning operator at [facility], but does not like the hospital her tube cleaning operator is associated with and prefers the care she receives at [facility] and patient elected to have TAVR workup and
eventually TAVR procedure here on 06/23/2025. During patient's admissions from 06/04/2025 until 06/07/2025 and again 06/17/2025 until 06/19/2025 I talked with her partner, Panchito, both times and related concerns that patient's symptoms of fatigue and
malaise might not be due to severe alone. Patient would complain of SOB with activity, but pulse ox would be normal without evidence of acute HF.
-ECG reviewed by me is SR with incomplete RBBB that is chronic
-Patient has complaints of feeling generally weak and tired, she also has suprapubic discomfort and grabs at her suprapubic area that she is having discomfort there with movement. Patient was treated for E. coli UTI during her admission from
06/17/2025 until 06/19/2025, this was treated with 3 days of Keflex. UA is abnormal again now.
-From a cardiac standpoint, follow-up echo to assess TAVR was completed on 07/04/2025 and report is pending.
-Patient is here for her sixth admission since May, one of her admissions was for chest pain and she left AMA, she later returned and consented to cath where she had PCI and other admissions were for malaise and fatigue. It was not clear that
her malaise and fatigue were related to her severe and this was relayed to the patient and her partner at that time. With her ongoing symptoms of malaise and fatigue despite successful TAVR we continue to suspect that her symptoms are noncardiac.
-Patient had successful PTCA and stenting of the mid circumflex into the OM 2 with a 3 mm Xience CHARLES that jailed the OM1 05/29/25. Outpatient doses of aspirin and Plavix should be continued.
-LDL was 66 when it was checked on 05/23/2025 and on repeat check 05/30/2025 it was 93 despite her usual dose of rosuvastatin 10 mg daily being continued, so Crestor was increased to 40 mg daily. Will need repeat lipid profile in 08/2025.
-Continue Toprol-XL to 12.5 mg daily, dose was previously lowered due to sinus bradycardia
-Outpatient dose of valsartan 160 mg daily should be continued
--- NOTE | 2025-07-04 17:48 | W.PN.UPDATE ---
Update Note
Progress Note Update
Patient was seen and bilateral groins were assessed. They appear to be well-healed. Echocardiogram that was performed in the emergency room was reviewed. 23 mm Medtronic Evolut transcatheter aortic valve replacement present. Valve appears
well-seated. Peak/mean transaortic gradients of 14/6 mmHg. no valvular or paravalvular regurgitation. Continue infectious workup.
[2025-07-04 17:55] LABS: Lipase 84 U/L (23-300)
[2025-07-04] MEDS: TOPROL XL 12.5 MG PO (17:57)
[2025-07-04] MEDS: PLAVIX 75 MG PO (17:57)
[2025-07-04] MEDS: MEDROL 4 MG PO (17:57)
[2025-07-04] MEDS: ASPIR LOW (ENTERIC COATED) 81 MG PO (17:57)
[2025-07-04] MEDS: NSS 1000 IV (17:58)
[2025-07-04] MEDS: CARAFATE 1 GRAM PO (17:58)
[2025-07-04] MEDS: OMNIPAQUE 480 ML PO (17:59)
--- NOTE | 2025-07-04 18:29 | PTCARENOTE ---
Received pt ER into 2247. Pt is AAOx3 anxious SR on the monitor VSS. Pt ordered CT abdomen contrast started @ 1800. NSS @ 100 ml/HR. POC discussed with pt. Call rosales within reach
[2025-07-04] MEDS: CRESTOR 10 MG PO (20:04)
[2025-07-04] MEDS: NSS (PRESERVATIVE FREE) 10 ML IV (20:04)
[2025-07-04] MEDS: XANAX 0.25 MG PO (20:05)
[2025-07-04] MEDS: HEPARIN 5000 UNITS SC (20:06)
--- NOTE | 2025-07-04 23:29 | PTCARENOTE ---
Received pt at change of shift resting in bed. SR-ST on tele, HR 70's-100's. pt c/o anxiety and states 'they need to knock me out or I'm going to jump out the window' and 'I would be better off at home.' Reached out to Moira Brown NP. Order
for Xanax entered, administered per order--see MAR. pt not able to drink full cup of contrast, CT scan aware and okay to go forward. pt brought down to CT scan via w/c and tolerated well. pt verbalizes feeling calm and less anxious at this time,
resting comfortably in bed. Encouraged pt to call RN for assistance ambulating, pt calls appropriately, call rosales within reach.
[2025-07-05] VITALS (8 sets, daily range): BP systolic 100–137; BP diastolic 51–89; PULSE 88; O2SAT 97; BMI 25.4
[2025-07-05] MEDS: NSS 1000 IV (03:48)
[2025-07-05 04:13] LABS: Hematocrit 30.2 % (37.0-47.0); Hemoglobin 9.8 g/dL (12.0-16.0); Mean Corp Hgb Conc. 32.5 g/dL (33.0-37.0); Mean Corpuscular Volume 81.8 fL (81.0-99.0); Nucleated Red Blood Cells % 0 %; Platelet Count 287 10^3/uL (130-400); Red Cell Dist. Width 16.1 % (11.5-14.5)
[2025-07-05 04:14] LABS: ALT (SGPT) 18 U/L (0-35); AST (SGOT) 23 U/L (14-36); Albumin 3.0 g/dl (3.5-5.0); Alkaline Phosphatase 57 U/L (38-126); Blood Urea Nitrogen 26 mg/dl (7-17); Calcium 8.4 mg/dl (8.4-10.2); Carbon Dioxide 22 mmol/L (22-30); Chloride 110 mmol/L (98-107); Estimated Creatinine Clearance 25 ml/min; Glucose 101 mg/dl (70-99); Magnesium 1.9 mg/dl (1.6-2.3); Potassium 4.8 mmol/L (3.5-5.1); Sodium 135 mmol/L (135-145); Total Protein 5.3 g/dl (6.3-8.2); eGFR 41.57
[2025-07-05 04:45] LABS: Cortisol, Random 1.2 ug/dl
[2025-07-05 05:34] LABS: Hematocrit 30.5 % (37.0-47.0); Hemoglobin 9.7 g/dL (12.0-16.0); Mean Corp Hgb Conc. 31.8 g/dL (33.0-37.0); Mean Corpuscular Volume 82.4 fL (81.0-99.0); Nucleated Red Blood Cells % 0 %; Platelet Count 298 10^3/uL (130-400); Red Cell Dist. Width 16.1 % (11.5-14.5)
--- NOTE | 2025-07-05 06:14 | W.PN.UPDATE ---
Update Note
Progress Note Update
hgb level dropped from 12.7 to 9.8 this am. Repeated hgb to confirm is 9.7. dilutional drop?? Vital signs within baseline. Will check hemetest and monitor hgb level.
--- NOTE | 2025-07-05 07:07 | PTCARENOTE ---
AM labs obtained. Hgb resulted as 9.8, previously 12.7. Moira Brown, AREA COORDINATOR made aware. Instructed RN to redraw CBC. Obtained redraw, resulted as 9.7. AREA COORDINATOR made aware. Hemetest stools ordered.
--- NOTE | 2025-07-05 07:13 | W.PN.HOSP.TC ---
Addendum entered and electronically signed by Danii Cuevas MD 07/05/25 14:52:
I saw and evaluated the patient independently. I reviewed and discussed the resident�s note and agree with findings and plan as documented by Dr. Cruz.
GENERAL: well developed, well nourished, female in no apparent distress--more cooperative today
HEENT: NC/AT--no O2 requirements
HEART: regular rate and rhythm, +S1, +S2, JAMES
LUNGS: clear to auscultation bilaterally
ABDOM: soft, tender midepigastrium and bilateral lower quadrants, nondistended, + bowel sounds
EXT: no cyanosis, clubbing, or edema
NEUROLOGIC: grossly intact
Possible sepsis with end organ effects (Weakness, possible altered mental status, hypotension responded to IVF)--hx of recurrent UTIs--likely cause is another UTI--UA positive for nitrites, leukocyte esterase and moderate bacteria--dehydration and
poor PO intake could be contributing--hold diuretics--pro BNP 550--in fact, give gentle IVF-- blood cultures negative--urine culture with gm neg bacilli--ECHO no change from 06/23--cards and CT surgery consults apprec--OBS
Abdominal pain, nausea- epigastric and suprapubic--pt better after BM--CT scan a/p with possibly cystic lesion of the tail of the pancreas, INDETERMINATE, particularly without intravenous contrast--Likely diffuse fatty liver with 11-12 mm right lobe
relative slightly high attenuation lesion, INDETERMINATE on this study without intravenous contrast--will need outpt MRI to further workup
adrenal insufficiency may present with nausea (she is on chronic steroids and does she need stress dose?)-- she is not hyperkalemic at this time- EKG showed no signs of ischemia --lipase 84, cont protonix IV BID, carafate--random cortisol 1.2--STIM
test in AM
Severe aortic stenosis s/p TAVR 10 days prior to admission/HFpEF--doubt acute exacerbation--cont asa/plavix, metoprolol XL, ECHO--cards, CT surg- hold furosemide, given initial BP 89/61- consider restarting valsartan, given initial BP 89/61
Polymyalgia rheumatica- continue her home methylprednisolone 4mg for now--may need stress dose steroids--will need STIM test
Essential HTN- hold valsartan given hypotension on presentation
HLD- continue rosvustatin
GERD- hold home PO PPI- pantoprazole IV 40mg bid
LUC- does not require CPAP- monitor VS
Code status-- Full code
DVT proph-- subq heparin
I have serious concerns that the patient has dementia as her answers all questions for her despite me directing them to her he jumps in to answer. She does not know the medication she takes. She does not know why she had the TAVR. After
her left, she threatened to leave the hospital AGAINST MEDICAL ADVICE. Consulting psychiatry for capacity. Await input.
Original Note:
Today's Communication/Plan
-
- ceftriaxone
- f/u UA and blood cultures
- ACTH stimulation testing for 07/06 morning
Assessment / Plan
Assessment / Plan
In summary, 80 yo F PMH severe aortic stenosis s/p TAVR 06/2025, polymyalgia rheumatica, CAD, HTN, HLD, HFpEF, GERD, RBBB, LUC no CPAP required p/w weakness currently most concerning for UTI, adrenal insufficiency
UTI
Weakness
Reported altered mental status/encephalopathy vs. dementia
Leukocytosis
- UA c/w UTI, prelim culture gram negative bacilli
- UTI can cause weakness and altered mental status
- Cr improved to 1.1 (baseline appears to be 1.0)
- WBC to 14-15, though she tends to hover around 14-15 in prior admissions
- reports that the patient was behaving slightly more confused as well; however, during admission intake, was answering most if not all questions
- this has raised concern for whether the patient has underlying dementia, which confounds the assessment of patient's mental status in the acute setting
Plan:
- f/u urine culture
- Blood cultures pending
- ceftriaxone 1000mg q24h
- f/u psychiatry for capacity evaluation
- PT/OT consulted
Adrenal insufficiency
Weakness
- cortisol 1.2 at 4AM is significantly lower than expected
- raising concern for adrenal insufficiency, can explain generalized weakness
- Electrolytes are within normal limits
Plan:
- ACTH stimulation testing for 07/06/2025 8AM
- Please measure serum cortisol and ACTH prior to administering ACTH stimulation
- Then re-measure serum cortisol at 30min and 60min post
- If the patient develops hypotension, please administer empiric hydrocortisone
Abdominal pain, nausea
- this morning abdominal exam largely unremarkable for me
- patient reports that she had a bowel movement
- lipase within normal limits
- CT A/P largely no evidence for acute abdominal process (recommended elective MRI, can be done outpatient)
- etiology could be constipation
Plan:
- pantoprazole IV 40mg bid
- prn bowel regimen (sucralfate, sennakot-s, miralax, dulcolax) available
Severe aortic stenosis s/p TAVR
HFpEF
- she had pre-TAVR stent placed in 06/2025
- echocardiogram within normal limits
- CT surgery at bedside this morning, and from CTS standpoint, heart valve is okay
- continue aspirin, clopidogrel
- continue metoprolol succinate
- holding furosemide and valsartan given rise in Cr
Polymyalgia rheumatica
- continue her home methylprednisolone 4mg for now
Acute anemia likely dilutional
- Hgb drop to 9.7, but stable on repeat Hgb to 10.2
- all 3 cell lines dropped
- denies symptoms of blood loss
- VSS
- monitor CBC
HTN
- holding furosemide and valsartan given rise in Cr
- monitor VS
HLD
- rosuvastatin 10mg because CrCl limits 40mg dose
GERD
- hold home PO PPI
- pantoprazole IV 40mg bid
LUC
- does not require CPAP
- monitor VS
Dispo: pending clinical workup, but to home
Code status: Full
DVTppx: subq heparin
Anticipated Discharge: 24 - 48 hours
Subjective/Interval History
-
Date of Service: July 05, 2025
hgb drop (all 3 cell lines); stable
nurse says she was a little anxious, received alprazolam once
denies palpitations or chest pain
Objective Data
-
Labs:
Laboratory Results
07/05/25 07/05/25
03:36 05:21
WBC 14.2 H 13.4 H
Hgb 9.8 L D 9.7 L
Hct 30.2 L 30.5 L
Plt Count 287 D 298
Sodium 135
Potassium 4.8
Chloride 110 H
Carbon Dioxide 22
BUN 26 H
Creatinine 1.3 H
Glucose 101 H
Calcium 8.4 D
Total Bilirubin 0.5
AST 23
ALT 18
Alkaline Phosphatase 57
Hgb 12.7 -> 9.8 -> 9.7 -> 10.2
all 3 cells lines did drop
On recheck at 10:34AM labs, Hgb 10.2
Cr hira from 1.2 -> 1.3 -> 1.1 (100 cc/hr NS; 59kg weight)
4am cortisol of 1.7
TSH 4.18
lipase 84
UA is moderate bacteria, 1+ leukocyte esterase; positive nitrite, 2+ albumin
culture pending
blood culture pending
CT A/P w oral contrast only 07/04/2025
There is mild pericardial thickening, cannot exclude tiny pericardial effusion. TAVR is noted.
IMPRESSION:
Limited evaluation without intravenous contrast.
Likely diffuse fatty liver with 11-12 mm right lobe relative slightly high attenuation lesion, INDETERMINATE on this study without intravenous contrast
Prior sigmoid anastomosis, grossly unremarkable. No intestinal obstruction, right lower quadrant inflammatory changes or free air.
Prior cholecystectomy.
Suspected 1.5 cm low-attenuation possibly cystic lesion of the tail of the pancreas, INDETERMINATE, particularly without intravenous contrast.
Consider elective MRI for more complete evaluation of right lobe hepatic and suspected pancreatic tail lesion.
Echocardiogram 07/03/2025
SUMMARY
1. Limited follow-up 2D echocardiogram.
2. Vigorous left ventricular systolic function with LV ejection fraction visually estimated 60-65%.
3. Normal RV size and systolic function.
4. 23 mm Medtronic Evolut transcatheter aortic valve replacement present. Valve appears well-seated. Peak/mean transaortic gradients of 14/6 mmHg. no valvular or paravalvular regurgitation.
5. Mild mitral stenosis with mean mitral valve gradient 6 mmHg and dense mitral annular calcification. Trace mitral regurgitation. Mobile echodensity consistent with previously known torn chordae tendinae.
6. No pericardial effusion.
7. Compared to prior study dated 06/23/2025, small pericardial effusion not present. Otherwise no significant change.
Vital Signs:
Vital Signs
Temp Pulse Resp BP Pulse Ox
97.8 F 75 18 112/66 96
07/05/25 03:30 07/05/25 07:00 07/05/25 03:30 07/05/25 03:30 07/05/25 03:30
I&O
07/04/25 07/05/25 07/06/25
06:59 06:59 06:59
Intake Total 1490 / 1490
Output Total 100 / 100
Balance 1390 / 1390
Review of Systems
-
Constitutional: Reports Fatigue
Respiratory: Reports No Symptoms
Cardiac: Reports No Symptoms
Abdomen/GI: Reports No Symptoms
Genitourinary: Reports No Symptoms
Neuro: Reports No Symptoms
Physical Exam
-
General: Conversant
HEENT: Normocephalic
Respiratory: Clear to Auscultation
Cardiac: Other (murmur at erbs point)
GI: Soft, Nontender, Nondistended and Normal Bowel Sounds
Musculoskeletal: No Edema
Neuro: AO x 3, No Motor Deficits and Nonfocal/Grossly Intact
Psych: Calm
--- NOTE | 2025-07-05 08:14 | CM ---
Late note; patient seen in ED 07/04 with physicians. Patient also present. Patient stated that patient lives with him in a 2 story home with first floor set up. Patient has a walker, cane and wheelchair but is not using any of the
DME. Patient PCP is Dr. Walter and she uses the [facility] in [place]. Patient stated she wanted to sign AMA after left to feed the dogs at home. Patient had a visit from the [facility] nurse for 1x after her recent TAVR. CM will continue to
follow for discharge planning needs.
Plan; pending medical treatment plan
[2025-07-05] MEDS: TOPROL XL 12.5 MG PO (08:39)
[2025-07-05] MEDS: PLAVIX 75 MG PO (08:39)
[2025-07-05] MEDS: MEDROL 4 MG PO (08:39)
[2025-07-05] MEDS: HEPARIN 5000 UNITS SC ×2 (08:39→20:42)
[2025-07-05] MEDS: CRESTOR 10 MG PO (08:39)
[2025-07-05] MEDS: ASPIR LOW (ENTERIC COATED) 81 MG PO (08:39)
[2025-07-05] MEDS: PROTONIX IV 40 MG IV ×2 (08:48→20:42)
[2025-07-05] MEDS: NSS (PRESERVATIVE FREE) 10 ML IV ×2 (08:48→20:50)
--- NOTE | 2025-07-05 10:24 | CM ---
Reviewed chart. Met with Mrs. Bolton to review discharge plans. She states prior to admission she resides with her spouse in a two story home without any steps to enter. She states she has a first floor set-up. She states prior to admission she
was independent with ambulation and adls. She states single point cane, walker and wheelchair at home, but currently not using any DME. She states she has a prescription plan with [employer] and uses [facility] The discharge plan is to return
home with her spouse when medically stable.
--- NOTE | 2025-07-05 10:47 | PTCARENOTE ---
Assumed care of the pt @ 0700. Pt is AAOx3 forgetful and anxious @ times. SR on the monitor VSS. POC discussed with pt who verbalized understanding. Pt was a standby assist using a rolling walker to the bathroom. Call [facility]sales within reach. IVF on hold
for now
[2025-07-05 10:53] LABS: Hematocrit 31.9 % (37.0-47.0); Hemoglobin 10.2 g/dL (12.0-16.0); Mean Corp Hgb Conc. 32.0 g/dL (33.0-37.0); Mean Corpuscular Volume 83.5 fL (81.0-99.0); Platelet Count 305 10^3/uL (130-400); Red Cell Dist. Width 16.1 % (11.5-14.5)
[2025-07-05 11:14] LABS: Blood Urea Nitrogen 26 mg/dl (7-17); Calcium 8.4 mg/dl (8.4-10.2); Carbon Dioxide 24 mmol/L (22-30); Chloride 111 mmol/L (98-107); Estimated Creatinine Clearance 29 ml/min; Glucose 105 mg/dl (70-99); Potassium 3.8 mmol/L (3.5-5.1); Sodium 137 mmol/L (135-145); eGFR 50.80
[2025-07-05] MEDS: STERILE WATER FOR INJECTION 10 ML IV (11:58)
[2025-07-05] MEDS: ROCEPHIN 1000 MG IV (11:58)
--- NOTE | 2025-07-05 18:02 | W.PN.UPDATE ---
Update Note
Progress Note Update
patient seen chart reviewed. this consult was done today jul 05 2025. patient is an 80 year old woman who recently underwent tavr procedure for aortic stenosis. she was dc shortly before tg. she did okay for a few days then she and partner noted
she was weak, easily fatigued, appetite was decreased, some sob. on admit bp noted to be decreased w tachycardia. she was found to have uti. bun elevated cr sl high today 1.1. found to have uti and being rx w rocephin. this consult ordered for
capacity. the patient was very pleasant and appropriately interactive. she was fully oriented. she could tell me she had had recent surgery to repair her heart . she could not tell me exactly why and what exactly was done but when i explained it
to her she could understand . she could tell me why she was here right now and that her partner of twenty plus years had been very concerned about her health. she told me she felt she had become deconditioned in recent months and she felt she needed
to get physical therapy to get back in shape. she was able to fill me in on other details of her life. the of her . over 20 years ago. how the relationship started with evelyn her partner. they are not bc if she remarries she
loses her pension and she 'might need it...you never know.' she has no hx of depression or anxiety. 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 she enjoys being 'with the girls'. she adds that her mom maintained
a job until she was [age] a couple of days weekly.
past psych none
medical hx patient w recent tavr see above.recurrent uti current rx w antibiotic. hx polymyalgia rheumatica rx with chronic steriods. hx gerd cad htn hld diverticulitis wicoh. urine culture + mild anemia 10.2 hgb cr 1.1 bun 26 bp 101/89
substance abuse denied
fh denied
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 has friends grew up in [place]. good childhood grew up with a strong sense of her mal[place]
heritage which she is very proud of.
mse alert xo3 cooperative pleasant speech and thought process nl no psychosis mood is euthymid affect ok no si aver intelligence insight judgment ok
dx patient may have had delirium from underlying uti plus other medical but currently she appears NOT to be in delirious state
recommendations patient has capacity for medical decision making. i would suggest at this point that she is in need of some physical therapy for reconditioning. my sense is that her uti, cardiac incapacity (which has now been to an extent
remedied) mild anemia have caused her to be rather weak and out of shape. not to mention pain from polymyalgia. we discussed the need for her to start to be active again with the help of PT. also discussed good urinary hygiene prevent uti and
importance of fluid intake. she admits she does not consume much liquid in general . psych will sign off.
[2025-07-05] MEDS: XANAX 0.25 MG PO (21:38)
[2025-07-06] VITALS (8 sets, daily range): BP systolic 103–147; BP diastolic 56–93; PULSE 98; O2SAT 98
[2025-07-06 05:14] LABS: Hematocrit 27.4 % (37.0-47.0); Hemoglobin 9.0 g/dL (12.0-16.0); Mean Corp Hgb Conc. 32.8 g/dL (33.0-37.0); Mean Corpuscular Volume 79.9 fL (81.0-99.0); Platelet Count 268 10^3/uL (130-400); Red Cell Dist. Width 15.9 % (11.5-14.5)
[2025-07-06 05:36] LABS: Blood Urea Nitrogen 21 mg/dl (7-17); Calcium 8.6 mg/dl (8.4-10.2); Carbon Dioxide 24 mmol/L (22-30); Chloride 113 mmol/L (98-107); Estimated Creatinine Clearance 40 ml/min; Glucose 98 mg/dl (70-99); Potassium 3.7 mmol/L (3.5-5.1); Sodium 138 mmol/L (135-145); eGFR > 60.00
--- NOTE | 2025-07-06 07:14 | W.PN.HOSP.TC ---
Addendum entered and electronically signed by Danii Cuevas MD 07/06/25 14:37:
I saw and evaluated the patient independently. I reviewed and discussed the resident�s note and agree with findings and plan as documented by Dr. Cruz.
GENERAL: well developed, well nourished, female in no apparent distress, much more lucid
HEENT: NC/AT--no O2 requirements
HEART: regular rate and rhythm, +S1, +S2, JAMES
LUNGS: clear to auscultation bilaterally
ABDOM: soft, nontender, nondistended, + bowel sounds
EXT: no cyanosis, clubbing, or edema
NEUROLOGIC: grossly intact
sepsis with encephalopathy and other end organ effects (Weakness, possible altered mental status, hypotension responded to IVF)--likely due to gm neg UTI (identification not back but pt had E. coli 06/19/25) --has hx of recurrent UTIs- blood
cultures negative--urine culture with gm neg bacilli--ECHO no change from 06/23--cards and CT surgery consults apprec--OBS
Adrenal insufficiency--STIM test shows no appropriate response--will d/c methylprednisolone and start hydrocortisone 20 mg in AM and 10 mg in PM instead--I suspect pt needed stress dose steroids for her TAVR surgery and did not receive them so
fatigue and exhaustion due to this
Abdominal pain, nausea- epigastric and suprapubic--pt better after BM--CT scan a/p with possibly cystic lesion of the tail of the pancreas, INDETERMINATE, particularly without intravenous contrast--Likely diffuse fatty liver with 11-12 mm right lobe
relative slightly high attenuation lesion, INDETERMINATE on this study without intravenous contrast--will need outpt MRI to further workup--instructions placed on d/c forms
Severe aortic stenosis s/p TAVR 10 days prior to admission/HFpEF--doubt acute exacerbation--cont asa/plavix, metoprolol XL, ECHO OK--apprec cards, CT surg- held furosemide, given initial BP 89/61- restart all home meds at d/c
Polymyalgia rheumatica- change methylprednisolone 4mg to hydrocortisone as above
Essential HTN- hold valsartan given hypotension on presentation
HLD- continue rosvustatin
GERD- hold home PO PPI- pantoprazole IV 40mg bid
LUC- does not require CPAP- monitor VS
Code status-- Full code
DVT proph-- subq heparin
mental status much improved with UTI treatment--cont keflex for 7 more days
Original Note:
Today's Communication/Plan
-
- f/u ACTH stim test
- possible discharge today, will transition to PO abx and depending on stimulation results, may need to adjust steroid doses
Assessment / Plan
Assessment / Plan
In summary, 80 yo F PMH severe aortic stenosis s/p TAVR 06/2025, polymyalgia rheumatica, CAD, HTN, HLD, HFpEF, GERD, RBBB, LUC no CPAP required p/w weakness currently most concerning for UTI, adrenal insufficiency
Possible sepsis from UTI with encephalopathy
Weakness
Reported altered mental status/encephalopathy vs. dementia
Leukocytosis
- UA c/w UTI, prelim culture gram negative bacilli
- UTI can cause weakness and altered mental status
- WBC improving
- Cr improved to 1.1 (baseline appears to be 1.0)
- WBC to 14-15, though she tends to hover around 14-15 in prior admissions
- reports that the patient was behaving slightly more confused as well; however, during admission intake, was answering most if not all questions
- this has raised concern for whether the patient has underlying dementia, which confounds the assessment of patient's mental status in the acute setting
- psych thinks possible delirium but no longer altered
Plan:
- f/u urine culture
- Blood cultures no growth in 24h
- ceftriaxone 1000mg q24h, today is day 2
- PT/OT consulted - dispo is home with VN
Adrenal insufficiency
Weakness
- cortisol 1.2 at 4AM is significantly lower than expected
- raising concern for adrenal insufficiency, can explain generalized weakness
- Electrolytes are within normal limits
Plan:
- ACTH stimulation testing for 07/06/2025 8AM
Abdominal pain, nausea
- this morning abdominal exam largely unremarkable for me
- patient reports that she had a bowel movement
- lipase within normal limits
- CT A/P largely no evidence for acute abdominal process (recommended elective MRI, can be done outpatient)
- etiology could be constipation
Plan:
- pantoprazole IV 40mg bid
- prn bowel regimen (sucralfate, sennakot-s, miralax, dulcolax) available
Severe aortic stenosis s/p TAVR
HFpEF
- she had pre-TAVR stent placed in 06/2025
- echocardiogram within normal limits
- CT surgery at bedside this morning, and from CTS standpoint, heart valve is okay
- continue aspirin, clopidogrel
- continue metoprolol succinate
- holding furosemide and valsartan given rise in Cr
- will resume valsartan upon discharge per cardiology note from 07/04.
Polymyalgia rheumatica
- continue her home methylprednisolone 4mg for now
Acute anemia likely dilutional
- Hgb drop to 9.7, but stable on repeat Hgb to 10.2
- all 3 cell lines dropped
- denies symptoms of blood loss
- VSS
- monitor CBC
HTN
- will resume valsartan upon discharge
- monitor VS
HLD
- rosuvastatin 10mg because CrCl limits 40mg dose
- increase to full dose rosuvastatin today
GERD
- hold home PO PPI
- pantoprazole IV 40mg bid
LUC
- does not require CPAP
- monitor VS
Dispo: pending clinical workup, but to home with VN
Code status: Full
DVTppx: subq heparin
Anticipated Discharge: Within 24 hours
Subjective/Interval History
-
Date of Service: July 06, 2025
appears well, sitting over side of bed
able to endorses that she had a 'heart procedure'
denies dysuria or urgency, abdominal pain
Objective Data
-
Labs:
Laboratory Results
07/06/25
05:06
WBC 11.3 H
Hgb 9.0 L
Hct 27.4 L
Plt Count 268
Sodium 138
Potassium 3.7
Chloride 113 H
Carbon Dioxide 24
BUN 21 H
Creatinine 0.8
Glucose 98
Calcium 8.6
WBC 14 -> 11.3
Vital Signs:
Vital Signs
Temp Pulse Resp BP Pulse Ox
98.7 F 84 20 120/56 98
07/06/25 07:11 07/06/25 06:00 07/06/25 07:11 07/06/25 03:01 07/06/25 07:11
I&O
07/05/25 07/06/25 07/07/25
06:59 06:59 06:59
Intake Total 1490 / 1490 240 / 240
Output Total 100 / 100
Balance 1390 / 1390 240 / 240
Review of Systems
-
Constitutional: Reports Fatigue
Respiratory: Reports No Symptoms
Cardiac: Reports No Symptoms
Abdomen/GI: Reports No Symptoms
Genitourinary: Reports No Symptoms
Neuro: Reports No Symptoms
Physical Exam
-
General: Conversant
HEENT: Normocephalic
Respiratory: Clear to Auscultation
Cardiac: Other (murmur at erbs point)
GI: Soft, Nontender, Nondistended and Normal Bowel Sounds
Musculoskeletal: No Edema
Neuro: AO x 3, No Motor Deficits and Nonfocal/Grossly Intact
Psych: Calm
[2025-07-06] MEDS: PROTONIX IV 40 MG IV (08:34)
[2025-07-06] MEDS: ASPIR LOW (ENTERIC COATED) 81 MG PO (08:35)
[2025-07-06] MEDS: NSS (PRESERVATIVE FREE) 10 ML IV (08:35)
[2025-07-06] MEDS: HEPARIN 5000 UNITS SC (08:35)
[2025-07-06] MEDS: MEDROL 4 MG PO (08:35)
[2025-07-06] MEDS: PLAVIX 75 MG PO (08:35)
[2025-07-06] MEDS: TOPROL XL 12.5 MG PO (08:35)
[2025-07-06] MEDS: CRESTOR 10 MG PO (08:35)
--- NOTE | 2025-07-06 09:48 | PTCARENOTE ---
Patient received at change of shift sitting at the edge of the bed eating breakfast. Anxious regarding labwork for ACTH levels. Patient initially refusing testing but is now agreeable to have it done. VAT team RN in to draw first set of labs. The
patient reports RUE pain where she has a large bruise, no swelling or redness noted. Declined ice pack, reports that she does not know where the bruise came from and that the pain is acceptable at this time. SR on telemetry. SaO2 on RA 87-99%. Call
[facility]ales within reach. Plan of care discussed. Care ongoing.
[2025-07-06 10:36] LABS: ACTH Stim Cortisol 0 Min 2.6 ug/dl
[2025-07-06] MEDS: CORTROSYN 0.25 MG IV (10:39)
[2025-07-06] MEDS: NSS (PRESERVATIVE FREE) 1 ML IV (10:39)
[2025-07-06] MEDS: ROCEPHIN 1000 MG IV (11:02)
[2025-07-06] MEDS: CARAFATE 1 GRAM PO (11:02)
[2025-07-06] MEDS: STERILE WATER FOR INJECTION 10 ML IV (11:02)
--- NOTE | 2025-07-06 11:58 | CM ---
Reviewed chart and with attending physician regarding discharge plans. Met with Mrs. Bolton to review discharge plans. She states she maybe able to home soon. We reviewed [facility] Services and she is agreeable to VNA Services. She has selected
[facility]. Telephone call to [facility] to make the referral. Sent referral. Reviewed chart. Prior to admission she resides with her spouse in a two story home without any steps to enter. She has a first floor set-up. Prior
to admission she was independent with ambulation and adls. She has a single point cane, walker and wheelchair at home, but currently not using any DME. Physical and Occupational therapy evaluations pending. She has a prescription plan with [employer]
and uses [facility] The discharge plan is to return home with her spouse and [facility] when medically stable.
[2025-07-06 12:34] LABS: ACTH Stim Cortisol 30 Min 8.7 ug/dl
[2025-07-06 13:08] LABS: ACTH Stim Cortisol 60 Min 11.1 ug/dl
--- NOTE | 2025-07-06 15:17 | W.DCSUMMARY ---
Addendum entered and electronically signed by Danii Cuevas MD 07/07/25 07:07:
Read, reviewed, and agree. See same day progress note for additional details. Time spent coordinating care, DC planning, review of DC plan of care with resident, transition of care, review of records in EMR, med rec, consults, notes, d/w
consultants, nursing, family, and CM = 38 minutes
I called and updated her partner/ Panchito re: findings and d/c plan.
Original Note:
Discharge Summary
Discharge Data
Date of Admission: 07/04/25
Date of Discharge: 07/06/25
-
Pending Results: Yes
Additional Pending Results:
follow-up urine culture and sensitivities
Hospital Course
Discharging Physician : Dr. Danii Cuevas; Dr. Narciso Cruz
Disposition : Home with VN
Primary care physician : Paul Torres
Principal Discharge diagnosis : Possible sepsis from UTI with encephalopathy, adrenal insufficiency
Chronic Discharge diagnosis : severe aortic stenosis s/p TAVR, HFpEF, polymyalgia rheumatica, essential HTN, HLD, GERD, LUC not requiring CPAP
Hospital Course :
80 yo F PMH severe aortic stenosis s/p TAVR 06/2025, polymyalgia rheumatica, CAD, essential HTN, HLD, HFpEF, GERD, RBBB, LUC no CPAP required p/w weakness of 3-4 days duration and subsequently found to have a positive UTI currently with culture
growing gram negative rods. She denies any dysuria or symptoms, but endorsed some abdominal pain. It was also noted that she experienced possible altered mental status in addition to weakness and hypotension, which raised the concern for possible
sepsis with end organ dysfunction from the UTI. During the intake encounter, the was answering most of the questions, suggesting that the patient may have possible underlying dementia. Psychiatry was consulted and believes it may be a
delirious/altered mental state and endorses that the patient has capacity.
While being worked up, given her history of polymyalgia rheumatic and recent surgical operation, there was concern for whether she was in a state of adrenal insufficiency. A low random cortisol followed by ACTH stimulation testing confirmed adrenal
insufficiency. As such her home methylprednisolone is being adjusted to hydrocortisone upon discharge, details below.
Follow-up urine culture and sensitivities will be tracked and if any antibiotic adjustments are needed, they will be made at that time. She received 2 doses of ceftriaxone and is discharged on an additional 7 days of cephalexin.
The following problems were addressed during this admission.
Possible sepsis from UTI with encephalopathy
- Reported altered mental status/encephalopathy vs. dementia; likely combination of both
- UA c/w UTI, prelim culture gram negative bacilli
- UTI can cause weakness and altered mental status
- Leukocytosis: WBC improving
- Cr improved to 0.8 (baseline appears to be 1.0)
- reports that the patient was behaving slightly more confused as well; however, during admission intake, was answering most if not all questions
- this has raised concern for whether the patient has underlying dementia, which confounds the assessment of patient's mental status in the acute setting
- psych thinks possible delirium but no longer altered
Plan:
- f/u urine culture & sensitivities
- Blood cultures no growth in 24h
- received ceftriaxone and will be discharged on cephalexin 7 day course
Adrenal insufficiency
- can be an etiology of weakness,
- cortisol 1.2 at 4AM is significantly lower than expected
- ACTH stimulation testing results:
- Cortisol 0min pre = 2.6
- Cortisol 30min post = 8.7
- Cortisol 60min post = 11.1
- Electrolytes are within normal limits
Plan:
- stop methylprednisolone
- start hydrocortisone 20mg qAM and hydrocortisone 10mg qPM
Abdominal pain, nausea
- lipase within normal limits
- CT A/P largely no evidence for acute abdominal process
- etiology is most likely constipation because subjective complaints of abdominal pain decreased follow patient reported bowel movements
- CT A/P noted indeterminate lesions in pancreas and right lobe of liver that outpatient elective MRI is recommended
- patient on discharge paperwork has been instructed to follow-up on this
Severe aortic stenosis s/p TAVR
HFpEF
- she had pre-TAVR stent placed in 06/2025
- repeat echocardiogram this admission within normal limits LVEF 60-65%
- CT surgery and cardiology report: heart valve is okay
- continue aspirin, clopidogrel
- continue metoprolol succinate
- resume furosemide and valsartan upon discharge
Polymyalgia rheumatica
- stop methylprednisolone
- start hydrocortisone 20mg qAM and hydrocortisone 10mg qPM
Acute anemia likely dilutional
- Hgb drop to 9-10 but stable this admission
- possible that her baseline Hgb is 9-10 but given hypotension and possible severe dehydration, her Hgb was more elevated than typical
- all 3 cell lines dropped
- denies symptoms of blood loss
Essential HTN
- resume furosemide and valsartan upon discharge
HLD
- rosuvastatin 40mg upon discharge
GERD
- resume home medications
LUC
- does not require CPAP
Important imaging findings :
CXR 07/04/2025
IMPRESSION: Small left pleural effusion and adjacent atelectasis/consolidation, increased as compared to prior.
Abdominal x-ray 07/04/2025
IMPRESSION: Nonobstructive bowel gas pattern.
CT A/P with oral contrast 07/04/2025
IMPRESSION:
Limited evaluation without intravenous contrast.
Likely diffuse fatty liver with 11-12 mm right lobe relative slightly high attenuation lesion, INDETERMINATE on this study without intravenous contrast
Prior sigmoid anastomosis, grossly unremarkable. No intestinal obstruction, right lower quadrant inflammatory changes or free air.
Prior cholecystectomy.
Suspected 1.5 cm low-attenuation possibly cystic lesion of the tail of the pancreas, INDETERMINATE, particularly without intravenous contrast.
Consider elective MRI for more complete evaluation of right lobe hepatic and suspected pancreatic tail lesion.
Echocardiogram 07/04/2025
SUMMARY
1. Limited follow-up 2D echocardiogram.
2. Vigorous left ventricular systolic function with LV ejection fraction visually estimated 60-65%.
3. Normal RV size and systolic function.
4. 23 mm Medtronic Evolut transcatheter aortic valve replacement present. Valve appears well-seated. Peak/mean transaortic gradients of 14/6 mmHg. no valvular or paravalvular regurgitation.
5. Mild mitral stenosis with mean mitral valve gradient 6 mmHg and dense mitral annular calcification. Trace mitral regurgitation. Mobile echodensity consistent with previously known torn chordae tendinae.
6. No pericardial effusion.
7. Compared to prior study dated 06/23/2025, small pericardial effusion not present. Otherwise no significant change.
Discharge Plan
-
Patient Disposition: Home with Home Care
Discharge Diagnosis/Procedures: Possible sepsis from UTI with encephalopathy, adrenal insufficiency, severe aortic stenosis s/p TAVR, HFpEF, polymyalgia rheumatica, HTN, HLD, GERD
Condition: Fair
Diet: Low Cholesterol
Activity: As tolerated
Driving Restrictions: As prior to admission
Bathing Restrictions: None
Other Services: VN
Activity Restrictions/Additional Instructions:
You have been found on your CT scan of your abdomen/pelvis to have an indeterminate lesion on your pancreas and right lobe of your liver. This cannot be identified further based on that study.
It is recommended that you undergo an MRI of the abdomen for better evaluation.
Please address this with your primary doctor.
Referrals:
[facility] [Outside]
Paul Torres DO [Family Provider, Family Practice]
Additional Discharge Medication Instructions: Please stop your methylprednisolone 4mg, and instead take 20mg hydrocortisone in the AM daily and 10mg hydrocortisone at night daily. This is to address your adrenal insufficiency and your polymyalgia
rheumatica.
You will take keflex 500mg bid for 7 more days.
Please follow-up for outpatient MRI for indeterminate lesions in pancreas and right lobe of liver.
You should follow-up with your PCP in 1 week.
you may continue your other medications as below.
Prescriptions:
New
hydrocortisone 10 mg tablet
10 mg PO QPM Qty: 30 0RF
Rx Instructions:
Please take 10mg hydrocortisone daily in EVENING
cephalexin 500 mg capsule
500 mg PO BID Qty: 14 0RF
Rx Instructions:
Please take 500mg cephalexin 500mg bid for 7 more days.
hydrocortisone 10 mg tablet
20 mg PO DAILY Qty: 90 0RF
Rx Instructions:
Please take 20mg hydrocortisone (2 tablets) in AM
10 mg hydrocortisone (1 tablet) in PM
Continued
pantoprazole 40 mg Tablet,Delayed Release (Dr/Ec)
40 mg PO DAILY
sucralfate 1 gram tablet
1 g PO QIDPRN PRN (Reason: abdominal pain)
famotidine 40 mg tablet
40 mg PO DAILY
tramadol 50 mg tablet
50 mg PO Q6HPRN PRN (Reason: moderate-severe pain)
aspirin 81 mg Tablet,Delayed Release (Dr/Ec)
81 mg PO DAILY
furosemide 20 mg Tablet
20 mg PO DAILY Qty: 30 11RF
metoprolol succinate 25 mg Tablet Extended Release 24 Hr
12.5 mg PO DAILY Qty: 30 0RF
clopidogrel 75 mg Tablet
75 mg PO DAILY Qty: 30 0RF
alprazolam 0.5 mg tablet
0.5 mg PO HSPRN PRN (Reason: anxiety)
Patient Comments:
azelastine 137 mcg (0.1 %) spray,non-aerosol
1 spray INTRANASAL DAILYPRN PRN (Reason: allergies/runny nose)
polyethylene glycol 3350 17 gram Powder In Packet
17 g PO DAILYPRN PRN (Reason: constipation)
valsartan 160 mg Tablet
160 mg PO DAILY Qty: 30 11RF
potassium chloride 20 mEq Tablet Extended Release
20 meq PO BID
rosuvastatin 10 mg tablet
40 mg PO DAILY
Discontinued
methylprednisolone 4 mg Tablet
4 mg PO DAILY
Discharge Orders:
Discharge Patient (As Directed); Ordered 07/06/25
Ordered By: Narciso Cruz
Care Plan Goals
Care Plan Goals:
Problem: Readiness for enhanced knowledge related to diagnosis and treatment plan
Goal: Understand your diagnosis and treatment plan needs, including medications if applicable.
Instructions: Know your diagnosis, underlying causes and treatment plan options, including medications if applicable. Consult with your health care team to learn about your diagnosis and treatment plan, including medications if applicable.
Discharge Date and Time
Print Language: UKRAINIAN
--- NOTE | 2025-07-06 17:50 | PTCARENOTE ---
Discharge instructions reviewed with patient. Telemetry pack and PIV INT x2 removed. Patient and significant other verbalized understanding of instructions. Discharge to home with significant other driving patient.
--- NOTE | 2025-07-07 15:07 | W.PN.UPDATE ---
Update Note
Progress Note Update
Follow-up urine cutlure grew Ecoli ESBL
After discussion with Dr. De La Rosa, will be prescribing doxycycline 100mg po BID 7 day course
Called Panchito, the partner, and he is aware of the update and they will bring this up in their PCP appointment.
== END 2025-07-06 17:53 | disposition home health service (06) ==
LOC: IVU 14:25
PROVIDERS: Nurse Practitioner Family; ADMITTING PHYSICIAN Internal Medicine; CONSULT PHYSICIAN Internal Medicine Cardiovascular Disease; EMERGENCY PHYSICIAN Emergency Medicine; FAMILY PHYSICIAN Family Medicine
DX: N39.0 Urinary tract infection, site not specified (principal); G93.40 Encephalopathy, unspecified; R53.1 Weakness; R53.83 Other fatigue; K59.00 Constipation, unspecified; I95.9 Hypotension, unspecified; R00.0 Tachycardia, unspecified; E78.00 Pure hypercholesterolemia, unspecified; I11.0 Hypertensive heart disease with heart failure; I25.10 Atherosclerotic heart disease of native coronary artery without angina pectoris; R07.9 Chest pain, unspecified; M35.3 Polymyalgia rheumatica; E27.40 Unspecified adrenocortical insufficiency; R11.0 Nausea; K21.9 Gastro-esophageal reflux disease without esophagitis; K86.2 Cyst of pancreas; I45.2 Bifascicular block; D64.9 Anemia, unspecified; I34.81 Nonrheumatic mitral (valve) annulus calcification; I34.0 Nonrheumatic mitral (valve) insufficiency; I83.90 Asymptomatic varicose veins of unspecified lower extremity; G47.33 Obstructive sleep apnea (adult) (pediatric); J98.11 Atelectasis; J90 Pleural effusion, not elsewhere classified; N28.9 Disorder of kidney and ureter, unspecified; I51.1 Rupture of chordae tendineae, not elsewhere classified; I50.32 Chronic diastolic (congestive) heart failure; I70.0 Atherosclerosis of aorta; I25.2 Old myocardial infarction; Z95.5 Presence of coronary angioplasty implant and graft; Z79.899 Other long term (current) drug therapy; Z95.3 Presence of xenogenic heart valve; Z90.49 Acquired absence of other specified parts of digestive tract; Z79.82 Long term (current) use of aspirin; Z79.02 Long term (current) use of antithrombotics/antiplatelets; Z87.440 Personal history of urinary (tract) infections; Z79.52 Long term (current) use of systemic steroids; Z86.711 Personal history of pulmonary embolism; Z82.49 Family history of ischemic heart disease and other diseases of the circulatory system; Z82.5 Family history of asthma and other chronic lower respiratory diseases; Z90.710 Acquired absence of both cervix and uterus
CPT/HCPCS: 51701; 71045; 74018; 74176; 80048; 80053; 81003; 81015; 82024; 82533; 83605; 83690; 83735; 83880; 84443; 85025; 85027; 87040; 87077; 87086; 87186; 93005; 93308; 93321; 93325; 96374; 97163; 97167; 97530; 99291; G0378

== ENCOUNTER → 2025-08-02 14:45 | Outpatient (REF) | payer MEDICARE, OTHER, SELFPAY | LOC: REG 14:45 | PROVIDERS: ATTENDING PHYSICIAN Anesthesiology; FAMILY PHYSICIAN Family Medicine | DX: Z79.891 Long term (current) use of opiate analgesic (principal); G89.4 Chronic pain syndrome | CPT/HCPCS: 80307 ==